=== PATIENT | female | born 1980 | race Caucasian/White ===

== ENCOUNTER → 2019-09-22 | Outpatient (CLI) | payer BC, OTHER ==
--- NOTE | 2019-09-22 13:46 | Diagnostic Imaging Report ---
INDICATION: BRONCHITIS. COMPARISON: None. FINDINGS: Frontal and lateral views of the chest demonstrate normal heart size and pulmonary vascularity. The lungs are clear. There are no signs of infiltrate, pleural effusions or pneumothoraces. The visualized osseous structures show no acute abnormalities. IMPRESSION: 1. No acute process. No signs of infiltrates, effusions or pneumothoraces. Dictated by: Dictated on workstation # [id number]
== END ==
LOC: RAD FS 13:33
PROVIDERS: ATTEND Emergency Medicine
DX: J40 Bronchitis, not specified as acute or chronic (principal)
CPT/HCPCS: 71046

== ENCOUNTER 2019-11-15 08:01 | Emergency (ER) | payer BC, OTHER ==
[~2019-11-15] VITALS: Ht 162.6 cm; Wt 75.9 kg
--- NOTE | 2019-11-15 08:36 | ED Abdominal Pain ---
General Chief Complaint: Abdominal/GI Problems Stated Complaint: ABD PAIN Source of Information: Patient Exam Limitations: No Limitations History of Present Illness Date Seen by Provider: Nov 15, 2019 Time Seen by Provider: 08:15 Initial Comments The patient is a 39-year-old female who presents for evaluation of 2 months of lower abdominal discomfort. She states that she has had a partial hysterectomy but still has both ovaries and has a previous history of endometriosis and also has a history of irritable bowel syndrome. She has a PCP and a sr. social media & mobile manager but has not seen either of them during the last 2 months while she has been having this discomfort. She denies fevers or chills, nausea or vomiting, urinary com plaints, pelvic pain/bleeding/discharge, chest pain or shortness of breath, dizziness or syncope. She does report some intermittent diarrhea. She currently rates her pain at a 6 out of 10. Timing/Duration: Other (2 months) Severity/Quality: Moderate Location: Suprapubic Radiation: Back Activities at Onset: None Modifying Factors: Improves With Other (naproxen) Associated Symptoms: Denies Symptoms Allergies and Home Medications Allergies Coded Allergies: latex (Verified Allergy, Unknown, 11/15/19) Patient Home Medication List Home Medication List Reviewed: Yes Review of Systems Review of Systems Constitutional: no symptoms reported; No fever EENTM: No Symptoms Reported Respiratory: No Symptoms Reported Cardiovascular: No Symptoms Reported Gastrointestinal: Abdominal Pain, Diarrhea; Denies Vomiting Genitourinary: No Symptoms Reported; Denies Burning, Denies Discharge, Denies Flank Pain, Denies Hematuria, Denies Urgency Musculoskeletal: no symptoms reported Skin: no symptoms reported Psychiatric/Neurological: No Symptoms Reported Endocrine: No Symptoms Reported Hematologic/Lymphatic: No Symptoms Reported All Other Systems Reviewed Negative Unless Noted: Yes Past Vjwurfc-Fvrark-Fsjqhp Hx Past Med/Social Hx: Reviewed Nursing Past Med/Soc Hx Patient Social History Recent Foreign Travel: No Physical Exam Vital Signs Vital Signs - First Documented 11/15/19 08:10 Temp 36.1 Pulse 96 Resp 18 B/P (MAP) 138/88 (105) Pulse Ox 100 O2 Delivery Room Air Capillary Refill : Height/Weight/BMI Height: '" Weight: lbs. oz. kg; BMI Method: General Appearance: WD/WN, no apparent distress HEENT: PERRL/EOMI, TMs normal Neck: non-tender, full range of motion Respiratory: chest non-tender, lungs clear, normal breath sounds, no respiratory distress Gastrointestinal: normal bowel sounds, non tender, soft Extremities: normal range of motion, non-tender, normal inspection, no pedal edema Back: normal inspection, no CVA tenderness, no vertebral tenderness Neurologic/Psychiatric: account executive healthcare II-XII nml as tested, no motor/sensory deficits, alert, oriented x 3 Skin: normal color, warm/dry Progress/Results/Core Measures Results/Orders Lab Results Laboratory Tests Test 11/15/19 08:05 11/15/19 08:15 Range/Units Urine Color YELLOW Urine Clarity SL CLOUDY Urine pH 6.0 5-9 Urine Specific [place] 1.020 1.016-1.022 Urine Protein NEGATIVE NEGATIVE Urine Glucose (UA) NEGATIVE NEGATIVE Urine Ketones NEGATIVE NEGATIVE Urine Nitrite NEGATIVE NEGATIVE Urine Bilirubin NEGATIVE NEGATIVE Urine Urobilinogen 0.2 < = 1.0 MG/DL Urine Leukocyte Esterase 1+ H NEGATIVE Urine RBC (Auto) NEGATIVE NEGATIVE Urine RBC 0-2 /HPF Urine WBC 25-50 H /HPF Urine Squamous Epithelial Cells 5-10 /HPF Urine Crystals PRESENT H /LPF Urine Calcium Oxalate Crystals MODERATE H /LPF Urine Bacteria NEGATIVE /HPF Urine Casts NONE /LPF Urine Mucus SMALL H /LPF Urine Culture Indicated YES White Blood Count 10.0 4.3-11.0 10^3/uL Red Blood Count 4.39 4.35-5.85 10^6/uL Hemoglobin 13.6 11.5-16.0 G/DL Hematocrit 40 35-52 % Mean Corpuscular Volume 92 80-99 FL Mean Corpuscular Hemoglobin 31 25-34 PG Mean Corpuscular Hemoglobin Concent 34 32-36 G/DL Red Cell Distribution Width 13.4 10.0-14.5 % Platelet Count 394 130-400 10^3/uL Mean Platelet Volume 10.5 H 7.4-10.4 FL Neutrophils (%) (Auto) 60 42-75 % Lymphocytes (%) (Auto) 27 12-44 % Monocytes (%) (Auto) 8 0-12 % Eosinophils (%) (Auto) 4 0-10 % Basophils (%) (Auto) 1 0-10 % Neutrophils # (Auto) 6.0 1.8-7.8 X 10^3 Lymphocytes # (Auto) 2.8 1.0-4.0 X 10^3 Monocytes # (Auto) 0.8 0.0-1.0 X 10^3 Eosinophils # (Auto) 0.4 H 0.0-0.3 10^3/uL Basophils # (Auto) 0.1 0.0-0.1 10^3/uL Sodium Level 138 135-145 MMOL/L Potassium Level 4.0 3.6-5.0 MMOL/L Chloride Level 104 98-107 MMOL/L Carbon Dioxide Level 23 21-32 MMOL/L Anion Gap 11 5-14 MMOL/L Blood Urea Nitrogen 14 7-18 MG/DL Creatinine 0.71 0.60-1.30 MG/DL Estimat Glomerular Filtration Rate > 60 BUN/Creatinine Ratio 20 Glucose Level 76 70-105 MG/DL Calcium Level 9.1 8.5-10.1 MG/DL Corrected Calcium 9.2 8.5-10.1 MG/DL Total Bilirubin 0.2 0.1-1.0 MG/DL Aspartate Amino Transf (AST/SGOT) 15 5-34 U/L Alanine Aminotransferase (ALT/SGPT) 16 0-55 U/L Alkaline Phosphatase 84 40-136 U/L Total Protein 7.0 6.4-8.2 GM/DL Albumin 3.9 3.2-4.5 GM/DL Lipase 33 8-78 U/L My Orders Orders - JAKY LOREDO DO Ua Culture If Indicated (11/15/19 08:02) Comprehensive Metabolic Panel (11/15/19 08:23) Lipase (11/15/19 08:23) Ed Iv/Invasive Line Start (11/15/19 08:23) Cbc With Automated Diff (11/15/19 08:23) Ct Abdomen/Pelvis W (11/15/19 08:23) Iohexol Injection (Omnipaque 350 Mg/Ml 1 (11/15/19 08:45) Received Contrast (Hold Metformin- Contr (11/15/19 08:45) Sodium Chloride Flush (Catheter Flush Sy (11/15/19 08:45) Ns (Ivpb) (Sodium Chloride 0.9% Ivpb Bag (11/15/19 08:45) Urine Culture (11/15/19 08:05) Ns Iv 1000 Ml (Sodium Chloride 0.9%) (11/15/19 09:30) Morphine Injection (Morphine Injection (11/15/19 09:21) Ketorolac Injection (Toradol Injection) (11/15/19 09:30) Ondansetron Injection (Zofran Injectio (11/15/19 09:30) Ceftriaxone For Iv Use (Rocephin For I (11/15/19 10:45) Hydromorphone Injection (Dilaudid Inject (11/15/19 11:00) Medications Given in ED Current Medications Medications Dose Ordered Sig/Matti Route Start Time Stop Time Status Last Admin Dose Admin Ceftriaxone Sodium 1000 mg/ Sterile Water 10 ml @ 200 mls/hr ONCE ONCE IV 11/15/19 10:45 11/15/19 10:47 DC 11/15/19 11:10 200 MLS/HR Hydromorphone HCl 1 mg ONCE ONCE IV 11/15/19 11:00 11/15/19 11:01 DC 11/15/19 11:10 1 MG Iohexol 100 ml ONCE ONCE IV 11/15/19 08:45 11/15/19 08:46 DC 11/15/19 10:08 100 ML Ketorolac Tromethamine 30 mg ONCE ONCE IVP 11/15/19 09:30 11/15/19 09:31 DC 11/15/19 09:48 30 MG Ondansetron HCl 4 mg ONCE ONCE IVP 11/15/19 09:30 11/15/19 09:31 DC 11/15/19 09:48 4 MG Sodium Chloride 10 ml NEEDED PRN IV 11/15/19 08:45 11/15/19 10:08 10 ML Sodium Chloride 100 ml ONCE ONCE IV 11/15/19 08:45 11/15/19 08:46 DC 11/15/19 10:08 80 ML Vital Signs/I&O 11/15/19 08:10 Temp 36.1 Pulse 96 Resp 18 B/P (MAP) 138/88 (105) Pulse Ox 100 O2 Delivery Room Air Progress Progress Note : Progress Note @1050 - Patient informed of lab and imaging results including the finding of an obstructing right-sided kidney stone. The patient is still having pain and is agreeable to transfer to a higher level urology [facility]. Her preferred facility is [facility] as she is been admitted there in the past and has some of her physicians located there. [facility] transfer line was called at this time. @1120 - Dr. Kern (transfer physician) accepts the transfer to [facility]. Dr. Michael Chery (urology) also on the call. Pt stable for transfer and agreeable. Diagnostic Imaging Diagonstic Imaging: CT Comments [facility] [place] [place] NAME: [facility]Z [facility] REC#: [id number] PT STATUS: REG ER : 1980 PHYSICIAN: JAKY LOREDO DO ADMIT DATE: 11/15/19/ER FS Draft Date of Exam:11/15/19 CT ABDOMEN/PELVIS W EXAMINATION: CT Abdomen and Pelvis with intravenous contrast. TECHNIQUE: Multiple contiguous axial images were obtained through the abdomen and pelvis after the uneventful administration of intravenous contrast. All CT scans use one or more of the following dose optimizing techniques: automated exposure control, MA and/or KvP adjustment based on a patient size and exam type, or iterative reconstruction. INDICATION: Lower abdominal pain. COMPARISON: None available. FINDINGS: Limited views of the lower thorax are unremarkable. The liver is normal without focal lesion. There is no biliary ductal dilation. Gallbladder is normal. Pancreas is normal. Spleen is normal. Adrenal glands are normal. There is an obstructing 6 mm stone in the distal right ureter. There is moderate right-sided hydroureter with urothelial enhancement. There is mild right hydronephrosis. There are bilateral nonobstructing renal stones measuring up to 4 mm. Urinary bladder is normal. There are no dilated loops of large or small bowel. No obstruction or inflammation. No free fluid or air. No abdominal or pelvic lymphadenopathy. Aorta is normal in caliber without aneurysm. There is disc height loss at L4/L5. Epidural soft tissue at this location is likely a large disc protrusion, but difficult to evaluate on non-spine dedicated imaging. This lesion results in severe spinal canal stenosis. IMPRESSION: 1. Obstructing 6 mm stone in the distal right ureter with moderate right hydroureter and mild right hydronephrosis. Enhancement of the urothelium is indicative of urothelial inflammation can be seen with an infected collecting system. 2. Severe spinal canal stenosis at L4/L5 due to epidural soft tissue likely representing enlarged disc protrusion but difficult to evaluate are non-spine dedicated imaging. If not done previously, then MRI is recommended to ensure this is related to disc disease. Dictated on workstation # [id number] Dict: 11/15/19 0853 Trans: 11/15/19 0904 [id number] Interpreted by: SILVIA CHANG MD Electronically signed by: Departure Impression Primary Impression: Right distal ureteral calculus Additional Impression: Abdominal pain Disposition: XFER SHT-TRM HOSP Condition: Stable Transfer Transfer Reason: Exceeds level of care Time Spoke to Accepting Phy: 11:[address] Kern at [facility] accepts the transfer with a urology consultation from Dr. Michael Chery. Transfer Time: 11:25 Transfer Facility: [facility] Method of Transfer: EMS Departure-Patient Inst. Referrals: SAAD YIN DO (PCP/Family) Primary Care Physician JAKY LOREDO DO Nov 15, 2019 08:36
[2019-11-15 08:45] LABS: BACTERIA,URINE NEGATIVE /HPF; BILIRUBIN,URINE NEGATIVE (NEGATIVE); CLARITY,URINE SL CLOUDY; COLOR,URINE YELLOW; GLUCOSE, URINE (UA) NEGATIVE (NEGATIVE); KETONES,URINE NEGATIVE (NEGATIVE); LEUKOCYTE ESTERASE ,URINE 1+ (NEGATIVE); NITRITE,URINE NEGATIVE (NEGATIVE); PROTEIN,URINE NEGATIVE (NEGATIVE); RBC,URINE 0-2 /HPF; WBC,URINE 25-50 /HPF
[2019-11-15] MEDS ORDERED: HOLD METFORMIN - RECEIVED CONTRAST 20 ML VIAL IV SCH (08:45)
[2019-11-15] MEDS ORDERED: CATHETER FLUSH 10 ML SYR IV PRN (08:45)
[2019-11-15] MEDS ORDERED: NS 100 ML (IVPB) BAG IV ONE (08:45)
[2019-11-15] MEDS ORDERED: IOHEXOL 350 MG/ML 100 ML (OMNIPAQUE 350) VIAL IV ONE (08:45)
[2019-11-15 08:46] LABS: CALCIUM OXALATE CRYSTALS,UR MODERATE /LPF
[2019-11-15 08:47] LABS: BASOPHILS % (AUTO) 1 % (0-10); EOSINOPHILS % (AUTO) 4 % (0-10); HEMATOCRIT 40 % (35-52); HEMOGLOBIN 13.6 G/DL (11.5-16.0); MEAN CORPUSCULAR HEMOGLOBIN 31 PG (25-34); MEAN CORPUSCULAR HGB CONC 34 G/DL (32-36); MEAN CORPUSCULAR VOLUME 92 FL (80-99); MEAN PLATELET VOLUME 10.5 FL (7.4-10.4); MONOCYTES % (AUTO) 8 % (0-12); NEUTROPHILS % (AUTO) 60 % (42-75); PLATELET COUNT 394 10^3/uL (130-400); RED CELL DISTRIBUTION WIDTH 13.4 % (10.0-14.5)
[2019-11-15 08:49] LABS: BASOPHILS # (AUTO) 0.1 10^3/uL (0.0-0.1); EOSINOPHILS # (AUTO) 0.4 10^3/uL (0.0-0.3); LYMPHOCYTES # (AUTO) 2.8 X 10^3 (1.0-4.0); LYMPHOCYTES % (AUTO) 27 % (12-44); MONOCYTES # (AUTO) 0.8 X 10^3 (0.0-1.0)
[2019-11-15 08:50] LABS: ALANINE AMINOTRANSFERASE 16 U/L (0-55); ALBUMIN 3.9 GM/DL (3.2-4.5); ALKALINE PHOSPHATASE 84 U/L (40-136); BILIRUBIN,TOTAL 0.2 MG/DL (0.1-1.0); BUN/CREATININE RATIO 20; CALCIUM 9.1 MG/DL (8.5-10.1); CARBON DIOXIDE 23 MMOL/L (21-32); CHLORIDE 104 MMOL/L (98-107); CREATININE SERUM 0.71 MG/DL (0.60-1.30); GFR ESTIMATED > 60; GLUCOSE 76 MG/DL (70-105); LIPASE 33 U/L (8-78); SODIUM 138 MMOL/L (135-145)
--- NOTE | 2019-11-15 09:04 | Diagnostic Imaging Report ---
EXAMINATION: CT Abdomen and Pelvis with intravenous contrast. TECHNIQUE: Multiple contiguous axial images were obtained through the abdomen and pelvis after the uneventful administration of intravenous contrast. All CT scans use one or more of the following dose optimizing techniques: automated exposure control, MA and/or KvP adjustment based on a patient size and exam type, or iterative reconstruction. INDICATION: Lower abdominal pain. COMPARISON: None available. FINDINGS: Limited views of the lower thorax are unremarkable. The liver is normal without focal lesion. There is no biliary ductal dilation. Gallbladder is normal. Pancreas is normal. Spleen is normal. Adrenal glands are normal. There is an obstructing 6 mm stone in the distal right ureter. There is moderate right-sided hydroureter with urothelial enhancement. There is mild right hydronephrosis. There are bilateral nonobstructing renal stones measuring up to 4 mm. Urinary bladder is normal. There are no dilated loops of large or small bowel. No obstruction or inflammation. No free fluid or air. No abdominal or pelvic lymphadenopathy. Aorta is normal in caliber without aneurysm. There is disc height loss at L4/L5. Epidural soft tissue at this location is likely a large disc protrusion, but difficult to evaluate on non-spine dedicated imaging. This lesion results in severe spinal canal stenosis. IMPRESSION: 1. Obstructing 6 mm stone in the distal right ureter with moderate right hydroureter and mild right hydronephrosis. Enhancement of the urothelium is indicative of urothelial inflammation can be seen with an infected collecting system. 2. Severe spinal canal stenosis at L4/L5 due to epidural soft tissue likely representing enlarged disc protrusion but difficult to evaluate are non-spine dedicated imaging. If not done previously, then MRI is recommended to ensure this is related to disc disease. Dictated by: Dictated on workstation # [id number]
[2019-11-15 09:15] VITALS: BP 138/81
[2019-11-15] MEDS ORDERED: morphine INJ 10 MG/ML 1ML (SYR OR VIAL) IVP STA (09:21)
[2019-11-15] MEDS ORDERED: ONDANSETRON 4 MG/2 ML (SDV) Z0FRAN IVP ONE (09:30)
[2019-11-15] MEDS ORDERED: KETOROLAC 30 MG/ML VIAL IVP ONE (09:30)
[2019-11-15] MEDS ORDERED: NS IV 1000 ML 1,000 ML IV SCH (09:30)
[2019-11-15] MEDS ORDERED: cefTRIAXone FOR IV USE 1,000 MG in WATER (STERILE) FOR INJECTION 10 ML IV ONE (10:45)
[2019-11-15] MEDS ORDERED: HYDROmorphone 2 MG/ML VIAL (DILAUDID) IV ONE (11:00)
[2019-11-15] MEDS ORDERED: HYDROmorphone 2 MG/ML VIAL (DILAUDID) ONE (11:00)
[2019-11-15 12:01] VITALS: BP 128/79
== END 2019-11-15 12:30 | disposition short-term general hospital (02) ==
LOC: EDUNIT# 08:01 → ER FS 08:02
DX: N13.2 Hydronephrosis with renal and ureteral calculous obstruction (principal); Z91.040 Latex allergy status
CPT/HCPCS: 36415; 74177; 80053; 81000; 83690; 85025; 87088

== ENCOUNTER 2019-12-09 02:26 | Emergency (ER) | payer BC, OTHER ==
[~2019-12-09] VITALS: Ht 162 cm; Wt 75.9 kg
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
[2019-12-09] MEDS ORDERED: NS IV 1000 ML 1,000 ML IV STA (03:25)
[2019-12-09] MEDS ORDERED: KETOROLAC 30 MG/ML VIAL IVP STA (03:25)
[2019-12-09 03:46] LABS: BASOPHILS % (AUTO) 1 % (0-10); EOSINOPHILS % (AUTO) 0 % (0-10); HEMATOCRIT 40 % (35-52); HEMOGLOBIN 13.8 G/DL (11.5-16.0); LYMPHOCYTES # (AUTO) 1.7 X 10^3 (1.0-4.0); LYMPHOCYTES % (AUTO) 31 % (12-44); MEAN CORPUSCULAR HEMOGLOBIN 31 PG (25-34); MEAN CORPUSCULAR HGB CONC 34 G/DL (32-36); MEAN CORPUSCULAR VOLUME 90 FL (80-99); MEAN PLATELET VOLUME 10.2 FL (7.4-10.4); MONOCYTES # (AUTO) 0.8 X 10^3 (0.0-1.0); MONOCYTES % (AUTO) 15 % (0-12); NEUTROPHILS % (AUTO) 53 % (42-75); PLATELET COUNT 309 10^3/uL (130-400); RED CELL DISTRIBUTION WIDTH 13.4 % (10.0-14.5); WHITE BLOOD COUNT 5.6 10^3/uL (4.3-11.0)
[2019-12-09 03:58] LABS: ALANINE AMINOTRANSFERASE 24 U/L (0-55); ALBUMIN 4.2 GM/DL (3.2-4.5); ALKALINE PHOSPHATASE 98 U/L (40-136); BILIRUBIN,TOTAL 0.2 MG/DL (0.1-1.0); BUN/CREATININE RATIO 13; CALCIUM 10.4 MG/DL (8.5-10.1); CARBON DIOXIDE 27 MMOL/L (21-32); CHLORIDE 102 MMOL/L (98-107); GFR ESTIMATED > 60; GLUCOSE 104 MG/DL (70-105); POTASSIUM 3.5 MMOL/L (3.6-5.0); SODIUM 140 MMOL/L (135-145); TOTAL PROTEIN 7.4 GM/DL (6.4-8.2)
[2019-12-09] MEDS ORDERED: ONDANSETRON 4 MG/2 ML (SDV) Z0FRAN IVP STA (04:35)
[2019-12-09] MEDS ORDERED: methylPREDNISolone 40 MG/ML (Solu-MEDROL) VIAL IV STA (05:06)
[2019-12-09] MEDS ORDERED: methylPREDNISolone 40 MG/ML (DEPO MEDROL) VIAL IM STA (05:06)
[2019-12-09 05:20] VITALS: BP 120/71
--- NOTE | 2019-12-09 06:11 | Diagnostic Imaging Report ---
INDICATION: Cough, fever. TECHNIQUE: Two view chest 3:36 AM CORRELATION STUDY: 09/22/2019 FINDINGS: The heart size, mediastinal configuration and pulmonary vasculature are within normal limits. The lungs are clear with no consolidating infiltrate. There is no significant pleural effusion or pneumothorax. Visualized osseous structures are unremarkable. IMPRESSION: 1. Negative for acute abnormality of the chest. Dictated by: Dictated on workstation # [id number]
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
== END 2019-12-09 05:21 | disposition home or self-care (01) ==
LOC: EDUNIT# 02:26 → ER FS 02:28
DX: S90.31XA Contusion of right foot, initial encounter (principal); J06.9 Acute upper respiratory infection, unspecified; Z91.040 Latex allergy status; V48.2XXA Person on outside of car injured in noncollision transport accident in nontraffic accident, initial encounter
CPT/HCPCS: 36415; 71046; 73630; 80053; 85025; 87804; 96361; 96374; 96375

== ENCOUNTER 2020-04-22 15:46 | Emergency (ER) | payer BC, OTHER ==
[~2020-04-22] VITALS: Ht 162 cm; Wt 79.3 kg
[2020-04-22] MEDS ORDERED: ONDANSETRON 4 MG/2 ML (SDV) Z0FRAN IVP ONE (16:15)
[2020-04-22] MEDS ORDERED: fentaNYL INJECTION 100 MCG/2 ML AMP IVP ONE (16:15)
--- NOTE | 2020-04-22 16:18 | ED Abdominal Pain ---
General Chief Complaint: Abdominal/GI Problems Stated Complaint: ABD/LOWER BACK PAIN History of Present Illness Date Seen by Provider: Apr 22, 2020 Time Seen by Provider: 16:15 Initial Comments Pt presents with lower abdominal pain x about 2 weeks. She was seen by a Urologist in [address] days ago and had [address] and was told no kidney stones. She feels nauseated at times due to the pain. No diarrhea. She has had a hysterectomy, still has ovaries, did have endometriosis in the past. No fever but felt some chills last night. Allergies and Home Medications Allergies Coded Allergies: latex (Verified Allergy, Unknown, 11/15/19) Patient Home Medication List Home Medication List Reviewed: Yes Review of Systems Review of Systems Constitutional: chills; No fever EENTM: No Symptoms Reported Respiratory: No Symptoms Reported Cardiovascular: No Symptoms Reported Gastrointestinal: Abdominal Pain, Nausea Genitourinary: No Symptoms Reported Musculoskeletal: no symptoms reported Skin: no symptoms reported Psychiatric/Neurological: No Symptoms Reported Past Xhrunlp-Vceccv-Srcbyu Hx Patient Social History 2nd Hand Smoke Exposure: No Recent Hopitalizations: No Seasonal Allergies Seasonal Allergies: No Past Medical History Surgeries: Yes Ear Surgery, Hysterectomy Respiratory: No Cardiac: No Neurological: No Female Reproductive Disorders: Polycystic Ovarian Dis 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 oz. kg; 28.00 BMI Method: General Appearance: WD/WN, no apparent distress Neck: supple Respiratory: lungs clear, normal breath sounds Cardiovascular: regular rate, rhythm, no edema Gastrointestinal: soft, tenderness (lower abdominal) Neurologic/Psychiatric: no motor/sensory deficits, normal mood/affect, oriented x 3 Skin: normal color, warm/dry Progress/Results/Core Measures Results/Orders Lab Results Laboratory Tests Test 04/22/20 15:55 04/22/20 16:45 Range/Units Urine Color YELLOW Urine Clarity CLEAR Urine pH 6.0 5-9 Urine Specific [place] 1.010 L 1.016-1.022 Urine Protein NEGATIVE NEGATIVE Urine Glucose (UA) NEGATIVE NEGATIVE Urine Ketones NEGATIVE NEGATIVE Urine Nitrite NEGATIVE NEGATIVE Urine Bilirubin NEGATIVE NEGATIVE Urine Urobilinogen 0.2 < = 1.0 MG/DL Urine Leukocyte Esterase NEGATIVE NEGATIVE Urine RBC (Auto) 1+ H NEGATIVE Urine RBC 2-5 H /HPF Urine WBC RARE /HPF Urine Squamous Epithelial Cells 0-2 /HPF Urine Crystals NONE /LPF Urine Bacteria NONE /HPF Urine Casts NONE /LPF Urine Mucus SMALL H /LPF Urine Culture Indicated NO White Blood Count 9.2 4.3-11.0 10^3/uL Red Blood Count 4.20 L 4.35-5.85 10^6/uL Hemoglobin 13.2 11.5-16.0 G/DL Hematocrit 38 35-52 % Mean Corpuscular Volume 91 80-99 FL Mean Corpuscular Hemoglobin 31 25-34 PG Mean Corpuscular Hemoglobin Concent 35 32-36 G/DL Red Cell Distribution Width 12.8 10.0-14.5 % Platelet Count 308 130-400 10^3/uL Mean Platelet Volume 10.3 7.4-10.4 FL Neutrophils (%) (Auto) 69 42-75 % Lymphocytes (%) (Auto) 20 12-44 % Monocytes (%) (Auto) 9 0-12 % Eosinophils (%) (Auto) 1 0-10 % Basophils (%) (Auto) 0 0-10 % Neutrophils # (Auto) 6.3 1.8-7.8 X 10^3 Lymphocytes # (Auto) 1.8 1.0-4.0 X 10^3 Monocytes # (Auto) 0.8 0.0-1.0 X 10^3 Eosinophils # (Auto) 0.2 0.0-0.3 10^3/uL Basophils # (Auto) 0.0 0.0-0.1 10^3/uL Sodium Level 140 135-145 MMOL/L Potassium Level 3.9 3.6-5.0 MMOL/L Chloride Level 107 98-107 MMOL/L Carbon Dioxide Level 24 21-32 MMOL/L Anion Gap 9 5-14 MMOL/L Blood Urea Nitrogen 13 7-18 MG/DL Creatinine 0.76 0.60-1.30 MG/DL Estimat Glomerular Filtration Rate > 60 BUN/Creatinine Ratio 17 Glucose Level 120 H 70-105 MG/DL Calcium Level 10.1 8.5-10.1 MG/DL Corrected Calcium 9.9 8.5-10.1 MG/DL Total Bilirubin 0.3 0.1-1.0 MG/DL Aspartate Amino Transf (AST/SGOT) 14 5-34 U/L Alanine Aminotransferase (ALT/SGPT) 18 0-55 U/L Alkaline Phosphatase 68 40-136 U/L Total Protein 6.7 6.4-8.2 GM/DL Albumin 4.2 3.2-4.5 GM/DL Lipase 27 8-78 U/L My Orders Orders - GREY LONGORIA MD Cbc With Automated Diff (04/22/20 16:13) Comprehensive Metabolic Panel (04/22/20 16:13) Lipase (04/22/20 16:13) Urinalysis (04/22/20 16:13) Fentanyl Injection (Sublimaze Injection (04/22/20 16:15) Ondansetron Injection (Zofran Injectio (04/22/20 16:15) Ct Abdomen/Pelvis W (04/22/20 16:13) Iohexol Injection (Omnipaque 350 Mg/Ml 1 (04/22/20 16:30) Received Contrast (Hold Metformin- Contr (04/22/20 16:30) Sodium Chloride Flush (Catheter Flush Sy (04/22/20 16:30) Ns (Ivpb) (Sodium Chloride 0.9% Ivpb Bag (04/22/20 16:30) Ketorolac Injection (Toradol Injection) (04/22/20 18:00) Medications Given in ED Current Medications Medications Dose Ordered Sig/Matti Route Start Time Stop Time Status Last Admin Dose Admin Fentanyl Citrate 50 mcg ONCE ONCE IVP 04/22/20 16:15 04/22/20 16:16 DC 04/22/20 16:53 50 MCG Iohexol 100 ml ONCE ONCE IV 04/22/20 16:30 04/22/20 16:31 DC 04/22/20 17:11 100 ML Ondansetron HCl 4 mg ONCE ONCE IVP 04/22/20 16:15 04/22/20 16:16 DC 04/22/20 16:53 4 MG Sodium Chloride 10 ml NEEDED PRN IV 04/22/20 16:30 04/22/20 17:11 10 ML Sodium Chloride 100 ml ONCE ONCE IV 04/22/20 16:30 04/22/20 16:31 DC 04/22/20 17:11 100 ML Vital Signs/I&O 04/22/20 15:54 Temp 36.7 Pulse 98 Resp 16 B/P (MAP) 133/84 (100) Pulse Ox 97 Progress Progress Note : Time: 17:58 Progress Note Left ureteral stone seen on CT. She has a Urologist in . Will discharge home with Joe Solares Cipro. Follow up with Urology. Departure Impression Primary Impression: Left ureteral stone Disposition: HOME, SELF-CARE Condition: Stable Departure-Patient Inst. Referrals: SAAD YIN DO (PCP/Family) Primary Care Physician Patient Instructions: Kidney Stones in Adults Add. Discharge Instructions: Call your Urologist tomorrow for follow up. All discharge instructions reviewed with patient and/or family. Voiced understanding. Scripts Tamsulosin HCl (Flomax) 0.4 Mg Cap 0.4 MG PO DAILY, #7 CAP Prov: GREY LONGORIA MD 04/22/20 Hydrocodone/Acetaminophen (Hydrocodone-Acetamin 5-325 mg) 1 Each Tablet 1 EACH PO Q6H PRN for PAIN-BREAKTHROUGH for 7 Days, #20 TAB Prov: GREY LONGORIA MD 04/22/20 Ciprofloxacin HCl (Ciprofloxacin HCl) 500 Mg Tablet 500 MG PO BID, #14 TAB Prov: GREY LONGORIA MD 04/22/20 GREY LONGORIA MD Apr 22, 2020 16:18
[2020-04-22] MEDS ORDERED: CATHETER FLUSH 10 ML SYR IV PRN (16:30)
[2020-04-22] MEDS ORDERED: HOLD METFORMIN - RECEIVED CONTRAST 20 ML VIAL IV SCH (16:30)
[2020-04-22] MEDS ORDERED: NS 100 ML (IVPB) BAG IV ONE (16:30)
[2020-04-22] MEDS ORDERED: IOHEXOL 350 MG/ML 100 ML (OMNIPAQUE 350) VIAL IV ONE (16:30)
[2020-04-22 16:53] LABS: HEMATOCRIT 38 % (35-52); HEMOGLOBIN 13.2 G/DL (11.5-16.0); MEAN CORPUSCULAR HEMOGLOBIN 31 PG (25-34); MEAN CORPUSCULAR HGB CONC 35 G/DL (32-36); MEAN CORPUSCULAR VOLUME 91 FL (80-99); RED CELL DISTRIBUTION WIDTH 12.8 % (10.0-14.5); WHITE BLOOD COUNT 9.2 10^3/uL (4.3-11.0)
[2020-04-22 16:54] LABS: BASOPHILS % (AUTO) 0 % (0-10); EOSINOPHILS # (AUTO) 0.2 10^3/uL (0.0-0.3); EOSINOPHILS % (AUTO) 1 % (0-10); LYMPHOCYTES # (AUTO) 1.8 X 10^3 (1.0-4.0); LYMPHOCYTES % (AUTO) 20 % (12-44); MEAN PLATELET VOLUME 10.3 FL (7.4-10.4); MONOCYTES # (AUTO) 0.8 X 10^3 (0.0-1.0); MONOCYTES % (AUTO) 9 % (0-12); NEUTROPHILS # (AUTO) 6.3 X 10^3 (1.8-7.8); NEUTROPHILS % (AUTO) 69 % (42-75); PLATELET COUNT 308 10^3/uL (130-400)
[2020-04-22 16:58] LABS: BILIRUBIN,URINE NEGATIVE (NEGATIVE); CLARITY,URINE CLEAR; COLOR,URINE YELLOW; GLUCOSE, URINE (UA) NEGATIVE (NEGATIVE); KETONES,URINE NEGATIVE (NEGATIVE); LEUKOCYTE ESTERASE ,URINE NEGATIVE (NEGATIVE); NITRITE,URINE NEGATIVE (NEGATIVE); PROTEIN,URINE NEGATIVE (NEGATIVE); SQUAMOUS EPITHELIAL CELL,UR 0-2 /HPF; WBC,URINE RARE /HPF
[2020-04-22 17:13] LABS: ALANINE AMINOTRANSFERASE 18 U/L (0-55); ALBUMIN 4.2 GM/DL (3.2-4.5); ALKALINE PHOSPHATASE 68 U/L (40-136); BILIRUBIN,TOTAL 0.3 MG/DL (0.1-1.0); BUN/CREATININE RATIO 17; CALCIUM 10.1 MG/DL (8.5-10.1); CARBON DIOXIDE 24 MMOL/L (21-32); CHLORIDE 107 MMOL/L (98-107); CREATININE SERUM 0.76 MG/DL (0.60-1.30); GFR ESTIMATED > 60; GLUCOSE 120 MG/DL (70-105); LIPASE 27 U/L (8-78); POTASSIUM 3.9 MMOL/L (3.6-5.0); SODIUM 140 MMOL/L (135-145); TOTAL PROTEIN 6.7 GM/DL (6.4-8.2)
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
--- NOTE | 2020-04-22 17:36 | Diagnostic Imaging Report ---
PROCEDURE: CT abdomen and pelvis with contrast. TECHNIQUE: Multiple contiguous axial images were obtained through the abdomen and pelvis after administration of intravenous contrast. Auto Exposure Controls were utilized during the CT exam to meet ALARA standards for radiation dose reduction. INDICATION: Abdominal pain, back pain and nausea. History of nephrolithiasis. COMPARISON: Prior examination from 11/15/2019. FINDINGS: The heart size is normal. The lung bases are clear. The liver is normal in size and without focal lesions. Gallbladder is unremarkable. There is no biliary duct dilatation. Spleen is normal. The pancreas and adrenal glands are unremarkable. There is a 4 mm nonobstructing stone in the right kidney. There is a 3 mm nonobstructing stone in the left kidney. There is mild left hydronephrosis secondary to a 3 mm stone in the distal left ureter just proximal to the left UVJ. Bladder is normal. The aorta is nonaneurysmal. Bowel gas pattern is nonspecific. There is no free air. There is no ascites. There is no pelvic mass, adenopathy or free fluid. There is some mild degenerative disc disease at L4-L5. The osseous structures are otherwise unremarkable IMPRESSION: 1. Mild left hydronephrosis and hydroureter secondary to a 3 mm stone in the distal left ureter just proximal to the left UVJ. There are additional small nonobstructing stones in both kidneys. 2. No other acute abnormality in the abdomen or pelvis. Dictated by: Dictated on workstation # [id number]
[2020-04-22] MEDS ORDERED: KETOROLAC 30 MG/ML VIAL IVP ONE (18:00)
[2020-04-22] MEDS ORDERED: KETOROLAC 30 MG/ML VIAL ONE (18:02)
[2020-04-22] MEDS ORDERED: TMSL.4C PO (18:05)
[2020-04-22] MEDS ORDERED: CIPR500T4 PO (18:05)
[2020-04-22] MEDS ORDERED: HYDR-83 PO (18:05)
[2020-04-22 18:23] VITALS: BP 96/53
[2020-04-22] MEDS ORDERED: RX-HYDROCODONE/APAP 5/325 MG #4 TAB PK PO PRN (18:30)
== END 2020-04-22 18:24 | disposition home or self-care (01) ==
LOC: EDUNIT# 15:46 → ER FS 15:47
DX: N13.2 Hydronephrosis with renal and ureteral calculous obstruction (principal); Z91.040 Latex allergy status
CPT/HCPCS: 36415; 74177; 80053; 81000; 83690; 85025

== ENCOUNTER 2021-08-22 12:57 | Emergency (ER) | payer BC, MEDICAID ==
[~2021-08-22] VITALS: Ht 167 cm; Wt 95.0 kg
[~2021-08-22 12:57] MED LIST: ACHD5005 PO; CIPR500T5 PO; TMSL.4C PO
--- OUTSIDE RECORDS SUMMARY | 2021-08-22 13:02 | XMS REPORT ---
Author Organization Unknown Address [address] [place] [address] Phone [phone] Care Team Providers Care Irrigation Specialist Name Role Phone Thee Babcock DO 3 [phone] Armita Kingston MD 82 [phone] Marcus Son DO 114 [phone] Reason for Visit None recorded. Assessment and Plan The following list includes any diagnoses that were discussed at your visit. 1. Post-inflammatory pulmonary fibrosis XR, chest, 2 view pulmonary function test* six minute walk test* nebulizer training / instruction* 2. Moderate persistent asthma Trelegy Ellipta 200 mcg-62.5 mcg-25 mc g powder for inhalation albuterol sulfate 2.5 mg/3 mL (0.083 % ) solution for nebulization 3. Restrictive lung disease 4. Body mass index 30+ - obesity body mass index: care instructions learning about healthy weight 5. Hypothyroidism hypothyroidism: care instructions Discussion Note: None recorded. Plan of Care Reminders Provider Appointments Return to Office on or around 09/02/2021 Mayo Son DO Lab None recorded. Referral None recorded. Procedures None recorded. Surgeries None recorded. Imaging XR, Chest, 2 View 07/03/2021 pg_[facility] Pulmo nology Current Medications Your medical record indicates you are on the following medicine. If this list is not consistentwith the medications you are currently taking, or if you are taki ng additional hugt-tcp-raepvjz medicines, pleaseinform your provider. Name Prescribed Date Start Date acetaminophen 120 mg-codeine 12 mg/5 mL oral solution albuterol sulfate 2.5 mg/3 mL (0.083 %) solution for nebulization Inhale 3 mL 3 times a day by nebulization route for 30 days. 07/03/2021 albuterol sulfate HFA 90 mcg/actuation a erosol inhaler INHALE 1 PUFF BY MOUTH EVERY 4 TO 6 HOURS NEEDED Arnuity Ellipta 200 mcg/actuation powder for inhalation INHALE 1 PUFF BY MOUTH ONCE DAILY Atrovent HFA 17 mcg/actuation aerosol inhaler benzonatate 100 mg capsule benzonatate 200 mg capsule TAKE 1 CAPSULE BY MOUTH THREE TIMES DAILY FOR 7 DAYS cefdinir 300 mg capsule TAKE 1 CAPSULE BY MOUTH TWICE DAILY FOR 7 DAYS clonazepam 0.5 mg tablet Take 1 tablet 3 times a day by oral route as needed. dexamethasone 2 mg tablet dexamethasone 4 mg tablet TAKE 1 TABLET BY MOUTH ONCE DAILY duloxetine 40 mg capsule,delayed release TAKE 1 CAPSULE BY MOUTH DAILY duloxetine 60 mg capsule,delayed release TAKE 1 CAPSULE BY MOUTH ONCE DAILY ergocalciferol (vitamin D2) 1,250 mcg (50,000 unit) capsule fluconazole 150 mg tablet TAKE 1 TABLET BY MOUTH ONCE DAILY MAY REPEAT IN 3 DAYS IF NEEDED fluconazole 200 mg tablet TAKE 1 TABLET BY MOUTH DAILY furosemide 20 mg tablet TAKE 1 TABLET BY MOUTH NEEDED IN THE MORNING metformin metformin 500 mg tablet TAKE 1 TABLET BY MOUTH DAILY methocarbamol 750 mg tablet metoprolol succinate ER 25 mg tablet,ext ended release 24 hr Take 0.5 tablets every day by oral route. metoprolol tartrate 25 mg tablet TAKE 1 2 (ONE HALF) TABLET BY MOUTH AT BEDTIME Mucus Relief ER 600 mg tablet, extended release TAKE 1 TABLET BY MOUTH TWICE DAILY naproxen 500 mg tablet TAKE 1 TABLET BY MOUTH TWICE DAILY FOR 7 DAYS MOLD DRESSER Thyroid 30 mg tablet TAKE 1 TABLET BY MOUTH ONCE DAILY nystatin 100,000 unit/mL oral suspension ofloxacin 0.3 % ear drops INSTILL 10 DROPS INTO AFFECTED EAR ONCE DAILY FOR 7 DAYS ondansetron 4 mg disintegrating tablet oxycodone 5 mg tablet promethazine 6.25 mg-codeine 10 mg/5 mL syrup simvastatin simvastatin 10 mg tablet TAKE 1 TABLET BY MOUTH DAILY spinosad 0.9 % topical suspension APPLY ONCE TO SCALP DIRECTED spironolactone spironolactone 25 mg tablet Symbicort 160 mcg-4.5 mcg/actuation HFA aerosol inhaler INHALE 2 PUFFS BY MOUTH TWICE DAILY tamsulosin 0.4 mg capsule TAKE 1 CAPSULE BY MOUTH DAILY topiramate 50 mg tablet TAKE 1 TABLET BY MOUTH AT BEDTIME Trelegy Ellipta 200 mcg-62.5 mcg-25 mcg powder for inhalation Inhale 1 puff every day by inhalation route for 30 days. 07/03/2021 venlafaxine ER 150 mg capsule,extended r elease 24 hr TAKE 1 CAPSULE BY MOUTH DAILY venlafaxine ER 150 mg tablet,extended release 24 hr Medications Administered None recorded. Vitals Height Weight BMI Blood Pressure Pulse O2 Saturation [place] rature Respiration Rate Body Surface Area Blood Pressure Cuff Size 5 ft 4 in 202 lbs 34.7 kg/m2 137/99 mm[Hg] 108 bpm 98% Oxygen 2 L/min 98.6 F oral 14 2.03 adult Results Lab Results Date Name Specimen Result Interpretation Description Value Range Status Address 07/03/2021 Pulmonary Function Test* Pre Fev1 [facility] Pulmonology: [address] [facility] [address], [place] Post Fev1 Smpg_ mob Pulmonology: [address] [facility] [address], [place] Fev1 2.12 S[facility] P ulmonology: [address] [place] [address], [place] Fev1 % 69 S[facility] Pulmonology: [address] [place] [address] [address], [place] Pre Fef Smpg_mo b Pulmonology: [address] [facility] [address], [place] Post Fef Smpg_m ob Pulmonology: [address] [facility] [address], [place] Fef 2.85 S[facility]mob P ulmonology: [address] [facility] [address], [place] Fvc 2.47 [facility] P ulmonology: [address] [facility] [address], [place] Fvc% 66 [facility] P ulmonology: [address] [facility] [address], [place] Fev1/Fvc 86 Smpg_m ob Pulmonology: [address] [address], [place] Tlc 3.40 [facility] P ulmonology: [address] [place] [address] [address], [place] Tlc% 67 Smp[facility]mob P ulmonology: [address] [place] [address], [place] Rv 0.92 S[facility]mob P ulmonology: [address] [place] [address] [address], [place] Rv% 59 Smp[facility]mob P ulmonology: [address] [place] [address], [place] Dlco 11.1 [facility]mob P ulmonology: [address] [facility] [address], [place] Dlco% 49 [facility] Pulmonology: [address] [facility] [address], [place] Spo2% [facility] Pulmonology: [address] [facility] [address], [place] Liter Flow Smpg _mob Pulmonology: [address] [facility] [address], [place] 07/03/2021 Six Minute Walk Test* Pulse Rest 105 [facility] Pulmonology: [address] [facility] [address], [place] Sa02% Rest 97 Smpg _mob Pulmonology: [address] [facility] [address], [place] FIO2(L/min) Rest RA [facility] Pulmonology: [address] [facility] [address], [place] Dyspnea Rest 3 Sm pg_mob Pulmonology: [address] [facility] [address], [place] Pulse 1 Minute Ambulating 123 [facility] Pulmonology: [address] [facility] [address], [place] Sa02% 1 Minute Ambulating 92 [facility] Pulmonology: [address] [facility] [address], [place] FIO2(L/min) 1 Minute Ambulating RA [facility] Pulmonology: [address] [facility] [address], [place] Dyspnea 1 Minute Ambulating 4 [facility] Pulmonology: [address] [facility] [address], [place] Distance (Feet) 1 Minute Ambulating 100 [facility] Pulmonology: [address] [facility] [address], [place] Pulse 2 Minute Ambulating 123 [facility] Pulmonology: [address] [facility] [address], [place] Sa02% 2 Minute Ambulating 88 [facility] Pulmonology: [address] [facility] [address], [place] FIO2(L/min) 2 Minute Ambulating RA [facility] Pulmonology: [address] [facility] [address], [place] Dyspnea 2 Minute Ambulating 5 [facility] Pulmonology: [address] [facility] [address], [place] Distance (Feet) 2 Minute Ambulating 10 [facility] Pulmonology: [address] [facility] [address], [place] Pulse 3 Minute Ambulating 119 [facility] Pulmonology: [address] [facility] [address], [place] Sa02% 3 Minute Ambulating 96 [facility] Pulmonology: [address] [facility] [address], [place] FIO2(L/min) 3 Minute Ambulating 2 L/ M PULSE DOSE [facility] Pulmonology: [address] [facility] [address], [place] Dyspnea 3 Minute Ambulating 6 [facility] Pulmonology: [address] [facility] [address], [place] Distance (Feet) 3 Minute Ambulating 100 [facility] Pulmonology: [address] [facility] [address], [place] Pulse 4 Minute Ambulating 110 [facility] Pulmonology: [address] [facility] [address], [place] Sa02% 4 Minute Ambulating 96 Smp[facility] Pulmonology: [address] [place] [address], [place] FIO2(L/min) 4 Minute Ambulating 2 L/ M PD [facility] Pulmonology: [address] [facility] [address], [place] Dyspnea 4 Minute Ambulating 6 [facility] Pulmonology: [address] [facility] [address], [place] Distance (Feet) 4 Minute Ambulating 50 [facility] Pulmonology: [address] [place] [address], [place] Pulse Recovery 1 Minute 110 [facility] Pulmonology: [address] [facility] [address], [place] Sa02% Recovery 1 Minute 97 [facility] Pulmonology: [address] [facility] [address], [place] FIO2(L/min) Recovery 1 Minute 2 L/M PD [facility] Pulmonology: [address] [facility] [address], [place] Dyspnea Recovery 1 Minute 4 [facility] Pulmonology: [address] [facility] [address], [place] Distance (Feet) Total Distance 260 Smpg_mob Pulmonology: [address] [address], [place] Allergies Please review your allergy list for accuracy. Contact your provider if this list needs to be updated. Code Code System Name Reaction Severity Onset 6227 RxNorm Lanolin 07/31/2010 744623 RxNorm Milk 11/25/2012 [id number] RxNorm Latex 07/09/2015 Problems Name Status Onset Date Source Leukorrhea Active 10/01/2012 Streptococcal Sore Throat Active Attention Deficit Hyperactivity Disorder Active Acute Atopic Conjunctivitis Active Perforation of Tympanic Membrane Active Acute Sinusitis Active Acute Maxillary Sinusitis Active Acute Laryngopharyngitis Active Chronic Sinusitis Active Asthma Active Exacerbation of Asthma Active Urinary Tract Infectious Disease Active Pain in Elbow Active Wrist Joint Pain Active Malaise and Fatigue Active Symptom of Skin and Integumentary Tissue Active Dysuria Active Family History of Ischemic Heart Disease Active Family History of Blood Disorder Active Finding Related to Active Procedures Date Name Performed by 07/03/2021 XR, Chest, 2 View [facility] Pulmonology [address] [address] ([address]) Notes: Procedure: ear drum replaced/ 3 s ets of tubes, Procedure: desensitization, Procedure: Paragard, Procedure: sinus surgery (Historical import from [employer]) Vaccine List Here is a copy of your most up-to-date vaccination list. None recorded. Tobacco Smoking Status Tobacco Smoking Status Never Smoker Past Encounters 07/03/2021 Post-inflammatory Pulmonary Fibrosis; Moderate Persistent Asthma; Restrictive Lung Disease; Body Mass Index 30+ - Obesity; Hypothyroidism Marcus Son, DO: [address] [address], [place] [address], Ph. [phone]
--- OUTSIDE RECORDS SUMMARY | 2021-08-22 13:02 | XMS REPORT | Encounter Summary ---
Author Author [facility] Organization [facility] Address Unknown Phone Unavailable Care Team Providers Care Arbitrator Name Role Phone Thee Babcock PCP Reason for Visit * Reason Comments Cardiac Device Remote Inpatient placement/ enroll ment completed. 14 day Zio Enrollment Encounter Details Care Team Description Date Type Department Aleisha Guzman Cardiac Device Remote Enrollment (Inpati ent placement/ enrollment completed. 14 day Zio) 08/09/2021 Documentation Cardiology: [facility] [address], [address] [place] [address] Social History Date Tobacco Use Types Packs/Day Years Used Never Smoker Smokeless Tobacco: Never Used Comments Alcohol Use Standard Drinks/Week Not Currently 0 (1 standard drink = 0.6 o z pure alcohol) Sex Assigned at Date Recorded Female 06/29/2020 1:21 PM CDT Date Recorded COVID-19 Exposure Response 08/07/2021 4:56 PM CDT In the last month, have you been in contact with No / Unsure someone who was confirmed or suspected to have Coronavirus / COVID-19? documented as of this encounter Functional Status Date of Assessment Functional Status Response 08/07/2021 Does the patient have a hearing impairment: No 02/25/2019 Does the patient have a visual impairment: Yes 02/25/2019 Does the patient have impaired ambulation: Yes 02/25/2019 Does the patient have an activity of daily living Ye s (ADL) impairment: 02/25/2019 Does the patient have an instrumental activity of Ye s daily living (IADL) impairment: Date of Assessment Cognitive Status Response 02/25/2019 Does the patient have a cognitive impairment: No documented as of this encounter Progress Notes * Minon-Anderson, Aleisha - 08/09/2021 12:43 PM CDT Mcc Monitor Placement Record Ordering Physician: Haven Pritchard MD Diagnosis: Palpitations Length: 14 days Serial Number: [id number] Ms. Bryan mentioned her physician talking about getting her a 30 day monitor. I t ried to reach the team because the order was just for a 14 day Zio. I was not ab le to contact so if there needs to be another monitor we should be hearing back. documented in this encounter Plan of Treatment Not on filedocumented as of this encounter Goals Goal Patient Associated Recent Progress Patient-Stat Aut hor Goal Type Problems ed? Recover from illness Hospital On track (08/09/2021 Yes Casi, 1:56 PM CDT) DAYANARA Kasper documented as of this encounter Visit Diagnoses Not on filedocumented in this encounter Additional Health Concerns Noted Time Assessment 08/09/2021 9:34 AM CDT A fall risk assessment has been complet ed for the patient 08/05/2021 11:17 AM CDT PHQ-2 Depression Total Score: 0 documented as of this encounter Care Teams Start Date End Date Arbitrator Relationship Specialty 06/29/20 Thee Babcock DO PCP - General [address] [address] documented as of this encounter
--- OUTSIDE RECORDS SUMMARY | 2021-08-22 13:02 | XMS REPORT | Encounter Summary ---
Author Author [facility] Organization [facility] Address Unknown Phone Unavailable Care Team Providers Care Branch Service Associate Name Role Phone Thee Babcock DO PCP Reason for Visit * Reason Onset Date Comments Medication Follow-up 08/13/2021 Encounter Details Care Team Description Date Type Department Haven Pritchadr MD [address] [place] [address] Medication Follow-up 08/13/2021 Telephone Internal Medicine: [address] [place] [address] Social History Date Tobacco Use Types Packs/Day [...] impairment: No documented as of this encounter Miscellaneous Notes * Telephone Encounter - Haven Pritchard MD - 08/13/2021 12:52 PM CDT Telephone encounter: Telephone call placed to Mrs. Bryan to discuss follow up medication plan. She was instructed to take Ipratropium (Atrovent) inhaler 2 puffs into lungs q4h WA as needed. She verbalized understanding and confirmed that she had picked up this prescription. She was instructed to discontinue all other inhalers/inhaled medicines (albutero l nebulizer, anruity ellipta and trelegy ellipta) due to risk>benefit profile of these drugs in light of tachycardia. She verbalized understanding and confirmed that she had stopped taking these medications at discharge. Her discharge medication list will be updated by me today. She also inquired about follow up appointments. We reviewed her upcoming appoint ments: Future Appointments Date Time Provider Department Center 08/22/2021 3:00 PM Jules Telles MD [facility] Neurology 09/18/2021 3:00 PM Ranjith Ruffin MD [facility] CV Exam 11/06/2021 12:40 PM Dimple Castro, [employer] [facility] 12/13/2021 10:40 AM Kym Hernandez MD [facility] I would like her to be seen in Pulmonary Clinic prior to 12/13/21. I will conta ct the clinic to request a sooner follow up appointment in 4-6 weeks. Haven Pritchard MD Internal Medicine [facility] Internal Medicine #[id number] documented in this encounter Plan of Treatment Not on filedocumented as of this encounter Goals Goal Patient Associated Recent Progress Patient-Stat Aut hor Goal Type Problems ed? Recover from illness Hospital On track (08/09/2021 Yes Casi, 1:56 PM CDT) DAYANARA Kasper documented as of this encounter Visit Diagnoses Not on filedocumented in this encounter Discontinued Medications Start Date End Date Medication Sig Discontinue Reason 08/13/2021 albuterol 0.083% Inhale 2.5 Side effects (PROVENTIL) 2.5 mg /3 mL mg solution (0.083 %) nebulizer by nebulizer solution as directed every 4 hours as needed for Wheezing or Shortness of Breath. 08/13/2021 fluticasone furoate Inhale 100 Ineffective (ARNUITY ELLIPTA) 100 mcg by mouth Therapy mcg/actuation disk into the inhaler lungs daily. 07/03/2021 08/13/2021 [id number] Ineffective anter (TRELEGY ELLIPTA) Therapy 200-62.5-25 mcg inhaler documented as of this encounter Additional Health Concerns Noted Time Assessment 08/09/2021 9:34 AM CDT A fall risk assessment has been complet ed for the patient 08/05/2021 11:17 AM CDT PHQ-2 Depression Total Score: 0 documented as of this encounter Care Teams Start Date End Date Branch Service Associate Relationship Specialty 06/29/20 Thee Babcock DO PCP - General [address] [address] documented as of this encounter
--- OUTSIDE RECORDS SUMMARY | 2021-08-22 13:02 | XMS REPORT | Summary of Care ---
Author Author [place] [facility] Address Unknown Phone Unavailable Care Team Providers Care Sucker Machine Operator Name Role Phone HUMPHREY DAEN, DR. NASH PCP Encounter [facility] [phone] Date(s): 07/03/21 - 07/03/21 [place] [facility] [address] [address] Discharge Disposition: Home - Attending Physician: LEE ANN AVERY DO Admitting Physician: LEE ANN AVERY DO Referring Physician: LEE ANN AVERY DO Vital Signs No data available for this section Problem List Condition Effective Dates Status Health Status Informan t Anemia(Confirmed) Active Asthma, exercise Resolved induced(Confirmed) Cardiomegaly(Confirm Active ed) (Confirmed) 05/16/15 - 06/16/15 Resolved 1, 2 (Confirmed) 02/28/10 - 12/05/10 Resolved (Confirmed) 11/20/06 - 08/27/07 Resolved (Confirmed) 08/31/08 - 2008 Resolved (Confirmed) 08/17/09 - 2009 Resolved Syncope(Confirmed) Active 1Updated by Discern Expert 2Added by Discern Expert Allergies, Adverse Reactions, Alerts Substance Reaction Severity Status morphine itchy Active lanolin topical DIZZINESS, THROAT CLOSURE Active Adhesive tape hives Active rash Latex rash Active SKIN RASH Lanolin anaphalaxsis Active Peanuts diarrhea, vomiting, mouth blisters Ac tive Vomiting/Diarrhea Milk Vomiting/Diarrhea Active DIARRHEA/VOMITING, LIPS BLISTER Dairy vomiting Active Medications No data available for this section Results No data available for this section Immunizations Given and Recorded Vaccine Date Status Refusal Reason diphtheria/pertussis, acel/tetanus adult 12/07/10 Given Procedures No data available for this section Social History No data available for this section Functional Status No data available for this section Assessment and Plan No data available for this section Hospital Discharge Instructions No data available for this section
--- OUTSIDE RECORDS SUMMARY | 2021-08-22 13:02 | XMS REPORT | Clinical Summary ---
Author Author [facility] Organization [facility] Address Unknown Phone Unavailable Care Team Providers Care Road Consultant Name Role Phone Thee Babcock MD PCP Allergies Comments Active Allergy Reactions Severity Noted Date Lanolin Anaphylaxis High 07/02/2016 Latex, Natural Rubber Rash Low 07/02/20 16 Milk Containing Products Diarrhea, High 07/02 Nausea And Vomiting, Swelling "only allergic to peanuts""not all nuts" Peanut Diarrhea, High 07/04/2019 Nausea And Vomiting, Blisters Medications End Date Status Medication Sig Dispensed Refills Start Date Active ALBUTEROL INHL Inhale 2 0 puffs as needed. Active DULoxetine 40 mg CpDR Take by mouth 0 02/10/20 1 daily. 7 Active metformin (GLUCOPHAGE) Take 500 mg 0 500 mg tablet by mouth. Active naproxen (NAPROSYN) 500 Take 500 mg 5 04/28/ 201 MG tablet by mouth 2 9 (two) times a day. Active spironolactone Take 25 mg by 0 (ALDACTONE) 25 MG tablet mouth. Active simvastatin (ZOCOR) 10 MG Take 10 mg by 0 tablet mouth. Active topiramate (TOPAMAX) 50 Take 1 tablet 0 MG tablet by mouth. Active fluconazole (DIFLUCAN) Take 1 tablet 3 tablet 0 0 200 MG tabletIndications: (200 mg 0 VAGINAL CANDIDIASIS total) by mouth daily. Active tamsulosin (FLOMAX) 0.4 Take 1 7 capsule 0 mg cap capsule (0.4 0 mg total) by mouth daily. Active ondansetron (ZOFRAN ODT) Take 1 tablet 20 tablet 0 4 MG disintegrating (4 mg total) 1 tablet by mouth every 8 (eight) hours as needed for nausea. Active benzonatate (TESSALON) Take 1 30 capsule 0 100 MG capsule capsule (100 1 mg total) by mouth 3 (three) times a day as needed for cough. Active acetaminophen-codeine Take 10 mL by 118 mL 0 (TYLENOL W/CODEINE) mouth every 6 1 120-12 mg/5 mL Soln (six) hours solution as needed. Max Daily Dose: 40 mL Active azithromycin (ZITHROMAX) Take 1 packet 0 1 gram powderIndications: by mouth pnuemonia and covid once. Active thyroid, pork, ([employer] Take 30 mg by 0 THYROID) 30 mg Tab tablet mouth daily. Active venlafaxine (EFFEXOR-XR) Take 150 mg 0 150 mg ER 24 hr capsule by mouth daily. Active oxyCODONE (ROXICODONE) 5 Take 1-2 30 tablet 0 0 MG immediate release tablets (5-10 1 tablet mg total) by mouth every 4 (four) hours as needed. Max Daily Dose: 60 mg Active clonazePAM (KLONOPIN) 0.5 Take 1 tablet 30 tablet 0 MG tablet (0.5 mg 1 total) by mouth 2 (two) times a day as needed for anxiety. Active albuterol Inhale 2 8.5 g 1 (PROAIR/PROVENTIL/VENTOLI puffs every 4 1 N) 90 mcg/actuation HFA (four) hours inhaler as needed for wheezing or shortness of air. Active fluticasone furoate Inhale 1 puff 30 each 0 05/13 (ARNUITY ELLIPTA) 200 daily. 1 mcg/actuation DsDv inhaler Active ipratropium (ATROVENT Inhale 2 12.9 g 0 05/13 HFA) 17 mcg/actuation puffs 4 1 inhaler (four) times a day. Active nystatin (MYCOSTATIN) Take 5 mL 200 mL 0 05/13 100,000 unit/mL (500,000 1 suspensionIndications: Units total) ORAL CANDIDIASIS by mouth 4 (four) times a day. Active methocarbamoL (ROBAXIN) Take 1 tablet 15 tablet 0 750 MG tablet (750 mg 1 total) by mouth 4 (four) times a day as needed (headache). Active guaiFENesin (MUCINEX) 600 Take 2 40 tablet 0 mg Ta12 12 hr tablet tablets 1 (1,200 mg total) by mouth 2 (two) times a day. Active Problems Problem Noted Date Increased lactic acid level 05/30/2021 Last Assessment & Plan: Formatting of this note might be differ ent from the original. Also has increased O2 requirement Lactate up to 5.8 Will order CXR, repeat UA + uCx, IVF hy dration Headache 05/29/2021 Last Assessment & Plan: Formatting of this note might be differ ent from the original. Likely combination of migraine and occi pital neuralgia Will continue Topamax PRN Toradol Will try Robaxin as well Constipation 05/24/2021 Last Assessment & Plan: Formatting of this note might be differ ent from the original. Well-controlled with bowel regimen. Chest pain 05/21/2021 Last Assessment & Plan: Formatting of this note might be differ ent from the original. Suspect it is secondary to COVID, or co stochondritis because the pain is reproducible Lidocaine patches ordered Continue analgesics PRN Immunization counseling 05/18/2021 Last Assessment & Plan: Formatting of this note might be differ ent from the original. Will still need future SARS CoV 2 Vacc ination - patient agreeable Acute respiratory failure with hypoxia 05/15/2021 Acute respiratory failure with hypoxia 05/15/2021 Last Assessment & Plan: Formatting of this note might be differ ent from the original. Secondary to COVID Currently up to 5 L Will continue Albuterol, Arnuity, Atrov ent Wean O2 as tolerate Ambulate Likely will dc home with O2 once endura nce and MCCARTY better Will repeat CXR Depression 05/15/2021 Last Assessment & Plan: Formatting of this note might be differ ent from the original. Continue home duloxetine and venlafaxin e Dysuria 05/14/2021 Last Assessment & Plan: Formatting of this note might be differ ent from the original. Reported dysuria with burning sensation . UA shows pyuria with no bacteria. Start Nitrofurantoin and pyridium. COVID-19 05/13/2021 Pneumonia due to COVID-19 virus 05/13/2021 Last Assessment & Plan: Formatting of this note might be differ ent from the original. Transferred from [facility] to [facility] for further management S/p tocilizumab on 05/13/21 Continue dexamethasone. Albuterol, Arn uity, Atrovent Continue symptom management Off isolation Increase O2 requirement, will order CXR Syncope 05/13/2021 Last Assessment & Plan: Formatting of this note might be differ ent from the original. Likely vasovagal, patient hypotensive o n presentation. Chest x-ray showed patchy airspace opac ities possible infectious or edema. Avoid fluid overload. Continue Telemetry monitoring Obesity (BMI 30.0-34.9) 05/13/2021 Last Assessment & Plan: Formatting of this note might be differ ent from the original. BMI of Body mass index is 35.02 kg/m. complicates all care Ureterolithiasis 11/15/2019 Last Assessment & Plan: Formatting of this note might be differ ent from the original. CT at [facility] shows obstructive 6 m m stone in right ureter PRN pain control IVF hydration Cysto + lithotripsy and stent placement today Hydronephrosis with ureteral calculus 11/15/2019 Hyperlipidemia 11/15/2019 Last Assessment & Plan: Formatting of this note might be differ ent from the original. Continue Statin PCOS (polycystic ovarian syndrome) 09/20/2019 Uterus, adenomyosis 07/04/2016 Status post hysterectomy 07/04/2016 Bulging lumbar disc 06/25/2016 Chronic bilateral low back pain without sciatica Last Assessment & Plan: Formatting of this note might be differ ent from the original. Previously told that she needs spinal f usion surgery but states she cannot take off for 12 weeks as she has four s mall children PRN pain control Asthma Overview: Formatting of this note might be differ ent from the original. exercise induced /Has prn inhaler L ast Assessment & Plan: Formatting of this note might be differ ent from the original. Continue home Arnuity Ellipta Continue albuterol inhaler PRN Continue Atrovent inhaler Resolved Problems Problem Noted Date Resolved Date Urinary tract infection 05/15/2021 05/27/2021 Last Assessment & Plan: Formatting of this note might be differ ent from the original. Resolved Urine culture from 05/14 growing >100k ES BL E coli, sensitive to ciprofloxacin Received three full days of PO nitrofur antoin Started ciprofloxacin PO 500 mg BID on 05/17 for 7 days Hypokalemia 05/13/2021 05/14/2021 Last Assessment & Plan: Formatting of this note might be differ ent from the original. Supplement potassium. Check magnesium level property assessment monitor Encounters Care Team Description Date Type Specialty Cecille Monet, RN CASE COMMUNICATION 06/04/2021 Home Care Visit Home Health Service s Fern Barrow RN 06/01/2021 Telephone Home Health Service s Hospitalist, Physician Davis Roque MD Ling, Sally, MD Kostioukhina, Ekaterina, MD Heckerson, Nathan R, MD Chung, Raoul C, MD COVID-19 (Primary Dx); Pneumonia due to COVID-19 virus; Acute respiratory failure with hypoxia (HCC); Mild intermittent asthma without complication; Obesity (BMI 30.0-34.9); Urinary tract infection without hematuria, site unspecified; Depression, unspecified depression type; Chronic bilateral low back pain without sciatica 05/15/2021 Hospital Pulmonology - Encounter 05/31/2021 from Last 3 Months Family History Medical History Relation Name Comments Hyperlipidemia Father Hyperlipidemia Mother Pancreatitis Mother Relation Name Status Comments Father Alive Mother Alive Social History Date Tobacco Use Types Packs/Day Years Used Never Smoker Smokeless Tobacco: Never Used Tobacco Cessation: Counseling Given: No Comments Alcohol Use Standard Drinks/Week monthly Yes 1 (1 standard drink = 0.6 o z pure alcohol) Alcohol Habits Answer Date Recorded How often do you have a drink containing alcohol? No t asked How many drinks containing alcohol do you have on No t asked a typical day when you are drinking? How often do you have six or more drinks on one Not asked occasion? Comment: monthly 11/15/2019 Sex Assigned at Date Recorded Not on file Last Filed Vital Signs Reading Time Taken Comments Vital Sign 118/74 05/31/2021 3:39 PM CDT Blood Pressure 109 05/31/2021 4:00 PM CDT Pulse 36.6 C (97.9 F) 05/31/2021 3:39 PM CDT Temperature 20 05/31/2021 4:00 PM CDT Respiratory Rate 95% 05/31/2021 4:08 PM CDT Oxygen Saturation - - Inhaled Oxygen Concentration 100.5 kg (221 lb 9.6 oz) 05/31/2021 5:23 AM CDT Weight 162.6 cm (5' 4") 05/15/2021 5:29 AM CDT Height 38.04 05/15/2021 5:29 AM CDT Body Mass Index Plan of Treatment Health Maintenance Due Date Last Done Comments Td/Tdap# 1980 Depression Monitoring 1980 PHQ-9 # Pneumococcal Vaccine: 1988 Pediatrics (0 to 5 Years) and At-Risk Patients (6 to 64 Years) (1 of 2 - PPSV23) COVID-19 Vaccine (1) 1994 Influenza Vaccine (#1) 2021 06/12/2014 Implants Device Identifier Shelf Expiration Date Model / Serial / L ot Implanted Type Area Manufactur er [id number] 05/09/2022 180-221 / / [id number] Implant Stent Ureteral Contour 6fr Non-Tissue KARLA TON X 22cm W/O Guidwire Implant [employer] 180-221/[id number] - [id number] Implanted: Qty: 1 on 11/16/2019 by Joe Chery MD at [facility] Procedures Comments Procedure Name Priority Date/Time Associated Diag nosis GLUCOSE POC Routine 05/31/2021 12:02 PM CDT GLUCOSE POC Routine 05/31/2021 8:15 AM CDT GLUCOSE POC Routine 05/31/2021 3:44 AM CDT CBC AND DIFF (MANUAL DIFF Routine 05/31/2021 IF NECESSARY) 2:57 AM CDT BASIC METABOLIC PANEL Routine 05/31/2021 2:57 AM CDT GLUCOSE POC Routine 05/30/2021 11:53 PM CDT XR ABDOMEN SINGLE VIEW AP STAT 05/30/2021 11:36 PM CDT GLUCOSE POC Routine 05/30/2021 9:26 PM CDT GLUCOSE POC Routine 05/30/2021 5:49 PM CDT URINALYSIS REFLEX Routine 05/30/2021 3:00 PM CDT CULTURE, URINE Routine 05/30/2021 3:00 PM CDT CULTURE, BLOOD Timed 05/30/2021 2:40 PM CDT GLUCOSE POC Routine 05/30/2021 1:11 PM CDT PROCALCITONIN Routine 05/30/2021 12:48 PM CDT CBC AND DIFF (MANUAL DIFF STAT 05/30/2021 IF NECESSARY) 12:48 PM CDT COMPREHENSIVE METABOLIC STAT 05/30/2021 PANEL 12:48 PM CDT CULTURE, BLOOD Timed 05/30/2021 12:48 PM CDT XR CHEST SINGLE VIEW STAT 05/30/2021 FRONTAL 11:03 AM CDT GLUCOSE POC Routine 05/30/2021 7:27 AM CDT LACTATE VENOUS WB, 4 HOUR Timed 05/30/2021 2:40 AM CDT LACTATE VENOUS WB, 2 HOUR Timed 05/29/2021 11:14 PM CDT GLUCOSE POC Routine 05/29/2021 9:06 PM CDT LACTATE VENOUS WB STAT 05/29/2021 9:00 PM CDT GLUCOSE POC Routine 05/29/2021 5:30 PM CDT GLUCOSE POC Routine 05/29/2021 12:12 PM CDT GLUCOSE POC Routine 05/29/2021 8:04 AM CDT CBC AND DIFF (MANUAL DIFF Routine 05/29/2021 IF NECESSARY) 7:15 AM CDT BASIC METABOLIC PANEL Routine 05/29/2021 7:15 AM CDT GLUCOSE POC Routine 05/29/2021 3:22 AM CDT GLUCOSE POC Routine 05/29/2021 12:50 AM CDT GLUCOSE POC Routine 05/28/2021 8:35 PM CDT GLUCOSE POC Routine 05/28/2021 5:12 PM CDT GLUCOSE POC Routine 05/28/2021 12:23 PM CDT GLUCOSE POC Routine 05/28/2021 7:34 AM CDT GLUCOSE POC Routine 05/28/2021 3:26 AM CDT GLUCOSE POC Routine 05/28/2021 1:27 AM CDT GLUCOSE POC Routine 05/27/2021 9:27 PM CDT GLUCOSE POC Routine 05/27/2021 5:52 PM CDT GLUCOSE POC Routine 05/27/2021 1:27 PM CDT GLUCOSE POC Routine 05/27/2021 9:15 AM CDT BASIC METABOLIC PANEL Routine 05/27/2021 2:55 AM CDT CBC AND DIFF (MANUAL DIFF Routine 05/27/2021 IF NECESSARY) 2:55 AM CDT GLUCOSE POC Routine 05/26/2021 10:44 PM CDT GLUCOSE POC Routine 05/26/2021 6:09 PM CDT GLUCOSE POC Routine 05/26/2021 11:28 AM CDT GLUCOSE POC Routine 05/26/2021 8:17 AM CDT BASIC METABOLIC PANEL Routine 05/26/2021 5:13 AM CDT CBC AND DIFF (MANUAL DIFF Routine 05/26/2021 IF NECESSARY) 5:13 AM CDT GLUCOSE POC Routine 05/25/2021 9:07 PM CDT GLUCOSE POC Routine 05/25/2021 5:58 PM CDT GLUCOSE POC Routine 05/25/2021 12:59 PM CDT BASIC METABOLIC PANEL Routine 05/25/2021 11:42 AM CDT CBC AND DIFF (MANUAL DIFF Routine 05/25/2021 IF NECESSARY) 11:42 AM CDT GLUCOSE POC Routine 05/25/2021 7:55 AM CDT XR CHEST SINGLE VIEW Routine 05/25/2021 FRONTAL 7:43 AM CDT GLUCOSE POC Routine 05/24/2021 9:30 PM CDT GLUCOSE POC Routine 05/24/2021 5:24 PM CDT GLUCOSE POC Routine 05/24/2021 12:06 PM CDT GLUCOSE POC Routine 05/24/2021 8:23 AM CDT BASIC METABOLIC PANEL Routine 05/24/2021 2:28 AM CDT CBC AND DIFF (MANUAL DIFF Routine 05/24/2021 IF NECESSARY) 2:28 AM CDT GLUCOSE POC Routine 05/23/2021 9:58 PM CDT GLUCOSE POC Routine 05/23/2021 5:36 PM CDT D DIMER Routine 05/23/2021 2:15 PM CDT GLUCOSE POC Routine 05/23/2021 11:35 AM CDT XR CHEST SINGLE VIEW JULIANNE 05/23/2021 FRONTAL 10:26 AM CDT GLUCOSE POC Routine 05/23/2021 8:09 AM CDT GLUCOSE POC Routine 05/23/2021 3:20 AM CDT BASIC METABOLIC PANEL Routine 05/23/2021 3:19 AM CDT CBC AND DIFF (MANUAL DIFF Routine 05/23/2021 IF NECESSARY) 3:19 AM CDT GLUCOSE POC Routine 05/23/2021 12:07 AM CDT GLUCOSE POC Routine 05/22/2021 9:23 PM CDT GLUCOSE POC Routine 05/22/2021 5:02 PM CDT GLUCOSE POC Routine 05/22/2021 11:21 AM CDT GLUCOSE POC Routine 05/22/2021 8:28 AM CDT BASIC METABOLIC PANEL Routine 05/22/2021 2:05 AM CDT CBC AND DIFF (MANUAL DIFF Routine 05/22/2021 IF NECESSARY) 2:05 AM CDT from Last 3 Months Results * GLUCOSE POC (05/31/2021 12:02 PM CDT) Only the most recent of 46 results within the time period is included. Glucose POC 119 (H) 70 - 100 mg/dL [facility] Specimen Performing Organization Address City/State/ZIP Code [place] Number [address] [address] LABORATORIES * CBC and Diff (manual diff if necessary) (05/31/2021 2:57 AM CDT) Only the most recent of 9 results within the time period is included. WBC 23.44 (H) 4.00 - 11.00 TH/uL [facility] RBC 4.34 4.00 - 5.00 MIL/uL [facility] Hemoglobin 13.4 12.0 - 15.0 g/dL [facility] Hematocrit 40 36 - 45 % [facility] MCV 91 80 - 99 fL [facility] MCH 31 27 - 34 pg [facility] MCHC 34 32 - 36 % [facility] RDW 14.6 (H) 11.5 - 14.5 % [facility] Platelet Count 339 140 - 400 TH/uL [facility] MPV 10.6 9.4 - 12.3 fL [facility] Nucleated RBCs 0 0 - 0 /100 [facility] % Neutrophils 83 (H) 45 - 78 % [facility] %Lymphocytes 8 (L) 15 - 47 % [facility] % Monocytes 8 0 - 12 % [facility] %Eosinophils 0 0 - 7 % [facility] %Basophils 0 0 - 2 % [facility] % 1 (H) 0 - 0 % [facility] Metamyelocytes [facility] # Granulocytes 19.69 (H) 1.70 - 6.80 TH/uL [facility] # Lymphocytes 1.88 1.00 - 3.30 TH/uL [facility] # Monocytes 1.88 (H) 0.20 - 0.90 TH/uL [facility] # Eosinophils 0.00 0.00 - 0.40 TH/uL [facility] # Basophils 0.00 0.00 - 0.10 TH/uL [facility] Polychromasia Present (A) Absent [facility] Specimen Blood Performing Organization Address City/State/ZIP Code P [place] Number [address] [address] LABORATORIES [facility] [address] [place] [address] * Basic Metabolic Panel (05/31/2021 2:57 AM CDT) Only the most recent of 8 results within the time period is included. Sodium 134 133 - 147 MEQ/L [facility] Potassium 4.1 3.5 - 5.3 MEQ/L [facility] Chloride 103 96 - 112 MEQ/L [facility] Carbon Dioxide 18 (L) 20 - 32 MEQ/L [facility] Anion Gap 12 5 - 17 [facility] Calcium 9.0 8.4 - 10.5 mg/dL [facility] Glucose 126 (H) 70 - 100 mg/dL [facility] Blood Urea 25 7 - 26 mg/dL [facility] Creatinine 0.9 0.4 - 1.1 mg/dL [facility] eGFR Female AA 84 60 - 200 [facility] mL/min/1.73sq [facility] eGFR Female 70 60 - 200 [facility] Non-AA mL/min/1.73sq [facility] Specimen Blood Performing Organization Address City/State/ZIP Code [place] Number [address] [address] [address] [address] * XR Abdomen single view AP (05/30/2021 11:36 PM CDT) Modality Anatomical Region Laterality Computed Radiography Abdomen Specimen Impressions [facility] - 05/30/2021 11:47 PM CDT Findings/Impression: Nonobstructive bowel gas pattern. Moderate colonic stool. No pathologic calcifications Visualized osseous structures are unremarkable READING SITE: [facility] - 05/30/2021 11:47 PM CDT Patient: GENOVEVA DAS Sex#: F #: 1980 Jeanette#: [id number] Location: [facility] NB15-01 Ordering Provider: LISA DAWKINS Procedure Requested: [id number] XR ABDOMEN SINGLE VIEW AP Exam Ordered: 05/30/2021 2310 Exam Date/Time: 05/30/2021 2336 Begin exam date/time: 05/30/20212309 XR ABDOMEN SINGLE VIEW AP INDICATION: pain. COMPARISON: None. TECHNIQUE: Supine view of the abdomen was obtained. Procedure Note Blake Rm MD - 05/30/2021 Patient: GENOVEVA DAS Sex#: F #: [id number] Jeanette#: [id number] Location: [facility] NB15-01 Ordering Provider: LISA DAWKINS Procedure Requested: [id number] XR ABDOMEN SINGLE VIEW AP Exam Ordered: 05/30/2021 2310 Exam Date/Time: 05/30/2021 2336 Begin exam date/time: 05/30/2021 2310 XR ABDOMEN SINGLE VIEW AP INDICATION: pain. COMPARISON: None. TECHNIQUE: Supine view of the abdomen was obtained. IMPRESSION Findings/Impression: Nonobstructive bowel gas pattern. Moderate colonic stool. No pathologic calcifications Visualized osseous structures are unremarkable READING SITE: [facility] Performing Organization Address City/[facility]/ZIP Code P [place] Number TABITHA * Urinalysis Reflex (05/30/2021 3:00 PM CDT) Appearance, Yellow [facility] Glucose Urine Negative Negative mg/dL [facility] Bilirubin Urine Negative Negative [facility] Ketones Urine Negative Negative mg/dL [facility] Specific 1.017 1.001 - 1.030 [facility] Hemoglobin Negative Negative [facility] PH Urine 7.0 5.0 - 8.0 [facility] Protein Urine Negative Negative mg/dL [facility] Urobilinogen Negative Negative EU/dL [facility] Nitrite Urine Negative Negative [facility] Leukocyte Negative Negative [facility] Specimen Clean Voided Urine Performing Organization Address City/State/ZIP Code [place] Number [facility] [address] [place] [address] LABORATORIES [facility] [address] [place] [address] * Culture, Urine (05/30/2021 3:00 PM CDT) Culture Result No growth [facility] Specimen Clean Voided Urine Performing Organization Address City/State/ZIP Code P [place] Number [facility] [address] [place] [address] LABORATORIES [facility] [address] [place] [address] * Culture, Blood (05/30/2021 2:40 PM CDT) Only the most recent of 2 results within the time period is included. Pathologist [facility] Culture Result No Growth at 5 days [facility] Specimen Blood Performing Organization Address [facility] P [place] Number [address] [address] LABORATORIES [facility] [address] [place] [address] * Procalcitonin (05/30/2021 12:48 PM CDT) [facility] Procalcitonin <0.05 0.00 - 0.10 ng/mL [facility] Comment: Hospital Lab PCT Value Interpretation 0.10 - 0.25 Low risk for bacterial infection >0.25 Increased risk lower respiratory infection >0.50 Increased risk sepsis >2.00 High risk sepsis If Procalcitonin is >0.25, repeat in 48 hours to guide antibiotic cessation in lower respiratory tract infection. If Procalcitonin is >0.5, repeat in 24 hours to guide antibiotic cessation in sepsis. Procalcitonin is most useful when levels are performed serially with consideration of clinical data. Decisions regarding antibiotic use should not be based exclusively on procalcitonin levels. Specimen Blood Performing Organization Address City/[facility] [place] Number [address] [address] LABORATORIES [facility] [address] [place] [phone] * Comprehensive Metabolic Panel (05/30/2021 12:48 PM CDT) Pathologist [facility] Sodium 136 133 - 147 MEQ/L [facility] Potassium 4.6 3.5 - 5.3 MEQ/L [facility] Chloride 104 96 - 112 MEQ/L [facility] Carbon Dioxide 23 20 - 32 MEQ/L [facility] Anion Gap 9 5 - 17 [facility] Calcium 8.8 8.4 - 10.5 mg/dL [facility] Glucose 95 70 - 100 mg/dL [facility] Protein Total 5.4 (L) 6.0 - 8.2 g/dL [facility] Serum [facility] Albumin 3.4 (L) 3.5 - 5.0 g/dL [facility] Alkaline 96 42 - 140 IU/L [facility] Alanine 59 (H) 0 - 34 IU/L [facility] e Aspartate 17 15 - 46 IU/L [facility] e Bilirubin Total 0.4 0.2 - 1.3 mg/dL [facility] Blood Urea 23 7 - 26 mg/dL [facility] Creatinine 0.7 0.4 - 1.1 mg/dL [facility] eGFR Female AA 112 60 - 200 [facility] mL/min/1.73sq [facility] eGFR Female 94 60 - 200 [facility] Non-AA mL/min/1.73sq [facility] Specimen Blood Performing Organization Address City/State/ZIP Code [place] Number [address] [address] LABORATORIES [facility] [address] [place] [address] * XR Chest single view frontal (05/30/2021 11:03 AM CDT) Only the most recent of 3 results within the time period is included. Modality Anatomical Region Laterality Computed Radiography Chest Specimen Impressions [facility] - 05/30/2021 11:08 AM CDT Stable to mildly improved multifocal bilateral nodular and ill-defined opacities. READING SITE: [facility] [place] [facility] - 05/30/2021 11:08 AM CDT Patient: GENOVEVA DAS Sex#: Silviano #: 1980 Jeanette#: [id number] Location: [facility] NB15-01 Ordering Provider: MARK CHRISTIANSON Procedure Requested: [id number] XR CHEST SINGLE VIEW FRONTAL Exam Ordered: 05/30/2021 1039 Exam Date/Time: 05/30/2021 1103 Begin exam date/time: 05/30/2021 1058 XR CHEST SINGLE VIEW FRONTAL INDICATION: Fever. Elevated lactate. COMPARISON STUDY: Portable chest dated 05/25/2021. FINDINGS: Lungs: Mildly improved lung volume. Stable to mildly improved multifocal bilateral nodular and ill-defined opacities. Pleura: No pleural effusion or pneumothorax. Heart and Mediastinum: Stable cardiomediastinal silhouette and great vessels. Bones and Soft Tissues: Stable regional skeleton and soft tissues. Procedure Note Milena Juarez MD - 05/30/2021 Patient: GENOVEVA DAS Sex#: F #: 1980 Jeanette#: [id number] Location: [facility] NB15-01 Ordering Provider: MARK CHRISTIANSON Procedure Requested: [id number] XR CHEST SINGLE VIEW FRONTAL Exam Ordered: 05/30/2021 1039 Exam Date/Time: 05/30/2021 1103 Begin exam date/time: 05/30/2021 1058 XR CHEST SINGLE VIEW FRONTAL INDICATION: Fever. Elevated lactate. COMPARISON STUDY: Portable chest dated 05/25/2021. FINDINGS: Lungs: Mildly improved lung volume. Stable to mildly improved multifocal bilateral nodular and ill-defined opacities. Pleura: No pleural effusion or pneumothorax. Heart and Mediastinum: Stable cardiomediastinal silhouette and great vessels. Bones and Soft Tissues: Stable regional skeleton and soft tissues. IMPRESSION Stable to mildly improved multifocal bilateral nodular and ill-defined opacities. READING SITE: [facility] Performing Organization Address City/[facility]/ZIP Code [place] Number [place] * Lactate Venous WB - 4hr (05/30/2021 2:40 AM CDT) Lactate Venous 5.1 (C) 0.0 - 2.0 mmol/L [facility] Specimen Blood Performing Organization Address City/State/ZIP Code P [place] Number [address] [address] LABORATORIES [facility] [address] [place] [id number] * Lactate Venous WB - 2hr (05/29/2021 11:14 PM CDT) Lactate Venous 3.2 (H) 0.0 - 2.0 mmol/L [facility] Specimen Blood Performing Organization Address City/[facility]/ZIP Code P [place] Number [facility] [address] [place] [address] LABORATORIES [facility] [address] [place] [address] * Lactate Venous WB - 0hr STAT (05/29/2021 9:00 PM CDT) Pathologist [facility] Lactate Venous 5.8 (C) 0.0 - 2.0 mmol/L [facility] Specimen Blood Performing Organization Address City/State/ZIP Code P [place] Number [facility] [address] [place] [address] LABORATORIES [facility] [address] [place] [address] * D Dimer (05/23/2021 2:15 PM CDT) Pathologist [facility] D Dimer 0.27Comment: Cutoff value for 0.00 - 0.40 ug/m L [facility] exclusion of venous [facility] thromboembolism is <0.40 ug/mL FEU. Specimen Blood Performing Organization Address City/[facility]/ZIP Code [place] Number [facility] [address] [place] [address] LABORATORIES [facility] [address] [place] [phone] from Last 3 Months Additional Health Concerns Onset Date Last Indicated Infection 05/14/2021 05/14/2021 ESBL Comment: 05/14/21- ESBL E coli urine Insurance Type Payer Benefit Subscriber ID Effective Phone Address Plan / Dates Group OTHER GOVERNMENT [facility] [id number] 2020- [phone] [address] [place] [address] Present [address] [place] [address] [facility] [id number] 2015- [address] [employer] Present [id number] [place] [address] MEDICAID MANAGED CARE [facility] [id number] 2021- [address] [facility] Present [address] [place] [address] Genoveva Das Personal/F Self 1980 [address] [place] [address] ([address]) [place] [address] Genoveva Das Personal/F Self 1980 [id number] [place] [address] Advance Directives For more information, please contact: [phone] 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
--- OUTSIDE RECORDS SUMMARY | 2021-08-22 13:02 | XMS REPORT | Clinical Summary ---
Author Author [facility] Organization [facility] Address Unknown Phone Unavailable Care Team Providers Care Mortgage Loan Processing Clerk Name Role Phone Thee Babcock PCP Source Comments Some departments are not documenting in the electronic medical record. If you d o not see the information that you expected, contact Release of Information in [facility] [employer] Information Management department at [phone] for further assistan ce in locating additional records.[facility] Allergies Comments Active Allergy Reactions Severity Noted Date Venom-Honey Bee SHORTNESS OF Medium 01/20/2019 BREATH, WHEEZING Lactase DIARRHEA, Low 01/20/2019 VOMITING Lanolin SHORTNESS OF Medium 01/20/2019 BREATH Patient stated allergy to Latex and that it gives her a rash. Latex RASH Medium 02/24/2019 Medications End Date Status Medication Sig Dispensed Refills Start Date Active topiramate (TOPAMAX) 50 Take 1 tablet 0 mg tablet by mouth daily. Active ASSISTANT FINANCE DIRECTOR THYROID 30 mg (0.5 gr) Take 30 mg by 0 05/13 tablet mouth daily. 1 Active venlafaxine XR (EFFEXOR Take 150 mg 0 XR) 150 mg capsule by mouth daily. Active guaiFENesin LA (MUCINEX) Take 600 mg 0 600 mg tablet by mouth twice daily. Active buPROPion XL (WELLBUTRIN Take one 30 tablet 2 1 XL) 150 mg tablet by 1 tabletIndications: mouth daily. Attention deficit Do not crush hyperactivity disorder or chew. (ADHD), unspecified ADHD type Active ipratropium bromide Inhale two 38.7 g 3 (ATROVENT HFA) 17 puffs by 1 mcg/actuation inhaler mouth into the lungs every 4 hours while awake as needed. Active methocarbamoL (ROBAXIN) Take one 90 tablet 0 750 mg tablet tablet by 1 mouth every 8 hours as needed for Muscle Cramps. 10/08/[address] Take one 60 tablet 0 (PROTONIX) 40 mg tablet by 1 tabletIndications: mouth daily Empiric GI ppx for 60 days. Indications: Empiric GI ppx Active senna/docusate Take one 90 tablet 3 (SENOKOT-S) 8.6/50 mg tablet by 1 tablet mouth twice daily as needed. Active metoprolol XL (TOPROL XL) Take one-half 90 tablet 1 25 mg extended release tablet by 1 tablet mouth daily. Hold for HR<55 or SBP<110 Active lidocaine (LIDODERM) 5 % Apply one 14 patch 3 1 topical patch patch 1 topically to affected area daily. Apply patch for 12 hours, then remove for 12 hours before repeating. 08/05/2021 Discontinued (Therapy comple power) simvastatin (ZOCOR) 10 mg Take 10 mg by 0 tablet mouth daily. 08/05/2021 Discontinued (Therapy comple power) spironolactone Take 25 mg by 0 (ALDACTONE) 25 mg tablet mouth daily. Take with food. 08/05/2021 Discontinued (Therapy comple power) metFORMIN (GLUCOPHAGE) Take 500 mg 0 500 mg tablet by mouth twice daily with meals. 08/05/[address] (CYMBALTA) Take 40 mg by 0 20 mg capsule mouth at bedtime daily. 08/05/2021 Discontinued (Therapy comple power) cetirizine (ZYRTEC) 10 mg Take 10 mg by 0 tablet mouth every morning. 08/05/2021 Discontinued (Therapy comple power) melatonin 5 mg tab Take one 90 tablet 1 01 tablet by 9 mouth at bedtime daily. 08/05/2021 Discontinued (Therapy comple power) pregabalin (LYRICA) 75 mg Take one 90 capsule 0 capsule capsule by 9 mouth twice daily. 08/05/2021 Discontinued (Therapy comple power) scopolamine Apply one 4 patch 3 (TRANSDERM-SCOP) 1.5 mg 3 patch to top 9 day patch of skin as directed every 72 hours. 08/05/[address] 40 mg Take 40 mg by 0 capsule mouth daily. 08/09/2021 Discontinued albuterol 0.083% 0 (PROVENTIL) 2.5 mg /3 mL 1 (0.083 %) nebulizer solution 08/13/2021 Discontinued (Ineffective Th erapy) yfvvbuttege-elizkijzr-onr 0 anter (TRELEGY ELLIPTA) 1 200-62.5-25 mcg inhaler 08/09/2021 Discontinued (Reorder) ipratropium bromide Inhale 2 0 (ATROVENT HFA) 17 puffs by 1 mcg/actuation inhaler mouth into the lungs. 08/13/2021 Discontinued (Side effects) albuterol 0.083% Inhale 2.5 mg 0 (PROVENTIL) 2.5 mg /3 mL solution by (0.083 %) nebulizer nebulizer as solution directed every 4 hours as needed for Wheezing or Shortness of Breath. 08/09/2021 Discontinued ipratropium bromide Inhale 2 0 (ATROVENT HFA) 17 puffs by mcg/actuation inhaler mouth into the lungs every 6 hours as needed. 08/13/2021 Discontinued (Ineffective Th erapy) fluticasone furoate Inhale 100 0 (ARNUITY ELLIPTA) 100 mcg by mouth mcg/actuation disk into the inhaler lungs daily. Active Problems Problem Noted Date Post-COVID chronic palpitations 08/07/2021 Moderate persistent asthma without complication 07/13 Degenerative disc disease, lumbar 06/29/2020 Lumbar herniated disc 02/22/2019 Lumbar radiculopathy 02/22/2019 Encounters Care Team Description Date Type Specialty Haven Pritchard MD Medication Follow-up 08/13/2021 Telephone General Internal Me Aleisha Denise Cardiac Device Remote Enrollment (Inpati ent placement/ enrollment completed. 14 day Zio) 08/09/2021 Documentation Cardiology Damian Richmond MD Jeepalyam, Sravan K, MD Digiacomo, Sydne I, MD Post-COVID chronic palpitations 08/07/2021 Emergency - 08/09/2021 Matthew, GHASSAN Bah Post-COVID syndrome (Primary Dx); Postviral fatigue syndrome; Decreased mobility and endurance; Requires supplemental oxygen 08/07/2021 Office Visit Rehabilitation Medi cine 08/07/2021 Travel Claus Mckeon I, PhD Erlinda Mon, PhD Major depressive disorder, recurrent epi sode, moderate (HCC) (Primary Dx); Generalized anxiety disorder; Posttraumatic stress disorder; Attention deficit hyperactivity disorder, inattentive type 08/05/2021 Office Visit Psychiatry Telehealth Hailey Arriaga MD Post-COVID syndrome (Primary Dx); Moderate persistent asthma without complication; Chronic respiratory failure with hypoxia (HCC); Postviral fatigue syndrome; Attention deficit hyperactivity disorder (ADHD), unspecified ADHD type; Hypothyroidism, unspecified type; Steroid-induced hyperglycemia 08/05/2021 Office Visit Internal Medicine Telehealth 08/05/2021 Travel Thee Babcock DO Referral (Post COVID) 07/27/2021 Telephone Urgent Care Shady Garcia MD 06/23/2021 Hospital Radiology Encounter Shady Garcia MD 06/23/2021 Emergency Emergency Medicine 06/23/2021 Travel from Last 3 Months Surgical History Surgery Date Site/Laterality Comments TUBAL LIGATION HYSTERECTOMY HX HYSTERECTOMY LAMINOTOMY 02/24/2019 Spine RIGHT LUMBAR 4- 5 MICRODISCECTOMY performed by Lumbar/Right Jerman Acevedo MD at Main OR/Periop Medical History Medical History Date Comments Scoliosis Covid-19 Palpitations Family History Medical History Relation Name Comments Arthritis Mother Back pain Mother Hypertension Mother Relation Name Status Comments Father Alive [...] or suspected to have Coronavirus / COVID-19? Last Filed Vital Signs Reading Time Taken Comments Vital Sign 129/84 08/09/2021 3:38 PM CDT Blood Pressure 79 08/09/2021 3:38 PM CDT Pulse 36.6 C (97.9 F) 08/09/2021 3:38 PM CDT Temperature 20 08/07/2021 12:04 PM CDT Respiratory Rate 99% 08/09/2021 3:38 PM CDT Oxygen Saturation - - Inhaled Oxygen Concentration 95.3 kg (210 lb 1.6 oz) 08/08/2021 3:09 AM CDT Weight 164.5 cm (5' 4.76") 08/08/2021 3:09 AM CDT Height 35.22 08/08/2021 3:09 AM CDT Body Mass Index Plan of Treatment Health Maintenance Due Date Last Done Comments HIV SCREENING 1997 DTAP/TDAP VACCINES (1 - 2000 Tdap) HEPATITIS C SCREENING 2000 PHYSICAL (COMPREHENSIVE) 2000 EXAM CERVICAL CANCER SCREENING 2003 INFLUENZA VACCINE 05/12/2021 Goals Goal Patient Associated Recent Progress Patient-Stat Aut hor Goal Type Problems ed? Recover from illness Hospital On track (08/09/2021 Yes Casi, 1:56 PM CDT) DAYANARA Kasperfast brim pouncer Comments Procedure Name Priority Date/Time Associated Diag nosis HC MAGNESIUM Routine 08/09/2021 7:07 AM CDT HC COMPREHENSIVE Routine 08/09/2021 METABOLIC PANEL 7:07 AM CDT HC CBC W/ AUTOMATED DIFF Routine 08/09/2021 7:07 AM CDT PFT COMPLETE PULM Routine 08/08/2021 FUNCTION 1:[address] CHEST WO CONTRAST Routine 08/08/2021 11:23 AM CDT 2D + DOPPLER ECHO NO Routine 08/08/2021 CONTRAST 10:28 AM CDT HC SED RATE; MANUAL Add on 08/08/2021 4:20 AM CDT HC C-REACTIVE PROTEIN Add on 08/08/2021 (CRP) 4:20 AM CDT HC TROPONIN-I 08/08/2021 4:20 AM CDT HC COMPREHENSIVE Routine 08/08/2021 METABOLIC PANEL 4:20 AM CDT HC CBC W/ AUTOMATED DIFF Routine 08/08/2021 4:20 AM CDT COVID-19 (SARS-COV-2) PCR STAT 08/07/2021 8:15 PM CDT UA REFLEX LABEL STAT 08/07/2021 7:43 PM CDT URINALYSIS MICROSCOPIC STAT 08/07/2021 REFLEX TO CULTURE 7:43 PM CDT HC URINALYSIS UAR STAT 08/07/2021 7:43 PM CDT CULTURE-URINE 08/07/2021 W/SENSITIVITY 7:43 PM CDT CHEST SINGLE VIEW STAT 08/07/2021 6:52 PM CDT HC POC LACTIC ACID 08/07/2021 6:25 PM CDT ECG 12-LEAD STAT 08/07/2021 6:19 PM CDT HC BNP POC 08/07/2021 6:11 PM CDT HC TROPONIN I, POC 08/07/2021 6:10 PM CDT HC D-DIMER STAT 08/07/2021 6:08 PM CDT HC MAGNESIUM STAT 08/07/2021 6:08 PM CDT HC TSH SCREEN STAT 08/07/2021 6:08 PM CDT HC COMPREHENSIVE STAT 08/07/2021 METABOLIC PANEL 6:08 PM CDT HC CBC W/ AUTOMATED DIFF STAT 08/07/2021 6:08 PM CDT TELEMETRY STRIPS-SCAN 08/07/2021 12:00 AM CDT ECG-SCAN 08/07/2021 12:00 AM CDT TELEMETRY STRIPS-SCAN 08/07/2021 12:00 AM CDT ECG-SCAN 08/07/2021 12:00 AM CDT TELEMETRY STRIPS-SCAN 08/07/2021 12:00 AM CDT CULTURE-BLOOD STAT 06/23/2021 W/SENSITIVITY 7:42 PM CDT UA REFLEX LABEL STAT 06/23/2021 6:34 PM CDT URINALYSIS MICROSCOPIC STAT 06/23/2021 REFLEX TO CULTURE 6:34 PM CDT HC URINALYSIS UAR STAT 06/23/2021 6:34 PM CDT CULTURE-BLOOD STAT 06/23/2021 W/SENSITIVITY 6:34 PM CDT CHEST 2 VIEWS STAT 06/23/2021 6:09 PM CDT HC BNP POC 06/23/2021 6:08 PM CDT HC TROPONIN I, POC 06/23/2021 6:07 PM CDT POC CREATININE, RAD 06/23/2021 6:05 PM CDT HC POC LACTIC ACID 06/23/2021 6:05 PM CDT HC PROLCALCITONIN (PROCA) STAT 06/23/2021 5:55 PM CDT HC TSH SCREEN 06/23/2021 5:55 PM CDT HC D-DIMER 06/23/2021 5:55 PM CDT HC COMPREHENSIVE STAT 06/23/2021 METABOLIC PANEL 5:55 PM CDT HC CBC W/ AUTOMATED DIFF STAT 06/23/2021 5:55 PM CDT POC ED US CARDIAC LIMITED Routine 06/23/2021 5:37 PM CDT ECG 12-LEAD STAT 06/23/2021 5:13 PM CDT ECG-SCAN 06/23/2021 12:00 AM CDT from Last 3 Months Results * CBC AND DIFF (08/09/2021 7:07 AM CDT) Only the most recent of 4 results within the time period is included. White Blood 8.5 4.5 - 11.0 K/UL [facility] Cells RBC 4.07 4.0 - 5.0 M/UL [facility] Hemoglobin 12.9 12.0 - 15.0 GM/DL [facility] Hematocrit 37.8 36 - 45 % [facility] MCV 92.8 80 - 100 FL [facility] MCH 31.8 26 - 34 PG [facility] MCHC 34.2 32.0 - 36.0 G/DL [facility] RDW 14.0 11 - 15 % [facility] Platelet Count 362 150 - 400 K/UL [facility] MPV 8.3 7 - 11 FL [facility] Neutrophils 58 41 - 77 % [facility] Lymphocytes 29 24 - 44 % [facility] Monocytes 8 4 - 12 % [facility] Eosinophils 4 0 - 5 % [facility] Basophils 1 0 - 2 % [facility] Absolute 4.93 1.8 - 7.0 K/UL [facility] Neutrophil Count Absolute Lymph 2.45 1.0 - 4.8 K/UL [facility] Count Absolute 0.71 0 - 0.80 K/UL [facility] Monocyte Count Absolute 0.31 0 - 0.45 K/UL [facility] Eosinophil Count Absolute 0.07 0 - 0.20 K/UL [facility] Basophil Count Specimen Performing Organization Address City/[facility]/ZIP Code P lucille Number [facility] [address] [place] [address] * MAGNESIUM (08/09/2021 7:07 AM CDT) Only the most recent of 2 results within the time period is included. Magnesium 2.2 1.6 - 2.6 mg/dL [facility] Specimen Blood Performing Organization Address City/[facility]/ZIP Code P lucille Number [facility] [address] [place] [address] * COMPREHENSIVE METABOLIC PANEL (08/09/2021 7:07 AM CDT) Only the most recent of 4 results within the time period is included. Sodium 141 137 - 147 MMOL/L [facility] Potassium 4.1 3.5 - 5.1 MMOL/L [facility] Chloride 109 98 - 110 MMOL/L [facility] Glucose 86 70 - 100 MG/DL [facility] Blood Urea 12 7 - 25 MG/DL [facility] Nitrogen Creatinine 0.77 0.4 - 1.00 MG/DL [facility] Calcium 8.9 8.5 - 10.6 MG/DL [facility] Total Protein 6.6 6.0 - 8.0 G/DL [facility] Total Bilirubin 0.3 0.3 - 1.2 MG/DL [facility] Albumin 4.0 3.5 - 5.0 G/DL [facility] Alk Phosphatase 83 25 - 110 U/L [facility] AST (SGOT) 15 7 - 40 U/L [facility] CO2 21 21 - 30 MMOL/L [facility] ALT (SGPT) 18 7 - 56 U/L [facility] Anion Gap 11 3 - 12 [facility] eGFR Non >60 >60 mL/min [facility] Comment: Lao The eGFR is not validated f or use in drug dosing adjustments. Continue to use estimated creatinine clearance per dosing reference text. Please contact the Clinical Pharmacist for questions. eGFR >60 >60 mL/min [facility] Lao Comment: The eGFR is not validated for use in drug dosing adjustments. Continue to use estimated creatinine clearance per dosing reference text. Please contact the Clinical Pharmacist for questions. Specimen Performing Organization Address City/State/ZIP Code P luc[place] Number [facility] [address] [place] [address] * PFT COMPLETE PULM FUNCTION (08/08/2021 1:49 PM CDT) FVC-Pre 2.48 L [facility] FVC-%Pred-pre 65 % [facility] FVC-Post 2.61 L [facility]FT [facility] FVC-%Pred-Post 69 % [facility] FEV1-Pre 2.33 L [facility] FEV1-%Pred-Pre 75 % [facility] FEV1-Post 2.46 L [facility] FEV1-%Pred-Post 79 % [facility] FEV1/FVC-Pre 94 % [facility] [id number] 71 % [facility] [id number] 4.21 L/sec [facility]FT [facility] [id number]-%Pred-P 129 % [facility]FT [facility] re [id number] 5.24 L/sec [facility]FT [facility]IN [id number]-%Pred-P 160 % [facility]FT [facility] ost PEF-Post 462.9 L/min [facility]FT [facility]IN RVPleth-Pre 0.68 L [facility]FT [facility] RVPleth-%Pred-P 42 % [facility] re TLCPleth-Pre 3.18 L [facility]FT MAIN TLCPleth-%Pred- 61 % [facility] Pre DLCOunc-Pre 15.78 ml/min/mmHg [facility]FT [facility] DLCOunc-%Pred-P 65 % [facility]FT [facility] re DLCOunc-#SD -2.232 ml/min/mmHg [facility]FT [facility] DLVA-Pred 4.75 ml/min/mmHg/L [facility]FT [facility] DLVA-Pre 4.66 ml/min/mmHg/L [facility]FT [facility] DLVA-%Pred-Pre 98 % [facility]FT [facility] DLVA-SD 0.80 ml/min/mmHg/L [facility]FT [facility] DLVA-LLN 3.15 ml/min/mmHg/L [facility]FT [facility] DLVA-ULN 6.35 ml/min/mmHg/L [facility]FT [facility] DLVA-#SD -0.109 ml/min/mmHg/L [facility] ROF3SEL-[id number] 91 % [facility] Specimen Narrative [facility]FT [facility] - 08/08/2021 8:50 PM CDT Clinical history:->Post covid 19 Is patient ?->No Release to patient->Immediate Implement Post Bronchodilator Spirometry Protocol?->Yes Performing Organization Address City/State/ZIP Code P luc[place] Number [facility]FT [facility] [address] [place], [place] [address] * CT CHEST WO CONTRAST (08/08/2021 11:23 AM CDT) Modality Anatomical Region Laterality Computed Tomography Chest Specimen Impressions [facility] RESULTS - 08/08/2021 12:15 PM CDT 1. Moderate scattered reticular opacit y in throughout both lungs with mild associated architectural distortion, bronchiectasis and groundglass opacity. These findings are most compatible with postinfectious/postinflammatory scarring/fibrosis after reported Covid-19 pneumonia. A component of inflammation may still be present. 2. Tiny right lung nodule likely repre sents a scar or granuloma. In a patient who is considered low risk for pulmonary malignancy, no further follow-up of this nodule is required. 3. Tiny nonobstructing left renal calc melva. Finalized by Charly Malone M.D. on 08/08/2021 12:15 PM. Dictated by Charly Malone M.D. on 08/08/2021 12:00 PM. Narrative [facility] RESULTS - 08/08/2021 12:[address] Chest Clinical Indication: Post Covid-19 hypoxia Technique: Multiple contiguous axial CT images were obtained through the chest without IV contrast. Post processing coronal and sagittal reconstruction images were made from the axial images. Comparison: Partial comparison is made to images of the lower chest and upper abdomen obtained during CT abdomen dated November 15, 2019. No comparison chest CTs available. Findings: Axilla, Mediastinum and Brenda: No lymphadenopathy. Heart and Great Vessels: The heart size is normal. There is no pericardial effusion. Lungs and Pleura: Moderate scattered reticular opacity with mild associated architectural distortion, bronchiectasis and groundglass opacity is seen throughout both lungs. There is a tiny nodule in the right lung measuring 0.4 cm on series 4, image 56. No pleural effusions. Chest Wall and Osseous Structures: No destructive osseous lesions. Visualized Upper Abdomen: Tiny nonobstructing left renal calculi are noted. Procedure Note Charly Malone MD - 08/08/2021 CT Chest Clinical Indication: Post Covid-19 hypoxia Technique: Multiple contiguous axial CT images were obtained through the chest without IV contrast. Post processing coronal and sagittal reconstruction images were made from the axial images. Comparison: Partial comparison is made to images of the lower chest and upper abdomen obtained during CT abdomen dated November 15, 2019. No comparison chest CTs available. Findings: Axilla, Mediastinum and Brenda: No lymphadenopathy. Heart and Great Vessels: The heart size is normal. There is no pericardial effusion. Lungs and Pleura: Moderate scattered reticular opacity with mild associated architectural distortion, bronchiectasis and groundglass opacity is seen throughout both lungs. There is a tiny nodule in the right lung measuring 0.4 cm on series 4, image 56. No pleural effusions. Chest Wall and Osseous Structures: No destructive osseous lesions. Visualized Upper Abdomen: Tiny nonobstructing left renal calculi are noted. IMPRESSION 1. Moderate scattered reticular opacity in throughout both lungs with mild associated architectural distortion, bronchiectasis and groundglass opacity. These findings are most compatible with postinfectious/postinflammatory scarring/fibrosis after reported Covid-19 pneumonia. A component of inflammation may still be present. 2. Tiny right lung nodule likely repres ents a scar or granuloma. In a patient who is considered low risk for pulmonary malignancy, no further follow-up of this nodule is required. 3. Tiny nonobstructing left renal calcu li. Finalized by Charly Malone M.D. on 08/08/2021 12:15 PM. Dictated by Charly Malone M.D. on 08/08/2021 12:00 PM. Performing Organization Address City/State/ZIP Code P [place] Number [facility] RAD RESULTS * 2D + DOPPLER ECHO NO CONTRAST (08/08/2021 10:28 AM CDT) Left Ventricle 75.00 46 - 106 mL OTHER OUTSIDE Diastolic LAB Volume Left Ventricle 32.00 14 - 42 mL OTHER OUTSIDE Systolic Volume LAB IVS 0.80 0.6 - 0.9 cm OTHER OUTSIDE LAB LVIDD 4.90 3.8 - 5.2 cm OTHER OUTSIDE LAB LVIDS 3.20 2.2 - 3.5 cm OTHER OUTSIDE LAB PW 0.80 0.6 - 0.9 cm OTHER OUTSIDE LAB TDI lateral e' 0.12 m/s OTHER OUTSIDE LAB TDI Medial e' 0.10 m/s OTHER OUTSIDE LAB LA volume 27.50 22 - 52 mL OTHER OUTSIDE LAB LA size 3.90 2.7 - 3.8 cm OTHER OUTSIDE LAB AV peak 1.40 m/s OTHER OUTSIDE velocity LAB Sinus 2.80 2.4 - 3.6 cm OTHER OUTSIDE LAB MV Peak A Thomas 0.89 m/s OTHER OUTSIDE LAB MV Peak E Thomas 0.86 m/s OTHER OUTSIDE PW LAB Right Heart 2.19 >1.7 cm OTHER OUTSIDE Systolic Mmode LAB TAPSE Right 2.50 1.9 - 3.5 cm OTHER OUTSIDE Ventricular Mid LAB Diameter Right 2.90 2.5 - 4.1 cm OTHER OUTSIDE Ventricular LAB Basal Diameter Right Atrial 11.00 <18 cm2 OTHER OUTSIDE Area LAB Right Heart 0.10 m/s OTHER OUTSIDE Systolic TDI S' LAB BSA 2.09 m2 OTHER OUTSIDE LAB FS 34.69 28 - 44 % OTHER OUTSIDE LAB EF 58.98 % OTHER OUTSIDE LAB LV mass 131 67 - 162 g OTHER OUTSIDE LAB RWT 0.33 <=0.42 OTHER OUTSIDE LAB E/A ratio 0.97 OTHER OUTSIDE LAB Lateral E/E' 7.17 OTHER OUTSIDE ratio LAB Left Atrium 13.16 16 - 34 OTHER OUTSIDE Index LAB Cardiology Courtney Epiq OTHER OUTSIDE Ultrasound LAB Machine Left Ventricle 63 43 - 95 g/m2 OTHER OUTSIDE Mass Index LAB Left Ventricle 36 29 - 61 mL OTHER OUTSIDE Diastolic LAB Volume Index Left Ventricle 15 8 - 24 mL OTHER OUTSIDE Systolic Volume LAB Index Medial E/E' 8.60 OTHER OUTSIDE ratio LAB Proximal aorta 3.1 1.9 - 3.5 cm OTHER OUTSIDE LAB RA PRESSURE 3 OTHER OUTSIDE LAB DARDEN'S 58 % OTHER OUTSIDE BIPLANE EF LAB ECHO EF 60 % OTHER OUTSIDE LAB Modality Anatomical Region Laterality Ultrasound Specimen Narrative OTHER OUTSIDE LAB - 08/08/2021 11:00 AM CDT LVEF=55-60% Normal left ventricular size and systolic/diastolic function. No regional wall motion abnormalities. Right ventricular size and function are normal. Normal sized atria. Unremarkable valve structures with no significant stenosis or regurgitation. No pericardial effusion. Normal central venous pressure Performing Organization Address City/[facility] P lucille Number OTHER OUTSIDE LAB * TROPONIN-I (08/08/2021 4:20 AM CDT) [facility] Troponin-I 0.00 0.0 - 0.05 NG/ML MAIN LAB Specimen Performing Organization Address City/[facility]/[place] [facility] [place] [facility] [address] [place] [address] * SED RATE (08/08/2021 4:20 AM CDT) [facility] Sed Rate -ESR 14 0 - 20 MM/HR MAIN LAB Specimen Performing Organization Address [facility] P lucille Number [facility] [address] [place] [address] * C REACTIVE PROTEIN (CRP) (08/08/2021 4:20 AM CDT) Pathologist [facility] C-Reactive 0.81 <1.0 MG/DL [facility] Protein Specimen Performing Organization Address City/[facility]/ZIP Code P luc[place] Number [facility] [address] [place] [address] * COVID-19 (SARS-COV-2) PCR (08/07/2021 8:15 PM CDT) Pathologist [facility] COVID-19 FLOCKED SWAB [facility] (SARS-CoV-2) NASOPHARYNGEAL PCR Source COVID-19 NOT DETECTED DN-NOT DETECTED [facility] (SARS-CoV-2) Comment: PCR This assay is designed to detect the S and/or ORF1ab genes of SARS-CoV-2 using nucleic acid amplification. A "Not Detected" result does not preclude the possibility of SARS-CoV-2 infection since the adequacy of sample collection and/or low viral burden may result in the presence of viral nucleic acids below the analytical sensitivity of this test method. Test results should be used along with other clinical and laboratory data in making the diagnosis. Test parameters have not been validated for screening in asymptomatic patients.This test has not been FDA cleared or approved. This test is authorized for use under the FDA Emergency Use Authorization and performance characteristics have been verified by the [facility]. Fact sheet for providers: https://www.fda.gov/media/7667 85/download Fact sheet for patients: https://www.fda.gov/media/3933 87/download Specimen Flocked Swab - Nasopharyngeal Performing Organization Address City/[facility]/ZIP Code P luc[place] Number [facility] [address] [place] [address] * UA REFLEX LABEL (08/07/2021 7:43 PM CDT) Only the most recent of 2 results within the time period is included. Pathologist [facility] UA Reflex Criteria for reflex to culture [facility] N LAB Culture are WBC>10, Positive Nitrit e, and/or >=+1 leukocytes. If quantity is not sufficient, an addendum will follow. Specimen Urine Performing Organization Address City/[facility]/ZIP Code P [place] Number MAIN LAB [address] [place] [address] * URINALYSIS MICROSCOPIC REFLEX TO CULTURE (08/07/2021 7:43 PM CDT) Only the most recent of 2 results within the time period is included. WBCs,UA 20-50 0 - 2 /HPF [facility] RBCs,UA 10-20 0 - 3 /HPF [facility] Comment,UA Criteria for reflex to culture [facility] are WBC>10, Positive Nitrite, and/or >=+1 leukocytes. If quantity is not sufficient, an addendum will follow. MucousUA TRACE [facility] Squamous 2-5 0 - 5 [facility] Epithelial Cells Calcium Oxalate MODERATE [facility] Crystals Specimen Urine Performing Organization Address City/[facility] Code P [place] Number [facility] [address] [place] [address] * URINALYSIS DIPSTICK REFLEX TO CULTURE (08/07/2021 7:43 PM CDT) Only the most recent of 2 results within the time period is included. Color,UA YELLOW [facility] Turbidity,UA CLEAR CLEAR-CLEAR [facility] Specific 1.014 1.003 - 1.035 [facility] [place]-Urine pH,UA 6.0 5.0 - 8.0 [facility] Protein,UA NEG NEG-NEG [facility] Glucose,UA NEG NEG-NEG [facility] Ketones,UA NEG NEG-NEG [facility] Bilirubin,UA NEG NEG-NEG [facility] Blood,UA 1+ (A) NEG-NEG [facility] Urobilinogen,UA NORMAL NORM-NORMAL [facility] Nitrite,UA NEG NEG-NEG [facility] Leukocytes,UA 1+ (A) NEG-NEG [facility] Urine Ascorbic NEG NEG-NEG [facility] Acid, UA Specimen Urine Performing Organization Address City/[facility]/ZIP Code P [place] Number [facility] [address] [place] [address] * CULTURE-URINE W/SENSITIVITY (08/07/2021 7:43 PM CDT) Battery Name URINE CULTURE [facility] Report Status FINAL 08/09/2021 [facility] Specimen URINE MIDSTREAM [facility] Description Special No special requests [facility] Requests Culture <10,000 CFU/ml [facility] mixed contaminants Specimen Urine - Midstream Performing Organization Address City/[facility]/ZIP Code P [place] Number [facility] [address] [place] [id number] * CHEST SINGLE VIEW (08/07/2021 6:52 PM CDT) Modality Anatomical Region Laterality Computed Radiography Chest Specimen Impressions [facility] RESULTS - 08/07/2021 7:31 PM CDT Scattered peripheral ill-defined areas of scarring again seen in both lungs. Finalized by Deon Redmond MD, PhD on 08/07/2021 7:31 PM. Dictated by Deon Redmond MD, PhD on 08/07/2021 7:30 PM. Narrative [facility] RESULTS - 08/07/2021 7:31 PM CDT CHEST SINGLE VIEW Clinical indication: RAPID HEART RATE. Prior studies: Prior two-view chest June 23, 2021 Findings: The heart size normal. Peripheral areas of ill-defined scarring are without significant change from prior study. No pneumothorax or significant pleural effusion. The osseous structures are without acute abnormality. Upper abdomen is grossly unremarkable. Procedure Note Deon Redmond MD - 08/07/2021 CHEST SINGLE VIEW Clinical indication: RAPID HEART RATE. Prior studies: Prior two-view chest June 23, 2021 Findings: The heart size normal. Peripheral areas of ill-defined scarring are without significant change from prior study. No pneumothorax or significant pleural effusion. The osseous structures are without acute abnormality. Upper abdomen is grossly unremarkable. IMPRESSION Scattered peripheral ill-defined areas of scarring again seen in both lungs. Finalized by Deon Redmond MD, PhD on 08/07/2021 7:31 PM. Dictated by Deon Redmond MD, PhD on 08/07/2021 7:30 PM. Performing Organization Address City/State/ZIP Code P [place] Number [facility] * POC LACTATE (08/07/2021 6:25 PM CDT) Only the most recent of 2 results within the time period is included. LACTIC ACID POC 1.2 0.5 - 2.0 MMOL/L [facility] Specimen Performing Organization Address City/State/ZIP Code [place] Number [facility] [address] [place] [address] * BNP POC ER (08/07/2021 6:11 PM CDT) Only the most recent of 2 results within the time period is included. BNP POC <15.0 0 - 100 PG/ML [facility] Specimen Performing Organization Address City/[facility]/ZIP Code P [place] Number [facility] [address] [place] [address] * POC TROPONIN (08/07/2021 6:10 PM CDT) Only the most recent of 2 results within the time period is included. Llizxest-K-MXP 0.01 0.00 - 0.05 NG/ML [facility] Specimen Performing Organization Address City/[facility]/ZIP Code P [place] Number [facility] [address] [place] [id number] * TSH WITH FREE T4 REFLEX (08/07/2021 6:08 PM CDT) Only the most recent of 2 results within the time period is included. TSH 1.23 0.35 - 5.00 MCU/ML [facility] Specimen Blood Performing Organization Address City/[facility] Code P [place] Number [facility] [address] [place] [id number] * D-DIMER (08/07/2021 6:08 PM CDT) Only the most recent of 2 results within the time period is included. D-Dimer 307 <500 ng/mL [facility] Comment: Recent evidence supports the use of clinical pretest probability and age-adjusted D-Dimer reference ranges for evaluation of deep vein thrombosis and pulmonary embolism in patients greater than 50 years of age. AGE D-Dimer(FEU, ng/mL) 50 years or less <500 >50 years <Age x 10 ng/mL Specimen Blood Performing Organization Address City/[facility] Code [place] Number [facility] [address] [place] [id number] * TELEMETRY STRIPS-SCAN (08/07/2021 12:00 AM CDT) Narrative 08/07/2021 12:00 AM CDT Ordered by an unspecified provider. * TELEMETRY STRIPS-SCAN (08/07/2021 12:00 AM CDT) Narrative 08/07/2021 12:00 AM CDT Ordered by an unspecified provider. * TELEMETRY STRIPS-SCAN (08/07/2021 12:00 AM CDT) Narrative 08/07/2021 12:00 AM CDT Ordered by an unspecified provider. * ECG-SCAN (08/07/2021 12:00 AM CDT) Narrative 08/07/2021 12:00 AM CDT Ordered by an unspecified provider. * ECG-SCAN (08/07/2021 12:00 AM CDT) Narrative 08/07/2021 12:00 AM CDT Ordered by an unspecified provider. * CULTURE-BLOOD W/SENSITIVITY (06/23/2021 7:42 PM CDT) Only the most recent of 2 results within the time period is included. Battery Name BLOOD CULTURE [facility] Report Status FINAL 06/29/2021 [facility] Specimen BLOOD ARM, LEFT [facility] Description Special NONE [facility] Requests Culture NO GROWTH 5 DAYS [facility] Specimen Blood - Arm, Left Performing Organization Address City/State/ZIP Code [place] Number [facility] [address] [place] [address] * CHEST 2 VIEWS (06/23/2021 6:09 PM CDT) Modality Anatomical Region Laterality Digital Radiography Chest Specimen Impressions [facility] RESULTS - 06/23/2021 6:42 PM CDT Patchy mixed opacities in the lateral aspects of the lungs likely atypical infection. A component of developing fibrosis could also be present given the reticular appearance of some of the opacities. Finalized by Av Robles M.D. on 06/23/2021 6:42 PM. Dictated by Av Robles M.D. on 06/23/2021 6:40 PM. Narrative [facility] RESULTS - 06/23/2021 6:42 PM CDT CHEST 2 VIEWS Clinical Indication: Female, 40 years old. Chest pain Comparison: None Findings: Heart size and pulmonary vasculature are within normal limits. Patchy mixed airspace opacities bilaterally greatest about the periphery of the lungs. There is reticular appearance as are the opacities. No pneumothorax or pleural effusion. Osseous structures are grossly intact. Procedure Note Radha Robles MD - 06/23/2021 CHEST 2 VIEWS Clinical Indication: Female, 40 years old. Chest pain Comparison: None Findings: Heart size and pulmonary vasculature are within normal limits. Patchy mixed airspace opacities bilaterally greatest about the periphery of the lungs. There is reticular appearance as are the opacities. No pneumothorax or pleural effusion. Osseous structures are grossly intact. IMPRESSION Patchy mixed opacities in the lateral aspects of the lungs likely atypical infection. A component of developing fibrosis could also be present given the reticular appearance of some of the opacities. Finalized by Av Robles M.D. on 06/23/2021 6:42 PM. Dictated by Av Robles M.D. on 06/23/2021 6:40 PM. Performing Organization Address City/State/ZIP Code P [place] Number [facility] RESULTS * POC CREATININE, RAD (06/23/2021 6:05 PM CDT) Creatinine, POC 0.8 0.4 - 1.00 MG/DL [facility] Specimen Performing Organization Address [facility] P [place] Number [facility] [address] [place] [address] * PROCALCITONIN (06/23/2021 5:55 PM CDT) Procalcitonin 0.05 ng/mL [facility] Comment: Suspected Lower Respiratory Tract Infection: >0.25 ng/mL-Increased likeihood bacterial infection Suspected Sepsis: >0.5 ng/mL-Increased likelihood sepsis >2.0 ng/mL-High risk of sepsis/septic shock Specimen Performing Organization Address [facility] P [place] Number [facility] [address] [place] [address] * POC ED US CARDIAC LIMITED (06/23/2021 5:37 PM CDT) Modality Anatomical Region Laterality Ultrasound Chest Specimen Impressions [facility] RESULTS - 06/24/2021 1:20 PM CDT Estate Planner: Shady Garcia Attending: Shady Garcia ED-Cardiac Clinical: Indication(s) for Exam: Other: fatigue Views: Parasternal Long Moneta: Limited Parasternal Short Moneta: Limited Apical Four-Chamber: Limited Subxiphoid (4 chamber): Limited Subxiphoid IVC: Limited Findings: Global Left Ventricular Function: Normal Pericardial Effusion: Indeterminate Right Ventricular Size: Normal IVC: Collapsed Interpretation: Global Left Ventricular Function: Normal Pericardial Effusion: No sonographic evidence of significant pericardial effusion IVC: Collapsed IVC (Estimated CVP less than 5) Electronically signed by Shady Garcia on Thursday, June 24, 2021 at 1:20 PM Procedure Note Shady Garcia MD - 06/24/2021 IMPRESSION Estate Planner: Shady Garcia Attending: Shady Garcia ED-Cardiac Clinical: Indication(s) for Exam: Other: fatigue Views: Parasternal Long Moneta: Limited Parasternal Short Moneta: Limited Apical Four-Chamber: Limited Subxiphoid (4 chamber): Limited Subxiphoid IVC: Limited Findings: Global Left Ventricular Function: Normal Pericardial Effusion: Indeterminate Right Ventricular Size: Normal IVC: Collapsed Interpretation: Global Left Ventricular Function: Normal Pericardial Effusion: No sonographic evidence of significant pericardial effusion IVC: Collapsed IVC (Estimated CVP less than 5) Electronically signed by Shady Garcia on Thursday, June 24, 2021 at 1:20 PM Performing Organization Address City/State/ZIP Code [place] Number [facility] * ECG-SCAN (06/23/2021 12:00 AM CDT) Narrative 06/23/2021 12:00 AM CDT Ordered by an unspecified provider. 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 02/25/2019 7:23 PM Full Code 02/22/2019 10:30 PM Provider has discussed Code Status No, more discussi on w/Patient or Family? needed Care Teams Start Date End Date Mortgage Loan Processing Clerk Relationship Specialty 06/29/20 Thee Babcock DO PCP - [address] [address]
--- OUTSIDE RECORDS SUMMARY | 2021-08-22 13:03 | XMS REPORT | Encounter Summary ---
Author Author [facility] Organization [facility] Address Unknown Phone Unavailable Care Team Providers Care Sales And Retail Management Recruiter Name Role Phone Thee Babcock DO PCP Reason for Referral * Consult, Test & Treat (Routine) - Pending Review Diagnoses / Procedures Referred By Contact Referred To Conta ct Specialty Diagnoses Moderate persistent asthma without complication Chronic respiratory failure with hypoxia (HCC) [place] [address] [place] [address] [place] [address] [place] [address] Urgent Care Referral ID Status Reason Start Date Expiration Visits Vi sits Date Requested Authorized [id number] Pending Specialty Services 08/05/2021 08/05/2022 1 1 Review Required Answer Question Shortness of breath What is the patient being referred for? history COVID19 pneumonia April 2021 now with oxygen requirement, CT chest at [facility], second opinion Specific Problem to be Addressed? Comments COVID-19 clinic Reason for Visit * Reason Comments Covid-19 Encounter Details Care Team Description Date [place] [address] [place], [place] [id number] Post-COVID syndrome (Primary Dx); Moderate persistent asthma without complication; Chronic respiratory failure with hypoxia (HCC); Postviral fatigue syndrome; Attention deficit hyperactivity disorder (ADHD), unspecified ADHD type; Hypothyroidism, unspecified type; Steroid-induced hyperglycemia 08/05/2021 Office Visit [facility] [address] [address] [facility]. [address], [address] [place] [address] Social History Date Tobacco Use Types Packs/Day [...] / COVID-19? documented as of this encounter Last Filed Vital Signs Reading Time Taken Comments Vital Sign - - Blood Pressure - - Pulse - - Temperature - - Respiratory Rate - - Oxygen Saturation - - Inhaled Oxygen Concentration 90.7 kg (200 lb) 08/05/2021 11:12 AM CDT Weight 165.1 cm (5' 5") 08/05/2021 11:12 AM CDT Height 33.28 08/05/2021 11:12 AM CDT Body Mass Index documented in this encounter Functional Status Date of Assessment Functional Status Response 06/23/2021 Does the patient have a hearing impairment: [...] impairment: No documented as of this encounter Patient Instructions * Patient Instructions* Hailey Arriaga MD - 08/05/2021 11:20 AM CDT Thank you for participating in a telehealth encounter today, it was very nice to meet you in the COVID-19 clinic. Please stop the duloxetine - I do not recommend that you take both the duloxetin e and venlafaxine together. I recommend a trial of Wellbutrin in the morning. This is a different class of an antidepressant that can help with concentration and assist with some weight l oss. Please have labs drawn at any lab location (see below). Let's see pulmonary for their opinion. They will contact you to set up an ev aluation. I recommend receiving an mRNA COVID-19 vaccine - either the Oxitec or Desmos se bach. Please do not hesitate to call if you have any problems or questions. My nurse can be reached at [phone]. You may also message us in Friendsee. For urgent issues after business hours/weekends/holidays call [phone] and brittni smiley for the outpatient internal medicine physician to be paged. We offer same day appointments for your acute health concerns. Please call if you would like to make an appointment. If I am not available, you c an see any of my partners or try to see me the next day. Lab Locations and Hours: [facility] [address] [place] [address], 1st floor, directly to the left of [place] [address] At [facility] and [facility] adjacent to [facility] spital [phone] 7 a.m. - 6 p.m. Thursday - Thursday 7 a.m. - noon Thursday [facility] [address] [place] [address] 8 a.m. - 4:30 p.m. Thursday - Thursday [facility] [address] [place], [place] [address] 8 a.m. - 5 p.m. Thursday - Thursday [facility] [address] [place] [address] 7 a.m. - 5:30 p.m. Thursday - Thursday 7 a.m. - noon Thursday - Thursday [facility] [address] [place] [address] 8 a.m. - 4:30 p.m. Thursday - Thursday Locations are closed all major holidays (excluding ). documented in this encounter Ordered Prescriptions Start Date End Date Prescription Sig Dispensed Refills 08/05/2021 buPROPion XL (WELLBUTRIN Take one 30 tablet 2 XL) 150 mg tablet by tabletIndications: mouth daily. Attention deficit Do not crush hyperactivity disorder or chew. (ADHD), unspecified ADHD type documented in this encounter Progress Notes * Hailey Arriaga MD - 08/05/2021 11:20 AM CDT Subjective: Genoveva Bryan is a 41 y.o. female. Patient presents today for consultation on long covid-19 symptoms. Her PCP is Dr. Thee Babcock in [facility]. She first tested positive for COVID-19 on May 07, 2021. She was hospitalized a [facility] from May 12 through May 31 for acute respiratory failure with hypoxia, COVID-19 pneumonia, lactic acidosis, hyperglycemia, asthma , and chest pain. She reports declining intubation when it was offered. She w as treated with supplemental oxygen, inhaled bronchodilators, IV dexamethasone, tocilizumab, and remdesivir. Her mother was hospitalized for COVID-19 pneumonia and required ventilatory supp ort at . Her and 4 children were all ill as well. Genoveva has been on 2 L of continuous oxygen at home since her illness. She r eports seeing a draw hand associated with [facility]. Nebulized albutero l causes tachycardia. She prefers to use an albuterol inhaler with a spacer. On review of her medications she is prescribed both duloxetine and venlafaxine. She is very frustrated with low energy and weight gain. She was seen in the ED on June 23 and referred to the post Covid-19 matthew carvalho. Pertinent lab work included thrombocytosis, mild leukocytosis, normal D- dimer, chest x-ray demonstrated patchy mixed opacities in the lateral aspects of the lungs. She is having persistent symptoms of shortness of breath, fatigue, chest pain, t achycardia, decreased appetite, difficulty losing weight, and brain fog. She has not received covid-19 vaccination. She reports that one of her doctors advised against getting a vaccine. Respiratory symptoms: yes Fatigue/exhaustion: yes, sleeping a lot Neurologic (Myalgias/arthralgias/neuropathy): NA Cardiac (Palpitations/lightheadedness/POTS/autonomic): tachycardia, chest pain GI involvement: Decreased appetite Anosmia/dysgeusia: no Headache: no Brain fog and memory difficulties: yes - has underlying ADHD Depression, anxiety, and other mental health: dysphoric mood Referrals have also been placed to the following specialists and appointments ar e upcoming: clinical psychology, PMR, neurology, and cardiology. Review of Systems Constitutional: Positive for activity change, appetite change, fatigue and unexp ected weight change. Negative for chills and fever. HENT: Negative for trouble swallowing and voice change. Eyes: Negative for pain and visual disturbance. Respiratory: Positive for cough, chest tightness and shortness of breath. Cardiovascular: Positive for chest pain and palpitations. Gastrointestinal: Negative for abdominal pain and blood in stool. Endocrine: Negative for polydipsia and polyuria. Genitourinary: Negative for dysuria and frequency. Musculoskeletal: Negative for arthralgias, myalgias and neck pain. Skin: Negative for rash and wound. Allergic/Immunologic: Negative for immunocompromised state. Neurological: Positive for weakness. Negative for dizziness, light-headedness an d headaches. Hematological: Does not bruise/bleed easily. Psychiatric/Behavioral: Positive for decreased concentration and dysphoric mood. Negative for self-injury and suicidal ideas. Patient Active Problem List Diagnosis Date Noted Degenerative disc disease, lumbar 06/29/2020 Lumbar herniated disc 02/22/2019 Lumbar radiculopathy 02/22/2019 Medical History: Diagnosis Date COVID-19 Palpitations Scoliosis Surgical History: Procedure Laterality Date RIGHT LUMBAR 4-5 MICRODISCECTOMY Right 02/24/2019 Performed by Jerman Acevedo MD at [facility] OR HYSTERECTOMY HYSTERECTOMY TUBAL LIGATION Family History Problem Relation Age of Onset Arthritis Mother Back pain Mother Hypertension Mother Social History Socioeconomic History Marital status: Spouse name: Not on file Number of children: Not on file Years of education: Not on file Highest education level: Not on file Occupational History Not on file Tobacco Use Smoking status: Never Smoker Smokeless tobacco: Never Used Substance and Sexual Activity Alcohol use: Not Currently Drug use: Never Sexual activity: Not on file Other Topics Concern Not on file Social History Narrative Not on file Objective: duloxetine DR (CYMBALTA) 20 mg capsule Take 40 mg by mouth at bedtime daily. guaiFENesin LA (MUCINEX) 600 mg tablet Take 600 mg by mouth twice daily. GAS CUTTER THYROID 30 mg (0.5 gr) tablet Take 30 mg by mouth daily. topiramate (TOPAMAX) 50 mg tablet Take 1 tablet by mouth daily. venlafaxine XR (EFFEXOR XR) 150 mg capsule Take 150 mg by mouth daily. Vitals: 08/05/21 1112 Weight: 90.7 kg (200 lb) Height: 165.1 cm (65") PainSc: Five Telehealth Patient Reported Vitals Row Name 08/05/21 1112 Pain Score Five Pain Loc CHEST Body mass index is 33.28 kg/m. Physical Exam Constitutional: General: She is not in acute distress. Appearance: Normal appearance. She is obese. Interventions: Nasal cannula in place. HENT: Head: Normocephalic and atraumatic. Eyes: Extraocular Movements: Extraocular movements intact. Pupils: Pupils are equal, round, and reactive to light. Pulmonary: Effort: Pulmonary effort is normal. No respiratory distress. Neurological: General: No focal deficit present. Mental Status: She is alert and oriented to person, place, and time. Psychiatric: Mood and Affect: Mood normal. Behavior: Behavior normal. Thought Content: Thought content normal. Judgment: Judgment normal. Assessment and Plan: Genoveva Bryan was seen today for post covid-19 syndrome. Diagnoses and all orders for this visit: Post-COVID syndrome - She reports taking 2 SNRIs. I asked her to stop the duloxetine and continue venlafaxine. Trial of Wellbutrin XL, she will need to follow-up with her PCP. She plans to establish with a new PCP other than Dr. Babcock. - recommended COVID19 vaccination with Pfizer or Moderna series Moderate persistent asthma without complication Chronic respiratory failure with hypoxia (HCC) - AMB REFERRAL TO PULMONARY - Will request records from [facility] - CT scan, PFTs, notes Postviral fatigue syndrome - VITAMIN B12; Future; Expected date: 08/05/2021 - IRON + BINDING CAPACITY + %SAT+ FERRITIN; Future; Expected date: - CBC AND DIFF; Future; Expected date: 08/05/2021 Attention deficit hyperactivity disorder (ADHD), unspecified ADHD type - buPROPion XL (WELLBUTRIN XL) 150 mg tablet; Take one tablet by mouth daily . Do not crush or chew. Hypothyroidism, unspecified type - TSH WITH FREE T4 REFLEX; Future; Expected date: 08/05/2021 Steroid-induced hyperglycemia - HEMOGLOBIN A1C; Future; Expected date: 08/05/2021 Patient Instructions Thank you for participating in a telehealth encounter today, it was very nice to meet you in the COVID-19 clinic. Please stop the duloxetine - I do not recommend that you take both the duloxetin e and venlafaxine together. I recommend a trial of Wellbutrin in the morning. This is a different class of an antidepressant that can help with concentration and assist with some weight l oss. Please have labs drawn at any lab location (see below). Let's see pulmonary for their opinion. They will contact you to set up an ev aluation. I recommend receiving an mRNA COVID-19 vaccine - either the Oxitec or [employer]. Please do not hesitate to call if you have any problems or questions. My nurse can be reached at [phone]. You may also message us in Friendsee. For urgent issues after business hours/weekends/holidays call [phone] and brittni smiley for the outpatient internal medicine physician to be paged. We offer same day appointments for your acute health concerns. Please call if you would like to make an appointment. If I am not available, you c an see any of my partners or try to see me the next day. Lab Locations and Hours: [facility] [address] [facility] 1st floor, directly to the left of [place] [address] At [facility] adjacent to [facility] spital [phone] 7 a.m. - 6 p.m. Thursday - Thursday 7 a.m. - noon Thursday [facility] [address] [place] [address] 8 a.m. - 4:30 p.m. Thursday - Thursday [facility] [address] [place] [address] 8 a.m. - 5 p.m. Thursday - Thursday [facility] [address] [place] [address] 7 a.m. - 5:30 p.m. Thursday - Thursday 7 a.m. - noon Thursday - Thursday [facility] [address] [place] [address] 8 a.m. - 4:30 p.m. Thursday - Thursday Locations are closed all major holidays (excluding ). -No follow-ups on file. Total duration of visit 52 minutes on the day of the visit, including chart revi ew, review of vitals and nursing note, obtaining history from the patient, perfo rming a medically appropriate examination and evaluation, counseling with gilberto johnston, placing orders, coordination of care, and documentation. Counseled patient r egarding evaluation and management of diagnosis, risks and benefits of therapy. Hailey Arriaga MD Internal Medicine 08/05/2021 documented in this encounter Plan of Treatment Order Schedule Name Type Priority Associated Diag noses Expected: 08/05/2021, Expires: 2 VITAMIN B12 Lab Routine Postviral fatig ue syndrome Expected: 08/05/2021, Expires: 2 IRON + BINDING CAPACITY + Lab Routine Post viral fatigue %SAT+ FERRITIN syndrome Expected: 08/05/2021 (Approximate), Expi res: 08/06/2022 HEMOGLOBIN A1C Lab Routine Steroid-induced hyperglycemia Expected: 08/05/2021, Expires: 2 TSH WITH FREE T4 REFLEX Lab Routine Hypoth yroidism, unspecified type Expected: 08/05/2021 (Approximate), Expi res: 08/06/2022 CBC AND DIFF Lab Routine Postviral fatig ue syndrome Order Schedule Name Type Priority Associated Diag noses Ordered: 08/05/2021 AMB REFERRAL TO PULMONARY Outpatient Routine Mode rate persistent Referral asthma without complication Chronic respiratory failure with hypoxia (HCC) documented as of this encounter Visit Diagnoses Diagnosis Post-COVID syndrome - Primary Moderate persistent asthma without comp lication Unspecified asthma Chronic respiratory failure with hypoxi a (HCC) Chronic respiratory failure Postviral fatigue syndrome Chronic fatigue syndrome Attention deficit hyperactivity disorde r (ADHD), unspecified ADHD type Hypothyroidism, unspecified type Steroid-induced hyperglycemia Other abnormal glucose documented in this encounter Discontinued Medications Start Date End Date Medication Sig Discontinue Reason 08/05/2021 simvastatin (ZOCOR) 10 mg Take 10 mg Therapy tablet by mouth completed daily. 08/05/2021 spironolactone Take 25 mg Therapy (ALDACTONE) 25 mg tablet by mouth completed daily. Take with food. 08/05/2021 metFORMIN (GLUCOPHAGE) Take 500 mg Therapy 500 mg tablet by mouth completed twice daily with meals. 08/05/2021 cetirizine (ZYRTEC) 10 mg Take 10 mg Therapy tablet by mouth completed every morning. 02/25/2019 08/05/2021 melatonin 5 mg tab Take one Therapy tablet by completed mouth at bedtime daily. 02/25/2019 08/05/2021 pregabalin (LYRICA) 75 mg Take one Therapy capsule capsule by completed mouth twice daily. 02/26/2019 08/05/2021 scopolamine Apply one Therapy (TRANSDERM-SCOP) 1.5 mg 3 patch to top completed day patch of skin as directed every 72 hours. 08/05/[address] (CYMBALTA) Take 40 mg 20 mg capsule by mouth at bedtime daily. 08/05/[address] 40 mg Take 40 mg capsule by mouth daily. documented as of this encounter Historical Medications * This list may reflect changes made after this encounter. Start Date End Date Medication Sig Dispensed Refills guaiFENesin LA (MUCINEX) Take 600 mg 0 600 mg tablet by mouth twice daily. venlafaxine XR (EFFEXOR Take 150 mg 0 XR) 150 mg capsule by mouth daily. 06/08/2021 GAS CUTTER THYROID 30 mg (0.5 gr) Take 30 mg by 0 tablet mouth daily. 08/05/[address] 40 mg Take 40 mg by 0 capsule mouth daily. added in this encounter Additional Health Concerns Noted Time Assessment 06/29/2020 1:22 PM CDT A fall risk assessment has been complet ed for the patient 08/05/2021 11:17 AM CDT PHQ-2 Depression Total Score: 0 documented as of this encounter Care Teams Start Date End Date Sales And Retail Management Recruiter Relationship Specialty 06/29/20 Thee Babcock DO PCP - [address] [address] documented as of this encounter
--- OUTSIDE RECORDS SUMMARY | 2021-08-22 13:03 | XMS REPORT | Encounter Summary ---
Author Author [facility] Organization [facility] Address Unknown Phone Unavailable Care Team Providers Care Medical Planner Name Role Phone Thee Babcock DO PCP Reason for Referral * Consult, Test & Treat (Discharge Pending) - Pending Review Diagnoses / Procedures Referred By Contact Referred To [facility] Specialty Diagnoses Post-COVID syndrome Procedures APPOINTMENT REQUEST: PRIMARY CARE PROVIDER - FAMILY MEDICINE & GENERAL INTERNAL MEDICINE Shady Garcia MD [address] [place] [address], [address] [place] [address] Family Medicine Referral ID Status Reason Start Date Expiration Visits Vi sits Date Requested Authorized [id number] Pending 06/23/2021 06/23/2022 1 1 Review * Consult, Test & Treat (Discharge Pending) - Pending Review Diagnoses / Procedures Referred By Contact Referred To [facility] Specialty Procedures APPOINTMENT REQUEST - POST COVID CLINIC Shady Garcia MD [address] [place] [address] Referral ID Status Reason Start Date Expiration Visits Vi sits Date Requested Authorized [id number] Pending 06/23/2021 06/23/2022 1 1 Review Reason for Visit * Reason Comments Chest Pain hospitalized with covid for 3 weeks, has been home for 3 weeks since, decreased activity since coming home [facility], reporting mid bilateral back pain Encounter Details Care Team Description Date Type Department Shady Garcia MD [address] [facility] [place] [address] 06/23/2021 Emergency Emergency Departmen t: [facility] [address] [facility]. Level 1 [place] [phone] Social History Date Tobacco Use Types Packs/Day Years Used Never Smoker Smokeless Tobacco: Never Used Comments Alcohol Use Standard Drinks/Week Not Currently 0 (1 standard drink = 0.6 o z pure alcohol) Sex Assigned at Date Recorded Female 06/29/2020 1:21 PM CDT Date Recorded COVID-19 Exposure Response 06/23/2021 4:45 PM CDT In the last month, have you been in contact with Yes someone who was confirmed or suspected to have Coronavirus / COVID-19? documented as of this encounter Last Filed Vital Signs Reading Time Taken Comments Vital Sign 138/89 06/23/2021 8:10 PM CDT Blood Pressure 94 06/23/2021 8:10 PM CDT Pulse 36.7 C (98 F) 06/23/2021 4:49 PM CDT Temperature - - Respiratory Rate 99% 06/23/2021 8:10 PM CDT Oxygen Saturation - - Inhaled Oxygen Concentration 90.7 kg (200 lb) 06/23/2021 4:45 PM CDT Weight 165.1 cm (5' 5") 06/23/2021 4:45 PM CDT Height 33.28 06/23/2021 4:45 PM CDT Body Mass Index documented in this [...] impairment: No documented as of this encounter Discharge Instructions * Instructions* Dhruv Sánchez MD - 06/23/2021 Your evaluated in the emergency department today. After thorough history, physi hugo exam, labs, and imaging our impression is that you are suffering from post-C ovid syndrome and could benefit from being seen in the post Covid clinic with pu lmonology. We also sent a request for you to establish with a primary care haritha dickens at your request. From there, you may need other interdisciplinary care. We performed labs and imaging to evaluate for a clot in your lungs or extremitie s. However, these came back negative. We also evaluated for infection and were initially suspicious for an atypical pneumonia based on chest x-ray. However, it appears it is most likely post Covid lung scarring. Therefore, we did not pr ovide any antibiotics in the ED or on discharge. There is no evidence of obviou s UTI despite well amounts of bacterial colonization. Should you have further concerns including, significant persistence/worsening of the above presenting symptoms, we recommend calling the emergency department or your PCP for the next steps. 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 topiramate (TOPAMAX) 50 Take 1 tablet 0 mg tablet by mouth daily. 08/05/2021 cetirizine (ZYRTEC) 10 mg Take 10 mg by 0 tablet mouth every morning. 08/05/[address] (CYMBALTA) Take 40 mg by 0 20 mg capsule mouth at bedtime daily. 05/31/2021 08/09/2021 ipratropium bromide Inhale 2 0 (ATROVENT HFA) 17 puffs by mcg/actuation inhaler mouth into the lungs. 02/25/2019 08/05/2021 melatonin 5 mg tab Take one 90 tablet 1 tablet by mouth at bedtime daily. 08/05/2021 metFORMIN (GLUCOPHAGE) Take 500 mg 0 500 mg tablet by mouth twice daily with meals. 02/25/2019 08/05/2021 pregabalin (LYRICA) 75 mg Take one 90 capsule 0 capsule capsule by mouth twice daily. 02/26/2019 08/05/2021 scopolamine Apply one 4 patch 3 (TRANSDERM-SCOP) 1.5 mg 3 patch to top day patch of skin as directed every 72 hours. 08/05/2021 simvastatin (ZOCOR) 10 mg Take 10 mg by 0 tablet mouth daily. 08/05/2021 spironolactone Take 25 mg by 0 (ALDACTONE) 25 mg tablet mouth daily. Take with food. documented as of this encounter Discharge Disposition Code Departure Means Destination Disposition Home or Self Care documented in this encounter ED Notes * Cosme Davis RN - 06/23/2021 8:53 PM CDT This RN provides discharge teaching and instructions. Pt AAOx4, verbalizes under standing and denies further questions. Pt ambulates off unit with an even, stead y gait in no acute distress. All belongings and paperwork in pts possession upon departure. * Tamika Lara RN - 06/23/2021 6:05 PM CDT 40 year old patient arrives to ED 33 with chief complaint of chest pain x 2 days associated with increased shortness of breath and weakness. She reports being h ospitalized with covid for [address] [facility] then has been home for 3.5 weeks on 2L [place] . She reports that she was improving and getting stronger, then started declining again a couple days ago. She denies nausea, vomiting, diarrhea, fever s, cough, chills, diarrhea, or dizziness. Medical History: Diagnosis Date Scoliosis cart in lowest locked position, call light within reach. Pt assumes care of all belongings. * Shady aGrcia MD - 06/23/2021 5:02 PM CDT Images from the original note were not included. Genoveva Bryan is a 40 y.o. female. Chief Complaint: Chief Complaint Patient presents with Chest Pain hospitalized with covid for 3 weeks, has been home for 3 weeks since, decrease d activity since coming home from hospital, reporting mid bilateral back pain History of Present Illness: Genoveva Bryan is a 40 y.o. female with PMHx asthma, obesity, PCOS, Hx COVID -19 PNA (05/2021), chronic hypoxic respiratory failure (baseline 2L) who presents today 06/23 for chest pain. Patient states she was diagnosed with Covid in early May and hospitalized for it at [facility] from 05/13-05/31. She was treated with Dex, remdesivir, tocilizu mab, and discharged on 2 L supplemental oxygen with plans for follow-up in 7 to 14 days with her PCP. Also treated for UTI at that time. Patient states she got home health approved with her insurance and was receiving physical therapy. Manuel mahmood notes she had initial improvement for the first couple weeks regarding mos t of her symptoms but within the last week she has had gradual decline in her am bulation, fatigue, chills, intermittent tachycardia, bilateral muscular back sparkle n, and most notably sharp, stabbing, 6-7/10 pleuritic pain localized to her mid chest. Denies any previous clots. Deep inspiration seems to make the chest pain worse. Nothing seems to make it m uch better but has been taking 400 mg naproxen twice daily since hospitalization . Denies any radiation to the back. Denies any previous similar episodes. Patient denies any no red dysuria, urgency, frequency. However, states she has had previous UTIs and is unable to differentiate the symptoms after a septic pos tpartum hospitalization. Patient expresses frustration with her poor care post hospitalization and desire s greater continuity to the [facility] system, specifically a post-Covid clinic. Discus sed multidisciplinary post Covid clinic available through our system. History provided by: Patient and medical records seismic interpreter used: No Review of Systems: Review of Systems Constitutional: Positive for activity change, appetite change, chills, diaphores is and fatigue. Negative for fever and unexpected weight change. HENT: Negative. Negative for drooling. Eyes: Negative. Respiratory: Positive for cough, chest tightness and shortness of breath. Negati ve for wheezing. Cardiovascular: Positive for chest pain. Negative for palpitations and leg swell ing. Gastrointestinal: Positive for abdominal pain. Negative for constipation, diarrh ea, nausea and vomiting. Endocrine: Negative. Genitourinary: Positive for dyspareunia and vaginal pain. Negative for dysuria, frequency and urgency. Chronic pelvic pain, unchanged Musculoskeletal: Positive for back pain. Negative for neck pain and neck stiffne ss. Bilateral muscular back pain Skin: Negative. Allergic/Immunologic: Negative. Negative for immunocompromised state. Neurological: Positive for weakness and headaches. Negative for tremors, seizure s and syncope. Hematological: Negative. Psychiatric/Behavioral: Negative. Negative for confusion. All other systems reviewed and are negative. Allergies: Bee sting [venom-honey bee], Lanolin, Latex, Dairy aid [lactase], Morphine, and Tramadol Past Medical History: Medical History: Diagnosis Date Scoliosis Past Surgical History: Surgical History: Procedure Laterality Date RIGHT LUMBAR 4-5 MICRODISCECTOMY Right 02/24/2019 Performed by Jerman Acevedo MD at [facility] OR HYSTERECTOMY HYSTERECTOMY TUBAL LIGATION Pertinent medical/surgical history reviewed Social History: Social History Tobacco Use Smoking status: Never Smoker Smokeless tobacco: Never Used Substance Use Topics Alcohol use: Not Currently Drug use: Never Social History Substance and Sexual Activity Drug Use Never Family History: Family History Problem Relation Age of Onset Arthritis Mother Back pain Mother Hypertension Mother Vitals: ED Vitals Date and Time T BP P RR SPO2P SPO2 User 06/23/212009 -- 138/89 94 19 PER MINUTE 93 99 % MM 06/23/21 1915 -- -- 101 20 PER MINUTE 101 97 % MM 06/23/21 1649 36.7 C (98 F) 128/86 -- -- -- -- JF 06/23/21 1645 -- -- -- 24 PER MINUTE 110 96 % JF Physical Exam: Physical Exam Vitals and nursing note reviewed. Constitutional: General: She is not in acute distress. Appearance: Normal appearance. She is normal weight. She is not ill-appearing , toxic-appearing or diaphoretic. HENT: Head: Normocephalic and atraumatic. Right Ear: External ear normal. Left Ear: External ear normal. Nose: Nose normal. Mouth/Throat: Mouth: Mucous membranes are moist. Pharynx: Oropharynx is clear. Eyes: Extraocular Movements: Extraocular movements intact. Conjunctiva/sclera: Conjunctivae normal. Pupils: Pupils are equal, round, and reactive to light. Cardiovascular: Rate and Rhythm: Regular rhythm. Tachycardia present. Pulses: Normal pulses. Heart sounds: Normal heart sounds. No murmur heard. No friction rub. No gallop. Pulmonary: Effort: Pulmonary effort is normal. No respiratory distress. Breath sounds: No wheezing, rhonchi or rales. Comments: Decreased decreased breath sounds bilaterally at the bases Chest: Chest wall: Tenderness present. Abdominal: General: Abdomen is flat. Bowel sounds are normal. Palpations: Abdomen is soft. Tenderness: There is abdominal tenderness. There is no guarding or rebound. Musculoskeletal: General: No swelling or tenderness. Normal range of motion. Cervical back: Normal range of motion. Right lower leg: No edema. Left lower leg: No edema. Skin: General: Skin is warm and dry. Capillary Refill: Capillary refill takes less than 2 seconds. Neurological: General: No focal deficit present. Mental Status: She is alert and oriented to person, place, and time. Mental s tatus is at baseline. Psychiatric: Mood and Affect: Mood normal. Behavior: Behavior normal. Thought Content: Thought content normal. Judgment: Judgment normal. Laboratory Results: Labs Reviewed CBC AND DIFF - Abnormal Result Value Ref Range Status White Blood Cells 13.6 (*) 4.5 - 11.0 K/UL Final RBC 4.63 4.0 - 5.0 M/UL Final Hemoglobin 14.4 12.0 - 15.0 GM/DL Final Hematocrit 42.4 36 - 45 % Final MCV 91.7 80 - 100 FL Final MCH 31.2 26 - 34 PG Final MCHC 34.0 32.0 - 36.0 G/DL Final RDW 15.8 (*) 11 - 15 % Final Platelet Count 575 (*) 150 - 400 K/UL Final MPV 8.2 7 - 11 FL Final Neutrophils 70 41 - 77 % Final Lymphocytes 19 (*) 24 - 44 % Final Monocytes 9 4 - 12 % Final Eosinophils 2 0 - 5 % Final Basophils 0 0 - 2 % Final Absolute Neutrophil Count 9.60 (*) 1.8 - 7.0 K/UL Final Absolute Lymph Count 2.52 1.0 - 4.8 K/UL Final Absolute Monocyte Count 1.15 (*) 0 - 0.80 K/UL Final Absolute Eosinophil Count 0.23 0 - 0.45 K/UL Final Absolute Basophil Count 0.05 0 - 0.20 K/UL Final MDW (Monocyte Distribution Width) 18.6 <20.7 Final URINALYSIS DIPSTICK REFLEX TO CULTURE - Abnormal Color,UA YELLOW Final Turbidity,UA CLEAR CLEAR-CLEAR Final Specific [place]-Urine 1.010 1.003 - 1.035 Final pH,UA 6.0 5.0 - 8.0 Final Protein,UA NEG NEG-NEG Final Glucose,UA NEG NEG-NEG Final Ketones,UA NEG NEG-NEG Final Bilirubin,UA NEG NEG-NEG Final Blood,UA NEG NEG-NEG Final Urobilinogen,UA NORMAL NORM-NORMAL Final Nitrite,UA NEG NEG-NEG Final Leukocytes,UA TRACE (*) NEG-NEG Final Urine Ascorbic Acid, UA NEG NEG-NEG Final URINALYSIS MICROSCOPIC REFLEX TO CULTURE - Abnormal WBCs,UA 2-10 0 - 2 /HPF Final RBCs,UA 0-2 0 - 3 /HPF Final Comment,UA Final Value: Criteria for reflex to culture are WBC>10, Positive Nitrite, and/or >=+1 leukocytes. If quantity is not sufficient, an addendum will follow. MucousUA TRACE Final Bacteria,UA FEW (*) NEG-NEG Final Squamous Epithelial Cells 0-2 0 - 5 Final CULTURE-BLOOD W/SENSITIVITY CULTURE-BLOOD W/SENSITIVITY COMPREHENSIVE METABOLIC PANEL Sodium 140 137 - 147 MMOL/L Final Potassium 3.7 3.5 - 5.1 MMOL/L Final Chloride 105 98 - 110 MMOL/L Final Glucose 94 70 - 100 MG/DL Final Blood Urea Nitrogen 10 7 - 25 MG/DL Final Creatinine 0.83 0.4 - 1.00 MG/DL Final Calcium 9.9 8.5 - 10.6 MG/DL Final Total Protein 7.4 6.0 - 8.0 G/DL Final Total Bilirubin 0.4 0.3 - 1.2 MG/DL Final Albumin 4.4 3.5 - 5.0 G/DL Final Alk Phosphatase 89 25 - 110 U/L Final AST (SGOT) 16 7 - 40 U/L Final CO2 24 21 - 30 MMOL/L Final ALT (SGPT) 25 7 - 56 U/L Final Anion Gap 11 3 - 12 Final eGFR Non >60 >60 mL/min Final eGFR >60 >60 mL/min Final D-DIMER D-Dimer 402 <500 ng/mL FEU Final TSH WITH FREE T4 REFLEX TSH 2.00 0.35 - 5.00 MCU/ML Final POC LACTATE LACTIC ACID POC 1.0 0.5 - 2.0 MMOL/L Final POC TROPONIN Qeytxybb-Z-DEW 0.00 0.00 - 0.05 NG/ML Final POC CREATININE, RAD Creatinine, POC 0.8 0.4 - 1.00 MG/DL Final BNP POC ER BNP POC <15.0 0 - 100 PG/ML Final PROCALCITONIN Procalcitonin 0.05 ng/mL Final [facility]A REFLEX LABEL Radiology Interpretation: CHEST 2 VIEWS Final Result Patchy mixed opacities in the lateral aspects of the lungs likely atypical infec tion. A component of developing fibrosis could also be present given the reticul ar appearance of some of the opacities. Finalized by Av Robles M.D. on 06/23/2021 6:42 PM. Dictated by Av Robles M.D. on 06/23/2021 6:40 PM. POC ED US CARDIAC LIMITED Final Result Reservations And Ticketing Agent: Shady Garcia Attending: Shady Garcia ED-Cardiac Clinical: Indication(s) for Exam: Other: fatigue Views: Parasternal Long [place]: Limited Parasternal Short [place]: Limited Apical Four-Chamber: Limited Subxiphoid (4 chamber): Limited Subxiphoid IVC: Limited Findings: Global Left Ventricular Function: Normal Pericardial Effusion: Indeterminate Right Ventricular Size: Normal IVC: Collapsed Interpretation: Global Left Ventricular Function: Normal Pericardial Effusion: No sonographic evidence of significant pericardia l effusion IVC: Collapsed IVC (Estimated CVP less than 5) Electronically signed by Shady Garcia on Thursday, June 24, 2021 at 1:20 PM EKG: Sinus tachycardia; HR 106; OH, QRS, QTc all wnl; no significant ST/Tw abnormalit ies ED Course: 40 y.o. female presented to the ED for chest pain. - Patient was evaluated by resident and attending physicians. - Available records were reviewed. - Patient's initial vitals reviewed. Afebrile, HR 110, RR 24 >94% on 2L (baseline) - labs drawn, patient on monitor - Initial concern included, but was not limited to: Pulmonary embolism, ACS, cos tochondritis, pulmonary fibrosis, post-covid syndrome. - Labs notable for: WBC 13.6; POC lactate wnl, bnp negative, POC cr 0.8, trop ne gative, procalcitonin negative; d-d negative; UA with trace leuks and few bacter ia; BCx2 pending; - Imaging notable for: CXR: potential lung fibrosis vs atypical pneumonia; cardi ac POCUS as above and below - Cardiac and lung POCUS performed without evidence of right heart strain or oth er signs of obvious saddle embolus. Evidence for mild pulmonary fibrosis. - Given mild leukocytosis and CXR with evidence of atypical infection, patient w as initially to be given dose of IV levofloxacin; however, patient's procal was negative and thus we felt patient antibiotics were not clinically indicated over all. - Patient given education on significance of and potential need for further eval uation should patient have significant worsening of above presenting s/s or othe r infectious s/s. - Requested patient f/u as needed with PCP, ED, and requested appt with Post-COV ID-19 clinic with pulmonology on discharge. - Findings and plan for disposition discussed with patient. Patient understands and agrees with plan. Dispo: Home ED Scoring: MDM Reviewed: vitals, nursing note and previous chart Reviewed previous: CT scan, MRI, x-ray, ECG and labs Interpretation: x-ray, ultrasound, ECG and labs Facility Administered Meds: Medications - No data to display Clinical Impression: Clinical Impression Post-COVID syndrome Disposition/Follow up ED Disposition ED Disposition Discharge Thee Babcock, DO [address] [facility] [address] Call As needed, If symptoms worsen Emergency Department: [facility] [address] [facility] [address] [facility] [phone] Call As needed, If symptoms worsen Pulmonology: [facility], Medical [address] [facility] [address] Schedule an appointment as soon as possible for a visit in 1 week Medications: Discharge Medication List as of 06/23/2021 8:10 PM Procedure Notes: Procedures Attestation / Supervision: Dhruv Sánchez MD Resident Supervision Note concerning Genoveva Bryan: I personally performed the [place] portions of the E/M visit, discussed case with resident and concur with resident documentation of history, physical exam, assessment, and treatment plan unless otherwise noted. Shady Garcia MD documented in this encounter Plan of Treatment Not on filedocumented as of this encounter Procedures Comments Procedure Name Priority Date/Time Associated Diag nosis CULTURE-BLOOD STAT 06/23/2021 W/SENSITIVITY 7:42 PM CDT UA REFLEX LABEL STAT 06/23/2021 6:34 PM CDT URINALYSIS MICROSCOPIC STAT 06/23/2021 REFLEX TO CULTURE 6:34 PM CDT HC URINALYSIS UAR STAT 06/23/2021 6:34 PM CDT CULTURE-BLOOD STAT 06/23/2021 W/SENSITIVITY 6:34 PM CDT CHEST 2 VIEWS STAT 06/23/2021 6:09 PM CDT HC BNP POC 06/23/2021 6:08 PM CDT HC TROPONIN I, POC 06/23/2021 6:07 PM CDT HC POC LACTIC ACID 06/23/2021 6:05 PM CDT POC CREATININE, RAD 06/23/2021 6:05 PM CDT HC PROLCALCITONIN (PROCA) STAT 06/23/2021 5:55 PM CDT HC TSH SCREEN 06/23/2021 5:55 PM CDT HC D-DIMER 06/23/2021 5:55 PM CDT HC CBC W/ AUTOMATED DIFF STAT 06/23/2021 5:55 PM CDT HC COMPREHENSIVE STAT 06/23/2021 METABOLIC PANEL 5:55 PM CDT POC ED US CARDIAC LIMITED Routine 06/23/2021 5:37 PM CDT ECG 12-LEAD STAT 06/23/2021 5:13 PM CDT ECG-SCAN 06/23/2021 12:00 AM CDT documented in this encounter Results * CULTURE-BLOOD W/SENSITIVITY (06/23/2021 7:42 PM CDT) Battery Name BLOOD CULTURE [facility] Report Status FINAL 06/29/2021 [facility] Specimen BLOOD ARM, LEFT MAIN LAB Description Special NONE [facility] Requests Culture NO GROWTH 5 DAYS [facility] Specimen Blood - Arm, Left Performing Organization Address [facility] P lucille Number MAIN LAB [address] [place] [address] * CULTURE-BLOOD W/SENSITIVITY (06/23/2021 6:34 PM CDT) Battery Name BLOOD CULTURE [facility] Report Status FINAL 06/29/2021 [facility] Specimen BLOOD BLOOD, PERIPHERAL MAIN LAB Description Special NONE [facility] Requests Culture NO GROWTH 5 DAYS [facility] Specimen Blood - Blood,Peripheral Performing Organization Address [facility] P lucille Number MAIN LAB [address] [place] [address] * UA REFLEX LABEL (06/23/2021 6:34 PM CDT) UA Reflex Criteria for reflex to culture [facility] Culture are WBC>10, Positive Nitrit e, and/or >=+1 leukocytes. If quantity is not sufficient, an addendum will follow. Specimen Urine Performing Organization Address [facility] P lucille Number MAIN LAB [address] [place] [address] * URINALYSIS MICROSCOPIC REFLEX TO CULTURE (06/23/2021 6:34 PM CDT) WBCs,UA 2-10 0 - 2 /HPF MAIN LAB RBCs,UA 0-2 0 - 3 /HPF MAIN LAB Comment,UA Criteria for reflex to culture [facility] are WBC>10, Positive Nitrite, and/or >=+1 leukocytes. If quantity is not sufficient, an addendum will follow. MucousUA TRACE MAIN LAB Bacteria,UA FEW (A) NEG-NEG MAIN LAB Squamous 0-2 0 - 5 [facility] Epithelial Cells Specimen Urine Performing Organization Address [facility]/ZIP Code P lucille Number [facility] [address] [place] [address] * URINALYSIS DIPSTICK REFLEX TO CULTURE (06/23/2021 6:34 PM CDT) Color,UA YELLOW [facility] Turbidity,UA CLEAR CLEAR-CLEAR [facility] Specific 1.010 1.003 - 1.035 [facility] [place]-Urine pH,UA 6.0 5.0 - 8.0 [facility] Protein,UA NEG NEG-NEG [facility] Glucose,UA NEG NEG-NEG [facility] Ketones,UA NEG NEG-NEG [facility] Bilirubin,UA NEG NEG-NEG [facility] Blood,UA NEG NEG-NEG [facility] Urobilinogen,UA NORMAL NORM-NORMAL [facility] Nitrite,UA NEG NEG-NEG [facility] Leukocytes,UA TRACE (A) NEG-NEG [facility] Urine Ascorbic NEG NEG-NEG [facility] Acid, UA Specimen Urine Performing Organization Address [facility] P lucille Number [facility] [address] [place] [address] * CHEST 2 VIEWS (06/23/2021 6:09 PM [...] on 06/23/2021 6:40 PM. Performing Organization Address [facility] Code P lucille Number [facility] RAD RESULTS * BNP POC ER (06/23/2021 6:08 PM CDT) BNP POC <15.0 0 - 100 PG/ML [facility] Specimen Performing Organization Address [facility] P lucille Number [facility] [address] [place] [phone] * POC TROPONIN (06/23/2021 6:07 PM CDT) Auienrzn-R-WQI 0.00 0.00 - 0.05 NG/ML [facility] Specimen Performing Organization Address [facility] P lucille Number [facility] [address] [place] [address] * POC CREATININE, RAD (06/23/2021 6:05 PM CDT) Creatinine, POC 0.8 0.4 - 1.00 MG/DL [facility] Specimen Performing Organization Address [facility] P lucille Number [facility] [address] [place] [address] * POC LACTATE (06/23/2021 6:05 PM CDT) LACTIC ACID POC 1.0 0.5 - 2.0 MMOL/L [facility] Specimen Performing Organization Address [facility] P lucille Number MAIN LAB [address] [place] [address] * PROCALCITONIN (06/23/2021 5:55 PM CDT) Procalcitonin 0.05 ng/mL [facility] Comment: Suspected Lower Respiratory Tract Infection: >0.25 ng/mL-Increased likeihood bacterial infection Suspected Sepsis: >0.5 ng/mL-Increased likelihood sepsis >2.0 ng/mL-High risk of sepsis/septic shock Specimen Performing Organization Address [facility] Code P lucille Number [facility] [address] [place] [address] * TSH WITH FREE T4 REFLEX (06/23/2021 5:55 PM CDT) TSH 2.00 0.35 - 5.00 MCU/ML [facility] Specimen Performing Organization Address [facility] P lucille Number [facility] [address] [place] [address] * D-DIMER (06/23/2021 5:55 PM CDT) D-Dimer 402 <500 ng/mL FEU [facility] Comment: Recent evidence supports the use of clinical pretest probability and age-adjusted D-Dimer reference ranges for evaluation of deep vein thrombosis and pulmonary embolism in patients greater than 50 years of age. AGE D-Dimer(FEU, ng/mL) 50 years or less <500 >50 years <Age x 10 ng/mL Specimen Performing Organization Address [facility] P lucille Number [facility] [address] [place] [address] * COMPREHENSIVE METABOLIC PANEL (06/23/2021 5:55 PM CDT) Sodium 140 137 - 147 MMOL/L [facility] Potassium 3.7 3.5 - 5.1 MMOL/L [facility] Chloride 105 98 - 110 MMOL/L [facility] Glucose 94 70 - 100 MG/DL [facility] Blood Urea 10 7 - 25 MG/DL [facility] Nitrogen Creatinine 0.83 0.4 - 1.00 MG/DL [facility] Calcium 9.9 8.5 - 10.6 MG/DL [facility] Total Protein 7.4 6.0 - 8.0 G/DL [facility] Total Bilirubin 0.4 0.3 - 1.2 MG/DL [facility] Albumin 4.4 3.5 - 5.0 G/DL [facility] Alk Phosphatase 89 25 - 110 U/L [facility] AST (SGOT) 16 7 - 40 U/L [facility] CO2 24 21 - 30 MMOL/L [facility] ALT (SGPT) 25 7 - 56 U/L [facility] Anion Gap 11 3 - 12 [facility] eGFR Non >60 >60 mL/min [facility] Comment: [place] The eGFR is not validated f or use in drug dosing adjustments. Continue to use estimated creatinine clearance per dosing reference text. Please contact the Clinical Pharmacist for questions. eGFR >60 >60 mL/min [facility] [place] Comment: The eGFR is not validated for use in drug dosing adjustments. Continue to use estimated creatinine clearance per dosing reference text. Please contact the Clinical Pharmacist for questions. Specimen Blood Performing Organization Address City/State/ZIP Code P lucille Number [facility] [address] [place] [address] * CBC AND DIFF (06/23/2021 5:55 PM CDT) White Blood 13.6 (H) 4.5 - 11.0 K/UL [facility] Cells RBC 4.63 4.0 - 5.0 M/UL [facility] Hemoglobin 14.4 12.0 - 15.0 GM/DL [facility] Hematocrit 42.4 36 - 45 % [facility] MCV 91.7 80 - 100 FL [facility] MCH 31.2 26 - 34 PG [facility] MCHC 34.0 32.0 - 36.0 G/DL [facility] RDW 15.8 (H) 11 - 15 % [facility] Platelet Count 575 (H) 150 - 400 K/UL [facility] MPV 8.2 7 - 11 FL [facility] Neutrophils 70 41 - 77 % [facility] Lymphocytes 19 (L) 24 - 44 % [facility] Monocytes 9 4 - 12 % [facility] Eosinophils 2 0 - 5 % [facility] Basophils 0 0 - 2 % [facility] Absolute 9.60 (H) 1.8 - 7.0 K/UL [facility] Neutrophil Count Absolute Lymph 2.52 1.0 - 4.8 K/UL [facility] Count Absolute 1.15 (H) 0 - 0.80 K/UL [facility] Monocyte Count Absolute 0.23 0 - 0.45 K/UL [facility] Eosinophil Count Absolute 0.05 0 - 0.20 K/UL [facility] Basophil Count MDW (Monocyte 18.6 <20.7 [facility] Distribution Comment: Width) MDW greater than 20.0, together with other laboratory and clinical information, aids in the diagnosis of sepsis or increased risk of sepsis within the first 12 hours of presenting to the emergency department. MDW should not be used as a sole test to determine the absence of sepsis. Clinical performance of the MDW has not been determined in patients receiving immune stimulants, patients with alcoholism, or patients with hematologic abnormalities such as blast cells. Specimen Blood Performing Organization Address City/State/ZIP Code P lucille Number [facility] [address] [place] [address] * POC ED US CARDIAC LIMITED (06/23/2021 5:37 PM CDT) Modality Anatomical Region Laterality Ultrasound Chest Specimen Impressions [facility] RESULTS - 06/24/2021 1:20 PM CDT Reservations And Ticketing Agent: Shady Garcia Attending: Shady Garcia ED-Cardiac Clinical: Indication(s) for Exam: Other: fatigue Views: Parasternal Long [place]: Limited Parasternal Short [place]: Limited Apical Four-Chamber: Limited Subxiphoid (4 chamber): [...] Note Shady Garcia MD - 06/24/2021 IMPRESSION Reservations And Ticketing Agent: Shady Garcia Attending: Shady Garcia ED-Cardiac Clinical: Indication(s) for Exam: Other: fatigue Views: Parasternal Long [place]: Limited Parasternal Short [place]: Limited Apical Four-Chamber: Limited Subxiphoid (4 chamber): [...] AM CDT Ordered by an unspecified provider. documented in this encounter Visit Diagnoses Diagnosis Post-COVID syndrome - Primary documented in this encounter Active and Recently Administered Medications Orders First Ordered Date Medications Ordered That Might Not Have Count Last Ordered Date Been Administered levoFLOXacin (LEVAQUIN) 750 mg/D5W 150 1 06/23/2021 mL IVPB First Ordered Date EKG Orders Without Results Count Last Ordere d Date ECG 12-LEAD 1 06/23/2021 First Ordered Date Appointment Request Count Last Ordered Date APPOINTMENT REQUEST - POST COVID CLINIC 1 06/23/2021 APPOINTMENT REQUEST: PRIMARY CARE 1 06/12 PROVIDER - FAMILY MEDICINE & GENERAL INTERNAL MEDICINE documented in this encounter Additional Health Concerns Noted Time Assessment 06/29/2020 1:22 PM CDT A fall risk assessment has been complet ed for the patient documented as of this encounter Care Teams Start Date End Date Medical Planner Relationship Specialty 06/29/20 Thee Babcock DO PCP - General [address] [address] documented as of this encounter
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
--- OUTSIDE RECORDS SUMMARY | 2021-08-22 13:03 | XMS REPORT | Encounter Summary ---
Author Author [facility] Organization [facility] Address Unknown Phone Unavailable Care Team Providers Care Event Security Officer Name Role Phone Thee Babcock DO PCP Encounter Details Care Team Description Date Type Department 06/23/2021 Travel Social History Date Tobacco Use Types Packs/Day [...] impairment: No documented as of this encounter Plan of Treatment Not on filedocumented as of this encounter Visit Diagnoses Not on filedocumented in this encounter Additional Health Concerns Noted Time Assessment 06/29/2020 1:22 PM CDT A fall risk assessment has been complet ed for the patient documented as of this encounter Care Teams Start Date End Date Event Security Officer Relationship Specialty 06/29/20 Thee Babcock DO PCP - General Family [address] [place] [address] documented as of this encounter
--- OUTSIDE RECORDS SUMMARY | 2021-08-22 13:03 | XMS REPORT | Encounter Summary ---
Author Author [facility] Organization [facility] Address Unknown Phone Unavailable Care Team Providers Care Heddler Tier Name Role Phone Thee Babcock PCP Reason for Referral * Consult, Test & Treat (Routine) - Pending Review Diagnoses / Procedures Referred By Contact Referred To Conta ct Specialty Diagnoses Post-COVID syndrome Chinedu Sanchez MD [address] Ortho/Med Pavilion Lvl [address] [place] [address] Rehab Services [employer] Receptionist [address] [facility] [address] [place] [address] Rehabilitation Referral ID Status Reason Start Date Expiration Visits Vi sits Date Requested Authorized [id number] Pending Specialty Services 07/27/2021 07/27/2022 1 1 Review Required Comments Post COVID "brain fog" * Consult, Test & Treat (Routine) - Closed Diagnoses / Procedures Referred By Contact Referred To Conta ct Specialty Diagnoses Post-COVID syndrome Chinedu Sanchez MD [address] Ortho/Med Pavilion Lvl [address] [place] [address] Cc - Ww Cl Exm/Proc Rm [address] [place], [place] Oncology Referral ID Status Reason Start Date Expiration Visits Vi sits Date Requested Authorized [id number] Closed Specialty Services 07/27/2021 07/27/2022 1 1 Required Comments You should hear from [facility] within one week. To contact them directly, please call [phone]. Reason for Visit * Reason Onset Date Comments Referral 07/27/2021 Post COVID Encounter Details Care Team Description Date Type Department Thee Babcock DO [address] [place] [address] Referral (Post COVID) 07/27/2021 Telephone Specialty Screening : [address] [phone] Social History Date Tobacco Use Types Packs/Day Years Used Never Smoker Smokeless Tobacco: Never Used Comments Alcohol Use Standard Drinks/Week Not Currently 0 (1 standard drink = 0.6 o z pure alcohol) Sex Assigned at Date Recorded Female 06/29/2020 1:21 PM CDT documented as of this encounter Functional Status [...] encounter Miscellaneous Notes * Telephone Encounter - Lucy Culp BSN - 07/27/2021 2:46 PM CDT Received referral/call from Dr. Garcia from Emergency Room Patient experiencing any life-threatening symptoms? No Extreme difficulty breathing, blue lips/face, severe/constant pain or pressure i n the chest, altered mental status, slurred speech, seizure, coughing up blood, too weak to stand, etc. - If yes, 911 or ED recommended. Is this in relation to a workers' comp injury? No Date positive COVID test: 05/07/2021 Has patient experienced symptoms for greater than 12 weeks? Yes Current symptoms that have developed during or following COVID-19 acute infectio n: Altered cognition or memory impairment, Anxiety, Chest pain (non-acute), Cont inued need for oxygen that was not present prior to diagnosis, Depression, Diffi culty breathing, Exhaustion during daily activities, General malaise and exhaust ion, Headache, Irregular Heartbeat, Joint pain, Mood changes, Non acute chest ti ghtness, Palpitations, Shortness of breath with and without activity, Sleep or r est problems and Syncope. Patient was hospitalized at [facility] during acute ph ase of COVID infection. Results are available in Care Everywhere. [If patient describing altered cognition as dizziness, complete the following qu estion, delete if not applicable] Patient describes dizziness as: imbalance and lightheadedness and nausea Patient has received psychiatric and/or psychological services and/or been diagn osed with a mental health concern prior to their COVID diagnosis: Yes Regarding the symptoms listed, patient has engaged with [facility]/General Medici ne, Pulmonary and ED Patient has seen product safety compliance leader - Dr. Son (fax [phone]) at [facility] and has had PFT's and CXR - will request results be forwar ded to BÁRBARA. Educated patient on the COVID Post Acute Guided Care Clinic Educated patient on the [facility] program. Referred patient to [facility] Yes Chronic COVID-19 relates to symptoms that last greater than 12 weeks beyond the onset of symptoms. It is not known why some people's recovery is prolonged. Sinc e these intermediate symptoms seem to be multi-system, The [facility] has put together the Post-Acute clinic to guide the multi-specialty c are you may need. The goal of this holistic approach is to assist with quicker r ecovery. This is not a replacement of ongoing care with your PCP nor management of any chronic condition by current specialists. Lab testing may be needed prior to your appointments and a residential child care counselor will contact you to assist with perinatal coordinator rdinating those as needed. Referrals placed and appointments scheduled with the following areas: Cardiology , [facility]/General Medicine, Neurology, Physical Medicine Rehab, Psychology and Speech Therapy Multiple appointments have been scheduled for you. We recommend you understand y our insurance eligibility and receive an estimation of costs before your appoint ments. Please reach out to your insurance company to determine if providers are in-network. You can also call the health system's financial counselors at [phone] for cost or pricing estimates. For appointment questions or need to reschedule an appointment, please call the clinic directly: [phone], Internal Medicine-Medical Pavilion [phone], Neurol [id number]-[phone], Physical Medicine [phone], Psychology-[phone], Rehab Services-Speech Language [phone] and [facility] [phone] Patient verbalized understanding of plan. For general questions, call [phone] and ask for the Post COVID nurse bran hwang. BUD Forde RN documented in this encounter Plan of Treatment Order Schedule Name Type Priority Associated Diag noses Ordered: 07/27/2021 AMB REFERRAL TO [facility] Outpatient Routine Post-C OVID syndrome POINT Referral Ordered: 07/27/2021 AMB REFERRAL TO SPEECH Outpatient Routine Post-CO VID syndrome THERAPY Referral documented as of this encounter Visit Diagnoses Diagnosis Post-COVID syndrome - Primary documented in this encounter Additional Health Concerns Noted Time Assessment 06/29/2020 1:22 PM CDT A fall risk assessment has been complet ed for the patient documented as of this encounter Care Teams Start Date End Date Heddler Tier Relationship Specialty 06/29/20 Thee Babcock DO PCP - General [address] [address] documented as of this encounter
--- OUTSIDE RECORDS SUMMARY | 2021-08-22 13:03 | XMS REPORT | Encounter Summary ---
Author Author [facility] Organization [facility] Address Unknown Phone Unavailable Care Team Providers Care Financial Sales Advisor Name Role Phone Thee Babcock DO PCP Encounter Details Care Team Description Date Type Department 08/05/2021 Travel Social History Date Tobacco Use Types [...] encounter Care Teams Start Date End Date Financial Sales Advisor Relationship Specialty 06/29/20 Thee Babcock DO PCP - General [address] [address] documented as of this encounter
--- OUTSIDE RECORDS SUMMARY | 2021-08-22 13:03 | XMS REPORT | Encounter Summary ---
Author Author [facility] Organization [facility] Address Unknown Phone Unavailable Care Team Providers Care Information Security Consultant Name Role Phone Thee Babcock DO PCP Reason for Visit * Reason Comments Rapid Heart Rate Has felt like she has a rac ing heart rate all week. Was told by search strategist to come to ER. Worsens wi th ambulation. CP * Auth/Cert Diagnoses / Procedures Referred By Contact Referred To Conta ct Specialty Diagnoses Post-COVID chronic palpitations Referral ID Status Reason Start Date Expiration Visits Vi sits Date Requested Authorized [id number] 1 1 Encounter Details Care Team Description Date Type Department Damian Richmond MD [address] [facility] [place] [address] Shaggy Clarke MD [address] [place] [address] Haven Valdivia MD [address] [place] [address] Post-COVID chronic palpitations 08/07/2021 Emergency Patient Care Unit B H15: - Main [place], Main 08/09/2021 Hospital 4000 [facility] [address] [place] [address] Social History Date Tobacco Use [...] (97.9 F) 08/09/2021 3:38 PM CDT Temperature - - Respiratory Rate 99% 08/09/2021 3:38 PM CDT Oxygen Saturation - - Inhaled Oxygen Concentration 95.3 kg (210 lb 1.6 oz) 08/08/2021 3:09 AM CDT Weight 164.5 cm (5' 4.76") 08/08/2021 3:09 AM CDT Height 35.22 08/08/2021 3:09 AM CDT Body Mass Index documented in [...] No documented as of this encounter Discharge Summaries * Haven Valdivia MD - 08/09/2021 3:47 PM CDT Discharge Summary Name: Genoveva Bryan Date Of : 1980 Age: 41 years Admit date: 08/07/2021 Discharge date: 08/09/2021 Discharge Attending: Dr. Haven Valdivia Discharge Summary Completed By: Oswaldo Sandra MS Service: [facility]- [id number] Reason for hospitalization: Post-COVID chronic palpitations [R00.2, U09.9] Primary Discharge Diagnosis: Post-COVID chronic palpitations Hospital Diagnoses: Hospital Problems Active Problems * (Principal) Post-COVID chronic palpitations Significant Past Medical History COVID-19 Palpitations Scoliosis Allergies Bee sting [venom-honey bee], Lanolin, Latex, and Dairy aid [lactase] Brief Hospital Course The patient was admitted and the following issues were addressed during this hos pitalization: (with pertinent details including admission exam/imaging/labs). Genoveva Bryan is a 41 yo F with PMHx asthma, obesity, depression, COVID-19 PNA in April 2021 complicated by [id number] chronic hypoxic respiratory failure (o n 2L at baseline), who presented to [facility] ED on 08/07 with c/o tachycardia, palpi tations and pleuritic chest pain. CT chest shows postinfection/postinflammatory scarring/fibrosis after COVID-19 PNA. Pulmonary and Cardiology were consulted. E CG non ischemic (shows sinus tach), troponin and BNP negative. TTE normal. OVS a re negative. Telemetry showed no concerning dysrhythmias. Ddx includes post-covi d POTS vs underlying pulmonary disease vs other dysautonomia. Patient received n orco, tylenol, and toradol for pain. Cardiology and pulmonology teams consulted. Patient started metoprolol XL daily. Patient is scheduled for post-covid clinic with neurology and pulmonology. She was discharged with a FeeFighterso Patch monitor. Ex ercise oximetry on day of discharge demonstrated continued need for supplemental O2 with exercise (LPM not documented in RT note). Patient was discharged on her home regimen of 2LPM of supplemental oxygen. Albuterol nebulizer solution was discontinued on 08/13/21 and patient was notifie d via telephone call (see documentation). She may continue ipratropium inhaler 2 puffs Q4H PRN, however WHEAT SHIPPER albuterol nebu lizer, anruity ellipta 100mcg inhaled daily and trelegy inhlaer (sig unknown) we re discontinued. Items Needing Follow Up Pending items or areas that need to be addressed at follow up: Pending Labs and Follow Up Radiology Pending labs and/or radiology review at this time of discharge are listed below: if this area is blank, there are no items for review. Pending Labs Order Current Status UA REFLEX LABEL In process Medications Medication List START taking these medications lidocaine 5 % topical patch; Commonly known as: LIDODERM; Dose: 1 patch; Apply one patch topically to affected area daily. Apply patch for 12 hours, then remove for 12 hours before repeating.; Quantity: 14 patch; Refills: 3 methocarbamoL 750 mg tablet; Commonly known as: ROBAXIN; Dose: 750 mg; Take one tablet by mouth every 8 hours as needed for Muscle Cramps.; Quantity: 90 tablet; Refills: 0 metoprolol XL 25 mg extended release tablet; Commonly known as: TOPROL XL; Dose: 12.5 mg; Take one-half tablet by mouth daily. Hold for HR<55 or SBP<110; Quantity: 90 tablet; Refills: [address] 40 mg tablet; Commonly known as: PROTONIX; Dose: 40 mg; Take one tablet by mouth daily for 60 days. Indications: Empiric GI ppx; For: Empiric GI ppx; Quantity: 60 tablet; Refills: 0 senna/docusate 8.6/50 mg tablet; Commonly known as: SENOKOT-S; Dose: 1 tablet; Take one tablet by mouth twice daily as needed.; Quantity: 90 tablet; Refills: 3 CHANGE how you take these medications albuterol 0.083% 2.5 mg /3 mL (0.083 %) nebulizer solution; Commonly known as: PROVENTIL; Dose: 2.5 mg; Refills: 0; What changed: Another medication with the same name was removed. Continue taking this medication, and follow the directions you see here. ipratropium bromide 17 mcg/actuation inhaler; Commonly known as: ATROVENT HFA; Dose: 2 puff; Inhale two puffs by mouth into the lungs every 4 hours while awake as needed.; Quantity: 38.7 g; Refills: 3; What changed: when to take this, reasons to take this, Another medication with the same name was removed. Continue taking this medication, and follow the directions you see here. CONTINUE taking these medications buPROPion XL 150 mg tablet; Commonly known as: WELLBUTRIN XL; Dose: 150 mg; Take one tablet by mouth daily. Do not crush or chew.; Quantity: 30 tablet; Refills: 2 fluticasone furoate 100 mcg/actuation disk inhaler; Commonly known as: ARNUITY ELLIPTA; Dose: 100 mcg; Refills: 0 guaiFENesin LA 600 mg tablet; Commonly known as: MUCINEX; Dose: 600 mg; Refills: 0 GUNCOTTON PACKER THYROID 30 mg (0.5 gr) tablet; Generic drug: thyroid pork; Dose: 30 mg; Refills: 0 TOPAMAX 50 mg tablet; Generic drug: topiramate; Dose: 1 tablet; Refills: 0 TRELEGY ELLIPTA 200-62.5-25 mcg inhaler; Generic drug: oapnlurblix-dmlyvgcmm-etgbjfyy; Refills: 0 venlafaxine XR 150 mg capsule; Commonly known as: EFFEXOR XR; Dose: 150 mg; Refills: 0 Return Appointments and Scheduled Appointments Scheduled appointments: Aug 22, 2021 3:00 PM (Arrive by 2:45 PM) Office visit with Jules Telles MD Neurology: [facility], [facility] (Neurology) [address] [facility] [address] Sep 18, 2021 3:00 PM Office visit with Ranjith Ruffin MD Cardiology: [facility] (CVM Exam) [address] [facility] [address] [facility] [address] Nov 06, 2021 12:40 PM Post-Acute Covid Teleh Ret with [facility] Med: [facility] Pavili: [id number] (Spine [facility]) [address] [facility] [id number] Consults, Procedures, Diagnostics, Micro, Pathology Consults: Cardiology and Pulmonary Surgical Procedures & Dates: None Significant Diagnostic Studies, Micro and Procedures: noted in brief hospital co urse Significant Pathology: none Nutrition: Dietitian Documentation Discharge Disposition, Condition Patient Disposition: Home Condition at Discharge: Stable Code Status Code Status History Date Active Date Inactive Code Status Order ID [id number] Full Code [id number] Jules Naik MD ED Patient Instructions Regular Diet You have no dietary restriction. Please continue with a healthy balanced diet. Report These Signs and Symptoms Please contact your doctor if you have any of the following symptoms: temperatu re higher than 100.4 degrees F, uncontrolled pain, persistent nausea and/or vomi ting, difficulty breathing, chest pain, severe abdominal pain, headache, unable to urinate, unable to have bowel movement, or drainage with a foul odor. Questions About Your Stay If you have an emergency after discharge, please dial [phone]. You may contact your discharging physician up to 7 days after discharge for ques tions about your hospitalization, discharge instructions, or medications by call ing [phone] during regular business hours (8AM-4PM) and asking to speak to the doctor listed on the discharge information. If you are not calling during business hours, ask for the on-call doctor. If you have new or worsening symptoms, you may be directed to your primary care provider (PCP) for ongoing questions, an Emergency Department, or an Urgent Car e Clinic for a more immediate evaluation. For all calls or questions more than 7 days after discharge, please contact your primary care provider (PCP). For medications after discharge: pain (opioid) medicine cannot be refilled or pr escribed by calling your discharging physician. These medications need to be fi lled by your primary care provider (PCP). Regular refill requests should be dir ected to your primary care provider (PCP). Discharging attending physician: HAVEN VALDIVIA I [[id number]] Activity as Tolerated It is important to keep increasing your activity level after you leave the hosp ital. Moving around can help prevent blood clots, lung infection (pneumonia) an d other problems. Gradually increasing the number of times you are up moving ar ound will help you return to your normal activity level more quickly. Continue to increase the number of times you are up to the chair and walking daily to ret urn to your normal activity level. Begin to work toward your normal activity lev el at discharge. Additional Orders: Case Management, Supplies, Home Health Home Health/DME None Signed: Oswaldo Sandra, MS 08/09/2021 cc: Primary Care Physician: Thee Babcock Verified Referring physicians: No ref. provider found Additional provider(s): Did we miss something? If additional records are needed, please fax a request on office letterhead to [phone]. Please include the patient's name, date of b irth, fax number and type of information needed. Additional request can be made by email at [email or web address]. For general questions of information about electronic records sharing, call [phone]. documented in this encounter Medications at Time of Discharge Start Date End Date Medication Sig Dispensed Refills 08/05/2021 buPROPion XL (WELLBUTRIN Take one 30 tablet 2 XL) 150 mg tablet by tabletIndications: mouth daily. Attention deficit Do not crush hyperactivity disorder or chew. (ADHD), unspecified ADHD type guaiFENesin LA (MUCINEX) Take 600 mg 0 600 mg tablet by mouth twice daily. 08/09/2021 ipratropium bromide Inhale two 38.7 g 3 (ATROVENT HFA) 17 puffs by mcg/actuation inhaler mouth into the lungs every 4 hours while awake as needed. 08/09/2021 lidocaine (LIDODERM) 5 % Apply one 14 patch 3 topical patch patch topically to affected area daily. Apply patch for 12 hours, then remove for 12 hours before repeating. 08/09/2021 methocarbamoL (ROBAXIN) Take one 90 tablet 0 750 mg tablet tablet by mouth every 8 hours as needed for Muscle Cramps. 08/09/2021 metoprolol XL (TOPROL XL) Take one-half 90 tablet 1 25 mg extended release tablet by tablet mouth daily. Hold for HR<55 or SBP<110 06/08/2021 GUNCOTTON PACKER THYROID 30 mg (0.5 gr) Take 30 mg by 0 tablet mouth daily. 08/09/2021 10/08/[address] Take one 60 tablet 0 (PROTONIX) 40 mg tablet by tabletIndications: mouth daily Empiric GI ppx for 60 days. Indications: Empiric GI ppx 08/09/2021 senna/docusate Take one 90 tablet 3 (SENOKOT-S) 8.6/50 mg tablet by tablet mouth twice daily as needed. topiramate (TOPAMAX) 50 Take 1 tablet 0 mg tablet by mouth daily. venlafaxine XR (EFFEXOR Take 150 mg 0 XR) 150 mg capsule by mouth daily. 08/13/2021 albuterol 0.083% Inhale 2.5 mg 0 (PROVENTIL) 2.5 mg /3 mL solution by (0.083 %) nebulizer nebulizer as solution directed every 4 hours as needed for Wheezing or Shortness of Breath. 08/13/2021 fluticasone furoate Inhale 100 0 (ARNUITY ELLIPTA) 100 mcg by mouth mcg/actuation disk into the inhaler lungs daily. 07/03/2021 08/13/2021 uwmwpgqrqjk-symnwnhck-jls 0 anter (TRELEGY ELLIPTA) 200-62.5-25 mcg inhaler documented as of this encounter Ordered Prescriptions Start Date End Date Prescription Sig Dispensed Refills 08/09/2021 lidocaine (LIDODERM) 5 % Apply one 14 patch 3 topical patch patch topically to affected area daily. Apply patch for 12 hours, then remove for 12 hours before repeating. 08/09/2021 metoprolol XL (TOPROL XL) Take one-half 90 tablet 1 25 mg extended release tablet by tablet mouth daily. Hold for HR<55 or SBP<110 08/09/2021 senna/docusate Take one 90 tablet 3 (SENOKOT-S) 8.6/50 mg tablet by tablet mouth twice daily as needed. 08/09/2021 10/08/[address] Take one 60 tablet 0 (PROTONIX) 40 mg tablet by tabletIndications: mouth daily Empiric GI ppx for 60 days. Indications: Empiric GI ppx 08/09/2021 methocarbamoL (ROBAXIN) Take one 90 tablet 0 750 mg tablet tablet by mouth every 8 hours as needed for Muscle Cramps. 08/09/2021 ipratropium bromide Inhale two 38.7 g 3 (ATROVENT HFA) 17 puffs by mcg/actuation inhaler mouth into the lungs every 4 hours while awake as needed. documented in this encounter Discharge Disposition Code Departure Means Destination Disposition Walk-out Home or Self Care documented in this encounter Progress Notes * Haven Valdivia MD - 08/09/2021 4:20 PM CDT Discharge day progress note Subjective: No events overnight. This morning, feels back to baseline. Denies any fever ch ills, chest pain, dyspnea, nausea, vomiting, leg swelling. Urine output has impr kareem. Pt reports that NC was found off 2 or 3 times overnight, one of which time s this was noticed by overnight ANNUAL GIVING DIRECTOR. Objective: 24-hour vitals reviewed - stable. Exam: GEN: awake, alert, NAD HEENT: Nares patent, moist MM, normocephalic and atraumatic CV: No cyanosis, edema, warm and well perfused, hemodynamically stable ABD: normal contours, soft, NTTP PULM: no stridor, no increased effort, no accessory muscle use NEURO: tracks to voice, speech clear, face symmetric PSYCH: pleasant affect, thought process linear, thought content normal SKIN: warm and dry to touch, no grossly visible rash Labs were reviewed Lab Results Component Value Date/Time NA 141 08/09/2021 07:07 AM K 4.1 08/09/2021 07:07 AM CL 109 08/09/2021 07:07 AM CO2 21 08/09/2021 07:07 AM GAP 11 08/09/2021 07:07 AM Lab Results Component Value Date/Time WBC 8.5 08/09/2021 07:07 AM HGB 12.9 08/09/2021 07:07 AM PLTCT 362 08/09/2021 07:07 AM Assessment and plan: Genoveva Bryan is a 41 yo F with PMHx asthma, obesity, depression, COVID-19 PNA in April 2021 complicated by [id number]-24 chronic hypoxic respiratory failure (o n 2L at baseline), who presented to [facility] ED on 08/07 with c/o tachycardia, palpi tations and pleuritic chest pain. CT chest shows postinfection/postinflammatory scarring/fibrosis after COVID-19 PNA. Pulmonary and Cardiology were consulted. E CG non ischemic (shows sinus tach), troponin and BNP negative. TTE normal. OVS a re negative. Telemetry showed no concerning dysrhythmias. Ddx includes post-covi d POTS vs underlying pulmonary disease vs other dysautonomia. Patient received n orco, tylenol, and toradol for pain. Cardiology and pulmonology teams consulted. Patient started metoprolol XL daily. Patient is scheduled for post-covid clinic with neurology and pulmonology. She was discharged with a Zio Patch monitor. Ex ercise oximetry on day of discharge demonstrated continued need for supplemental O2 with exercise (LPM not documented in RT note). Patient was discharged on her home regimen of 2LPM of supplemental oxygen. Albuterol nebulizer solution was discontinued on 08/13/21 and patient was notifie d via telephone call (see documentation). She may continue ipratropium inhaler 2 puffs Q4H PRN, however WHEAT SHIPPER albuterol nebu lizer, anruity ellipta 100mcg inhaled daily and trelegy inhlaer (sig unknown) we re discontinued. Genoveva Bryan Home Medication Instructions AMRIANO:[id number] Printed on:08/13/21 1232 Medication Information albuterol 0.083% (PROVENTIL) 2.5 mg /3 mL (0.083 %) nebulizer solution Inhale 2.5 mg solution by nebulizer as directed every 4 hours as needed for Whee zing or Shortness of Breath. buPROPion XL (WELLBUTRIN XL) 150 mg tablet Take one tablet by mouth daily. Do not crush or chew. fluticasone furoate (ARNUITY ELLIPTA) 100 mcg/actuation disk inhaler Inhale 100 mcg by mouth into the lungs daily. beuceuztaxg-negntdpeq-rycljkne (TRELEGY ELLIPTA) 200-62.5-25 mcg inhaler guaiFENesin LA (MUCINEX) 600 mg tablet Take 600 mg by mouth twice daily. ipratropium bromide (ATROVENT HFA) 17 mcg/actuation inhaler Inhale two puffs by mouth into the lungs every 4 hours while awake as needed. lidocaine (LIDODERM) 5 % topical patch Apply one patch topically to affected area daily. Apply patch for 12 hours, then remove for 12 hours before repeating. methocarbamoL (ROBAXIN) 750 mg tablet Take one tablet by mouth every 8 hours as needed for Muscle Cramps. metoprolol XL (TOPROL XL) 25 mg extended release tablet Take one-half tablet by mouth daily. Hold for HR<55 or SBP<110 GUNCOTTON PACKER THYROID 30 mg (0.5 gr) tablet Take 30 mg by mouth daily. pantoprazole DR (PROTONIX) 40 mg tablet Take one tablet by mouth daily for 60 days. Indications: Empiric GI ppx senna/docusate (SENOKOT-S) 8.6/50 mg tablet Take one tablet by mouth twice daily as needed. topiramate (TOPAMAX) 50 mg tablet Take 1 tablet by mouth daily. venlafaxine XR (EFFEXOR XR) 150 mg capsule Take 150 mg by mouth daily. Future Appointments Date Time Provider Department Center 08/22/2021 3:00 PM [facility]elles [facility] 09/18/2021 3:00 PM Ranjith Ruffin MD [facility] C[facility] Exam 11/06/2021 12:40 PM Dimple Castro, [facility] 12/13/2021 10:40 AM Kym Hernandez MD [facility] Total time spent educating and coordinating the discharge and transition of care was greater than 31 minutes, including preparing the discharge summary, arrangi ng for prescriptions, as well as integration of care plans with Case Management, RN, Social Work, and Pharmacy. Direct fbis-ts-cfhd patient care and counseling was provided, including instructions for outpatient management and recommended f ollow up. We reviewed the medication list and any changes that were made during this hospitalization. Provided education regarding signs and symptoms that shoul d prompt the patient to seek medical care urgently. Haven Valdivia MD Med B [id number] * Lissette Farr RT - 08/09/2021 4:13 PM CDT RT Exercise Oximetry Note Name: Genoveva Bryan : 1980 Ag e: 41 y.o. Admission Date: 08/07/2021 LOS: 2 days Date performed: 07/31/2021 Time performed: 1543 Time walked: 6 minutes At Rest While Awake Results Room air at rest while awake: SpO2 = 95% Oxygen dose required at rest while awake: 0 lpm with resulting SpO2 95% With Exercise Results: Room air SpO2 with exercise, if needed: 89 Oxygen required with exercise: 0 lpm with resulting SpO2 89% This patient was tested on a continuous oxygen flow device. Comments: Patient does not need oxygen at this time. Therapist: Lissette Farr * Elias Presley MD - 08/09/2021 2:45 PM CDT Pulmonary Progress Note Admission Date: 08/07/2021 LOS: 2 days Assessment/Plan: Principal Problem: Post-COVID chronic palpitations Impression: Genoveva Bryan is a 41 y.o. female with PMH of asthma and post-Covid 19 sy ndrome, comes progressive Sob associated with palpitations that are probably mul tifactorial (albuterol, deconditioning and worsening respiratory status) CT chest showed: Moderate scattered reticular opacity in throughout both lungs w ith mild associated architectural distortion, bronchiectasis and groundglass op acity. These findings are most compatible with postinfectious/postinflammatory scarring/fibrosis after reported Covid-19 pneumonia. A component of inflammation may still be present. Recommendation: - PFTs showed moderate restriction with diffusion defect which is suggestive of possible pulmonary fibrosis as the cause of the SOB and hypoxemia. There is no o bstructive defect on the PFTs. We do not recommend to continue current inhaled t herapy since it will not improve symptoms And albuterol can worsen tachycardia. - Is very important patient follows with Post covid clinic (Neurology, pulmonolo gy and rehabilitation) - Patient is already schedule for post covid 19 clinic with neurology and pulmon ology, will get pulmonology appointment in post covid clinic. - For now we do not recommend systemic steroids, however in case fibrosis contin ues to progress patient may need steroids and Cellcept. Patient will need close follow up. - Before discharge please get exercise oximetry to evaluate amount of oxygen req uired. Patient discussed with Dr. Camacho, for further updates follow attestation. Subjective Patient seen and evaluated at bedside, no acute events overnight, VS stable, lab s reviewed, patient still compains of SOB on exertion, non at rest, currently on baseline oxygen support, denies chest pain, N/V, cough, wheezing, abdominal sparkle n or headaches. Review of Systems Constitutional: Positive for malaise/fatigue. HENT: Negative. Eyes: Negative. Respiratory: Positive for shortness of breath. Cardiovascular: Negative. Gastrointestinal: Negative. Genitourinary: Negative. Musculoskeletal: Negative. Skin: Negative. Neurological: Negative. Psychiatric/Behavioral: Negative. All 12 systems otherwise negative. Medications Scheduled Meds:buPROPion XL (WELLBUTRIN XL) tablet 150 mg, 150 mg, Oral, QDAY fluticasone-salmeterol (ADVAIR DISKUS) 250-50 mcg/dose inhalation disk 1 puff, 1 puff, Inhalation, BID guaiFENesin LA (MUCINEX) tablet 600 mg, 600 mg, Oral, BID heparin (porcine) PF syringe 5,000 Units, 5,000 Units, Subcutaneous, Q8H ipratropium bromide (ATROVENT HFA) inhaler 2 puff, 2 puff, Inhalation, BID & PRN ketorolac (TORADOL) injection 15 mg, 15 mg, Intravenous, Q8H* lidocaine (LIDODERM) 5 % topical patch 1 patch, 1 patch, Topical, QDAY metoprolol XL (TOPROL XL) tablet 12.5 mg, 12.5 mg, Oral, QDAY pantoprazole DR (PROTONIX) tablet 40 mg, 40 mg, Oral, QDAY(21) senna/docusate (SENOKOT-S) tablet 1 tablet, 1 tablet, Oral, BID thyroid pork (ARMOUR THYROID) tablet 30 mg, 30 mg, Oral, QDAY topiramate (TOPAMAX) tablet 50 mg, 50 mg, Oral, QDAY venlafaxine XR (EFFEXOR XR) capsule 150 mg, 150 mg, Oral, QDAY Continuous Infusions: PRN and Respiratory Meds:acetaminophen Q6H PRN, HYDROcodone/acetaminophen Q6H AZ N, melatonin QHS PRN, methocarbamoL Q8H PRN, polyethylene glycol 3350 QDAY PRN Objective Vital Signs: Last Filed Vital Signs: 24 Kelly r Range BP: 123/83 (08/09 1145) Temp: 36.5 C (97.7 F) (08/09 1145) Pulse: 70 (08/09 1145) Respirations: 16 PER MINUTE (08/09 1145) SpO2: 99 % (08/09 1145) BP: (122-135)/(76-88) Temp: [36.5 C (97.7 F)-36.7 C (98 F)] Pulse: [70-127] Respirations: [16 PER MINUTE] SpO2: [95 %-99 %] Intensity Pain Scale (Self Report): 5 (08/09/21 0529) Vitals: 08/07/21 1702 08/08/21 0309 Weight: 95.3 kg (210 lb) 95.3 kg (210 lb 1.6 oz) Intake/Output Summary: (Last 24 hours) Intake/Output Summary (Last 24 hours) at 08/09/2021 1445 Last data filed at 08/09/2021 0535 Gross per 24 hour Intake 480 ml Output Net 480 ml Stool Occurrence: 0 Physical Exam Vitals and nursing note reviewed. Constitutional: Appearance: Normal appearance. She is obese. Comments: On nasal cannula Oxygen support HENT: Head: Normocephalic and atraumatic. Mouth/Throat: Mouth: Mucous membranes are moist. Eyes: Extraocular Movements: Extraocular movements intact. Pupils: Pupils are equal, round, and reactive to light. Cardiovascular: Rate and Rhythm: Normal rate and regular rhythm. Pulses: Normal pulses. Heart sounds: Normal heart sounds. Pulmonary: Effort: Pulmonary effort is normal. Breath sounds: Rhonchi present. Abdominal: General: Abdomen is flat. Bowel sounds are normal. Palpations: Abdomen is soft. Neurological: General: No focal deficit present. Mental Status: She is alert. Lab Review Results for orders placed or performed during the hospital encounter of 08/07/21 (from the past 24 hour(s)) CBC AND DIFF Collection Time: 08/09/21 7:07 AM # # Low-High White Blood Cells 8.5 4.5 - 11.0 K/UL RBC 4.07 4.0 - 5.0 M/UL Hemoglobin 12.9 12.0 - 15.0 GM/DL Hematocrit 37.8 36 - 45 % MCV 92.8 80 - 100 FL MCH 31.8 26 - 34 PG MCHC 34.2 32.0 - 36.0 G/DL RDW 14.0 11 - 15 % Platelet Count 362 150 - 400 K/UL MPV 8.3 7 - 11 FL Neutrophils 58 41 - 77 % Lymphocytes 29 24 - 44 % Monocytes 8 4 - 12 % Eosinophils 4 0 - 5 % Basophils 1 0 - 2 % Absolute Neutrophil Count 4.93 1.8 - 7.0 K/UL Absolute Lymph Count 2.45 1.0 - 4.8 K/UL Absolute Monocyte Count 0.71 0 - 0.80 K/UL Absolute Eosinophil Count 0.31 0 - 0.45 K/UL Absolute Basophil Count 0.07 0 - 0.20 K/UL COMPREHENSIVE METABOLIC PANEL Collection Time: 08/09/21 7:07 AM # # Low-High Sodium 141 137 - 147 MMOL/L Potassium 4.1 3.5 - 5.1 MMOL/L Chloride 109 98 - 110 MMOL/L Glucose 86 70 - 100 MG/DL Blood Urea Nitrogen 12 7 - 25 MG/DL Creatinine 0.77 0.4 - 1.00 MG/DL Calcium 8.9 8.5 - 10.6 MG/DL Total Protein 6.6 6.0 - 8.0 G/DL Total Bilirubin 0.3 0.3 - 1.2 MG/DL Albumin 4.0 3.5 - 5.0 G/DL Alk Phosphatase 83 25 - 110 U/L AST (SGOT) 15 7 - 40 U/L CO2 21 21 - 30 MMOL/L ALT (SGPT) 18 7 - 56 U/L Anion Gap 11 3 - 12 eGFR Non >60 >60 mL/min eGFR >60 >60 mL/min MAGNESIUM Collection Time: 08/09/21 7:07 AM # # Low-High Magnesium 2.2 1.6 - 2.6 mg/dL Point of Care Testing (Last 24 hours) Glucose: 86 Radiology and other Diagnostics Review: I have personally reviewed the radiolog y results of the last 24 hours and looked at chest xray and ct findings Elias Presley MD Pager [phone] Associated attestation - Joel Camacho MD - 08/09/2021 10:56 PM CDT ATTESTATION I personally performed the [place]aven[place] portions of the E/M visit and reviewed laboratory and radiological findings, discussed case with the resident/fellow and concur w ith Dr. Presley's documentation of history, physical exam, assessment and treatme nt plan. Where appropriate, addendums have been made to the note. Joel Camacho MD 08/09/2021 * Ranjith Lance RN - 08/09/2021 1:57 PM CDT Patient alert and oriented x4. Profile updated, care plan/education reviewed, an d call light within reach. * Nilda Stubbs - 08/09/2021 12:10 PM CDT 08/09/21 1200 Education Comments Pt educated and provided pulmonary rehab and discharge material. Pt int erested in participating in in pulmonary rehab in [place], [place]. Pt agreeable to allow me to send over her referral. Outpatient Cardiopulmonary Rehab OPCR Yes Location [place], [place]- [address] [phone] Date Faxed 08/09/21 * Lissette Farr RT - 08/08/2021 6:57 PM CDT RT Adult Assessment Note NAME:Genoveva Bryan :1980 AGE: 41 y.o. ADMISSION DATE: 08/07/2021 DAYS ADMITTED: LOS: 1 day RT Treatment Plan: Protocol Plan: Medications Ipratropium: MDI BID & PRN Advair (Home regimen only): BID Protocol Plan: Procedures PAP: Place a nursing order for "IS Q1h While Awake" for any of Lung Expansion in dicators Oxygen/Humidity: O2 to keep SpO2 > 92%, if not on any RT modality, D/C protocol if greater than 24 hours on room air SpO2: BID & PRN Additional Comments: Impressions of the patient: Patient is resting in bed alert and oriented Intervention(s)/outcome(s): RT Eval Patient education that was completed: N/A Recommendations to the care team: N/A Vital Signs: Pulse: RR: 16 PER MINUTE SpO2: 96 % O2 Device: Cannula Liter Flow: 2 Lpm O2%: Breath Sounds: Respiratory Effort: Non-Labored * Vince Kelly - 08/08/2021 3:42 PM CDT PHYSICAL THERAPY ASSESSMENT Name: Genoveva Bryan : 1980 Ag e: 41 y.o. Admission Date: 08/07/2021 LOS: 1 day Mobility Patient Turn/Position: Self Progressive Mobility Level: Walk laps Distance Walked (feet): 200 ft Level of Assistance: Independent Assistive Device: None Activity Limited By: Dizziness Subjective Significant hospital events: 41-year-old female with history of COVID-19 pneumon ia with post Covid hypoxemia currently on O2, pleuritic chest pain, asthma, depr ession and obesity presented to ED with complaints of worsening palpitations wit h exertion. Mental / Cognitive Status: Alert;Oriented;Cooperative Pain: Patient does not rate pain Pain Interventions: Patient agrees to participate in therapy Ambulation Assist: Independent Mobility in Community without Device Patient Owned Equipment: None Home Situation: Lives with Family Type of Home: House Entry Stairs: 1-2 Stairs In-Home Stairs: 1-2 Flights of Stairs Bed Mobility/Transfer Bed Mobility: Rolling: Independent Bed Mobility: Supine to Sit: Independent Bed Mobility: Sit to Supine: Independent Comments: Pt performed sit to stand without assistive device independently Gait Comments: Pt ambulated 200' without an assistive device displaying no gait devia tions. Pt also performed 15 step ups onto box independently then stopped due to dizziness. Education Persons Educated: Patient Patient Barriers To Learning: None Noted Teaching Methods: Verbal Instruction Patient Response: Verbalized Understanding Topics: Plan/Goals of PT Interventions;Continue Ambulation on Own Assessment/Progress Impaired Mobility Due To: Medical Status Limitation Impaired Strength Due To: Medical Status Limitation Assessment/Progress: Patient level of independence and safety is consistent with prior level of function and does not require physical therapy intervention Comments: Pt is independent with all mobility. After 15 stairs, pt HR increased to 145 and pt c/o dizziness and needed to sit. AM-PAC 6 Clicks Basic Mobility Inpatient Turning from your back to your side while in a flat bed without using bed rails: None Moving from lying on your back to sitting on the side of a flatbed without using bedrails : None Moving to and from a bed to a chair (including a wheelchair): None Standing up from a chair using your arms (e.g. wheelchair, or bedside chair): No ne To walk in hospital room: None Climbing 3-5 steps with a railing: None Raw Score: 24 Standardized (T-scale) Score: 57.68 Basic Mobility CMS 0-100%: 0 CMS G Code Modifier for Basic Mobility: CH Plan Plan Frequency: No Further Treatment PT Plan for Next Visit: Pt is independent consistent with prior level of functio n and does not require therapy. PT Discharge Recommendations Recommendation: Home/prior living situation Patient Currently Requires Equipment: None Therapist Vince Kelly Date 08/08/2021 * Haven Valdivia MD - 08/08/2021 7:02 AM CDT I personally performed or re-performed the history, physical exam and treatment for the E/M. I discussed the case with the Medical Student, and concur with the Medical Student documentation of history, physical exam and treatment plan unles s otherwise noted. Internal Medicine Daily Progress Note Name: Genoveva Bryan Today's Date: 08/08/2021 Admission Date: 08/07/2021 LOS: 1 day Principal Problem: Post-COVID chronic palpitations Assessment and Plan Genoveva Bryan is a 41 yo F with PMHx asthma, obesity, depression, COVID-19 PNA in April 2021 complicated by [id number] chronic hypoxic respiratory failure (o n 2L at baseline), who presented to [facility] ED on 08/07 with c/o tachycardia, palpi tations and pleuritic chest pain. CT chest shows postinfection/postinflammatory scarring/fibrosis after COVID-19 PNA. ECG non ischemic (shows sinus tach), tropo autumn and BNP negative. TTE normal. OVS are negative. Started metoprolol XL 12.5mg daily per Cards recommendations. Palpitations Sinus tachycardia -Reports heart rate up to 160s with minimal activity -EKG showing sinus tachycardia with normal BNP and troponins -Normal TSH -OVS negative -TTE on 08/08: unremarkable, ruled out pericarditis, pericardial effusion or oth er structural etiology -ESR and CRP wnl -Ddx: post-covid POTS vs underlying pulmonary dz (asthma and now post infectious / post inflammatory fibrosis causing tachyardia in setting of chronic hypoxia) v s other dysautonomia Plan: -Appreciate cardiology co-mgmt -Start metoprolol succinate 12.5mg daily -Continue telemetery -Consider Holter monitoring after discharge -Discontinue WHEAT SHIPPER albuterol as this may contribute to symptoms Post Covid hypoxemia, chronically on 2L Increaing PASCUAL Pleuritic chest pain -Reports being on oxygen since /April after COVID-19 hospitalization -[facility], was told she had ~60% lung function and needed to be put on at-home O2 -Last syncopal episode as a teenager -CXR on admission with peripheral areas of scarring in both lungs -CT w/contrast 08/08: moderate scattered reticular opacity in both lungs with mi ld associated architectural distortion, bronchiectasis and groundglass opacity. Findings compatible after COVID-19 pneumonia. -CRP/ESR wnl -POC BNP and troponin WNL -ECG non-ischemic Plan: -Continue O2 as needed, currently on 2L with Spo2 99% -Consulted pulmonary team, appreciate recommendations -Repeat PFTs ordered (hold Advair until after PFTs complete) -Holding WHEAT SHIPPER albuterol neb for tachcyardia as noted above -Continue ipratropium neb BID and PRN -RT and PT consulted -Continue WHEAT SHIPPER mucinex 600mg BID Pleuritic chest pain -Left-sided "burning" chest pain worse with deep breathing and tender to palpati on -Normal resting heart rate per patient 96-100 bmp -Highest at-home HR readin bpm (patient mentions that there was a time rec ently that her HR was 160 bpm and suddenly declined to 70 bpm causing her to fee l weak) -ECG: Mild sinus tachycardia, left atrial abnormality -Telemetry: Sinus rhythm, intermittent sinus tachy up to 140 bpm -Normal D-dimer (307 ng/mL) -TTE 08/08: Normal cardiac structure and function Plan: -Lidocaine patch daily -Muscle relaxant -Milton/APAP as needed for pain (patient only took 1 dose so far and wants to min imize use of this) -Toradol 15 mg q 8 hours for pain -Consider component of POTS (postural orthostatic tachycardic syndrome), will ob tain orthostatic BP readings (WNL) -Cardiology consulted: Consider using a small dose of Toprol starting at 12.5 mg once a day and increasing as needed/tolerated Constipation Decreased UOP (subjective) -Patient reports unable to have bowel movement for 2 days and that urine output doesn't amount to how much fluids she is taking in -Bladder scan without evidence of urinary retention Plan: -Monitor I/Os -Senokot-S twice daily and miralax daily PRN for constipation -Bladder scan <150ml -Encourage PO intake and will monitor History of asthma -WHEAT SHIPPER trelegy ellipta (holding) -Ipratropium neb BID and PRN -PFTs as above -Pulm following -No signs of exacerbation at this time Leukocytosis -11.8 (08/07) --> 10.6 (08/08) -S/p Rocephin in ED -UA 1+ leukocytes with no bacteria -Hold further dose of antibiotics at this time Depression -Continue WHEAT SHIPPER effexor XR 150mg daily, Wellbutrin XL 150mg daily Hypothyroidism - Continue WHEAT SHIPPER armour pork thyroid 30mg daily FEN -IVF None -Replace K & Mg to keep them >4 & >2 respectively -Diet: Regular DVT ppx : Lovenox Full code Oswaldo Sandra, MS4 Patient seen and discussed with: Dr. Haven Valdivia MD Med B 3140 Subjective Genoveva Bryan is a 41 y.o. female. Patient is comfortable and in no acute distress. She denies feeling palpitations at this time, but has some chest disco mfort/tenderness to palpation after her echo procedure from the probe used. Objective Vital Signs: Last Filed Vital Signs: 24 Kelly r Range BP: 113/63 (08/08 309) Temp: 36.4 C (97.6 F) (08/08 309) Pulse: 89 (08/08 309) Respirations: 18 PER MINUTE (08/08 309) SpO2: 99 % (08/08 309) SpO2 Pulse: 99 (10/27 2130) Height: 164.5 cm (64.75") (08/07 1204) BP: (113-147)/(63-99) Temp: [36.4 C (97.6 F)-37.2 C (98.9 F)] Pulse: [89-119] Respirations: [12 PER MINUTE-25 PER MINUTE] SpO2: [93 %-99 %] Intake/Output Summary: (Last 24 hours) Intake/Output Summary (Last 24 hours) at 08/08/2021 0702 Last data filed at 08/07/2021 2322 Gross per 24 hour Intake 450 ml Output Net 450 ml Physical Exam Physical Exam Constitutional: Appearance: She is obese. HENT: Head: Normocephalic. Mouth/Throat: Mouth: Mucous membranes are moist. Cardiovascular: Rate and Rhythm: Normal rate. Pulses: Normal pulses. Heart sounds: Normal heart sounds. Pulmonary: Effort: Pulmonary effort is normal. Abdominal: General: Bowel sounds are normal. There is no distension. Tenderness: There is no abdominal tenderness. There is no guarding. Skin: General: Skin is warm. Capillary Refill: Capillary refill takes less than 2 seconds. Neurological: General: No focal deficit present. Mental Status: She is alert. Psychiatric: Mood and Affect: Mood normal. Medications Scheduled IV PRN buPROPion XL (WELLBUTRIN XL) tablet 150 mg, 150 mg, Oral, QDAY fluticasone-salmeterol (ADVAIR DISKUS) 250-50 mcg/dose inhalation disk 1 puff, 1 puff, Inhalation, BID guaiFENesin LA (MUCINEX) tablet 600 mg, 600 mg, Oral, BID heparin (porcine) PF syringe 5,000 Units, 5,000 Units, Subcutaneous, Q8H ipratropium bromide (ATROVENT HFA) inhaler 2 puff, 2 puff, Inhalation, BID & PRN lidocaine (LIDODERM) 5 % topical patch 1 patch, 1 patch, Topical, QDAY thyroid pork (ARMOUR THYROID) tablet 30 mg, 30 mg, Oral, QDAY topiramate (TOPAMAX) tablet 50 mg, 50 mg, Oral, QDAY venlafaxine XR (EFFEXOR XR) capsule 150 mg, 150 mg, Oral, QDAY acetaminophen Q6H PRN, HYDROcodone/acetaminophen Q6H PRN, melatonin QHS PRN, m ethocarbamoL Q8H PRN, polyethylene glycol 3350 QDAY PRN Lab Review 24-hour labs: Results for orders placed or performed during the hospital encounter of 08/07/21 (from the past 24 hour(s)) CBC AND DIFF Collection Time: 08/07/21 6:08 PM Result Value Ref Range White Blood Cells 11.8 (H) 4.5 - 11.0 K/UL RBC 4.11 4.0 - 5.0 M/UL Hemoglobin 13.5 12.0 - 15.0 GM/DL Hematocrit 37.3 36 - 45 % MCV 90.7 80 - 100 FL MCH 32.8 26 - 34 PG MCHC 36.1 (H) 32.0 - 36.0 G/DL RDW 14.2 11 - 15 % Platelet Count 354 150 - 400 K/UL MPV 8.5 7 - 11 FL Neutrophils 69 41 - 77 % Lymphocytes 22 (L) 24 - 44 % Monocytes 7 4 - 12 % Eosinophils 1 0 - 5 % Basophils 1 0 - 2 % Absolute Neutrophil Count 8.30 (H) 1.8 - 7.0 K/UL Absolute Lymph Count 2.55 1.0 - 4.8 K/UL Absolute Monocyte Count 0.78 0 - 0.80 K/UL Absolute Eosinophil Count 0.13 0 - 0.45 K/UL Absolute Basophil Count 0.06 0 - 0.20 K/UL MDW (Monocyte Distribution Width) 18.3 <20.7 COMPREHENSIVE METABOLIC PANEL Collection Time: 08/07/21 6:08 PM Result Value Ref Range Sodium 142 137 - 147 MMOL/L Potassium 3.7 3.5 - 5.1 MMOL/L Chloride 106 98 - 110 MMOL/L Glucose 95 70 - 100 MG/DL Blood Urea Nitrogen 12 7 - 25 MG/DL Creatinine 0.81 0.4 - 1.00 MG/DL Calcium 9.7 8.5 - 10.6 MG/DL Total Protein 6.9 6.0 - 8.0 G/DL Total Bilirubin 0.3 0.3 - 1.2 MG/DL Albumin 4.1 3.5 - 5.0 G/DL Alk Phosphatase 86 25 - 110 U/L AST (SGOT) 17 7 - 40 U/L CO2 25 21 - 30 MMOL/L ALT (SGPT) 21 7 - 56 U/L Anion Gap 11 3 - 12 eGFR Non >60 >60 mL/min eGFR >60 >60 mL/min TSH WITH FREE T4 REFLEX Collection Time: 08/07/21 6:08 PM Result Value Ref Range TSH 1.23 0.35 - 5.00 MCU/ML MAGNESIUM Collection Time: 08/07/21 6:08 PM Result Value Ref Range Magnesium 2.2 1.6 - 2.6 mg/dL D-DIMER Collection Time: 08/07/21 6:08 PM Result Value Ref Range D-Dimer 307 <500 ng/mL FEU POC TROPONIN Collection Time: 08/07/21 6:10 PM Result Value Ref Range Tgdtsitq-B-TYM 0.01 0.00 - 0.05 NG/ML BNP POC ER Collection Time: 08/07/21 6:11 PM Result Value Ref Range BNP POC <15.0 0 - 100 PG/ML POC LACTATE Collection Time: 08/07/21 6:25 PM Result Value Ref Range LACTIC ACID POC 1.2 0.5 - 2.0 MMOL/L URINALYSIS DIPSTICK REFLEX TO CULTURE Collection Time: 08/07/21 7:43 PM Specimen: Urine Result Value Ref Range Color,UA YELLOW Turbidity,UA CLEAR CLEAR-CLEAR Specific Higden-Urine 1.014 1.003 - 1.035 pH,UA 6.0 5.0 - 8.0 Protein,UA NEG NEG-NEG Glucose,UA NEG NEG-NEG Ketones,UA NEG NEG-NEG Bilirubin,UA NEG NEG-NEG Blood,UA 1+ (A) NEG-NEG Urobilinogen,UA NORMAL NORM-NORMAL Nitrite,UA NEG NEG-NEG Leukocytes,UA 1+ (A) NEG-NEG Urine Ascorbic Acid, UA NEG NEG-NEG URINALYSIS MICROSCOPIC REFLEX TO CULTURE Collection Time: 08/07/21 7:43 PM Specimen: Urine Result Value Ref Range WBCs,UA 20-50 0 - 2 /HPF RBCs,UA 10-20 0 - 3 /HPF Comment,UA Criteria for reflex to culture are WBC>10, Positive Nitrite, and/or >=+1 leukocytes. If quantity is not sufficient, an addendum will follow. MucousUA TRACE Squamous Epithelial Cells 2-5 0 - 5 Calcium Oxalate Crystals MODERATE COVID-19 (SARS-COV-2) PCR Collection Time: 08/07/21 8:15 PM Specimen: Nasopharyngeal; Flocked Swab Result Value Ref Range COVID-19 (SARS-CoV-2) PCR Source FLOCKED SWAB NASOPHARYNGEAL COVID-19 (SARS-CoV-2) PCR NOT DETECTED DN-NOT DETECTED CBC AND DIFF Collection Time: 08/08/21 4:20 AM Result Value Ref Range White Blood Cells 10.6 4.5 - 11.0 K/UL RBC 4.18 4.0 - 5.0 M/UL Hemoglobin 13.1 12.0 - 15.0 GM/DL Hematocrit 38.5 36 - 45 % MCV 92.1 80 - 100 FL MCH 31.4 26 - 34 PG MCHC 34.1 32.0 - 36.0 G/DL RDW 14.4 11 - 15 % Platelet Count 354 150 - 400 K/UL MPV 8.3 7 - 11 FL Neutrophils 60 41 - 77 % Lymphocytes 29 24 - 44 % Monocytes 8 4 - 12 % Eosinophils 2 0 - 5 % Basophils 1 0 - 2 % Absolute Neutrophil Count 6.45 1.8 - 7.0 K/UL Absolute Lymph Count 3.10 1.0 - 4.8 K/UL Absolute Monocyte Count 0.80 0 - 0.80 K/UL Absolute Eosinophil Count 0.17 0 - 0.45 K/UL Absolute Basophil Count 0.06 0 - 0.20 K/UL COMPREHENSIVE METABOLIC PANEL Collection Time: 08/08/21 4:20 AM Result Value Ref Range Sodium 138 137 - 147 MMOL/L Potassium 3.8 3.5 - 5.1 MMOL/L Chloride 106 98 - 110 MMOL/L Glucose 98 70 - 100 MG/DL Blood Urea Nitrogen 13 7 - 25 MG/DL Creatinine 0.70 0.4 - 1.00 MG/DL Calcium 8.9 8.5 - 10.6 MG/DL Total Protein 6.5 6.0 - 8.0 G/DL Total Bilirubin 0.4 0.3 - 1.2 MG/DL Albumin 3.9 3.5 - 5.0 G/DL Alk Phosphatase 91 25 - 110 U/L AST (SGOT) 14 7 - 40 U/L CO2 23 21 - 30 MMOL/L ALT (SGPT) 16 7 - 56 U/L Anion Gap 9 3 - 12 eGFR Non >60 >60 mL/min eGFR >60 >60 mL/min TROPONIN-I Collection Time: 08/08/21 4:20 AM Result Value Ref Range Troponin-I 0.00 0.0 - 0.05 NG/ML C REACTIVE PROTEIN (CRP) Collection Time: 08/08/21 4:20 AM Result Value Ref Range C-Reactive Protein 0.81 <1.0 MG/DL SED RATE Collection Time: 08/08/21 4:20 AM Result Value Ref Range Sed Rate -ESR 14 0 - 20 MM/HR Point of Care Testing (Last 24 hours) Glucose: 98 (08/08/21 0420) documented in this encounter H&P Notes * Shaggy Clarke MD - 08/07/2021 9:31 PM CDT Admission History and Physical Examination Name: Genoveva Bryan 481 Admission Date: 08/07/2021 Assessment/Plan: Principal Problem: Post-COVID chronic palpitations 41-year-old female with history of COVID-19 pneumonia with post Covid hypoxemia currently on O2, pleuritic chest pain, asthma, depression and obesity presented to ED with complaints of worsening palpitations with exertion. Palpitations -Reports heart rate up to 160s with minimal activity -EKG showing sinus tachycardia with normal BNP and troponins -Normal TSH -Admit to telemetry unit -TTE ordered -Consult cardiology team for further recommendation including need for Holter mo nitoring versus further imaging Post Covid hypoxemia Dyspnea -Reports being on oxygen all the time -Continue O2 as needed -Denies ever having any CT scans of her chest in the past -Consult pulmonary team for further recommendation clinic for HRCT and PFTs Pleuritic chest pain -Worse with deep breathing and tender to palpation -Normal D-dimer -Lidocaine patches -Muscle relaxant -Milton as needed ordered History of asthma -Resume Breo Ellipta -As needed ipratropium Leukocytosis -Repeat CBC in a.m. -S/p Rocephin in ED -UA 1+ leukocytes with no bacteria -Hold further dose of antibiotics at this time Depression -Resume WHEAT SHIPPER medications FEN -IVF None -Replace K & Mg to keep them >4 & >2 respectively -Diet: Regular DVT ppx : Lovenox Full code __ Primary Care Physician: Thee Babcock Verified Chief Complaint: Palpitations History of Present Illness: Genoveva Bryan is a 41 y.o. female with history of COVID-19 pneumonia with post Covid hypoxemia currently on O2, pleuritic chest pain, asthma, depression and obesity presented to ED with complaints of worsen ing palpitations with exertion. Patient was seen in ED with no family at the bedside. She reports having persist ent tachycardia since she was diagnosed with COVID-19 but recently heart rate ju mping up to 160s with minimal exertion for which she came into ED. She talked to her outpatient search strategist who recommended her to go to ED. Denies any syncop al episodes, focal weakness or prior history of arrhythmias in the past. Patient reports having persistent dyspnea for which she uses oxygen all the time at home. Reports having left-sided chest pain with tenderness to palpation, wor se with deep breathing as well as burning pain radiating to her left arm. Report s having this pain intermittently since she was diagnosed with COVID-19 but it w as constant since yesterday. She denies having any fever/chills but does report having persistent coughing. S rg she follows with pulmonary clinic outpatient and reports she has a cardiol ogy appointment for September. Medical History: Diagnosis Date COVID-19 Palpitations Scoliosis Surgical History: Procedure Laterality Date RIGHT LUMBAR 4-5 MICRODISCECTOMY Right 02/24/2019 Performed by Jerman Acevedo MD at [facility] OR HYSTERECTOMY HYSTERECTOMY TUBAL LIGATION Family history reviewed; non-contributory Social History Socioeconomic History Marital status: Spouse [...] file Social History Narrative Not on file Social Determinants of Health Financial Resource Strain: Difficulty of Paying Living Expenses: Food Insecurity: Worried About Running Out of Food in the Last Year: Ran Out of Food in the Last Year: Transportation Needs: Lack of Transportation (Medical): Lack of Transportation (Non-Medical): Physical Activity: Days of Exercise per Week: Minutes of Exercise per Session: Stress: Feeling of Stress : Social Connections: Frequency of Communication with Friends and Family: Frequency of Social Gatherings with Friends and Family: Attends [employer] Services: Active Member of Clubs or Organizations: Attends Club or Organization Meetings: Marital Status: Intimate Partner Violence: Fear of Current or Ex-Partner: Emotionally Abused: Physically Abused: Sexually Abused: Immunizations (includes history and patient reported): There is no immunization history on file for this patient. Allergies: Bee sting [venom-honey bee], Lanolin, Latex, and Dairy aid [lactase] Medications: Current Facility-Administered Medications Medication HYDROcodone/acetaminophen (NORCO) 5/325 mg tablet 1 tablet [START ON 08/08/2021] lidocaine (LIDODERM) 5 % topical patch 1 patch methocarbamoL (ROBAXIN) tablet 750 mg Current Outpatient Medications Medication Sig albuterol 0.083% (PROVENTIL) 2.5 mg /3 mL (0.083 %) nebulizer solution buPROPion XL (WELLBUTRIN XL) 150 mg tablet Take one tablet by mouth daily. D o not crush or chew. xntoscbzduq-kaymtxzbu-uateujim (TRELEGY ELLIPTA) 200-62.5-25 mcg inhaler guaiFENesin LA (MUCINEX) 600 mg tablet Take 600 mg by mouth twice daily. ipratropium bromide (ATROVENT HFA) 17 mcg/actuation inhaler Inhale 2 puffs b y mouth into the lungs. [place] PACKER THYROID 30 mg (0.5 gr) tablet Take 30 mg by mouth daily. topiramate (TOPAMAX) 50 mg tablet Take 1 tablet by mouth daily. venlafaxine XR (EFFEXOR XR) 150 mg capsule Take 150 mg by mouth daily. Review of Systems: A 14 point review of systems was negative except for: Constitutional: positive f or fatigue Respiratory: positive for cough, sputum, increased work of breathing, pleurisy/c hest pain, asthma or dyspnea on exertion Cardiovascular: positive for chest pain, dyspnea, palpitations Musculoskeletal: positive for myalgias Behvioral/Psych: positive for depression Physical Exam: Vital Signs: Last Filed In 24 Hours Vital Signs: 24 Hour Range BP: 126/91 (08/07 2100) Temp: 37.2 C (98.9 F) (08/07 1701) Pulse: 91 (08/07 2100) Respirations: 18 PER MINUTE (08/07 2100) SpO2: 99 % (08/07 2100) SpO2 Pulse: 91 (08/07 2100) Height: 164.5 cm (64.75") (08/07 1204) BP: (113-147)/(81-99) Temp: [36.6 C (97.9 F)-37.2 C (98.9 F)] Pulse: [91-119] Respirations: [12 PER MINUTE-22 PER MINUTE] SpO2: [96 %-99 %] Intensity Pain Scale (Self Report): 7 (08/07/21 1656) Physical Exam Vitals and nursing note reviewed. Constitutional: General: She is not in acute distress. Appearance: She is well-developed. She is obese. She is not diaphoretic. HENT: Head: Normocephalic and atraumatic. Mouth/Throat: Pharynx: No oropharyngeal exudate. Eyes: General: No scleral icterus. Pupils: Pupils are equal, round, and reactive to light. Neck: Vascular: No JVD. Cardiovascular: Rate and Rhythm: Regular rhythm. Tachycardia present. Pulses: Normal pulses. Pulmonary: Effort: Pulmonary effort is normal. Breath sounds: Rhonchi present. No wheezing or rales. Abdominal: General: Bowel sounds are normal. There is no distension. Palpations: Abdomen is soft. Tenderness: There is no abdominal tenderness. Musculoskeletal: General: No tenderness. Normal range of motion. Cervical back: Normal range of motion and neck supple. Right lower leg: No edema. Left lower leg: No edema. Skin: General: Skin is warm and dry. Capillary Refill: Capillary refill takes less than 2 seconds. Findings: No rash. Neurological: General: No focal deficit present. Mental Status: She is alert and oriented to person, place, and time. Mental s tatus is at baseline. Motor: No abnormal muscle tone. Deep Tendon Reflexes: Reflexes normal. Psychiatric: Behavior: Behavior normal. Lab/Radiology/Other Diagnostic Tests: Pertinent labs reviewed Glucose: 95 (08/07/21 1808) Pertinent radiology reviewed., EKG Reviewed Shaggy Clarke MD Pager [phone] documented in this encounter Consult Notes * Petar Vences MD - 08/08/2021 1:32 PM CDT Associated Order(s): CONSULT CARDIOLOGY PHYSICIAN Consultation Report Genoveva Bryan Admission Date: 08/07/2021 Assessment/Plan: Principal Problem: Post-COVID chronic palpitations 41-year-old lady with recent severe Covid pneumonia, now requiring continuous ox ygen. CT of the chest done today showed bilateral scarring/fibrosis related to Covid pneumonia. Echo done today shows normal cardiac structure and function. Even though her heart rate is fast, she herself does not feel severe palpitation s. There is no recent episode of syncope. She probably had neurocardiogenic sy ncope in her teenage years. She is just worried about the fast heart rates evon use even mild activity will increase it to 150/min. I told her that some of the tachycardia may be related to the ongoing lung issues. Her blood pressures are relatively stable. Although not essential, we could blunt the exertional tachyc ardia using a small dose of Toprol starting at 12.5 mg once a day and increasing as needed/tolerated. __ Chief Complaint: Palpitations History of Present Illness: Genoveva Bryan is a 41 y.o. female, with history of severe Covid pneumonia, has required oxygen since the infection. She [facility] pulmonary medicine [facility]. Cardiology has been called on account of her baseline heart rate of 100/min. e uses a oxygen sat monitor at home and that shows a heart rate of 100 even when she is resting. The heart rate could go up to 150/min with mild activity. The re is no history of recent syncope. The last syncopal episodes were when she wa s a teenager. She also mentions episodic chest pains. For the last 24 hours, they have been r ather constant. They appear to be somewhat pleuritic in nature. She does not smoke or drink. There is no history of recreational drug use. Family historyno premature sudden unexpected cardiac . Medical History: Diagnosis Date COVID-19 Palpitations Scoliosis Surgical History: Procedure Laterality Date RIGHT LUMBAR 4-5 MICRODISCECTOMY Right 02/24/2019 Performed by Jerman Acevedo MD at [facility] OR HX HYSTERECTOMY HYSTERECTOMY TUBAL LIGATION Family History Problem [...] file Social History Narrative Not on file Allergies: Bee sting [venom-honey bee], Lanolin, Latex, and Dairy aid [lactase] Medications: Scheduled Meds:buPROPion XL (WELLBUTRIN XL) tablet 150 mg, 150 mg, Oral, QDAY [Held by Provider] fluticasone-salmeterol (ADVAIR DISKUS) 250-50 mcg/dose inhala tion disk 1 puff, 1 puff, Inhalation, BID guaiFENesin LA (MUCINEX) tablet 600 mg, 600 mg, Oral, BID heparin (porcine) PF syringe 5,000 Units, 5,000 Units, Subcutaneous, Q8H ipratropium bromide (ATROVENT HFA) inhaler 2 puff, 2 puff, Inhalation, BID & PRN ketorolac (TORADOL) injection 15 mg, 15 mg, Intravenous, Q8H* lidocaine (LIDODERM) 5 % topical patch 1 patch, 1 patch, Topical, QDAY pantoprazole DR (PROTONIX) tablet 40 mg, 40 mg, Oral, QDAY(21) senna/docusate (SENOKOT-S) tablet 1 tablet, 1 tablet, Oral, BID thyroid pork (ARMOUR THYROID) tablet 30 mg, 30 mg, Oral, QDAY topiramate (TOPAMAX) tablet 50 mg, 50 mg, Oral, QDAY venlafaxine XR (EFFEXOR XR) capsule 150 mg, 150 mg, Oral, QDAY Continuous Infusions: PRN and Respiratory Meds:acetaminophen Q6H PRN, HYDROcodone/acetaminophen Q6H AZ N, melatonin QHS PRN, methocarbamoL Q8H PRN, polyethylene glycol 3350 QDAY PRN Review of Systems: Please refer to the HPI Physical Exam: Vital Signs: Last Filed In 24 Hours Vital Signs: 24 Hour Range BP: 129/83 (08/08 120) Temp: 36.7 C (98.1 F) (08/08 120) Pulse: 88 (08/08 120) Respirations: 18 PER MINUTE (08/08 120) SpO2: 100 % (08/08 120) SpO2 Pulse: 99 (08/07 2130) Height: 164.5 cm (5' 4.76") (08/08 0309) BP: (111-144)/(58-99) Temp: [36.3 C (97.4 F)-37.2 C (98.9 F)] Pulse: [86-119] Respirations: [12 PER MINUTE-25 PER MINUTE] SpO2: [93 %-100 %] Intensity Pain Scale (Self Report): 6 (08/08/21 0915) Intake/Output Summary (Last 24 hours) at 08/08/2021 1332 Last data filed at 08/08/2021 1100 Gross per 24 hour Intake 930 ml Output Net 930 ml General Appearance: well for age, appears comfortable Skin: warm, no ulcers, no xanthomas Eyes/lids: no conjunctival pallor, no arcus, no xanthelasma Lips/oral mucosa: no cyanosis Neck: neck veins flat Carotids: normal upstroke, no bruit Chest: normal appearance Lungs: clear Cardiac rhythm: regular rhythm & mildly tachycardic Cardiac auscultation: Normal S1 & S2, no S3 or S4, no murmur Abdomen: soft, non tender, bowel sounds normal, no pulsations/bruits Extremities: no LE edema, no varicosities, 2+ distal pulses Neurologic/psych: oriented, no gross motor deficits, normal mood & affect Lab/Radiology/Other Diagnostic Tests: CBC w/Diff Lab Results Component Value Date/Time WBC 10.6 08/08/2021 04:20 AM RBC 4.18 08/08/2021 04:20 AM HGB 13.1 08/08/2021 04:20 AM HCT 38.5 08/08/2021 04:20 AM MCV 92.1 08/08/2021 04:20 AM MCH 31.4 08/08/2021 04:20 AM MCHC 34.1 08/08/2021 04:20 AM RDW 14.4 08/08/2021 04:20 AM PLTCT 354 08/08/2021 04:20 AM MPV 8.3 08/08/2021 04:20 AM Lab Results Component Value Date/Time NEUT 60 08/08/2021 04:20 AM ANC 6.45 08/08/2021 04:20 AM LYMA 29 08/08/2021 04:20 AM ALC 3.10 08/08/2021 04:20 AM MATTHEW 8 08/08/2021 04:20 AM AMC 0.80 08/08/2021 04:20 AM EOSA 2 08/08/2021 04:20 AM AEC 0.17 08/08/2021 04:20 AM BASA 1 08/08/2021 04:20 AM ABC 0.06 08/08/2021 04:20 AM Comprehensive Metabolic Profile Lab Results Component Value Date/Time NA 138 08/08/2021 04:20 AM K 3.8 08/08/2021 04:20 AM CL 106 08/08/2021 04:20 AM CO2 23 08/08/2021 04:20 AM GAP 9 08/08/2021 04:20 AM BUN 13 08/08/2021 04:20 AM CR 0.70 08/08/2021 04:20 AM GLU 98 08/08/2021 04:20 AM Lab Results Component Value Date/Time CA 8.9 08/08/2021 04:20 AM ALBUMIN 3.9 08/08/2021 04:20 AM TOTPROT 6.5 08/08/2021 04:20 AM ALKPHOS 91 08/08/2021 04:20 AM AST 14 08/08/2021 04:20 AM ALT 16 08/08/2021 04:20 AM TOTBILI 0.4 08/08/2021 04:20 AM GFR >60 08/08/2021 04:20 AM GFRAA >60 08/08/2021 04:20 AM Thyroid Studies Lab Results Component Value Date/Time TSH 1.23 08/07/2021 06:08 PM Lab Results Component Value Date/Time TNI 0.00 08/08/2021 04:20 AM ECG: Mild sinus tachycardia, left atrial abnormality Echocardiogram: Normal Chest X-Ray: Bilateral peripheral lung scarring Telemetry: Sinus rhythm, intermittent sinus tach up to maximum 140/min Petar Vences MD * Elias Presley MD - 08/08/2021 11:35 AM CDT Associated Order(s): CONSULT PULMONARY/CRITICAL CARE PHYSICIAN Pulmonary and Critical Care Medicine Consult Admission Date: 08/07/2021 LOS: 1 day Reason for Pulmonary Consult: SOB post COVID 19 patient Principal Problem: Post-COVID chronic palpitations Impression: Genoveva Bryan is a 41 y.o. female with PMH of asthma and post-Covid 19 sy ndrome, comes progressive Sob associated with palpitations that are probably mul tifactorial (albuterol, deconditioning and worsening respiratory status) CT chest showed: Moderate scattered reticular opacity in throughout both lungs w ith mild associated architectural distortion, bronchiectasis and groundglass op acity. These findings are most compatible with postinfectious/postinflammatory scarring/fibrosis after reported Covid-19 pneumonia. A component of inflammation may still be present. Recommendation: - Agree to discontinue Albuterol since it may be worsening tachycardia - Will get new PFTs and compared with the ones done a month ago. Will hold Advai r, they can be re/started after PFTs are done. - Agree with physical therapy - Patient needs to continue following with Post Covid 19 clinic - Echo was WNL, cardiology following, patient is connected to telemetry, will fo llow results. - Continue Oxygen support for saturations above 90% - CT chest showed post Covid changes (Covid 19 was negative), will hold on stero ids for now, will reassess tomorrow. Patient discussed with Dr. Camacho, follow History of Present Illness: Genoveva Bryan is a 41 y.o. female with PMH of asthma and post-Covid 19 s yndrome, comes complaining of palpitations associated with SOB. Patient was diag nosed with COVID 19 on May 07 2021, and was admitted in [facility] on 2020 due to worsening hypoxia, patient required BiPAP during hospitaliza tion but no intubation. Patient was discharge on May 31 2021 with a steroid t aper that she finished on June 06 2021. Patient was also discharge on oxygen N C 2 Lpm and has not been able to decrease it. As per patient she feels the same as the day she was discharge. Patient had follow up with Dr. Romario FOOTE on July 03 2021, as per patient she had 6MWT and PFTs showing "60% of lung capacity", patient was started on albuterol nebulized TID which she discont inue and change to albuterol inhaler Bid due to worsening palpitations. Patient will try to get records from that visit. Now patient is having episodes of palpa itations associated with minimal exertion that are accompanied by chest pain yun t radiates to left arm and SOB. Review of Systems: Constitutional: No fever or chills, No weight loss HEENT: No sinus tenderness or drainage. No headaches CV: Positive palpitations RESP: as per hpi ABD: No diarrhea, constipation or pain Skin: no rash/sores MSK: no joint arthralgias or joint swelling Heme: no bleeding or unilateral leg or arm swelling : no dysuria or hematuria Neuro: no focal deficits, headache, or change in vision Lymph: No Lymphadenopathy Past Medical History: Medical History: Diagnosis Date COVID-19 Palpitations Scoliosis Past Surgical History: Surgical History: Procedure Laterality Date RIGHT LUMBAR 4-5 MICRODISCECTOMY Right 02/24/2019 Performed by Jerman Acevedo MD at [facility] OR HYSTERECTOMY HYSTERECTOMY TUBAL LIGATION Social History: Social History Socioeconomic History Marital status: Spouse [...] file Social History Narrative Not on file Family History: Family History Problem Relation Age of Onset Arthritis Mother Back pain Mother Hypertension Mother Allergies: Bee sting [venom-honey bee], Lanolin, Latex, and Dairy aid [lactase] Medications Prior to Admission Medication Sig Dispense Refill Last Dose albuterol 0.083% (PROVENTIL) 2.5 mg /3 mL (0.083 %) nebulizer solution buPROPion XL (WELLBUTRIN XL) 150 mg tablet Take one tablet by mouth daily. D o not crush or chew. 30 tablet 2 sqwfjkqftny-offiowuoc-tjgvmwec (TRELEGY ELLIPTA) 200-62.5-25 mcg inhaler guaiFENesin LA (MUCINEX) 600 mg tablet Take 600 mg by mouth twice daily. ipratropium bromide (ATROVENT HFA) 17 mcg/actuation inhaler Inhale 2 puffs b y mouth into the lungs. [place] PACKER THYROID 30 mg (0.5 gr) tablet Take 30 mg by mouth daily. topiramate (TOPAMAX) 50 mg tablet Take 1 tablet by mouth daily. venlafaxine XR (EFFEXOR XR) 150 mg capsule Take 150 mg by mouth daily. Medications: Scheduled Meds:buPROPion XL (WELLBUTRIN XL) tablet 150 mg, 150 mg, Oral, QDAY fluticasone-salmeterol (ADVAIR DISKUS) 250-50 mcg/dose inhalation disk 1 puff, 1 puff, Inhalation, BID guaiFENesin LA (MUCINEX) tablet 600 mg, 600 mg, Oral, BID heparin (porcine) PF syringe 5,000 Units, 5,000 Units, Subcutaneous, Q8H ipratropium bromide (ATROVENT HFA) inhaler 2 puff, 2 puff, Inhalation, BID & PRN ketorolac (TORADOL) injection 15 mg, 15 mg, Intravenous, Q8H* lidocaine (LIDODERM) 5 % topical patch 1 patch, 1 patch, Topical, QDAY pantoprazole DR (PROTONIX) tablet 40 mg, 40 mg, Oral, QDAY(21) senna/docusate (SENOKOT-S) tablet 1 tablet, 1 tablet, Oral, BID thyroid pork (ARMOUR THYROID) tablet 30 mg, 30 mg, Oral, QDAY topiramate (TOPAMAX) tablet 50 mg, 50 mg, Oral, QDAY venlafaxine XR (EFFEXOR XR) capsule 150 mg, 150 mg, Oral, QDAY Continuous Infusions: PRN and Respiratory Meds:acetaminophen Q6H PRN, HYDROcodone/acetaminophen Q6H AZ N, melatonin QHS PRN, methocarbamoL Q8H PRN, polyethylene glycol 3350 QDAY PRN Vital Signs: Last Filed in 24 hours Vital Signs: 24 hour Range BP: 111/58 (08/08 815) Temp: 36.3 C (97.4 F) (08/08 815) Pulse: 86 (08/08 815) Respirations: 16 PER MINUTE (08/08 815) SpO2: 97 % (08/08 815) SpO2 Pulse: 99 (08/070) Height: 164.5 cm (64.76") (08/08 030) BP: (111-147)/(58-99) Temp: [36.3 C (97.4 F)-37.2 C (98.9 F)] Pulse: [86-119] Respirations: [12 PER MINUTE-25 PER MINUTE] SpO2: [93 %-99 %] Physical Exam: Gen: AAOx3, NAD on NC 2 LPM HEENT: NCAT, EOMI, PERRL, No oral lesions RESP: Bilateral crepitus worse in bases, no wheezing CVS: RRR, No RGM, No JVD, ABD: Soft, NT, ND, BS+, no HSM Ext: No Rashes, No Edema Neuro: No gross defecits, strength 5/5, non-focal Skin: no rashes on exposed skin Lab: Recent Labs 08/07/21180708/08/21 0420 NA 142 138 K 3.7 3.8 CL 106 106 CO2 25 23 BUN 12 13 CR 0.81 0.70 GLU 95 98 GAP 11 9 GFR >60 >60 MG 2.2 -- CA 9.7 8.9 Recent Labs 08/07/21180708/08/21 0420 ALKPHOS 86 91 AST 17 14 ALT 21 16 TOTPROT 6.9 6.5 TOTBILI 0.3 0.4 ALBUMIN 4.1 3.9 Recent Labs 08/07/21180708/08/21419 HGB 13.5 13.1 HCT 37.3 38.5 WBC 11.8* 10.6 PLTCT 354 354 No results for input(s): PHART, PCO2A, PO2ART, HCO3A, [id number] in the last 72 h ours. Radiology and other diagnostic tests: Reviewed Elias Presley MD Pager [phone] Associated attestation - Joel Camacho MD - 08/08/2021 10:21 PM CDT ATTESTATION I personally performed the [place] portions of the E/M visit and reviewed laboratory and radiological findings, discussed case with the resident/fellow and concur w selena Bryan's documentation of history, physical exam, assessment and treatment plan. Where appropriate, addendums have been made to the note. Mrs. Bryan is a 41 y/o patient with obesity and no other significant comorbiditie s who was diagnosed with COVID-19 in May 07 and treated at [facility] with beebe healthcare therapy, requiring BiPAP, but not mechanical ventilation. She was discharged on 2 l/min of oxygen, still feeling very weak, first slowly improvin g, but now plateauing since several weeks. [facility] where she had PFT (results not available) and was started on al buterol giving her palpitations. She was admitted through the ER on 08/07/21 with progressive shortness of breath associated with palpitation and severe fatigue.. Her CT at admissions compatible with post COVID changes with mixed picture of fibrosis and ground glass changes. Normal 2DE. Symptoms compatible with Post-COVID disease. Will f/u after todays PFT. Patient is already scheduled for post-covid clinic with neurology, cardiology an d rehabilitation medicine. Joel Camacho MD 08/08/2021 documented in this encounter ED Notes * Damian Richmond MD - 08/07/2021 6:33 PM CDT Images from the original note were not included. Genoveva Bryan is a 41 y.o. female. Chief Complaint: Chief Complaint Patient presents with Rapid Heart Rate Has felt like she has a racing heart rate all week. Was told by search strategist to come to ER. Worsens with ambulation. CP History of Present Illness: Patient is a 41-year-old female with a past medical history of asthma, obesity, PCOS, COVID-19, chronic hypoxic respiratory failure on 2 L at baseline, who pres ents to the emergency department with a chief complaint of chest pain. Patient reports that over the last week she has had intermittent tachycardia with shortn ess of breath and lightheadedness. She reports that symptoms are exacerbated by movement, and sometimes she will become acutely hypoxic when her heart rate is elevated to 150s-160s. Today she had a appointment with the post Covid clinic, upon leaving the clinic she started to have worsening left-sided chest pain that radiated to her left shoulder. She also states that the shortness of breath st arted to get worse and she was intermittently dizzy. At this time she called he r search strategist, who recommended she come to the emergency department for furthe r evaluation. She denies any nausea, vomiting, teddy pain. She does report th at she feels like she is more fluid overloaded than at baseline. History provided by: Patient site damage prevention technician used: No Review of Systems: Review of Systems Constitutional: Positive for fatigue. Negative for fever. HENT: Negative for sore throat. Eyes: Negative for visual disturbance. Respiratory: Positive for cough and shortness of breath. Cardiovascular: Positive for chest pain and palpitations. Gastrointestinal: Positive for abdominal distention. Negative for abdominal pain . Genitourinary: Negative for dysuria. Musculoskeletal: Negative for back pain. Skin: Negative for rash. Neurological: Positive for dizziness and light-headedness. Negative for headache s. Allergies: Bee sting [venom-honey bee], Lanolin, Latex, and Dairy aid [lactase] Past Medical History: Medical History: Diagnosis Date COVID-19 Palpitations Scoliosis Past Surgical History: Surgical History: Procedure Laterality Date RIGHT LUMBAR 4-5 MICRODISCECTOMY Right 02/24/2019 Performed by Jerman Acevedo MD at [facility] OR HX HYSTERECTOMY HYSTERECTOMY TUBAL LIGATION Social History: Social History Tobacco Use Smoking status: Never Smoker Smokeless tobacco: Never Used Substance Use Topics Alcohol use: Not Currently Drug use: Never Social History Substance and Sexual Activity Drug Use Never Family History: Family History Problem Relation Age of Onset Arthritis Mother Back pain Mother Hypertension Mother Vitals: ED Vitals Date and Time T BP P RR SPO2P SPO2 User 08/07/212129 -- -- 99 25 PER MINUTE 99 99 % CS 08/07/212099 -- 126/91 91 18 PER MINUTE 91 99 % 08/07/212029 -- 127/94 93 19 PER MINUTE 93 98 % 08/07/211999 -- 132/83 92 17 PER MINUTE 92 99 % 08/07/211924 -- -- 98 18 PER MINUTE 105 98 % 08/07/211919 -- -- 100 15 PER MINUTE 106 99 % 08/07/211914 -- -- 98 12 PER MINUTE 98 99 % 08/07/211909 -- -- 97 14 PER MINUTE 96 98 % 08/07/21 190 -- -- 99 17 PER MINUTE 98 97 % 08/07/21 190 -- 113/81 103 19 PER MINUTE 103 96 % 08/07/21 185 -- -- 104 15 PER MINUTE 104 98 % 08/07/21 1850 -- -- 103 19 PER MINUTE 102 98 % 08/07/21 1845 -- -- 106 17 PER MINUTE 106 99 % 08/07/21 1830 -- 144/99 109 17 PER MINUTE 111 99 % 08/07/21 1800 -- 138/99 106 19 PER MINUTE 106 98 % 08/07/21 1701 37.2 C (98.9 F) 142/96 119 22 PER MINUTE -- 98 % JL Physical Exam: Physical Exam Vitals and nursing note reviewed. Constitutional: Appearance: She is obese. She is not ill-appearing. HENT: Head: Normocephalic and atraumatic. Eyes: Extraocular Movements: Extraocular movements intact. Conjunctiva/sclera: Conjunctivae normal. Pupils: Pupils are equal, round, and reactive to light. Cardiovascular: Rate and Rhythm: Regular rhythm. Tachycardia present. Pulmonary: Comments: Tachypnea. Decreased breath sounds bilateral lung bases. Abdominal: General: Bowel sounds are normal. There is no distension. Palpations: Abdomen is soft. Tenderness: There is no abdominal tenderness. Musculoskeletal: General: No swelling. Normal range of motion. Cervical back: Neck supple. Neurological: General: No focal deficit present. Mental Status: She is alert and oriented to person, place, and time. Mental s tatus is at baseline. Cranial Nerves: No cranial nerve deficit. Sensory: No sensory deficit. Motor: No weakness. Psychiatric: Mood and Affect: Mood normal. Behavior: Behavior normal. Laboratory Results: Labs Reviewed CBC AND DIFF - Abnormal Result Value Ref Range Status White Blood Cells 11.8 (*) 4.5 - 11.0 K/UL Final RBC 4.11 4.0 - 5.0 M/UL Final Hemoglobin 13.5 12.0 - 15.0 GM/DL Final Hematocrit 37.3 36 - 45 % Final MCV 90.7 80 - 100 FL Final MCH 32.8 26 - 34 PG Final MCHC 36.1 (*) 32.0 - 36.0 G/DL Final RDW 14.2 11 - 15 % Final Platelet Count 354 150 - 400 K/UL Final MPV 8.5 7 - 11 FL Final Neutrophils 69 41 - 77 % Final Lymphocytes 22 (*) 24 - 44 % Final Monocytes 7 4 - 12 % Final Eosinophils 1 0 - 5 % Final Basophils 1 0 - 2 % Final Absolute Neutrophil Count 8.30 (*) 1.8 - 7.0 K/UL Final Absolute Lymph Count 2.55 1.0 - 4.8 K/UL Final Absolute Monocyte Count 0.78 0 - 0.80 K/UL Final Absolute Eosinophil Count 0.13 0 - 0.45 K/UL Final Absolute Basophil Count 0.06 0 - 0.20 K/UL Final MDW (Monocyte Distribution Width) 18.3 <20.7 Final URINALYSIS DIPSTICK REFLEX TO CULTURE - Abnormal Color,UA YELLOW Final Turbidity,UA CLEAR CLEAR-CLEAR Final Specific Higden-Urine 1.014 1.003 - 1.035 Final pH,UA 6.0 5.0 - 8.0 Final Protein,UA NEG NEG-NEG Final Glucose,UA NEG NEG-NEG Final Ketones,UA NEG NEG-NEG Final Bilirubin,UA NEG NEG-NEG Final Blood,UA 1+ (*) NEG-NEG Final Urobilinogen,UA NORMAL NORM-NORMAL Final Nitrite,UA NEG NEG-NEG Final Leukocytes,UA 1+ (*) NEG-NEG Final Urine Ascorbic Acid, UA NEG NEG-NEG Final COMPREHENSIVE METABOLIC PANEL Sodium 142 137 - 147 MMOL/L Final Potassium 3.7 3.5 - 5.1 MMOL/L Final Chloride 106 98 - 110 MMOL/L Final Glucose 95 70 - 100 MG/DL Final Blood Urea Nitrogen 12 7 - 25 MG/DL Final Creatinine 0.81 0.4 - 1.00 MG/DL Final Calcium 9.7 8.5 - 10.6 MG/DL Final Total Protein 6.9 6.0 - 8.0 G/DL Final Total Bilirubin 0.3 0.3 - 1.2 MG/DL Final Albumin 4.1 3.5 - 5.0 G/DL Final Alk Phosphatase 86 25 - 110 U/L Final AST (SGOT) 17 7 - 40 U/L Final CO2 25 21 - 30 MMOL/L Final ALT (SGPT) 21 7 - 56 U/L Final Anion Gap 11 3 - 12 Final eGFR Non >60 >60 mL/min Final eGFR >60 >60 mL/min Final TSH WITH FREE T4 REFLEX TSH 1.23 0.35 - 5.00 MCU/ML Final MAGNESIUM Magnesium 2.2 1.6 - 2.6 mg/dL Final D-DIMER D-Dimer 307 <500 ng/mL FEU Final POC TROPONIN [id number]-I-[id number] 0.01 0.00 - 0.05 NG/ML Final BNP POC ER BNP POC <15.0 0 - 100 PG/ML Final POC LACTATE LACTIC ACID POC 1.2 0.5 - 2.0 MMOL/L Final URINALYSIS MICROSCOPIC REFLEX TO CULTURE WBCs,UA 20-50 0 - 2 /HPF Final RBCs,UA 10-20 0 - 3 /HPF Final Comment,UA Final Value: Criteria for reflex to culture are WBC>10, Positive Nitrite, and/or >=+1 leukocytes. If quantity is not sufficient, an addendum will follow. MucousUA TRACE Final Squamous Epithelial Cells 2-5 0 - 5 Final Calcium Oxalate Crystals MODERATE Final UA REFLEX LABEL TROPONIN-I POC TROPONIN POC BNP POC LACTATE POC LACTATE Radiology Interpretation: CHEST SINGLE VIEW Final Result Scattered peripheral ill-defined areas of scarring again seen in both lungs. Finalized by Deon Redmond MD, PhD on 08/07/2021 7:31 PM. Dictated by Elena Redmond MD, PhD on 08/07/2021 7:30 PM. 2D + DOPPLER ECHO (Results Pending) EKG: Initial EKG obtained at 1658 Rate 114, sinus tachycardia AZ 156, QTc [address] elevation or ST depression Interpretation: Sinus tachycardia ED Course: Patient is a 41 y.o. female who presented to the ED for palpitations, chest pain in the context of COVID-19 with chronic hypoxic respiratory failure and intubat ion. - Patient was evaluated by resident and attending physicians. - Available records were reviewed. - Vitals were significant for tachycardia. -Lab work significant for leukocytosis with WBC 11.8, D-dimer negative, no elect rolyte abnormality -Lab work significant for sinus tachycardia, troponin negative. -Chest x-ray showed scattered peripheral ill-defined areas of scarring in both l ungs. -Patient given IVF while in the emergency department - Dispo: Patient will be admitted to internal medicine for palpitations in the s etting of reported heart rate of 160s, pleuritic chest pain, and post Covid hypo catina. MDM Reviewed: previous chart, nursing note and vitals Reviewed previous: labs Interpretation: labs, ECG and x-ray Facility Administered Meds: Medications HYDROcodone/acetaminophen (NORCO) 5/325 mg tablet 1 tablet (1 tablet Oral Given 08/07/212105) lidocaine (LIDODERM) 5 % topical patch 1 patch (has no administration in time ra nge) methocarbamoL (ROBAXIN) tablet 750 mg (has no administration in time range) lactated ringers infusion (0 mL Intravenous Infusion Stopped 08/07/212014) cefTRIAXone (ROCEPHIN) IVP 1 g (1 g Intravenous Given 08/07/212047) Clinical Impression: Clinical Impression Palpitations Chest pain, unspecified type Disposition/Follow up ED Disposition ED Disposition Admit No follow-up provider specified. Medications: Current Discharge Medication List Procedure Notes: Procedures Attestation / Supervision: Josemanuel Gonzalez MD ATTESTATION I personally performed the [place] portions of the E/M visit, discussed case with re jhonny and concur with resident documentation of history, physical exam, assessm ent, and treatment plan unless otherwise noted. Tachydysrhythmia, sob Dimer negative XR with scarring noted Admit for tele, echo, serial exams, ?advanced imaging Staff name: Damian Richmond MD Date: 08/08/2021 * Damian Olmedo RN - 08/07/2021 6:02 PM CDT Pt is a 41 yo female COVID recovered who reports chest pain, palpitations, and s hortness of breath for approximately 1 week. Pt reports the pain began when she recovered from COVID and has gotten worse over time. Pain radiates into her left arm and neck, and her left arm is numb and tingling. Pt reports pain is worse w / inspiration and activity. At home, patient reports feeling palpitations and rodriguez s had pulses in the 160s after activity. Pt is alert and oriented x4, airway patent, CBBS, tachycardic and hypertensive, short of air upon arrival to room. Monitor attached, father at bedside. documented in this encounter Miscellaneous Notes * Case Mgmt DC Plan - Gloria Gracia RN - 08/09/2021 9:52 AM CDT Case Management Admission Assessment NAME:Genoveva Bryan : AGE: 41 y.o. ADMISSION DATE: 08/07/2021 DAYS ADMITTED: LOS: 2 days Todays Date: 08/09/2021 Source of Information: patient Genoveva Bryan is a 41 yo F with PMHx asthma, obesity, depression, COVID-19 PNA in April 2021 complicated by [id number]-05 chronic hypoxic respiratory failure (o n 2L at baseline), who presented to [facility] ED on 08/07 with c/o tachycardia, palpi tations and pleuritic chest pain. CT chest shows postinfection/postinflammatory scarring/fibrosis after COVID-19 PNA. ECG non ischemic (shows sinus tach), tropo autumn and BNP negative. TTE normal. OVS are negative. Started metoprolol XL 12.5mg daily per Cards recommendations. Plan Plan: Case Management Assessment, Assist PRN with SW/NCM Services NCM spoke with patient over the phone - introduced self and role. NCM gave co ntact information. Reviewed [facility], Preparing for Discharge, and Preferred Provider Network hand-outs. Pt/family encouraged to contact Case Management team with questions and ayla rns during hospitalization and until [facility] is [facility] NCM reviewed EMR and discussed pt with team. Pt states that she has O2 at home (post covid - 2L) but is unsure who the sup plier is. Pt states that she has O2 for transport. Pt has used [facility] in the past and would use them again if needed. D/C plan ongoing, will continue to follow. Patient Address/Phone [address] [address] (home) Emergency Contact Extended Emergency Contact Information Primary Emergency Contact: ирина Bryan Mobile Relation: Spouse Preferred language: AMHARIC Ballast Cleaning Operator needed? No Secondary Emergency Contact: rina davis Mobile Relation: Mother Ballast Cleaning Operator needed? No Healthcare Directive Transportation Does the Patient Need Case Management to Arrange Discharge Transport? (ex: facil ity, ambulance, wheelchair/stretcher, Medicaid, cab, other): No Will the Patient Use Family Transport?: Yes Transportation Name, Phone and Availability #1: Pt plans to drive herself home a t D/C. Expected Discharge Date 08/09/2021 Living Situation Prior to Admission Living Arrangements Type of Residence: Home, independent Living Arrangements: Spouse/significant other, Children Bathroom Shower / Tub: Tub/Shower Unit How many levels in the residence?: 2 Can patient live on one level if needed?: Yes Does residence have entry and/or side stairs?: Yes (6) Assistance needed prior to admit or anticipated on discharge: Yes Who provides assistance or could if needed?: Pts Are they in good health?: Unknown Can support system provide 24/7 care if needed?: Maybe Level of Function Prior level of function: Needs assist with ADLs Which ADLs require assistance?: cooking Who assists with ADLs?: Pts Cognitive Abilities Cognitive Abilities: Alert and Oriented, Participates in decision making, Recogn izes impact of health condition on lifestyle, Engages in problem solving and merry nning, Understands nature of health condition Financial Resources Coverage Primary Insurance: Commercial insurance Secondary Insurance: Medicaid Additional Coverage: RX Source of Income Source Of Income: Other (comment) (pts ) Financial Assistance Needed? N/A Psychosocial Needs Mental Health Mental Health History: Yes Mental Health Symptoms: Feeling depressed, Excessive fears/worries Substance Use History Substance Use History Screen: No Other N/A Current/Previous Services PCP Thee Babcock, , Pharmacy [facility] [address], [place] [address] [facility] [address] [facility] [place] [id number] Durable Medical Equipment Durable Medical Equipment at home: Oxygen, Rollator Home Health Receiving home health: In the past Agency name: [facility] Would patient use this agency again?: Yes Hemodialysis or Peritoneal Dialysis Undergoing hemodialysis or peritoneal dialysis: No Tube/Enteral Feeds Receive tube/enteral feeds: No Infusion Receive infusions: No Private Duty Private duty help used: No Home and Community Based Services Home and community based services: No Randal Jose Daniel Tee White: N/A Hospice Hospice: No Outpatient Therapy PT: In the past OT: No SALES REPRESENTATIVE JEWELRY: No Jail Facility/Intermediate SNF: No NH: No Inpatient Rehab IPR: No Long-Term Acute Care Hospital LTACH: No Acute Hospital Stay Acute Hospital Stay: In the past Was patient's stay within the last 30 days?: No Gloria Gracia RN, BSN Nurse Clinical Operations Manager Phone: [phone] documented in this encounter Plan of Treatment Order Schedule Name Type Priority Associated Diag noses ONE TIME for 1 Occurrences starting 07/13 until 08/09/2021 LONG-TERM MAIL SORTER Heart Rhythm Routine Management documented as of this encounter Goals Goal Patient Associated Recent Progress Patient-Stat Aut hor Goal Type Problems ed? Recover from illness Hospital On track (08/09/2021 Yes Casi, 1:56 PM CDT) DAYANARA Kasper documented as of this encounter Procedures Comments Procedure Name Priority Date/Time Associated Diag nosis HC CBC W/ AUTOMATED DIFF Routine 08/09/2021 7:07 AM CDT HC MAGNESIUM Routine 08/09/2021 7:07 AM CDT HC COMPREHENSIVE Routine 08/09/2021 METABOLIC PANEL 7:07 AM CDT PFT COMPLETE PULM Routine 08/08/2021 FUNCTION 1:[address] CHEST WO CONTRAST Routine 08/08/2021 11:23 AM CDT 2D + DOPPLER ECHO NO Routine 08/08/2021 CONTRAST 10:28 AM CDT HC TROPONIN-I 08/08/2021 4:20 AM CDT HC SED RATE; MANUAL Add on 08/08/2021 4:20 AM CDT HC CBC W/ AUTOMATED DIFF Routine 08/08/2021 4:20 AM CDT HC C-REACTIVE PROTEIN Add on 08/08/2021 (CRP) 4:20 AM CDT HC COMPREHENSIVE Routine 08/08/2021 METABOLIC PANEL 4:20 AM CDT COVID-19 (SARS-COV-2) PCR STAT [...] I, POC 08/07/2021 6:10 PM CDT HC TSH SCREEN STAT 08/07/2021 6:08 PM CDT HC D-DIMER STAT 08/07/2021 6:08 PM CDT HC CBC W/ AUTOMATED DIFF STAT 08/07/2021 6:08 PM CDT HC MAGNESIUM STAT 08/07/2021 6:08 PM CDT HC COMPREHENSIVE STAT 08/07/2021 METABOLIC PANEL 6:08 PM CDT TELEMETRY STRIPS-SCAN 08/07/2021 12:00 AM CDT TELEMETRY STRIPS-SCAN 08/07/2021 12:00 AM CDT TELEMETRY STRIPS-SCAN 08/07/2021 12:00 AM CDT ECG-SCAN 08/07/2021 12:00 AM CDT ECG-SCAN 08/07/2021 12:00 AM CDT documented in this encounter Results * MAGNESIUM (08/09/2021 7:07 AM CDT) Magnesium 2.2 1.6 - 2.6 mg/dL [facility] Specimen Blood Performing Organization Address City/State/ZIP Code P luc[place] Number [facility] [address] [place] [address] * COMPREHENSIVE METABOLIC PANEL (08/09/2021 7:07 AM CDT) Sodium 141 137 - 147 MMOL/L [facility] [...] >60 >60 mL/min [facility] Comment: Cymraes The eGFR is not validated f or use in drug dosing adjustments. Continue to use estimated creatinine clearance per dosing reference text. Please contact the Clinical Pharmacist for questions. eGFR >60 >60 mL/min [facility] Cymraes Comment: The eGFR is not validated for use in drug dosing adjustments. Continue to use estimated creatinine clearance per dosing reference text. Please contact the Clinical Pharmacist for questions. Specimen Performing Organization Address City/State/ZIP Code P luc[place] Number [facility] [address] [place] [address] * CBC AND DIFF (08/09/2021 7:07 AM CDT) White Blood 8.5 4.5 - 11.0 K/UL [...] LAB Basophil Count Specimen Performing Organization Address City/State/ZIP Code P luc[place] Number [facility] [address] [place] [address] * PFT COMPLETE PULM FUNCTION (08/08/2021 1:49 PM CDT) FVC-Pre 2.48 L [facility] FVC-%Pred-pre 65 % [facility] FVC-Post 2.61 L [facility] FVC-%Pred-Post 69 % [facility] FEV1-Pre 2.33 L [facility] FEV1-%Pred-Pre 75 % [facility] FEV1-Post 2.46 L [facility] FEV1-%Pred-Post 79 % [facility] FEV1/FVC-Pre 94 % [facility] [id number] 71 % [facility] [id number] 4.21 L/sec [facility] [id number]-P 129 % [facility] re [id number] 5.24 L/sec [facility] [id number]-P 160 % [facility] ost PEF-Post [...] MAIN DLVA-#SD -0.109 ml/min/mmHg/L [facility] [id number] 91 % [facility] Specimen Narrative [facility] - 08/08/2021 8:50 PM CDT Clinical history:->Post covid 19 Is patient ?->No Release to patient->Immediate Implement Post Bronchodilator Spirometry Protocol?->Yes Performing Organization Address City/State/ZIP Code P [place] Number [facility] [address] [place], [place] [address] * CT CHEST WO [...] Normal central venous pressure Performing Organization Address [facility] Code P lucille Number OTHER OUTSIDE LAB * SED RATE (08/08/2021 4:20 AM CDT) Sed Rate -ESR 14 0 - 20 MM/HR [facility] Specimen Performing Organization Address [facility] P lucille Number [facility] [address] [place] [address] * C REACTIVE PROTEIN (CRP) (08/08/2021 4:20 AM CDT) C-Reactive 0.81 <1.0 MG/DL [facility] Protein Specimen Performing Organization Address [facility] P lucille Number [facility] [address] [place] [address] * TROPONIN-I (08/08/2021 4:20 AM CDT) Pathologist [facility] Troponin-I 0.00 0.0 - 0.05 NG/ML [facility] Specimen Performing Organization Address [facility] P lucille Number [facility] [address] [place] [address] * COMPREHENSIVE METABOLIC PANEL (08/08/2021 4:20 AM CDT) Sodium 138 137 - 147 MMOL/L [facility] Potassium 3.8 3.5 - 5.1 MMOL/L [facility] Chloride 106 98 - 110 MMOL/L [facility] Glucose 98 70 - 100 MG/DL [facility] Blood Urea 13 7 - 25 MG/DL [facility] Nitrogen Creatinine 0.70 0.4 - 1.00 MG/DL [facility] Calcium 8.9 8.5 - 10.6 MG/DL [facility] Total Protein 6.5 6.0 - 8.0 G/DL [facility] Total Bilirubin 0.4 0.3 - 1.2 MG/DL [facility] Albumin 3.9 3.5 - 5.0 G/DL [facility] Alk Phosphatase 91 25 - 110 U/L [facility] AST (SGOT) 14 7 - 40 U/L [facility] CO2 23 21 - 30 MMOL/L [facility] ALT (SGPT) 16 7 - 56 U/L [facility] Anion Gap 9 3 - 12 [facility] eGFR Non >60 >60 mL/min [facility] Comment: Cymraes The eGFR is not validated f or use in drug dosing adjustments. Continue to use estimated creatinine clearance per dosing reference text. Please contact the Clinical Pharmacist for questions. eGFR >60 >60 mL/min [facility] [place]es Comment: The eGFR is not validated for use in drug dosing adjustments. Continue to use estimated creatinine clearance per dosing reference text. Please contact the Clinical Pharmacist for questions. Specimen Performing Organization Address City/State/ZIP Code P [place] Number [facility] [address] [place] [address] * CBC AND DIFF (08/08/2021 4:20 AM CDT) Pathologist [facility] White Blood 10.6 4.5 - 11.0 K/UL [facility] Cells RBC 4.18 4.0 - 5.0 M/UL [facility] Hemoglobin 13.1 12.0 - 15.0 GM/DL [facility] Hematocrit 38.5 36 - 45 % [facility] MCV 92.1 80 - 100 FL [facility] MCH 31.4 26 - 34 PG [facility] MCHC 34.1 32.0 - 36.0 G/DL [facility] RDW 14.4 11 - 15 % [facility] Platelet Count 354 150 - 400 K/UL [facility] MPV 8.3 7 - 11 FL [facility] Neutrophils 60 41 - 77 % [facility] Lymphocytes 29 24 - 44 % [facility] Monocytes 8 4 - 12 % [facility] Eosinophils 2 0 - 5 % [facility] Basophils 1 0 - 2 % [facility] Absolute 6.45 1.8 - 7.0 K/UL [facility] Neutrophil Count Absolute Lymph 3.10 1.0 - 4.8 K/UL [facility] Count Absolute 0.80 0 - 0.80 K/UL [facility] Monocyte Count Absolute 0.17 0 - 0.45 K/UL [facility] Eosinophil Count Absolute 0.06 0 - 0.20 K/UL [facility] Basophil Count Specimen Performing Organization Address City/[facility]/ZIP Code P luc[place] Number [facility] [address] [place] [address] * COVID-19 (SARS-COV-2) PCR (08/07/2021 8:15 PM CDT) [facility] COVID-19 FLOCKED SWAB [facility] (SARS-CoV-2) NASOPHARYNGEAL PCR Source COVID-19 NOT DETECTED DN-NOT DETECTED [facility] (SARS-CoV-2) Comment: PCR This assay is [...] performance characteristics have been verified by the [facility]. Fact sheet for providers: https://www.fda.gov/media/1362 85/download Fact sheet for patients: https://www.fda.gov/media/1362 87/download Specimen Flocked Swab - Nasopharyngeal Performing Organization Address City/State/ZIP Code P luc[place] Number [facility] [address] [place] [address] * CULTURE-URINE W/SENSITIVITY (08/07/2021 7:43 PM CDT) [facility] Battery Name URINE CULTURE [facility] Report Status FINAL 08/09/2021 [facility] Specimen URINE MIDSTREAM [facility] Description Special No special requests [facility] Requests Culture <10,000 CFU/ml [facility] mixed contaminants Specimen Urine - Midstream Performing Organization Address City/[facility]/ZIP Code P luc[place] Number [facility] [address] [place] [phone] * UA REFLEX LABEL (08/07/2021 7:43 PM CDT) [facility] UA Reflex Criteria for reflex to culture [facility] Culture are WBC>10, Positive Nitrit e, and/or >=+1 leukocytes. If quantity is not sufficient, an addendum will follow. Specimen Urine Performing Organization Address City/[facility]/ZIP Code P lucille Number [facility] [address] [place] [address] * URINALYSIS MICROSCOPIC REFLEX TO CULTURE (08/07/2021 7:43 PM CDT) WBCs,UA 20-50 0 - 2 /HPF KU [...] LAB Crystals Specimen Urine Performing Organization Address [facility] P lucille Number [facility] [address] [place] [address] * URINALYSIS DIPSTICK REFLEX TO CULTURE (08/07/2021 7:43 PM CDT) Color,UA YELLOW [facility] Turbidity,UA CLEAR CLEAR-CLEAR [facility] Specific 1.014 1.003 - 1.035 [facility] Higden-Urine pH,UA 6.0 5.0 - 8.0 [facility] [...] Acid, UA Specimen Urine Performing Organization Address [facility] P lucille Number [facility] [address] [place] [address] * CHEST SINGLE VIEW (08/07/2021 6:52 PM [...] on 08/07/2021 7:30 PM. Performing Organization Address City/[facility]/ZIP Code P luc[place] Number RAD RESULTS * POC LACTATE (08/07/2021 6:25 PM CDT) LACTIC ACID POC 1.2 0.5 - 2.0 MMOL/L [facility] Specimen Performing Organization Address [facility] P lucille Number [facility] [address] [place] [phone] * BNP POC ER (08/07/2021 6:11 PM CDT) BNP POC <15.0 0 - 100 PG/ML [facility] Specimen Performing Organization Address [facility] P lucille Number [facility] [address] [place] [address] * POC TROPONIN (08/07/2021 6:10 PM CDT) Jeiyclra-J-LYX 0.01 0.00 - 0.05 NG/ML [facility] Specimen Performing Organization Address [facility] P lucille Number [facility] [address] [place] [address] * D-DIMER (08/07/2021 6:08 PM CDT) D-Dimer 307 <500 ng/mL [facility] Comment: Recent evidence supports the use of clinical pretest probability and age-adjusted D-Dimer reference ranges for evaluation of deep vein thrombosis and pulmonary embolism in patients greater than 50 years of age. AGE D-Dimer(FEU, ng/mL) 50 years or less <500 >50 years <Age x 10 ng/mL Specimen Blood Performing Organization Address City/State/ZIP Code P [place] Number [facility] [address] [place] [address] * MAGNESIUM (08/07/2021 6:08 PM CDT) Magnesium 2.2 1.6 - 2.6 mg/dL [facility] Specimen Blood Performing Organization Address City/[facility] P lucille Number [facility] [address] [place] [address] * TSH WITH FREE T4 REFLEX (08/07/2021 6:08 PM CDT) TSH 1.23 0.35 - 5.00 MCU/ML [facility] Specimen Blood Performing Organization Address [facility] P lucille Number [facility] [address] [place] [address] * COMPREHENSIVE METABOLIC PANEL (08/07/2021 6:08 PM CDT) Sodium 142 137 - 147 MMOL/L [facility] Potassium 3.7 3.5 - 5.1 MMOL/L [facility] Chloride 106 98 - 110 MMOL/L [facility] Glucose 95 70 - 100 MG/DL [facility] Blood Urea 12 7 - 25 MG/DL [facility] Nitrogen Creatinine 0.81 0.4 - 1.00 MG/DL [facility] Calcium 9.7 8.5 - 10.6 MG/DL [facility] Total Protein 6.9 6.0 - 8.0 G/DL [facility] Total Bilirubin 0.3 0.3 - 1.2 MG/DL [facility] Albumin 4.1 3.5 - 5.0 G/DL [facility] Alk Phosphatase 86 25 - 110 U/L [facility] AST (SGOT) 17 7 - 40 U/L [facility] CO2 25 21 - 30 MMOL/L [facility] ALT (SGPT) 21 7 - 56 U/L [facility] Anion Gap 11 3 - 12 [facility] eGFR Non >60 >60 mL/min [facility] Comment: Cymraes The eGFR is not validated f or use in drug dosing adjustments. Continue to use estimated creatinine clearance per dosing reference text. Please contact the Clinical Pharmacist for questions. eGFR >60 >60 mL/min [facility] [place] Comment: The eGFR is not validated for use in drug dosing adjustments. Continue to use estimated creatinine clearance per dosing reference text. Please contact the Clinical Pharmacist for questions. Specimen Blood Performing Organization Address City/State/ZIP Code P [place] Number [facility] [address] [place] [address] * CBC AND DIFF (08/07/2021 6:08 PM CDT) White Blood 11.8 (H) 4.5 - 11.0 K/UL [facility] Cells RBC 4.11 4.0 - 5.0 M/UL [facility] Hemoglobin 13.5 12.0 - 15.0 GM/DL [facility] Hematocrit 37.3 36 - 45 % [facility] MCV 90.7 80 - 100 FL [facility] MCH 32.8 26 - 34 PG [facility] MCHC 36.1 (H) 32.0 - 36.0 G/DL [facility] RDW 14.2 11 - 15 % [facility] Platelet Count 354 150 - 400 K/UL [facility] MPV 8.5 7 - 11 FL [facility] Neutrophils 69 41 - 77 % [facility] Lymphocytes 22 (L) 24 - 44 % [facility] Monocytes 7 4 - 12 % [facility] Eosinophils 1 0 - 5 % [facility] Basophils 1 0 - 2 % [facility] Absolute 8.30 (H) 1.8 - 7.0 K/UL [facility] Neutrophil Count Absolute Lymph 2.55 1.0 - 4.8 K/UL [facility] Count Absolute 0.78 0 - 0.80 K/UL [facility] Monocyte Count Absolute 0.13 0 - 0.45 K/UL [facility] Eosinophil Count Absolute 0.06 0 - 0.20 K/UL [facility] Basophil Count MDW (Monocyte 18.3 <20.7 [facility] Distribution Comment: Width) [...] Organization Address City/State/ZIP Code P [place] Number [facility] [address] [place] [address] * TELEMETRY STRIPS-SCAN (08/07/2021 12:00 AM CDT) [...] in this encounter Visit Diagnoses Diagnosis Post-COVID chronic palpitations - Prima ry Palpitations Chest pain, unspecified type documented in this encounter Admitting Diagnoses Diagnosis Post-COVID chronic palpitations documented in this encounter Administered Medications Action Date Dose Rate Site Medication Order MAR Action 08/09/2021 2:45 PM CDT 650 mg acetaminophen (TYLENOL) tablet 650 mg Given 650 mg, Oral, EVERY 6 HOURS PRN, Starting on Thu08/07/21 at 2205, Until Thu08/09/21 at 1830, Pain non-opioid: may be used alone or in combination wit h opioid analgesia, TOTAL ACETAMINOPHEN DOSE NOT TO EXCEED 4GM DAILY 650 mg Given 08/08/2021 3:20 PM CDT 650 mg Given 08/08/2021 9:16 AM CDT 08/09/2021 9:10 AM CDT 150 mg buPROPion XL (WELLBUTRIN XL) tablet 150 Given mg 150 mg, Oral, DAILY, First dose on Cece 08/08/21 at 0900, Until Discontinued, DO NOT CRUSH 150 mg Given 08/08/2021 9:16 AM CDT 08/07/2021 8:48 PM CDT 1 g cefTRIAXone (ROCEPHIN) IVP 1 g Given 1 g, Intravenous, ONCE, 1 dose, On Thu08/07/21 at 2115, INSTR: IV PUSH -- RECONSTITUTE EACH 1 GM WITH 10 MLS of 0.9% NACL (NS) or STERILE WATER (SW) or DEXTROSE 5% (D5W) 08/08/2021 4:49 AM CDT 1 puff fluticasone-salmeterol (ADVAIR DISKUS) Given 250-50 mcg/dose inhalation disk 1 puff 1 puff, Inhalation, RT TWICE DAILY, First dose on Thu08/07/21 at 2215, Until Discontinued, When administered b y RT, will be per RT policy. fluticasone-salmeterol (ADVAIR DISKUS) 250-50 mcg/dose inhalation disk 1 puff 1 puff, Inhalation, RT TWICE DAILY, First dose (after last modification) on Thu08/09/21 at 0900, Until Discontinued, When administered by RT, will be per RT policy. 08/09/2021 9:10 AM CDT 600 mg guaiFENesin LA (MUCINEX) tablet 600 mg Given 600 mg, Oral, TWICE DAILY, First dose o n Thu08/07/21 at 2215, Until Discontinue d 600 mg Given 08/08/2021 8:57 PM CDT 600 mg Given 08/08/2021 9:16 AM CDT 600 mg Given 08/07/2021 10:59 PM CDT 08/09/2021 5:29 AM CDT 5,000 Units Abdomina l Tissue heparin (porcine) PF syringe 5,000 Units Given 5,000 Units, Subcutaneous, EVERY 8 HOURS, First dose on Thu08/07/21 at 2215, Until Discontinued, NOTE: This is a HIGH ALERT Medication. 5,000 Units Right Arm Given 08/08/2021 6:19 PM CDT 5,000 Units Abdominal Tissue Given 08/08/2021 6:48 AM CDT 5,000 Units Abdominal Tissue Given 08/07/2021 10:59 PM CDT 08/08/2021 10:58 AM CDT 1 tablet HYDROcodone/acetaminophen (NORCO) 5/325 Given mg tablet 1 tablet 1 tablet, Oral, EVERY 6 HOURS PRN, Starting on Thu08/07/21 at 2048, Until Thu08/09/21 at 1830, Pain PO, TOTAL ACETAMINOPHEN DOSE NOT TO EXCEED 4GM DAILY 1 tablet Given 08/07/2021 9:06 PM CDT 08/09/2021 5:12 AM CDT 2 puffs ipratropium bromide (ATROVENT HFA) Given inhaler 2 puff 2 puff, Inhalation, RT TWICE DAILY AND PRN, First dose on Thu08/07/21 at 2215 , Until Discontinued, When administered b y RT, will be per RT policy. 2 puffs Given 08/08/2021 4:48 AM CDT 08/09/2021 5:29 AM CDT 15 mg ketorolac (TORADOL) injection 15 mg Given 15 mg, Intravenous, EVERY 8 HOURS, 6 doses, First dose on Cece 08/08/21 at 1145, Last dose on 08/10/21 at 0500 , Please note: this medication will be automatically discontinued 5 days after ordered per hospital policy. Please obtain a new order if the medication needs to be continued. 15 mg Given 08/08/2021 8:56 PM CDT 15 mg Given 08/08/2021 11:33 AM CDT 08/07/2021 6:46 PM CDT 500 mL 999 mL/hr lactated ringers infusion Given - New 500 mL, 500 mL, Intravenous, at 999 Bag mL/hr, BOLUS, 1 dose, On Thu08/07/21 a t 1845 08/09/2021 9:10 AM CDT 1 patch Chest, R ight lidocaine (LIDODERM) 5 % topical patch 1 Patch/Topic a patch l Applied 1 patch, Topical, Administer over 12 Hours, DAILY, First dose on Cece 1 at 0900, Until Discontinued, NURSING PLEASE NOTE: Apply patch ONCE DAILY to chest and REMOVE after designated duration. Apply only to intact skin. Patch may be cut to fit affected area. 1 patch Chest, Right Patch/Topical Applied 08/08/2021 9:15 AM CDT methocarbamoL (ROBAXIN) tablet 750 mg 750 mg, Oral, EVERY 8 HOURS PRN, Starting on Thu08/07/21 at 2130, Until 08/09/21 at 1830, Muscle Cramps 08/09/2021 9:10 AM CDT 12.5 mg metoprolol XL (TOPROL XL) tablet 12.5 mg Given 12.5 mg, Oral, DAILY, First dose on [facility] 08/08/21 at 1715, Until Discontinued, Hold for heart rate < 55 bpm or systoli c BP < 100 tablets may be cut in half, DO NOT CRUSH or CHEW 12.5 mg Given 08/08/2021 6:20 PM CDT 08/08/2021 8:57 PM CDT [address] (PROTONIX) tablet 40 mg Given 40 mg, Oral, DAILY, First dose on Cece 08/08/21 at 2100, Until Discontinued, D o not crush or chew tablet. 08/09/2021 9:10 AM CDT 1 tablet senna/docusate (SENOKOT-S) tablet 1 Given tablet 1 tablet, Oral, TWICE DAILY, First dose on [facility] 08/08/21 at 1045, Until Discontinued, Hold for loose stools 1 tablet Given 08/08/2021 8:56 PM CDT 1 tablet Given 08/08/2021 11:33 AM CDT 08/09/2021 5:30 AM CDT 30 mg thyroid pork (ARMOUR THYROID) tablet 30 Given mg 30 mg, Oral, DAILY, First dose on [facility] 08/08/21 at 0900, Until Discontinued 30 mg Given 08/08/2021 9:16 AM CDT 08/09/2021 9:10 AM CDT 50 mg topiramate (TOPAMAX) tablet 50 mg Given 50 mg, Oral, DAILY, First dose on [facility] 08/08/21 at 0900, Until Discontinued 50 mg Given 08/08/2021 9:16 AM CDT 08/09/2021 9:09 AM CDT 150 mg venlafaxine XR (EFFEXOR XR) capsule 150 Given mg 150 mg, Oral, DAILY, First dose on [facility] 08/08/21 at 0900, Until Discontinued 150 mg Given 08/08/2021 9:16 AM CDT documented in this encounter Discontinued Medications Start Date End Date Medication Sig Discontinue Reason 07/26/2021 08/09/2021 albuterol 0.083% (PROVENTIL) 2.5 mg /3 mL (0.083 %) nebulizer solution 05/31/2021 08/09/2021 ipratropium bromide Inhale 2 Reorder (ATROVENT HFA) 17 puffs by mcg/actuation inhaler mouth into the lungs. 08/09/2021 ipratropium bromide Inhale 2 (ATROVENT HFA) 17 puffs by mcg/actuation inhaler mouth into the lungs every 6 hours as needed. documented as of this encounter Historical Medications * This list may reflect changes made after this encounter. Start Date End Date Medication Sig Dispensed Refills 08/13/2021 fluticasone furoate Inhale 100 0 (ARNUITY ELLIPTA) 100 mcg by mouth mcg/actuation disk into the inhaler lungs daily. 08/09/2021 ipratropium bromide Inhale 2 0 (ATROVENT HFA) 17 puffs by mcg/actuation inhaler mouth into the lungs every 6 hours as needed. 08/13/2021 albuterol 0.083% Inhale 2.5 mg 0 (PROVENTIL) 2.5 mg /3 mL solution by (0.083 %) nebulizer nebulizer as solution directed every 4 hours as needed for Wheezing or Shortness of Breath. added in this encounter Active and Recently Administered Medications Times are shown in CDT. 08/08/2021 08/09/2021 Medication Order 08/07/2021 0916 (Given - Provider: Jennifer Rice) 0910 (Given - Provider: Jennifer Ford) buPROPion XL (WELLBUTRIN XL) tablet 150 mg 150 mg, Oral, DAILY, First dose on Cece 08/08/21 at 0900, Until Discontinued, DO NOT CRUSH cefTRIAXone (ROCEPHIN) IVP 1 g 2047 (Given - (COMPLETED) Provider: Damian 1 g, Intravenous, ONCE, 1 dose, On Thu DAYANARA Olmedo) 08/07/21 at 2115, INSTR: IV PUSH -- RECONSTITUTE EACH 1 GM WITH 10 MLS of 0.9% NACL (NS) or STERILE WATER (SW) or DEXTROSE 5% (D5W) 0449 (Given - Provider: RT Andra)0 600 (Canceled Entry - Provider: Carlos Byard, RT)1201 (Held by Provider - Provider: Kali Christianson MD - Reason: Upcoming test)1800 (Automatically Held - Provider: Kali Christianson MD) 0600 (Automatically Held - Provider: Xiao Christianson MD)0857 (Unheld by Provider - Provider: Haven Valdivia MD) fluticasone-salmeterol (ADVAIR DISKUS) 2230 (Med Not Given 250-50 mcg/dose inhalation disk 1 puff - Provider: Apple butts (CANCELED) Tammy, RT - Reason: 1 puff, Inhalation, RT TWICE DAILY, Patient not First dose on Thu08/07/21 at 2215, available/off un it) Until Discontinued, When administered b y RT, will be per RT policy. 0900 (Due) fluticasone-salmeterol (ADVAIR DISKUS) 250-50 mcg/dose inhalation disk 1 puff 1 puff, Inhalation, RT TWICE DAILY, First dose (after last modification) on Thu08/09/21 at 0900, Until Discontinued, When administered by RT, will be per RT policy. 0916 (Given - Provider: Jennifer Rice)2057 (Given - Provider: Balbina Resendez RN) 0910 (Given - Provider: Jennifer Ford) guaiFENesin LA (MUCINEX) tablet 600 mg 2259 (Given - 600 mg, Oral, TWICE DAILY, First dose on Provider: Andrei gutierrez Thu08/07/21 at 2215, Until Discontinued DAYANARA Resendez) 0648 (Given - Provider: Balbina Resendez RN )1819 (Given - Provider: Padmini Garzon RN)2325 (Med Not Given - Provider: Balbina Resendez RN - Reason: Other (Comment) - Comment: recently given.) 0529 (Given - Provider: Balbina Resendez RN )1314 (Med Not Given - Provider: Padmini Cadet RN - Reason: Patient Refused) heparin (porcine) PF syringe 5,000 Units 2259 (Given - 5,000 Units, Subcutaneous, EVERY 8 Provider: Balbina AMADOR, First dose on Thu08/07/21 at DAYANARA Resendez) 2215, Until Discontinued, NOTE: This is a HIGH ALERT Medication. 0448 (Given - Provider: Carlos Munoz, RT)0 600 (Canceled Entry - Provider: Carlos Munoz RT)1849 (Med Not Given - Provider: Lissette Farr RT - Reason: Med not available - Comment: med not in pyxis) 0512 (Given - Provider: Carlos Munoz, RT) ipratropium bromide (ATROVENT HFA) 2228 (Med Not Giv en inhaler 2 puff - Provider: Carlos 2 puff, Inhalation, RT TWICE DAILY AND Tammy RT - R mil: PRN, First dose on Thu08/07/21 at 2215, Patient not Until Discontinued, When administered by available/o ff unit) RT, will be per RT policy. 1133 (Given - Provider: Jennifer Rice)2055 (Given - Provider: Balbina Resendez, DAYANARA) 0529 (Given - Provider: Balbina Resendez, DAYANARA )1314 (Med Not Given - Provider: Padmini Cadet RN - Reason: Patient Refused) ketorolac (TORADOL) injection 15 mg 15 mg, Intravenous, EVERY 8 HOURS, 6 doses, First dose on Cece 08/08/21 at 1145, Last dose on 08/10/21 at 0500 , Please note: this medication will be automatically discontinued 5 days after ordered per hospital policy. Please obtain a new order if the medication needs to be continued. lactated ringers infusion (COMPLETED) 1845 (Given - New 500 mL, 500 mL, Intravenous, at 999 Bag - Provider: mL/hr, BOLUS, 1 dose, On Thu08/07/21 at Damian johnston 1845 RN)2014 (Infusion Stopped - Provider: Damian Olmedo RN) 09 (Patch/Topical Applied - Provider: Padmini Garzon RN)2055 (Patch/Topical Removed - Provider: Balbina Resendez RN) 09 (Patch/Topical Applied - Provider: Padmini Cadet RN)1620 (Due: Patch/Topical Removed - Provider: Horace, Orders Discontinue - Comment: Time automatically adjusted from order being discontinued) lidocaine (LIDODERM) 5 % topical patch 1 patch 1 patch, Topical, Administer over 12 Hours, DAILY, First dose on Cece 1 at 0900, Until Discontinued, NURSING PLEASE NOTE: Apply patch ONCE DAILY to chest and REMOVE after designated duration. Apply only to intact skin. Patch may be cut to fit affected area. 1819 (Given - Provider: Jennifer Rice) 909 (Given - Provider: Jennifer Ford) metoprolol XL (TOPROL XL) tablet 12.5 m g 12.5 mg, Oral, DAILY, First dose on Cece 08/08/21 at 1715, Until Discontinued, Hold for heart rate < 55 bpm or systoli c BP < 100 tablets may be cut in half, DO NOT CRUSH or CHEW 2056 (Given - Provider: Balbina Resendez, DAYANARA ) pantoprazole DR (PROTONIX) tablet 40 mg 40 mg, Oral, DAILY, First dose on Cece 08/08/21 at 2100, Until Discontinued, D o not crush or chew tablet. 113 (Given - Provider: Jennifer Rice)2055 (Given - Provider: Balbina Resendez, DAYANARA) 0910 (Given - Provider: Jennifer Ford) senna/docusate (SENOKOT-S) tablet 1 tablet 1 tablet, Oral, TWICE DAILY, First dose on Cece 08/08/21 at 1045, Until Discontinued, Hold for loose stools 09 (Given - Provider: Jennifer Rice) 0530 (Given - Provider: Balbina Resendez RN )0700 (Canceled Entry - Provider: Balbina Resendez RN) thyroid pork (ARMOUR THYROID) tablet 30 mg 30 mg, Oral, DAILY, First dose on Cece 08/08/21 at 0900, Until Discontinued 915 (Given - Provider: Jennifer Rice) 0910 (Given - Provider: Jennifer Ford) topiramate (TOPAMAX) tablet 50 mg 50 mg, Oral, DAILY, First dose on Cece 08/08/21 at 0900, Until Discontinued 915 (Given - Provider: Jennifer Rice) 0909 (Given - Provider: Jennifer Ford) venlafaxine XR (EFFEXOR XR) capsule 150 mg 150 mg, Oral, DAILY, First dose on Cece 08/08/21 at 0900, Until Discontinued 08/08/2021 08/09/2021 Medication Order 08/07/2021 0916 (Given - Provider: Jennifer Rice)1520 (Given - Provider: Padmini Garzon, DAYANARA) 1445 (Given - Provider: Jennifer Ford) acetaminophen (TYLENOL) tablet 650 mg 650 mg, Oral, EVERY 6 HOURS PRN, Starting on Thu08/07/21 at 2205, Until Thu08/09/21 at 1830, Pain non-opioid: may be used alone or in combination wit h opioid analgesia, TOTAL ACETAMINOPHEN DOSE NOT TO EXCEED 4GM DAILY 1058 (Given - Provider: Jennifer Rice) HYDROcodone/acetaminophen (NORCO) 5/325 2106 (Given - mg tablet 1 tablet Provider: Damian 1 tablet, Oral, EVERY 6 HOURS PRN, DAYANARA Olmedo) Starting on Thu08/07/21 at 2048, Until Thu08/09/21 at 1830, Pain PO, TOTAL ACETAMINOPHEN DOSE NOT TO EXCEED 4GM DAILY melatonin (MELATIN) tablet 3 mg 3 mg, Oral, AT BEDTIME PRN, Starting on Thu08/07/21 at 2205, Until Thu 1 at 1830, Insomnia methocarbamoL (ROBAXIN) tablet 750 mg 750 mg, Oral, EVERY 8 HOURS PRN, Starting on Thu08/07/21 at 2130, Until Thu08/09/21 at 1830, Muscle Cramps polyethylene glycol 3350 (MIRALAX) packet 17 g 17 g (1 packet), Oral, DAILY PRN, Starting on Thu08/07/21 at 2205, Until Thu08/09/21 at 1830, Constipation PO, 8.5 GRAMS = 0.5 PACKET 17 GRAMS = 1 PACKET 34 GRAMS = 2 PACKETS documented in this encounter Orders First Ordered Date Medications Ordered That Might Not Have Count Last Ordered Date Been Administered fluticasone-salmeterol (ADVAIR DISKUS) 1 08/09/2021 250-50 mcg/dose inhalation disk 1 puff melatonin (MELATIN) tablet 3 mg 1 2020 methocarbamoL (ROBAXIN) tablet 750 mg 1 08/07/2021 polyethylene glycol 3350 (MIRALAX) 1 packet 17 g First Ordered Date Lab Orders Without Results Count Last Ordere d Date POC BNP 1 08/07/2021 POC LACTATE 2 08/07/2021 POC TROPONIN 1 08/07/2021 First Ordered Date EKG Orders Without Results Count Last Ordere d Date ECG 12-LEAD 1 08/07/2021 First Ordered Date Diet Count Last Ordered Date DISCHARGE DIET REGULAR 1 08/09/2021 First Ordered Date Nursing Count Last Ordered Date DISCHARGE ACTIVITY NORMAL 1 08/09/2021 DISCHARGE CONTACT 1 08/09/2021 DISCHARGE SIGNS/SYMPTOMS 1 08/09/2021 First Ordered Date Consult Count Last Ordered Date CONSULT CARDIOLOGY PHYSICIAN 1 CONSULT PULMONARY/CRITICAL CARE 1 2020 PHYSICIAN First Ordered Date PT Count Last Ordered Date 08/07/2021 PT CONSULT PHYSICAL THERAPY 2 08/08/2021 First Ordered Date Admission Count Last Ordered Date ADMIT TO INPATIENT 1 08/07/2021 First Ordered Date Discharge Count Last Ordered Date DISCHARGE PATIENT NOW 1 08/09/2021 First Ordered Date Vital Signs Count Last Ordered Date VITAL SIGNS 1 08/07/2021 First Ordered Date Activity Count Last Ordered Date MOBILITY 1 08/07/2021 First Ordered Date Discharge Contingent Count Last Ordered Date DISCHARGE PATIENT CONTINGENT 1 First Ordered Date RT One-Time Procedures Count Last Ordered Da te RT EXERCISE WITH PULSE OXIMETRY FOR HOME 1 08/09/2021 OXYGEN First Ordered Date Intake & Output Count Last Ordered Date INTAKE AND OUTPUT 1 08/07/[address] & Maintain Count Last Ordered Date PLACE AND MAINTAIN SCD 1 08/07/2021 First Ordered Date ADT Patient Update Count Last Ordered Date CHANGE PATIENT CLASS 1 08/09/2021 CHANGE SERVICE / LEVEL OF CARE (NO BED 1 08/07/2021 REQUEST) documented in this encounter Additional Health Concerns Noted Time Assessment 08/09/2021 9:34 AM CDT A fall risk assessment has been complet ed for the patient 08/05/2021 11:17 AM CDT PHQ-2 Depression Total Score: 0 documented as of this encounter Care Teams Start Date End Date Information Security Consultant Relationship Specialty 06/29/20 Thee Babcock DO PCP - General Family [address] [place] [id number] documented as of this encounter
--- OUTSIDE RECORDS SUMMARY | 2021-08-22 13:03 | XMS REPORT | Encounter Summary ---
Author Author [facility] Organization [facility] Address Unknown Phone Unavailable Care Team Providers Care [employer] Name Role Phone Thee Babcock DO PCP Encounter Details Care Team Description Date Type Department 08/07/2021 Travel Social History Date Tobacco Use Types [...] encounter Additional Health Concerns Noted Time Assessment 08/07/2021 10:18 PM CDT A fall risk assessment has been complet ed for the patient 08/05/2021 11:17 AM CDT PHQ-2 Depression Total Score: 0 documented as of this encounter Care Teams Start Date End Date Cash[employer] Parking Lot Relationship Specialty 06/29/20 Thee Babcock DO PCP - General [address] [id number] documented as of this encounter
[2021-08-22] MEDS ORDERED: morphine INJ 10 MG/ML 1ML (SYR OR VIAL) IVP STA (13:24)
[2021-08-22] MEDS ORDERED: KETOROLAC 30 MG/ML VIAL IVP ONE (13:30)
[2021-08-22] MEDS ORDERED: ONDANSETRON 4 MG/2 ML (SDV) Z0FRAN IVP ONE (13:30)
[2021-08-22] MEDS ORDERED: fentaNYL INJ 100 MCG/2 ML AMP IVP ONE (13:30)
[2021-08-22] MEDS ORDERED: NS IV 1000 ML 1,000 ML IV SCH (13:30)
[2021-08-22 13:36] LABS: BASOPHILS % (AUTO) 1 % (0-10); EOSINOPHILS % (AUTO) 2 % (0-10); HEMATOCRIT 40 % (35-52); HEMOGLOBIN 13.9 g/dL (11.5-16.0); LYMPHOCYTES % (AUTO) 20 % (12-44); MEAN CORPUSCULAR HEMOGLOBIN 31 pg (25-34); MEAN CORPUSCULAR HGB CONC 35 g/dL (32-36); MEAN CORPUSCULAR VOLUME 90 fL (80-99); MEAN PLATELET VOLUME 10.5 fL (9.0-12.2); MONOCYTES % (AUTO) 8 % (0-12); NEUTROPHILS % (AUTO) 69 % (42-75); PLATELET COUNT 413 10^3/uL (130-400)
[2021-08-22 13:36] LABS: BILIRUBIN,URINE NEGATIVE (NEGATIVE); CLARITY,URINE CLEAR; COLOR,URINE YELLOW; GLUCOSE, URINE (UA) NEGATIVE (NEGATIVE); KETONES,URINE NEGATIVE (NEGATIVE); LEUKOCYTE ESTERASE ,URINE TRACE (NEGATIVE); NITRITE,URINE NEGATIVE (NEGATIVE); PROTEIN,URINE NEGATIVE (NEGATIVE)
[2021-08-22 13:37] LABS: BASOPHILS # (AUTO) 0.1 10^3/uL (0.0-0.1); EOSINOPHILS # (AUTO) 0.2 10^3/uL (0.0-0.3); MONOCYTES # (AUTO) 0.8 X 10^3 (0.0-1.0); NEUTROPHILS # (AUTO) 6.9 X 10^3 (1.8-7.8)
[2021-08-22 13:44] LABS: BACTERIA,URINE FEW /HPF; RBC,URINE 0-2 /HPF; SQUAMOUS EPITHELIAL CELL,UR RARE /HPF; WBC,URINE 0-2 /HPF
[2021-08-22 13:45] LABS: CALCIUM OXALATE CRYSTALS,UR MODERATE /LPF
[2021-08-22 13:56] LABS: POTASSIUM 3.8 MMOL/L (3.6-5.0)
[2021-08-22 13:57] LABS: BILIRUBIN,TOTAL 0.2 MG/DL (0.1-1.0); CALCIUM 9.4 MG/DL (8.5-10.1); CREATININE SERUM 0.99 MG/DL (0.60-1.30); TOTAL PROTEIN 7.3 GM/DL (6.4-8.2)
[2021-08-22 13:58] LABS: ALBUMIN 4.4 GM/DL (3.2-4.5)
[2021-08-22] MEDS ORDERED: IOHEXOL 350 MG/ML 100 ML (OMNIPAQUE 350) VIAL IV ONE (14:15)
[2021-08-22] MEDS ORDERED: NS 100 ML (IVPB) BAG IV ONE (14:15)
[2021-08-22] MEDS ORDERED: CATHETER FLUSH 10 ML SYR IV PRN (14:15)
[2021-08-22] MEDS ORDERED: HOLD METFORMIN - RECEIVED CONTRAST 20 ML VIAL IV SCH (14:15)
--- NOTE | 2021-08-22 14:43 | Diagnostic Imaging Report ---
EXAMINATION: CT abdomen and pelvis with intravenous contrast. TECHNIQUE: Multiple contiguous axial images were obtained through the abdomen and pelvis after the uneventful administration of intravenous contrast. All CT scans use one or more of the following dose optimizing techniques: Automated exposure control, MA and/or KvP adjustment based on patient size and exam type or iterative reconstruction. HISTORY: Diffuse right-sided abdominal pain. COMPARISON: 04/22/2020. FINDINGS: Limited views of the lower thorax show linear opacities and subpleural bands in the lungs. The liver is normal without focal lesion. There is no biliary ductal dilation. Gallbladder is normal. Pancreas is normal. Spleen is normal. Adrenal glands are normal. There is mild right-sided hydroureteronephrosis with enhancement of the urothelium of the ureter. There is an intermediate attenuating filling defect in the distal right ureter. It measures at least 7 mm in length. It is lower attenuation than calcification. There are nonobstructing bilateral renal stones measuring between 2 and 4 mm. There is no hydronephrosis. Urinary bladder is normal. Visualized bowel is normal in caliber without obstruction or inflammation. No free fluid or air. No abdominal or pelvic lymphadenopathy. Aorta is normal in caliber without aneurysm. There are no suspicious osseous lesions. IMPRESSION: 1. Mild right-sided hydroureteronephrosis with enhancement of the urothelium. There is an obstructing intermediate attenuating filling defect in the distal ureter measuring at least 7 mm. The attenuation is lower than normally seen with a stone, and the possibility of a ureteral neoplasm is in the differential. The urothelial enhancement is concerning for superinfection. 2. Moderate linear opacities and subpleural bands in the lungs. This pattern can be seen with prior COVID-19 infection. If the patient has not had COVID-19, then outpatient follow-up chest CT recommended to evaluate for interstitial lung disease. Dictated by: Dictated on workstation # [id number]
[2021-08-22 15:04] VITALS: BP 139/88
--- NOTE | 2021-08-22 15:17 | ED General ---
General Chief Complaint: Abdominal/GI Problems Stated Complaint: LRQ/BACK PAIN Nursing Triage Note: Patient has presented to ER with cc of right side, lower right side abdomen pain, and right flank pain. She has nausea. Her symptoms started last night. History of Present Illness Date Seen by Provider: Aug 22, 2021 Time Seen by Provider: 13:12 Initial Comments Patient presenting to the emergency department for evaluation of right-sided flank and abdomen pain that started minimally yesterday became much worse today. She says she has had nausea but no fevers chills vomiting diarrhea constipation dysuria or hematuria. She denies any prior abdominal surgeries. She says she has had 2 kidney stones in the past 1 of which required stenting in 1 that required lithotripsy. Patient appears uncomfortable but is nontoxic with normal vital signs. Allergies and Home Medications Allergies Coded Allergies: latex (Verified Allergy, Unknown, 11/15/19) Patient Home Medication List Home Medication List Reviewed: Yes Ciprofloxacin HCl (Ciprofloxacin HCl) 500 Mg Tablet, 500 MG PO BID Prescribed by: GREY LONGORIA on 04/22/201804 Hydrocodone/Acetaminophen (Hydrocodone-Acetamin 5-325 mg) 1 Each Tablet, 1 EACH PO Q6H PRN for PAIN-BREAKTHROUGH Prescribed by: GREY LONGORIA on 04/22/201804 Tamsulosin HCl (Flomax) 0.4 Mg Cap, 0.4 MG PO DAILY Prescribed by: GREY LONGORIA on 04/22/201804 Review of Systems Review of Systems Constitutional: no symptoms reported EENTM: no symptoms reported Respiratory: no symptoms reported Cardiovascular: no symptoms reported Gastrointestinal: abdominal pain, nausea Musculoskeletal: back pain Skin: no symptoms reported Psychiatric/Neurological: No Symptoms Reported All Other Systems Reviewed Negative Unless Noted: Yes Past Ztkkkuy-Ggtymc-Yfieqa Hx Seasonal Allergies Seasonal Allergies: No Past Medical History Surgeries: Yes Ear Surgery, Hysterectomy Respiratory: No Cardiac: No Neurological: No Female Reproductive Disorders: Endometriosis, Polycystic Ovarian Dis 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 oz. kg; 34.00 BMI Method: General Appearance: No Apparent Distress, WD/WN HEENT: PERRL/EOMI Neck: Supple Respiratory: No Respiratory Distress Cardiovascular: Regular Rate, Rhythm Gastrointestinal: Soft, Tenderness (RUQ and RLQ ttp with no rebound or guarding.) Back: CVA Tenderness (R) Neurologic/Psychiatric: Alert, Oriented x3 Skin: Warm/Dry Progress/Results/Core Measures Suspected Sepsis SIRS Temperature: Pulse: 91 Respiratory Rate: 20 Laboratory Tests 08/22/21 13:16: White Blood Count 10.0 Blood Pressure 139 /88 Mean: 105 Laboratory Tests 08/22/21 13:16: Creatinine 0.99, Platelet Count 413H, Total Bilirubin 0.2 Results/Orders Lab Results Laboratory Tests Test 08/22/21 13:00 08/22/21 13:16 Range/Units Urine Color YELLOW Urine Clarity CLEAR Urine pH 6.0 5-9 Urine Specific [employer] 1.025 H 1.016-1.022 Urine Protein NEGATIVE NEGATIVE Urine Glucose (UA) NEGATIVE NEGATIVE Urine Ketones NEGATIVE NEGATIVE Urine Nitrite NEGATIVE NEGATIVE Urine Bilirubin NEGATIVE NEGATIVE Urine Urobilinogen 0.2 < = 1.0 MG/DL Urine Leukocyte Esterase TRACE H NEGATIVE Urine RBC (Auto) TRACE-I H NEGATIVE Urine RBC 0-2 /HPF Urine WBC 0-2 /HPF Urine Squamous Epithelial Cells RARE /HPF Urine Crystals PRESENT H /LPF Urine Calcium Oxalate Crystals MODERATE H /LPF Urine Bacteria FEW H /HPF Urine Casts NONE /LPF Urine Mucus SMALL H /LPF Urine Culture Indicated NO Urine Test NEGATIVE NEGATIVE White Blood Count 10.0 4.3-11.0 10^3/uL Red Blood Count 4.48 3.80-5.11 10^6/uL Hemoglobin 13.9 11.5-16.0 g/dL Hematocrit 40 35-52 % Mean Corpuscular Volume 90 80-99 fL Mean Corpuscular Hemoglobin 31 25-34 pg Mean Corpuscular Hemoglobin Concent 35 32-36 g/dL Red Cell Distribution Width 13.3 10.0-14.5 % Platelet Count 413 H 130-400 10^3/uL Mean Platelet Volume 10.5 9.0-12.2 fL Immature Granulocyte % (Auto) 0 % Neutrophils (%) (Auto) 69 42-75 % Lymphocytes (%) (Auto) 20 12-44 % Monocytes (%) (Auto) 8 0-12 % Eosinophils (%) (Auto) 2 0-10 % Basophils (%) (Auto) 1 0-10 % Neutrophils # (Auto) 6.9 1.8-7.8 X 10^3 Lymphocytes # (Auto) 2.0 1.0-4.0 X 10^3 Monocytes # (Auto) 0.8 0.0-1.0 X 10^3 Eosinophils # (Auto) 0.2 0.0-0.3 10^3/uL Basophils # (Auto) 0.1 0.0-0.1 10^3/uL Immature Granulocyte # (Auto) 0.0 0.0-0.1 10^3/uL Sodium Level 139 135-145 MMOL/L Potassium Level 3.8 3.6-5.0 MMOL/L Chloride Level 106 98-107 MMOL/L Carbon Dioxide Level 21 21-32 MMOL/L Anion Gap 12 5-14 MMOL/L Blood Urea Nitrogen 12 7-18 MG/DL Creatinine 0.99 0.60-1.30 MG/DL Estimat Glomerular Filtration Rate 62 BUN/Creatinine Ratio 12 Glucose Level 127 H 70-105 MG/DL Calcium Level 9.4 8.5-10.1 MG/DL Corrected Calcium 9.1 8.5-10.1 MG/DL Total Bilirubin 0.2 0.1-1.0 MG/DL Aspartate Amino Transf (AST/SGOT) 14 5-34 U/L Alanine Aminotransferase (ALT/SGPT) 17 0-55 U/L Alkaline Phosphatase 93 40-136 U/L Total Protein 7.3 6.4-8.2 GM/DL Albumin 4.4 3.2-4.5 GM/DL My Orders Orders - BLAYNE OBREGON DO Cbc With Automated Diff (08/22/21 13:24) Comprehensive Metabolic Panel (08/22/21 13:24) Ua Culture If Indicated (08/22/21 13:24) Hcg,Qualitative Urine (08/22/21 13:24) Iv/Invasive Line Insertion .IV start (08/22/21 13:24) Ns Iv 1000 Ml (Sodium Chloride 0.9%) (08/22/21 13:30) Ondansetron Injection (Zofran Injectio (08/22/21 13:30) Ketorolac Injection (Toradol Injection) (08/22/21 13:30) Morphine Injection (Morphine Injection (08/22/21 13:24) Fentanyl Inj (Sublimaze Injection) (08/22/21 13:30) Ct Abdomen/Pelvis W (08/22/21 14:04) Iohexol Injection (Omnipaque 350 Mg/Ml 1 (08/22/21 14:15) Received Contrast (Hold Metformin- Contr (08/22/21 14:15) Sodium Chloride Flush (Catheter Flush Sy (08/22/21 14:15) Ns (Ivpb) (Sodium Chloride 0.9% Ivpb Bag (08/22/21 14:15) Medications Given in ED Current Medications Medications Dose Ordered Sig/Matti Route Start Time Stop Time Status Last Admin Dose Admin Fentanyl Citrate 100 mcg ONCE ONCE IVP 08/22/21 13:30 08/22/21 13:31 DC 08/22/21 13:40 100 MCG Iohexol 100 ml ONCE ONCE IV 08/22/21 14:15 08/22/21 14:16 DC 08/22/21 14:22 100 ML Ketorolac Tromethamine 15 mg ONCE ONCE IVP 08/22/21 13:30 08/22/21 13:31 DC 08/22/21 13:38 15 MG Ondansetron HCl 4 mg ONCE ONCE IVP 08/22/21 13:30 08/22/21 13:31 DC 08/22/21 13:36 4 MG Sodium Chloride 10 ml NEEDED PRN IV 08/22/21 14:15 08/22/21 14:22 10 ML Sodium Chloride 100 ml ONCE ONCE IV 08/22/21 14:15 08/22/21 14:16 DC 08/22/21 14:22 100 ML Vital Signs/I&O 08/22/21 15:04 Temp 35.9 Pulse 91 Resp 20 B/P (MAP) 139/88 (105) Pulse Ox 99 O2 Delivery Room Air Capillary Refill : Blood Pressure Mean: 105 Progress Note : Progress Note Patient has findings of possible distal right ureter calculus versus neoplasm versus infection with mild hydronephrosis. I was able to speak with Dr. Linares of the urologic services and he said he would be willing to see the patient tomorrow as an outpatient and manage her urologic care. Patient says her pain is now controlled and I do not see any reason for definitive transfer at this time. I told patient that she could be followed up as an outpatient and she said under no circumstances she willing to see a local physician as she has long Covid and wants all of her care done by [facility]. I have called the transfer line and they are trying to make further planning. I was able to speak to Dr. Boyd on the phone and he reviewed the films and agree there is no definitive stone but that she likely would benefit from g etting an outpatient cystoscopy. Given patient's pain is well controlled at this time and she appears well with normal vital signs she will be discharged in stable condition and Dr. Boyd said they will arrange to see her in the clinic tomorrow and that her care could be managed as an outpatient. Patient will be prescribed supportive medications and told to go back to the emergency department with worsening pain fevers vomiting or other general concerns. Patient aware and agreeable with plan and verbalized understanding of the above instructions. Departure Impression Primary Impression: Hydronephrosis, right Additional Impressions: Abdominal pain Qualified Codes: R10.9 - Unspecified abdominal pain Nausea alone Disposition: HOME, SELF-CARE Condition: Stable Departure-Patient Inst. Referrals: SAAD YIN DO (PCP/Family) Primary Care Physician Patient Instructions: Severe Abdominal Pain, Adult (DC) Scripts Ibuprofen (Ibuprofen) 600 Mg Tablet 600 MG PO Q6H PRN for PAIN-MILD, #20 TAB Prov: BLAYNE OBREGON DO 08/22/21 Oxycodone HCl/Acetaminophen (Percocet 5-325 mg Tablet) 1 Each Tablet 1 TAB PO Q4H for PAIN-MODERATE MDD 6 TABS for 7 Days, #14 TAB Prov: BLAYNE OBREGON DO 08/22/21 Ondansetron (Ondansetron Odt) 4 Mg Tab.rapdis 4 MG PO Q6H PRN for NAUSEA/VOMITING, #20 TAB 0 Refills Prov: BLAYNE OBREGON DO 08/22/21 BLAYNE OBREGON DO Aug 22, 2021 15:17
[2021-08-22] MEDS ORDERED: OXYC1TAB87 PO (15:38)
[2021-08-22] MEDS ORDERED: ONDA4TAB11 PO (15:38)
[2021-08-22] MEDS ORDERED: IBUP-1773 PO (15:38)
== END 2021-08-22 15:45 | disposition home or self-care (01) ==
LOC: EDUNIT# 12:57 → ER FS 12:58
DX: N13.30 Unspecified hydronephrosis (principal); G89.29 Other chronic pain; M54.9 Dorsalgia, unspecified; Z79.891 Long term (current) use of opiate analgesic
CPT/HCPCS: 36415; 74177; 80053; 81000; 84703; 85025

== ENCOUNTER → 2021-12-11 | Outpatient (CLI) | payer BC, MEDICAID ==
[~2021-12-11] MED LIST changes: +IBUP-1773 PO; +ONDA4TAB11 PO; +OXYC1TAB87 PO
--- NOTE | 2021-12-11 17:33 | Diagnostic Imaging Report ---
INDICATION: Chest pain. Shortness of air. Hypoxia. COMPARISON: 12/09/2019. FINDINGS: Frontal and lateral radiographic views of the chest were obtained and show interval development of diffuse coarse interstitial opacities, greatest within the right lung base. There is no large effusion or pneumothorax. Cardiac silhouette and pulmonary vasculature are within normal limits. Osseous structures show no gross acute abnormalities. IMPRESSION: Interval development of diffuse coarse interstitial infiltrate, greatest within the right lung base. Correlation with Covid 19 status is recommended. Dictated by: Dictated on workstation # [id number]
== END ==
LOC: RAD FS 16:25
PROVIDERS: ATTEND Emergency Medicine
DX: R91.8 Other nonspecific abnormal finding of lung field (principal); R06.02 Shortness of breath; R07.9 Chest pain, unspecified; R09.02 Hypoxemia; Z99.81 Dependence on supplemental oxygen
CPT/HCPCS: 71046

== ENCOUNTER → 2022-02-04 | Outpatient (CLI) | payer BC, MEDICAID ==
[~2022-02-04] MED LIST changes: +CEFD300C3 PO; +KETO10TA PO
--- NOTE | 2022-02-04 13:45 | Diagnostic Imaging Report ---
INDICATION: Urinary calculus and abdominal pain. TIME OF EXAM: 1:00 PM. FINDINGS: The bowel gas pattern is nonobstructed. Vague calcific densities overlie the left renal shadow as well as the right renal shadow, suggestive of renal calculi. There are numerous pelvic calcifications present. Many of these likely represent phleboliths although distal ureteric calculi cannot be entirely excluded. No other abnormalities are seen. IMPRESSION: Findings suggestive of bilateral nephrolithiasis. The possibility of distal ureteral calculi cannot be entirely excluded. If further evaluation is warranted, a CT of the urinary tracts could be performed. Dictated by: Dictated on workstation # [id number]
== END ==
LOC: RAD FS 12:46
PROVIDERS: ATTEND Nurse Practitioner Family
DX: N20.9 Urinary calculus, unspecified (principal); N39.0 Urinary tract infection, site not specified
CPT/HCPCS: 74018

== ENCOUNTER 2022-02-06 20:12 | Emergency (ER) | payer BC, MEDICAID ==
[~2022-02-06 20:12] MED LIST changes: -CEFD300C3 PO; -KETO10TA PO
[2022-02-06] MEDS ORDERED: morphine INJ 10 MG/ML 1ML (SYR OR VIAL) IVP STA (20:23)
[2022-02-06 20:27] VITALS: BP 139/83
--- NOTE | 2022-02-06 20:28 | ED GU-Female ---
General Stated Complaint: LOWER BACK/ABD PAIN Source: patient Exam Limitations: no limitations History of Present Illness Date Seen by Provider: Feb 06, 2022 Time Seen by Provider: 20:16 Initial Comments 41-year-old female with past medical history of chronic hypoxic respiratory failure after getting COVID in May (on 2L O2 at baseline now, on chronic st eroids since then), PCOS, hypertension, and recurrent kidney stones coming in due to left greater than right flank pain that's been going on for couple days. The pain is severe, intermittent, sharp, nothing seems to make worse. She did take ibuprofen this morning which helped. Associated nausea but no vomiting. Feels similar to prior kidney stones. She has had prior lithotripsies and ureteral stenting at all at . Denies any burning with urination, fever, severe abdominal pain, chest pain, worsening shortness of breath, rash, or any other concerns Allergies and Home Medications Allergies Coded Allergies: latex (Verified Allergy, Unknown, 11/15/19) Patient Home Medication List Home Medication List Reviewed: Yes Ciprofloxacin HCl (Ciprofloxacin HCl) 500 Mg Tablet, 500 MG PO BID Prescribed by: GREY LONGORIA on 04/22/201804 Hydrocodone Bit/Acetaminophen (HYDROcodone/APAP 5 MG/325 MG TAB) 1 Tab Tab, 1 TAB PO Q6H PRN for PAIN-SEVERE (8-10) Prescribed by: COTY MURPHY on 02/06/222107 Hydrocodone/Acetaminophen (Hydrocodone-Acetamin 5-325 mg) 1 Each Tablet, 1 EACH PO Q6H PRN for PAIN-BREAKTHROUGH Prescribed by: GREY LONGORIA on 04/22/201804 Ibuprofen (Ibuprofen) 600 Mg Tablet, 600 MG PO Q6H PRN for PAIN-MILD Prescribed by: BLAYNE OBREGON on 08/22/211537 Ketorolac Tromethamine (Ketorolac Tromethamine) 10 Mg Tablet, 10 MG PO Q8H PRN for PAIN-MODERATE (5-7) Prescribed by: COTY MURPHY on 02/06/222107 Ondansetron (Ondansetron Odt) 4 Mg Tab.rapdis, 4 MG PO Q6H PRN for NAUSEA/VOMI TING Prescribed by: BLAYNE OBREGON on 08/22/21 153 Ondansetron (Ondansetron Odt) 4 Mg Tab.rapdis, 4 MG PO Q6H PRN for NAUSEA/VOMITING-1ST LINE Prescribed by: COTY MURPHY on 02/06/222107 Oxycodone HCl/Acetaminophen (Percocet 5-325 mg Tablet) 1 Each Tablet, 1 TAB PO Q4H Prescribed by: BLAYNE OBREGON on 08/22/21 1539 Tamsulosin HCl (Flomax) 0.4 Mg Cap, 0.4 MG PO DAILY Prescribed by: GREY LONGORIA on 04/22/20 1805 Review of Systems Review of Systems Constitutional: No chills EENTM: No blurred vision Respiratory: No cough Cardiovascular: No chest pain Gastrointestinal: No abdominal pain; nausea; No vomiting Genitourinary: flank pain Musculoskeletal: no symptoms reported Skin: no symptoms reported Psychiatric/Neurological: No Symptoms Reported Endocrine: No Symptoms Reported Hematologic/Lymphatic: No Symptoms Reported All Other Systemes Reviewed Negative Unless Noted: Yes Past Uuljrnk-Lgzraf-Jraffo Hx Patient Social History Tobacco Use?: No Seasonal Allergies Seasonal Allergies: No Past Medical History Surgeries: Yes Ear Surgery, Hysterectomy Respiratory: No Cardiac: No Neurological: No Female Reproductive Disorders: Endometriosis, Polycystic 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 oz. kg; 34.00 BMI Method: General Appearance: WD/WN, no apparent distress HEENT: PERRL/EOMI, normal ENT inspection, pharynx normal Neck: non-tender, full range of motion, supple, normal inspection Cardiovascular: regular rate, rhythm, no edema, no murmur Respiratory: chest non-tender, lungs clear, normal breath sounds, no respiratory distress, no accessory muscle use Gastrointestinal: normal bowel sounds, non tender, soft; No distended, No gu arding, No rebound Back: normal inspection, no vertebral tenderness, CVA tenderness (R), CVA tenderness (L) Extremities: normal range of motion, non-tender, normal inspection, no pedal edema, no calf tenderness, normal capillary refill Neurologic/Psychiatric: no motor/sensory deficits, alert, normal mood/affect Skin: normal color, warm/dry Lymphatic: no adenopathy Progress/Results/Core Measures Suspected Sepsis SIRS Temperature: Pulse: Respiratory Rate: Laboratory Tests 02/06/22 20:23: White Blood Count 15.2H Blood Pressure / Mean: Laboratory Tests 02/06/22 20:23: Creatinine 0.77, Platelet Count 401H, Total Bilirubin 0.2 Results/Orders Lab Results Laboratory Tests Test 02/06/22 20:23 02/06/22 21:45 Range/Units White Blood Count 15.2 H 4.3-11.0 10^3/uL Red Blood Count 4.25 3.80-5.11 10^6/uL Hemoglobin 13.0 11.5-16.0 g/dL Hematocrit 38 35-52 % Mean Corpuscular Volume 89 80-99 fL Mean Corpuscular Hemoglobin 31 25-34 pg Mean Corpuscular Hemoglobin Concent 35 32-36 g/dL Red Cell Distribution Width 13.9 10.0-14.5 % Platelet Count 401 H 130-400 10^3/uL Mean Platelet Volume 10.0 9.0-12.2 fL Immature Granulocyte % (Auto) 1 % Neutrophils (%) (Auto) 70 42-75 % Lymphocytes (%) (Auto) 22 12-44 % Monocytes (%) (Auto) 8 0-12 % Eosinophils (%) (Auto) 0 0-10 % Basophils (%) (Auto) 0 0-10 % Neutrophils # (Auto) 10.6 H 1.8-7.8 10^3/uL Lymphocytes # (Auto) 3.3 1.0-4.0 10^3/uL Monocytes # (Auto) 1.2 H 0.0-1.0 10^3/uL Eosinophils # (Auto) 0.0 0.0-0.3 10^3/uL Basophils # (Auto) 0.1 0.0-0.1 10^3/uL Immature Granulocyte # (Auto) 0.1 0.0-0.1 10^3/uL Neutrophils % (Manual) 68 % Lymphocytes % (Manual) 16 % Monocytes % (Manual) 10 % Eosinophils % (Manual) 0 % Basophils % (Manual) 0 % Band Neutrophils 4 % Atypical Lymphocytes 2 % Platelet Estimate INCREASED Blood Morphology Comment NORMAL Sodium Level 141 135-145 MMOL/L Potassium Level 4.1 3.6-5.0 MMOL/L Chloride Level 104 98-107 MMOL/L Carbon Dioxide Level 26 21-32 MMOL/L Anion Gap 11 5-14 MMOL/L Blood Urea Nitrogen 8 7-18 MG/DL Creatinine 0.77 0.60-1.30 MG/DL Estimat Glomerular Filtration Rate 101 BUN/Creatinine Ratio 10 Glucose Level 144 H 70-105 MG/DL Calcium Level 9.7 8.5-10.1 MG/DL Corrected Calcium 9.7 8.5-10.1 MG/DL Total Bilirubin 0.2 0.1-1.0 MG/DL Aspartate Amino Transf (AST/SGOT) 12 5-34 U/L Alanine Aminotransferase (ALT/SGPT) 25 0-55 U/L Alkaline Phosphatase 104 40-136 U/L Total Protein 6.5 6.4-8.2 GM/DL Albumin 4.0 3.2-4.5 GM/DL Urine Color YELLOW Urine Clarity CLEAR Urine pH 6.5 5-9 Urine Specific [place] 1.015 L 1.016-1.022 Urine Protein NEGATIVE NEGATIVE Urine Glucose (UA) NEGATIVE NEGATIVE Urine Ketones NEGATIVE NEGATIVE Urine Nitrite NEGATIVE NEGATIVE Urine Bilirubin NEGATIVE NEGATIVE Urine Urobilinogen 0.2 < = 1.0 MG/DL Urine Leukocyte Esterase NEGATIVE NEGATIVE Urine RBC (Auto) 1+ H NEGATIVE Urine RBC 10-25 H /HPF Urine WBC 5-10 H /HPF Urine Squamous Epithelial Cells 2-5 /HPF Urine Crystals NONE /LPF Urine Bacteria TRACE /HPF Urine Casts NONE /LPF Urine Mucus SMALL H /LPF Urine Culture Indicated YES My Orders Orders - COTY MURPHY MD Cbc With Automated Diff (02/06/22 20:23) Comprehensive Metabolic Panel (02/06/22 20:23) Ua Culture If Indicated (02/06/22 20:23) Ct Abdomen/Pelvis Wo (02/06/22 20:23) Ondansetron Injection (Zofran Injectio (02/06/22 20:30) Ketorolac Injection (Toradol Injection) (02/06/22 20:30) Morphine Injection (Morphine Injection (02/06/22 20:23) Manual Differential (02/06/22 20:23) Urine Culture (02/06/22 21:45) Cefdinir Capsule (Omnicef Capsule) (02/06/22 22:15) Medications Given in ED Current Medications Medications Dose Ordered Sig/Matti Route Start Time Stop Time Status Last Admin Dose Admin Ketorolac Tromethamine 15 mg ONCE ONCE IVP 02/06/22 20:30 02/06/22 20:31 DC 02/06/22 20:34 15 MG Ondansetron HCl 4 mg ONCE ONCE IVP 02/06/22 20:30 02/06/22 20:31 DC 02/06/22 20:34 4 MG Vital Signs/I&O 02/06/22 02/06/22 02/06/22 02/06/22 20:27 20:34 20:34 20:38 Temp 37.4 37.4 37.4 Pulse 100 94 Resp 20 20 B/P (MAP) 139/83 (101) 104/52 Pulse Ox 97 98 O2 Delivery Nasal Cannula Nasal Cannula O2 Flow Rate 2.00 2.00 02/06/22 02/06/22 21:28 22:00 Pulse 85 85 Resp 20 20 B/P (MAP) 148/79 127/78 Pulse Ox 98 97 O2 Delivery Nasal Cannula Nasal Cannula O2 Flow Rate 2.00 2.00 Capillary Refill : Progress Note : Progress Note 41-year-old female with above history coming in due to bilateral flank pain, left greater than right. ABCs were intact and vitals were stable on presentation. Physical exam significant for CVA tenderness. Basic labs unremarkable other than urinalysis with potential infection. She does have multiple kidney stones on CT but no hydro at this time. I suspect she passed one earlier today and is possibly having a ureteral spasm. Here she was given IV morphine, Toradol, Zofran with significant improvement in symptoms. I will have her follow back up with urology in [place]. Urinalysis with potential infection so we will send her out with antibiotics as well. Diagnostic Imaging Diagonstic Imaging: CT (abd/pelvis) Comments [facility]. [place], [place] NAME: ALMAZ DAS [facility] REC#: [id number] PT STATUS: REG ER : 1980 PHYSICIAN: COTY MURPHY MD ADMIT DATE: 02/06/22/ER FS Draft Date of Exam:02/06/22 CT ABDOMEN/PELVIS WO PROCEDURE: CT abdomen and pelvis without contrast. TECHNIQUE: Multiple contiguous axial images were obtained through the abdomen and pelvis without the use of intravenous contrast. Auto Exposure Controls were utilized during the CT exam to meet ALARA standards for radiation dose reduction. DATE: February 06, 2022. COMPARISON: Abdominal radiograph February 04, 2022. CT abdomen and pelvis August 22, 2021. INDICATION: 41-year-old female, flank pain. FINDINGS: There are limitations for evaluation of the abdominal organs, neoplastic processes, abscess, and limited evaluation of the vasculature relating to the lack of intravenous contrast. There are linear opacities in the right and left lower lobes most likely reflecting scarring. There is also mild probable scarring in the lingula and right middle lobe. The heart is not enlarged. There is no pericardial effusion. The liver is unremarkable in size and contour. The gallbladder is unremarkable. There is no biliary ductal dilation. The main pancreatic duct is not abnormally dilated. Limited noncontrast assessment of the pancreatic parenchyma is unremarkable. The spleen is normal in size. The adrenal glands are unremarkable. There are several nonobstructing renal stones bilaterally. The urinary collecting systems are not distended. There is no identified ureteral stone. The urinary bladder is grossly unremarkable in appearance. The uterus is not seen and may be surgically absent. The intestinal tract is not distended. There is no evidence to suggest acute appendicitis. There is no free intraperitoneal air. There is no drainable fluid collection. There is no free pelvic fluid. There is no identified abnormally enlarged lymph node in the abdomen or pelvis which meets CT size criteria for adenopathy. There is severe disc height loss at L4-L5. There is no identified acute bony abnormality. IMPRESSION: CT ABDOMEN AND PELVIS. 1. Nonobstructing bilateral renal stones without identified ureteral stone or hydronephrosis. 2. No otherwise identified acute abnormality in the abdomen or pelvis. Dictated on workstation # [id number] Dict: 02/06/222105 Trans: 02/06/222111 CV [id number] Interpreted by: GIOVANNI NOBLE MD Electronically signed by: Departure Impression Primary Impression: Ureterolithiasis Disposition: HOME, SELF-CARE Condition: Stable Departure-Patient Inst. Decision time for Depature: 22:00 Referrals: SAAD YIN DO (PCP/Family) Primary Care Physician Patient Instructions: Kidney Stones (DC) Add. Discharge Instructions: Take the Toradol first for pain, if you have pain on top of that take the hydrocodone. Take the Zofran as needed for nausea. Be sure to drink plenty of fluids. Follow-up with your urologist if things are not improving in the next week or so. Scripts Cefdinir (Cefdinir) 300 Mg Capsule 300 MG PO BID for 7 Days, #14 CAP 0 Refills Prov: COTY MURPHY MD 02/06/22 Ondansetron (Ondansetron Odt) 4 Mg Tab.rapdis 4 MG PO Q6H PRN for NAUSEA/VOMITING-1ST LINE for 5 Days, #20 TAB Prov: COTY MURPHY MD 02/06/22 Ketorolac Tromethamine (Ketorolac Tromethamine) 10 Mg Tablet 10 MG PO Q8H PRN for PAIN-MODERATE (5-7) for 4 Days, #12 TAB Prov: COTY MURPHY MD 02/06/22 Hydrocodone Bit/Acetaminophen (HYDROcodone/APAP 5 MG/325 MG TAB) 1 Tab Tab 1 TAB PO Q6H PRN for PAIN-SEVERE (8-10) for 3 Days, #12 TAB 0 Refills Prov: COTY MURPHY MD 02/06/22 Work/School Note: Work Release Form Date Seen in the Emergency Department: Feb 06, 2022 Return to Work: Feb 08, 2022 Restrictions: No Restrictions COTY MURPHY MD Feb 06, 2022 20:28
[2022-02-06] MEDS ORDERED: KETOROLAC 30 MG/ML VIAL IVP ONE (20:30)
[2022-02-06] MEDS ORDERED: ONDANSETRON 4 MG/2 ML (SDV) Z0FRAN IVP ONE (20:30)
[2022-02-06 20:31] LABS: BASOPHILS # (AUTO) 0.1 10^3/uL (0.0-0.1); BASOPHILS % (AUTO) 0 % (0-10); EOSINOPHILS % (AUTO) 0 % (0-10); HEMATOCRIT 38 % (35-52); LYMPHOCYTES # (AUTO) 3.3 10^3/uL (1.0-4.0); LYMPHOCYTES % (AUTO) 22 % (12-44); MEAN CORPUSCULAR HEMOGLOBIN 31 pg (25-34); MEAN CORPUSCULAR HGB CONC 35 g/dL (32-36); MEAN CORPUSCULAR VOLUME 89 fL (80-99); MONOCYTES # (AUTO) 1.2 10^3/uL (0.0-1.0); MONOCYTES % (AUTO) 8 % (0-12); NEUTROPHILS # (AUTO) 10.6 10^3/uL (1.8-7.8); NEUTROPHILS % (AUTO) 70 % (42-75); PLATELET COUNT 401 10^3/uL (130-400); WHITE BLOOD COUNT 15.2 10^3/uL (4.3-11.0)
[2022-02-06 20:54] LABS: BILIRUBIN,TOTAL 0.2 MG/DL (0.1-1.0); CALCIUM 9.7 MG/DL (8.5-10.1); CREATININE SERUM 0.77 MG/DL (0.60-1.30); POTASSIUM 4.1 MMOL/L (3.6-5.0)
[2022-02-06 20:55] LABS: ATYPICAL LYMPHOCYTES 2 %; BAND NEUTROPHILS 4 %; BASOPHILS % (MANUAL) 0 %; EOSINOPHILS % (MANUAL) 0 %; LYMPHOCYTES % (MANUAL) 16 %; MONOCYTES % (MANUAL) 10 %; NEUTROPHILS % (MANUAL) 68 %; TOTAL PROTEIN 6.5 GM/DL (6.4-8.2)
[2022-02-06 20:56] LABS: PLATELET ESTIMATE INCREASED; RBC MORPH NORMAL
[2022-02-06] MEDS ORDERED: ACHD5005 PO (21:08)
[2022-02-06] MEDS ORDERED: KETO10TA PO (21:08)
[2022-02-06] MEDS ORDERED: ONDA4TAB11 PO (21:08)
--- NOTE | 2022-02-06 21:14 | Diagnostic Imaging Report ---
PROCEDURE: CT abdomen and pelvis without contrast. TECHNIQUE: Multiple contiguous axial images were obtained through the abdomen and pelvis without the use of intravenous contrast. Auto Exposure Controls were utilized during the CT exam to meet ALARA standards for radiation dose reduction. DATE: February 06, 2022. COMPARISON: Abdominal radiograph February 04, 2022. CT abdomen and pelvis August 22, 2021. INDICATION: 41-year-old female, flank pain. FINDINGS: There are limitations for evaluation of the abdominal organs, neoplastic processes, abscess, and limited evaluation of the vasculature relating to the lack of intravenous contrast. There are linear opacities in the right and left lower lobes most likely reflecting scarring. There is also mild probable scarring in the lingula and right middle lobe. The heart is not enlarged. There is no pericardial effusion. The liver is unremarkable in size and contour. The gallbladder is unremarkable. There is no biliary ductal dilation. The main pancreatic duct is not abnormally dilated. Limited noncontrast assessment of the pancreatic parenchyma is unremarkable. The spleen is normal in size. The adrenal glands are unremarkable. There are several nonobstructing renal stones bilaterally. The urinary collecting systems are not distended. There is no identified ureteral stone. The urinary bladder is grossly unremarkable in appearance. The uterus is not seen and may be surgically absent. The intestinal tract is not distended. There is no evidence to suggest acute appendicitis. There is no free intraperitoneal air. There is no drainable fluid collection. There is no free pelvic fluid. There is no identified abnormally enlarged lymph node in the abdomen or pelvis which meets CT size criteria for adenopathy. There is severe disc height loss at L4-L5. There is no identified acute bony abnormality. IMPRESSION: CT ABDOMEN AND PELVIS. 1. Nonobstructing bilateral renal stones without identified ureteral stone or hydronephrosis. 2. No otherwise identified acute abnormality in the abdomen or pelvis. Dictated by: Dictated on workstation # [id number]
[2022-02-06 21:51] LABS: BILIRUBIN,URINE NEGATIVE (NEGATIVE); CLARITY,URINE CLEAR; COLOR,URINE YELLOW; GLUCOSE, URINE (UA) NEGATIVE (NEGATIVE); KETONES,URINE NEGATIVE (NEGATIVE); LEUKOCYTE ESTERASE ,URINE NEGATIVE (NEGATIVE); NITRITE,URINE NEGATIVE (NEGATIVE); PH,URINE 6.5 (5-9); PROTEIN,URINE NEGATIVE (NEGATIVE)
[2022-02-06 21:55] LABS: BACTERIA,URINE TRACE /HPF
[2022-02-06] MEDS ORDERED: CEFD300C3 PO (22:03)
[2022-02-06] MEDS ORDERED: CEFDINIR 300 MG (OMNICEF) CAP PO ONE (22:15)
== END 2022-02-06 22:20 | disposition home or self-care (01) ==
LOC: EDUNIT# 20:12 → ER FS 20:13
DX: N20.1 Calculus of ureter (principal); Z87.442 Personal history of urinary calculi; Z86.16 Personal history of COVID-19; Z79.52 Long term (current) use of systemic steroids; Z99.81 Dependence on supplemental oxygen
CPT/HCPCS: 36415; 74176; 80053; 81000; 85007; 85027; 87088

== ENCOUNTER 2022-03-14 12:16 | Emergency (ER) | payer BC, MEDICAID ==
[~2022-03-14] VITALS: Ht 165.1 cm; Wt 108.8 kg
[~2022-03-14 12:16] MED LIST changes: +CEFD300C3 PO; +KETO10TA PO
[2022-03-14] MEDS ORDERED: RT-ALBUTEROL/IPRATROPIUM 3 ML (DUONEB) VIAL INH ONE (12:45)
[2022-03-14] MEDS ORDERED: methylPREDNISolone 125 MG (Solu-MEDROL) VIAL IV STA (12:46)
--- NOTE | 2022-03-14 13:07 | Diagnostic Imaging Report ---
INDICATION: Dyspnea PA and lateral views of the chest are obtained with comparison made to study of 12/11/2021. Heart size and pulmonary vascularity remain within normal limits. Coarse interstitial markings again seen in both lungs which may represent persistent or recurrent interstitial lung disease. No consolidation is identified. There is no evidence of pneumothorax or pleural effusion. IMPRESSION: Interstitial prominence may be related to interstitial pneumonitis or edema although component of underlying fibrosis is suspected. Dictated by: Dictated on workstation # [id number]
[2022-03-14 13:29] LABS: BASOPHILS % (AUTO) 1 % (0-10); EOSINOPHILS # (AUTO) 0.1 10^3/uL (0.0-0.3); EOSINOPHILS % (AUTO) 1 % (0-10); HEMATOCRIT 39 % (35-52); HEMOGLOBIN 13.3 g/dL (11.5-16.0); LYMPHOCYTES # (AUTO) 0.9 10^3/uL (1.0-4.0); LYMPHOCYTES % (AUTO) 16 % (12-44); MEAN CORPUSCULAR HEMOGLOBIN 30 pg (25-34); MEAN CORPUSCULAR HGB CONC 35 g/dL (32-36); MEAN CORPUSCULAR VOLUME 87 fL (80-99); MEAN PLATELET VOLUME 10.8 fL (9.0-12.2); MONOCYTES # (AUTO) 0.8 10^3/uL (0.0-1.0); MONOCYTES % (AUTO) 14 % (0-12); NEUTROPHILS # (AUTO) 4.1 10^3/uL (1.8-7.8); NEUTROPHILS % (AUTO) 68 % (42-75); PLATELET COUNT 329 10^3/uL (130-400)
--- NOTE | 2022-03-14 13:37 | ED Respiratory ---
General Chief Complaint: Respiratory Problems Stated Complaint: HEADACHE; NAUSEA; COUGH History of Present Illness Date Seen by Provider: Mar 14, 2022 Time Seen by Provider: 12:30 Initial Comments 41-year-old female with PMH of asthma/long-haul COVID on home oxygen, is here with complaints of cough and fever and shortness of breath which has been worsening over the past 2 days. Patient called her night clerk at and was told to come to the ER to get tested for COVID once again. Patient had COVID in April 2021, and has been wearing oxygen via nasal cannula since then. Patient denies nausea vomiting, abdominal pain, dysuria, headache, neck pain or neck stiffness, chest pain. Allergies and Home Medications Allergies Coded Allergies: latex (Verified Allergy, Unknown, 11/15/19) Patient Home Medication List Home Medication List Reviewed: Yes Cefdinir (Cefdinir) 300 Mg Capsule, 300 MG PO BID Prescribed by: COTY MURPHY on 02/06/222202 Ciprofloxacin HCl (Ciprofloxacin HCl) 500 Mg Tablet, 500 MG PO BID Prescribed by: GREY LONGORIA on 04/22/201804 Hydrocodone Bit/Acetaminophen (HYDROcodone/APAP 5 MG/325 MG TAB) 1 Tab Tab, 1 TAB PO Q6H PRN for PAIN-SEVERE (8-10) Prescribed by: COTY MURPHY on 02/06/222107 Hydrocodone/Acetaminophen (Hydrocodone-Acetamin 5-325 mg) 1 Each Tablet, 1 EACH PO Q6H PRN for PAIN-BREAKTHROUGH Prescribed by: GREY LONGORIA on 04/22/201804 Ibuprofen (Ibuprofen) 600 Mg Tablet, 600 MG PO Q6H PRN for PAIN-MILD Prescribed by: BLAYNE OBREGON on 08/22/211537 Ketorolac Tromethamine (Ketorolac Tromethamine) 10 Mg Tablet, 10 MG PO Q8H PRN for PAIN-MODERATE (5-7) Prescribed by: COTY MURPHY on 02/06/222107 Ondansetron (Ondansetron Odt) 4 Mg Tab.rapdis, 4 MG PO Q6H PRN for N AUSEA/VOMITING Prescribed by: BLAYNE OBREGON on 08/22/21 153 Ondansetron (Ondansetron Odt) 4 Mg Tab.rapdis, 4 MG PO Q6H PRN for NAUSEA/VOMITING-1ST LINE Prescribed by: COTY MURPHY on 02/06/222107 Oxycodone HCl/Acetaminophen (Percocet 5-325 mg Tablet) 1 Each Tablet, 1 TAB PO Q4H Prescribed by: BLAYNE OBREGON on 08/22/21 1539 Tamsulosin HCl (Flomax) 0.4 Mg Cap, 0.4 MG PO DAILY Prescribed by: GREY LONGORIA on 04/22/20 1805 Review of Systems Review of Systems Constitutional: fever EENTM: no symptoms reported Respiratory: cough, dyspnea on exertion, phlegm, short of breath Cardiovascular: no symptoms reported Gastrointestinal: no symptoms reported Genitourinary: no symptoms reported Musculoskeletal: no symptoms reported Skin: no symptoms reported Psychiatric/Neurological: No Symptoms Reported Hematologic/Lymphatic: No Symptoms Reported Immunological/Allergic: no symptoms reported Past Yvuqefx-Roqtul-Eejoxu Hx Seasonal Allergies Seasonal Allergies: No Past Medical History Surgery/Hospitalization HX: pt admitted to [facility] for one month for covid Surgeries: Yes Ear Surgery, Hysterectomy Respiratory: No Cardiac: No Neurological: No Female Reproductive Disorders: Endometriosis, Polycystic Ovarian Dis [employer] History: Hysterectomy Sexually Transmitted Disease: Yes Genitourinary: Yes (IBS) Kidney Stones Gastrointestinal: No Musculoskeletal: Yes Degenerate Disk Disease, Chronic Back Pain Endocrine: No HEENT: No Cancer: No Psychosocial: No Integumentary: No Physical Exam Vital Signs - First Documented 03/14/22 12:21 Temp 36.5 Pulse 89 Resp 18 B/P (MAP) 116/65 (82) Pulse Ox 93 O2 Delivery Nasal Cannula O2 Flow Rate 2.00 Capillary Refill : Height: '" Weight: lbs. oz. kg; 34.00 BMI Method: General Appearance: WD/WN, no apparent distress HEENT: PERRL/EOMI Neck: non-tender, full range of motion, supple Respiratory: chest non-tender, lungs clear, normal breath sounds, no respiratory distress, no accessory muscle use Cardiovascular: normal peripheral pulses, regular rate, rhythm Gastrointestinal: normal bowel sounds, non tender, soft Extremities: normal range of motion Neurologic/Psychiatric: no motor/sensory deficits, alert, normal mood/affect, oriented x 3 Skin: normal color Lymphatic: no adenopathy Focused Exam Lactate Level 03/14/22 14:20: Lactic Acid Level Laboratory Tests Test 03/14/22 14:20 Progress/Results/Core Measures Suspected Sepsis SIRS Temperature: Pulse: Respiratory Rate: Laboratory Tests 03/14/22 13:10: White Blood Count 6.0 Blood Pressure / Mean: 03/14/22 14:20: Laboratory Tests 03/14/22 13:10: Creatinine 0.81, Platelet Count 329, Total Bilirubin 0.3 Results/Orders Lab Results Laboratory Tests Test 03/14/22 12:53 03/14/22 13:10 03/14/22 13:15 03/14/22 14:20 Range/Units Influenza Type A Antigen NEGATIVE NEGATIVE Influenza Type B Antigen NEGATIVE NEGATIVE White Blood Count 6.0 4.3-11.0 10^3/uL Red Blood Count 4.41 3.80-5.11 10^6/uL Hemoglobin 13.3 11.5-16.0 g/dL Hematocrit 39 35-52 % Mean Corpuscular Volume 87 80-99 fL Mean Corpuscular Hemoglobin 30 25-34 pg Mean Corpuscular Hemoglobin Concent 35 32-36 g/dL Red Cell Distribution Width 13.2 10.0-14.5 % Platelet Count 329 130-400 10^3/uL Mean Platelet Volume 10.8 9.0-12.2 fL Immature Granulocyte % (Auto) 1 % Neutrophils (%) (Auto) 68 42-75 % Lymphocytes (%) (Auto) 16 12-44 % Monocytes (%) (Auto) 14 H 0-12 % Eosinophils (%) (Auto) 1 0-10 % Basophils (%) (Auto) 1 0-10 % Neutrophils # (Auto) 4.1 1.8-7.8 10^3/uL Lymphocytes # (Auto) 0.9 L 1.0-4.0 10^3/uL Monocytes # (Auto) 0.8 0.0-1.0 10^3/uL Eosinophils # (Auto) 0.1 0.0-0.3 10^3/uL Basophils # (Auto) 0.0 0.0-0.1 10^3/uL Immature Granulocyte # (Auto) 0.0 0.0-0.1 10^3/uL Sodium Level 137 135-145 MMOL/L Potassium Level 4.2 3.6-5.0 MMOL/L Chloride Level 102 98-107 MMOL/L Carbon Dioxide Level 21 21-32 MMOL/L Anion Gap 14 5-14 MMOL/L Blood Urea Nitrogen 7 7-18 MG/DL Creatinine 0.81 0.60-1.30 MG/DL Estimat Glomerular Filtration Rate 95 BUN/Creatinine Ratio 9 Glucose Level 104 70-105 MG/DL Calcium Level 9.2 8.5-10.1 MG/DL Corrected Calcium 9.2 8.5-10.1 MG/DL Magnesium Level 1.9 1.6-2.4 MG/DL Total Bilirubin 0.3 0.1-1.0 MG/DL Aspartate Amino Transf (AST/SGOT) 33 5-34 U/L Alanine Aminotransferase (ALT/SGPT) 36 0-55 U/L Alkaline Phosphatase 77 40-136 U/L Pro-B-Type Natriuretic Peptide 45.6 <75.0 PG/ML Total Protein 7.0 6.4-8.2 GM/DL Albumin 4.0 3.2-4.5 GM/DL D-Dimer 0.45 0.00-0.49 UG/ML My Orders Orders - GEOVANY CARROLL MD Cbc With Automated Diff (03/14/22 12:45) Comprehensive Metabolic Panel (03/14/22 12:45) Albuterol/Ipra Inhalation Soln (Duoneb I (03/14/22 12:45) Fibrin Degradation Products (03/14/22 12:45) Magnesium (03/14/22 12:45) Chest Pa/Lat (2 View) (03/14/22 12:45) Ekg Tracing (03/14/22 12:45) O2 (03/14/22 12:45) Ed Iv/Invasive Line Start (03/14/22 12:45) Monitor-Rhythm Ecg Trace Only (03/14/22 12:45) Svn Small Volume Nebulizer (03/14/22 12:45) Methylprednisolone Sod Succ (Solu-Medrol (03/14/22 12:46) Covid 19 Inhouse Test (03/14/22 12:47) Isolation Central Supply Req (03/14/22 12:47) Influenza A & B Antigens (03/14/22 12:58) Probnp Fs (03/14/22 13:10) Ceftriaxone 1 Gm Pre-Mix (Rocephin 1 Gm (03/14/22 13:45) Azithromycin Injection (Zithromax Inject (03/14/22 13:45) Blood Culture (03/14/22 13:39) Lactic Acid Analyzer (03/14/22 13:39) Ibuprofen Tablet (Motrin Tablet) (03/14/22 14:58) Medications Given in ED Current Medications Medications Dose Ordered Sig/Matti Route Start Time Stop Time Status Last Admin Dose Admin Albuterol/ Ipratropium 3 ml ONCE ONCE INH 03/14/22 12:45 03/14/22 12:47 DC 03/14/22 13:20 3 ML Ceftriaxone Sodium/Dextrose 50 ml @ 100 mls/hr ONCE ONCE IV 03/14/22 13:45 03/14/22 14:14 DC 03/14/22 14:27 100 MLS/HR Vital Signs/I&O 03/14/22 12:21 Temp 36.5 Pulse 89 Resp 18 B/P (MAP) 116/65 (82) Pulse Ox 93 O2 Delivery Nasal Cannula O2 Flow Rate 2.00 Capillary Refill : Progress Note : Progress Note 1. PNEUMONITIS/ EARLY PNEUMONIA/ COVID SUSPECT/ LONG HAUL COVID: - CXR: see report below. Likely early PNA and not pulmonary edema, since pt 's lungs are clear, good O2 saturation, and BNP level normal. - Pt has been on home O2 since April 2021 when she first got COVID. Pt has inhalers at home. - In ER, patient was given ceftriaxone 1 g IV and azithromycin 1 g IV. -Patient will be discharged home with 2 more days of azithromycin and 7 days of cefpodoxime. -Patient advised to follow-up with PCP within the next 5 days. -Advised vitamin C and zinc and vitamin D. -Advised to continue medications recommended by her [facility] physicians -The patient was seen in the ED, and treated appropriately to presentation at a specific point in time. Patient is informed that there is a possibility that disease and illness can evolve and change in acuity rapidly or slowly after patient is discharged from the ER. Precautionary advice given to the patient for immediate return to ER if symptoms worsen or do not resolve, and to seek emergency care sooner rather than later. Pt also advised on the importance of PCP follow up and compliance with management and follow up plan with PCP and/or specialist, as this is part of the management plan. Pt verbally expressed understanding. Diagnostic Imaging Diagonstic Imaging: Xray Plain Films/CT/US/NM/MRI: chest Comments [facility], [facility]. [place], [place] NAME: ALMAZ DAS [facility] REC#: [id number] PT STATUS: REG ER : 1980 PHYSICIAN: GEOVANY CARROLL MD ADMIT DATE: 03/14/22/ER FS Draft Date of Exam:03/14/22 CHEST PA/LAT (2 VIEW) INDICATION: Dyspnea PA and lateral views of the chest are obtained with comparison made to study of 12/11/2021. Heart size and pulmonary vascularity remain within normal limits. Coarse interstitial markings again seen in both lungs which may represent persistent or recurrent interstitial lung disease. No consolidation is identified. There is no evidence of pneumothorax or pleural effusion. IMPRESSION: Interstitial prominence may be related to interstitial pneumonitis or edema although component of underlying fibrosis is suspected. Dictated on workstation # [id number] Dict: 03/14/22 1302 Trans: 03/14/22 1306 CV [id number] Interpreted by: DEMI US MD Electronically signed by: Departure Impression Primary Impression: COVID-19 long emily Additional Impressions: Interstitial pneumonitis Suspected COVID-19 virus infection Disposition: HOME, SELF-CARE Condition: Improved Departure-Patient Inst. Referrals: SAAD YIN DO (PCP) Primary Care Physician Patient Instructions: COVID-19 Overview, COVID-19 ED, Pneumonia, Adult ED, Interstitial Lung Disease Add. Discharge Instructions: -Patient will be discharged home with 2 more days of azithromycin and 7 days of cefpodoxime. -Patient advised to follow-up with PCP within the next 5 days. -Advised vitamin C and zinc and vitamin D. -Advised to continue medications recommended by her [facility] physicians -The patient was seen in the ED, and treated appropriately to presentation at a specific point in time. Patient is informed that there is a possibility that disease and illness can evolve and change in acuity rapidly or slowly after patient is discharged from the ER. Precautionary advice given to the patient for immediate return to ER if symptoms worsen or do not resolve, and to seek emergency care sooner rather than later. Pt also advised on the importance of PCP follow up and compliance with management and follow up plan with PCP and/or specialist, as this is part of the management plan. Pt verbally expressed understanding. All discharge instructions reviewed with patient and/or family. Voiced understanding. Scripts Cefpodoxime Proxetil (Cefpodoxime Proxetil) 200 Mg Tablet 200 MG PO Q12H for 7 Days, #14 TAB Prov: GEOVANY CARROLL MD 03/14/22 Azithromycin (Azithromycin) 500 Mg Tablet 500 MG PO DAILY for 2 Days, #2 TAB Prov: GEOVANY CARROLL MD 03/14/22 GEOVANY CARROLL MD Mar 14, 2022 13:37
[2022-03-14] MEDS ORDERED: cefTRIAXone 1 GM PRE-MIX 50 ML IV ONE (13:45)
[2022-03-14] MEDS ORDERED: AZITHROMYCIN INJECTION 500 MG in NS (IVPB) 250 ML IV ONE (13:45)
[2022-03-14 14:04] LABS: POTASSIUM 4.2 MMOL/L (3.6-5.0)
[2022-03-14 14:05] LABS: BILIRUBIN,TOTAL 0.3 MG/DL (0.1-1.0); CALCIUM 9.2 MG/DL (8.5-10.1); CREATININE SERUM 0.81 MG/DL (0.60-1.30); MAGNESIUM 1.9 MG/DL (1.6-2.4)
[2022-03-14] MEDS ORDERED: IBUPROFEN 600 MG (MOTRIN) TAB PO ONE (14:58)
[2022-03-14] MEDS ORDERED: AZIT500T9 PO (15:16)
[2022-03-14] MEDS ORDERED: CEFP200T2 PO (15:16)
[2022-03-14 16:22] VITALS: BP 110/60
== END 2022-03-14 16:22 | disposition home or self-care (01) ==
LOC: EDUNIT# 12:16 → ER FS 12:17
DX: J84.89 Other specified interstitial pulmonary diseases (principal); Z20.822 Contact with and (suspected) exposure to COVID-19
CPT/HCPCS: 36415; 71046; 80053; 83605; 83735; 83880; 85025; 85379; 87040; 87636; 87804; 93005; 93041

== ENCOUNTER 2022-03-16 20:25 | Emergency (ER) | payer BC, MEDICAID ==
[~2022-03-16 20:25] MED LIST changes: +AZIT500T9 PO; +CEFP200T2 PO
[2022-03-16 20:51] VITALS: BP 134/99
--- NOTE | 2022-03-16 20:52 | ED General ---
General Stated Complaint: PNEUMONITIS/SOB History of Present Illness Date Seen by Provider: Mar 16, 2022 Time Seen by Provider: 20:51 Initial Comments 41-year-old female with PMH of long-haul COVID/asthma, is here with complaints of chronic shortness of breath. Patient was here last week in the ER for the same complaints and was sent home with steroids and antibiotics to treat pneumonia. Today patient's chest x-ray is clear and does not show any sign of pneumonia but patient is still feeling shortness of breath. Patient used her inhaler once at home and then came to the ER. Patient does have a neb machine at home with nebulizer but she has not been using it. Denies chest pain, abdominal pain, nausea vomiting, fever, dizziness Allergies and Home Medications Allergies Coded Allergies: latex (Verified Allergy, Unknown, 11/15/19) Patient Home Medication List Home Medication List Reviewed: Yes Azithromycin (Azithromycin) 500 Mg Tablet, 500 MG PO DAILY Prescribed by: GEOVANY CARROLL MD on 03/14/22 151 Cefdinir (Cefdinir) 300 Mg Capsule, 300 MG PO BID Prescribed by: COTY MURPHY on 02/06/222202 Cefpodoxime Proxetil (Cefpodoxime Proxetil) 200 Mg Tablet, 200 MG PO Q12H Prescribed by: GEOVANY CARROLL MD on 03/14/22 151 Ciprofloxacin HCl (Ciprofloxacin HCl) 500 Mg Tablet, 500 MG PO BID Prescribed by: GREY LONGORIA on 04/22/20 180 Hydrocodone Bit/Acetaminophen (HYDROcodone/APAP 5 MG/325 MG TAB) 1 Tab Tab, 1 TAB PO Q6H PRN for PAIN-SEVERE (8-10) Prescribed by: COTY MURPHY on 02/06/222107 Hydrocodone/Acetaminophen (Hydrocodone-Acetamin 5-325 mg) 1 Each Tablet, 1 EACH PO Q6H PRN for PAIN-BREAKTHROUGH Prescribed by: GREY LONGORIA on 04/22/20 180 Ibuprofen (Ibuprofen) 600 Mg Tablet, 600 MG PO Q6H PRN for PAIN-MILD Prescribed by: BLAYNE OBREGON on 08/22/21 1538 Ketorolac Tromethamine (Ketorolac Tromethamine) 10 Mg Tablet, 10 MG PO Q8H PRN for PAIN-MODERATE (5-7) Prescribed by: COTY MURPHY on 02/06/222107 Ondansetron (Ondansetron Odt) 4 Mg Tab.rapdis, 4 MG PO Q6H PRN for NAUSEA/VOMITING Prescribed by: BLAYNE OBREGON on 08/22/211537 Ondansetron (Ondansetron Odt) 4 Mg Tab.rapdis, 4 MG PO Q6H PRN for NAUSEA/VOMITING-1ST LINE Prescribed by: COTY MURPHY on 02/06/222107 Oxycodone HCl/Acetaminophen (Percocet 5-325 mg Tablet) 1 Each Tablet, 1 TAB PO Q4H Prescribed by: BLAYNE OBREGON on 08/22/211538 Tamsulosin HCl (Flomax) 0.4 Mg Cap, 0.4 MG PO DAILY Prescribed by: GREY LONGORIA on 04/22/201804 Review of Systems Review of Systems Constitutional: no symptoms reported EENTM: no symptoms reported Respiratory: cough, short of breath Cardiovascular: no symptoms reported Gastrointestinal: no symptoms reported Genitourinary: no symptoms reported Musculoskeletal: no symptoms reported Skin: no symptoms reported Psychiatric/Neurological: No Symptoms Reported Hematologic/Lymphatic: No Symptoms Reported Immunological/Allergic: no symptoms reported Past Emekogk-Kwxuwo-Hxwhbz Hx Immunizations Up To Date First/Initial COVID19 Vaccinat: Not currently vaccinated Seasonal Allergies Seasonal Allergies: No Past Medical History Surgery/Hospitalization HX: pt admitted to icu for one month for covid Surgeries: Yes Ear Surgery, Hysterectomy Respiratory: No Cardiac: No Neurological: No Female Reproductive Disorders: Endometriosis, 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 oz. kg; 39.00 BMI Method: General Appearance: No Apparent Distress HEENT: PERRL/EOMI Neck: Full Range of Motion Respiratory: Chest Non Tender, Lungs Clear Cardiovascular: Regular Rate, Rhythm, No Edema Gastrointestinal: Normal Bowel Sounds, Non Tender, Soft Neurologic/Psychiatric: Alert, Oriented x3, No Motor/Sensory Deficits Skin: Normal Color Focused Exam Lactate Level 03/16/22 00:00: Lactic Acid Level Laboratory Tests Test 03/16/22 00:00 Progress/Results/Core Measures Suspected Sepsis SIRS Temperature: Pulse: Respiratory Rate: Laboratory Tests 03/16/22 20:54: White Blood Count 5.8 Blood Pressure / Mean: 03/16/22 00:00: Laboratory Tests 03/16/22 20:54: Creatinine 0.73, Platelet Count 243, Total Bilirubin 0.2 Results/Orders Lab Results Laboratory Tests Test 03/16/22 00:00 03/16/22 20:54 Range/Units White Blood Count 5.8 4.3-11.0 10^3/uL Red Blood Count 4.60 3.80-5.11 10^6/uL Hemoglobin 13.9 11.5-16.0 g/dL Hematocrit 43 35-52 % Mean Corpuscular Volume 93 80-99 fL Mean Corpuscular Hemoglobin 30 25-34 pg Mean Corpuscular Hemoglobin Concent 33 32-36 g/dL Red Cell Distribution Width 13.8 10.0-14.5 % Platelet Count 243 130-400 10^3/uL Mean Platelet Volume 11.0 9.0-12.2 fL Immature Granulocyte % (Auto) 0 % Neutrophils (%) (Auto) 59 42-75 % Lymphocytes (%) (Auto) 25 12-44 % Monocytes (%) (Auto) 12 0-12 % Eosinophils (%) (Auto) 3 0-10 % Basophils (%) (Auto) 1 0-10 % Neutrophils # (Auto) 3.4 1.8-7.8 X 10^3 Lymphocytes # (Auto) 1.4 1.0-4.0 X 10^3 Monocytes # (Auto) 0.7 0.0-1.0 X 10^3 Eosinophils # (Auto) 0.2 0.0-0.3 10^3/uL Basophils # (Auto) 0.1 0.0-0.1 10^3/uL Immature Granulocyte # (Auto) 0.0 0.0-0.1 10^3/uL D-Dimer 0.33 0.00-0.49 UG/ML Sodium Level 138 135-145 MMOL/L Potassium Level 4.0 3.6-5.0 MMOL/L Chloride Level 104 98-107 MMOL/L Carbon Dioxide Level 23 21-32 MMOL/L Anion Gap 11 5-14 MMOL/L Blood Urea Nitrogen 8 7-18 MG/DL Creatinine 0.73 0.60-1.30 MG/DL Estimat Glomerular Filtration Rate 107 BUN/Creatinine Ratio 11 Glucose Level 110 H 70-105 MG/DL Calcium Level 9.0 8.5-10.1 MG/DL Corrected Calcium 9.2 8.5-10.1 MG/DL Magnesium Level 1.9 1.6-2.4 MG/DL Total Bilirubin 0.2 0.1-1.0 MG/DL Aspartate Amino Transf (AST/SGOT) 25 5-34 U/L Alanine Aminotransferase (ALT/SGPT) 26 0-55 U/L Alkaline Phosphatase 78 40-136 U/L Total Protein 6.5 6.4-8.2 GM/DL Albumin 3.8 3.2-4.5 GM/DL My Orders Orders - GEOVANY CARROLL MD Cbc With Automated Diff (03/16/22 20:58) Comprehensive Metabolic Panel (03/16/22 20:58) Blood Culture (03/16/22 20:58) Albuterol/Ipra Inhalation Soln (Duoneb I (03/16/22 21:00) Fibrin Degradation Products (03/16/22 20:58) Magnesium (03/16/22 20:58) Chest Pa/Lat (2 View) (03/16/22 20:58) O2 (03/16/22 20:58) Ed Iv/Invasive Line Start (03/16/22 20:58) Sputum Culture (03/16/22 20:58) Monitor-Rhythm Ecg Trace Only (03/16/22 20:58) Lactic Acid Analyzer (03/16/22 20:58) Svn Small Volume Nebulizer (03/16/22 20:58) Albuterol/Ipra Inhalation Soln (Duoneb I (03/16/22 21:04) Methylprednisolone Sod Succ (Solu-Medrol (03/16/22 21:45) Medications Given in ED Current Medications Medications Dose Ordered Sig/Matti Route Start Time Stop Time Status Last Admin Dose Admin Albuterol/ Ipratropium 3 ml ONCE ONCE INH 03/16/22 21:00 03/16/22 21:01 DC 03/16/22 21:16 3 ML Methylprednisolone Sodium Succinate 125 mg ONCE ONCE IM 03/16/22 21:45 03/16/22 21:46 DC 03/16/22 21:40 125 MG Vital Signs/I&O 03/16/22 03/16/22 20:51 21:00 Pulse 112 Resp 22 B/P (MAP) 134/99 (111) Pulse Ox 92 O2 Delivery Nasal Cannula Nasal Cannula O2 Flow Rate 2.00 2.00 Capillary Refill : Progress Note : Progress Note 1.LONG HAUL COVID/ ASTHMA - Duo neb x2 STAT and Solumedrol 125 in ER - Pt just finished a course of antibiotics for PNA. - CXR andlabs normal with normal WBC - Advised to follow up with her gantry rigger this week and to make an appointment JULIANNE. Pt will likely need PFT agin - Advised to use neb machine at home if inhaler not working. - F/u with PCP and gantry rigger -The patient was seen in the ED, and treated appropriately to presentation at a specific point in time. Patient is informed that there is a possibility that disease and illness can evolve and change in acuity rapidly or slowly after patient is discharged from the ER. Precautionary advice given to the patient for immediate return to ER if symptoms worsen or do not resolve, and to seek emergency care sooner rather than later. Pt also advised on the importance of PCP follow up and compliance with management and follow up plan with PCP and/or specialist, as this is part of the management plan. Pt verbally expressed understanding. Diagnostic Imaging Diagonstic Imaging: Xray Plain Films/CT/US/NM/MRI: chest Comments [facility], [place] NAME: ALMAZ [facility] REC#: [id number] PT STATUS: REG ER : 1980 PHYSICIAN: GEOVANY CARROLL MD ADMIT DATE: 03/16/22/ER FS Signed Date of Exam:03/16/22 CHEST PA/LAT (2 VIEW) INDICATION: Shortness of breath. EXAMINATION: PA and lateral chest. Heart size and pulmonary vascularity are normal. Lungs are clear. There are no effusions or pneumothoraces. IMPRESSION: No acute abnormalities in the chest. Dictated by: Dictated on workstation # [id number] Dict: 03/16/222114 Trans: 03/16/222122 PJE [id number] Interpreted by: KHUSHBU PERRY MD Electronically signed by: KHUSHBU PERRY MD 03/16/222122 Departure Impression Primary Impression: COVID-19 migel diaz Additional Impression: Asthma Qualified Codes: J45.909 - Unspecified asthma, uncomplicated Disposition: 01 HOME, SELF-CARE Condition: Stable Departure-Patient Inst. Referrals: SAAD YIN DO (PCP/Family) Primary Care Physician Patient Instructions: Recovery After COVID-19, Avoiding Asthma Triggers, How to Use a Nebulizer, Adult Add. Discharge Instructions: -Follow-up with PCP and gantry rigger within the next 7 days Instructions given how to use albuterol nebulizers if inhalers are not working Return to ER if symptoms or not improving or if they are worsening GEOVANY CARROLL MD Mar 16, 2022 20:52
[2022-03-16] MEDS ORDERED: methylPREDNISolone 125 MG (Solu-MEDROL) VIAL IV STA (21:00)
[2022-03-16] MEDS ORDERED: RT-ALBUTEROL/IPRATROPIUM 3 ML (DUONEB) VIAL INH ONE ×2 (21:00→22:15)
[2022-03-16] MEDS ORDERED: RT-ALBUTEROL/IPRATROPIUM 3 ML (DUONEB) VIAL ONE (21:04)
[2022-03-16 21:08] LABS: BASOPHILS # (AUTO) 0.1 10^3/uL (0.0-0.1); BASOPHILS % (AUTO) 1 % (0-10); EOSINOPHILS # (AUTO) 0.2 10^3/uL (0.0-0.3); EOSINOPHILS % (AUTO) 3 % (0-10); HEMATOCRIT 43 % (35-52); HEMOGLOBIN 13.9 g/dL (11.5-16.0); LYMPHOCYTES # (AUTO) 1.4 X 10^3 (1.0-4.0); LYMPHOCYTES % (AUTO) 25 % (12-44); MEAN CORPUSCULAR HEMOGLOBIN 30 pg (25-34); MEAN CORPUSCULAR HGB CONC 33 g/dL (32-36); MEAN CORPUSCULAR VOLUME 93 fL (80-99); MONOCYTES # (AUTO) 0.7 X 10^3 (0.0-1.0); MONOCYTES % (AUTO) 12 % (0-12); NEUTROPHILS # (AUTO) 3.4 X 10^3 (1.8-7.8); NEUTROPHILS % (AUTO) 59 % (42-75); PLATELET COUNT 243 10^3/uL (130-400); WHITE BLOOD COUNT 5.8 10^3/uL (4.3-11.0)
--- NOTE | 2022-03-16 21:16 | Diagnostic Imaging Report ---
INDICATION: Shortness of breath. EXAMINATION: PA and lateral chest. Heart size and pulmonary vascularity are normal. Lungs are clear. There are no effusions or pneumothoraces. IMPRESSION: No acute abnormalities in the chest. Dictated by: Dictated on workstation # [id number]
[2022-03-16 21:27] LABS: ALBUMIN 3.8 GM/DL (3.2-4.5); BILIRUBIN,TOTAL 0.2 MG/DL (0.1-1.0); CREATININE SERUM 0.73 MG/DL (0.60-1.30); MAGNESIUM 1.9 MG/DL (1.6-2.4); TOTAL PROTEIN 6.5 GM/DL (6.4-8.2)
[2022-03-16] MEDS ORDERED: RX-AMOXICILLIN 250 MG/5 ML 100 ML BTL PO STA (21:35)
[2022-03-16] MEDS ORDERED: methylPREDNISolone 125 MG (Solu-MEDROL) VIAL IM ONE (21:45)
== END 2022-03-16 22:23 | disposition home or self-care (01) ==
LOC: EDUNIT# 20:25 → ER FS 20:29
DX: U09.9 Post COVID-19 condition, unspecified (principal); J45.909 Unspecified asthma, uncomplicated; Z87.01 Personal history of pneumonia (recurrent); Z28.310 Unvaccinated for COVID-19; Z79.899 Other long term (current) drug therapy
CPT/HCPCS: 71046; 80053; 83735; 85379; 93041

== ENCOUNTER 2022-11-02 17:47 | Emergency (ER) | payer BC, MEDICAID ==
--- NOTE | 2022-11-02 17:52 | ED GU-Female ---
General Chief Complaint: - Reproductive Stated Complaint: KIDNEY STONES History of Present Illness Date Seen by Provider: Nov 02, 2022 Time Seen by Provider: 17:52 Initial Comments 42-year-old female presents with concern for kidney stone. Patient reports she has some left flank and left groin pain. Along with some difficulty urinating. Patient has a history of recurrent kidney stones. She stated couple days ago she had a right-sided flank pain but that resolved but then yesterday she developed quite a bit worse left flank pain then today she continues to have the flank pain and now having hard time peeing consistent with previous kidney stones. Patient is nauseated but no vomiting. No fever or chills reported. Allergies and Home Medications Allergies Coded Allergies: latex (Verified Allergy, Unknown, 11/15/19) Patient Home Medication List Home Medication List Reviewed: Yes Azithromycin (Azithromycin) 500 Mg Tablet, 500 MG PO DAILY Prescribed by: GEOVANY CARROLL MD on 03/14/22 151 Cefdinir (Cefdinir) 300 Mg Capsule, 300 MG PO BID Prescribed by: COTY MURPHY on 02/06/222202 Cefpodoxime Proxetil (Cefpodoxime Proxetil) 200 Mg Tablet, 200 MG PO Q12H Prescribed by: GEOVANY CARROLL MD on 03/14/22 151 Ciprofloxacin HCl (Ciprofloxacin HCl) 500 Mg Tablet, 500 MG PO BID Prescribed by: GREY LONGORIA on 04/22/201804 Hydrocodone Bit/Acetaminophen (HYDROcodone/APAP 5 MG/325 MG TAB) 1 Tab Tab, 1 TAB PO Q6H PRN for PAIN-SEVERE (8-10) Prescribed by: COTY MURPHY on 02/06/222107 Hydrocodone/Acetaminophen (Hydrocodone-Acetamin 5-325 mg) 1 Each Tablet, 1 EACH PO Q6H PRN for PAIN-BREAKTHROUGH Prescribed by: GREY LONGORIA on 04/22/20 180 Ibuprofen (Ibuprofen) 600 Mg Tablet, 600 MG PO Q6H PRN for PAIN-MILD Prescribed by: BLAYNE OBREGON on 08/22/21 153 Ketorolac Tromethamine (Ketorolac Tromethamine) 10 Mg Tablet, 10 MG PO Q8H PRN for PAIN-MODERATE (5-7) Prescribed by: COTY MURPHY on 02/06/222107 Ondansetron (Ondansetron Odt) 4 Mg Tab.rapdis, 4 MG PO Q6H PRN for NAUSEA/VOMITING Prescribed by: BLAYNE OBREGON on 08/22/211537 Ondansetron (Ondansetron Odt) 4 Mg Tab.rapdis, 4 MG PO Q6H PRN for JESÚS SEA/VOMITING-1ST LINE Prescribed by: COTY MURPHY on 02/06/222107 Oxycodone HCl/Acetaminophen (Percocet 5-325 mg Tablet) 1 Each Tablet, 1 TAB PO Q4H Prescribed by: BLAYNE OBREGON on 08/22/211538 Tamsulosin HCl (Flomax) 0.4 Mg Cap, 0.4 MG PO DAILY Prescribed by: GREY LONGORIA on 04/22/201804 Review of Systems Review of Systems Constitutional: No chills, No fever EENTM: no symptoms reported Respiratory: no symptoms reported Cardiovascular: no symptoms reported Gastrointestinal: see HPI, nausea Genitourinary: see HPI, flank pain Musculoskeletal: no symptoms reported Skin: no symptoms reported Psychiatric/Neurological: No Symptoms Reported Endocrine: No Symptoms Reported Past Nrndoyp-Iksqqp-Llcsvd Hx Immunizations Up To Date First/Initial COVID19 Vaccinat: Not currently vaccinated Seasonal Allergies Seasonal Allergies: No Past Medical History Surgery/Hospitalization HX: pt admitted to icu for one month for covid Surgeries: Yes Ear Surgery, Hysterectomy Respiratory: No Cardiac: No Neurological: No Female Reproductive Disorders: Endometriosis, 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 oz. kg; 39.00 BMI Method: General Appearance: WD/WN, no apparent distress HEENT: PERRL/EOMI Cardiovascular: normal peripheral pulses, regular rate, rhythm Respiratory: lungs clear, normal breath sounds Gastrointestinal: non tender, soft Back: CVA tenderness (L) Extremities: normal range of motion, non-tender Neurologic/Psychiatric: alert, normal mood/affect, oriented x 3 Skin: normal color, warm/dry Progress/Results/Core Measures Suspected Sepsis SIRS Temperature: Pulse: Respiratory Rate: Blood Pressure / Mean: Results/Orders Lab Results Laboratory Tests Test 11/02/22 17:51 Range/Units Urine Color YELLOW Urine Clarity CLEAR Urine pH 6.0 5-9 Urine Specific [place] >=1.030 1.016-1.022 Urine Protein NEGATIVE NEGATIVE Urine Glucose (UA) NEGATIVE NEGATIVE Urine Ketones NEGATIVE NEGATIVE Urine Nitrite NEGATIVE NEGATIVE Urine Bilirubin NEGATIVE NEGATIVE Urine Urobilinogen 0.2 < = 1.0 MG/DL Urine Leukocyte Esterase NEGATIVE NEGATIVE Urine RBC (Auto) NEGATIVE NEGATIVE Urine RBC NONE /HPF Urine WBC 10-25 H /HPF Urine Squamous Epithelial Cells 10-25 H /HPF Urine Crystals PRESENT H /LPF Urine Calcium Oxalate Crystals LARGE H /LPF Urine Bacteria MODERATE H /HPF Urine Casts NONE /LPF Urine Mucus LARGE H /LPF Urine Culture Indicated YES My Orders Orders - GAYATRI PERRYVOR L DO Ua Culture If Indicated (11/02/22 17:59) Ct Abdomen/Pelvis Wo (11/02/22 17:59) Ed Iv/Invasive Line Start (11/02/22 17:59) Metoclopramide Injection (Reglan Injecti (11/02/22 17:59) Ns Iv 1000 Ml (Sodium Chloride 0.9%) (11/02/22 17:59) Ketorolac Injection (Toradol Injection) (11/02/22 17:59) Urine Culture (11/02/22 17:51) Vital Signs/I&O 11/02/22 17:51 Temp 36.1 Pulse 89 Resp 16 B/P (MAP) 152/78 (102) Pulse Ox 97 O2 Delivery Nasal Cannula O2 Flow Rate 2.00 Capillary Refill : Progress Note : Progress Note Patient's urine is consistent with contamination but no urinary tract infection. Patient has no ureter stones on CT. She does have bilateral ovarian cysts which is likely cause of her discomfort. I discussed with her supportive care. Patient did not have labs indicated at this time. Patient was stable and discharged home Departure Impression Primary Impression: Ovarian cyst Qualified Codes: N83.201 - Unspecified ovarian cyst, right side; N83.202 - Unspecified ovarian cyst, left side Disposition: HOME, SELF-CARE Condition: Stable Departure-Patient Inst. Referrals: SAAD YIN DO (PCP) Primary Care Physician Patient Instructions: Ovarian Cyst ED Add. Discharge Instructions: Tylenol, ibuprofen as needed for pain, heating pad to lower abdomen. 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 Voiced understanding. DANIKA PERRY DO Nov 02, 2022 17:52
[2022-11-02] MEDS ORDERED: KETOROLAC 30 MG/ML VIAL IVP STA (17:59)
[2022-11-02] MEDS ORDERED: METOCLOPRAMIDE INJ 10 MG/2 ML (REGLAN) IVP STA (17:59)
[2022-11-02] MEDS ORDERED: NS IV 1000 ML 1,000 ML IV STA (17:59)
[2022-11-02 18:06] LABS: BILIRUBIN,URINE NEGATIVE (NEGATIVE); CLARITY,URINE CLEAR; COLOR,URINE YELLOW; GLUCOSE, URINE (UA) NEGATIVE (NEGATIVE); KETONES,URINE NEGATIVE (NEGATIVE); LEUKOCYTE ESTERASE ,URINE NEGATIVE (NEGATIVE); NITRITE,URINE NEGATIVE (NEGATIVE); PROTEIN,URINE NEGATIVE (NEGATIVE)
[2022-11-02 18:10] LABS: BACTERIA,URINE MODERATE /HPF; CALCIUM OXALATE CRYSTALS,UR LARGE /LPF
--- NOTE | 2022-11-02 18:48 | Diagnostic Imaging Report ---
INDICATION: Bilateral flank pain with painful urination. History of stones. History of hysterectomy. EXAMINATION: CT abdomen and pelvis without contrast, 11/02/2022. All CT scans use one or more of the following dose optimizing techniques: automated exposure control, MA and/or KvP adjustment based on patient size and exam type or iterative reconstruction. COMPARISON: 02/06/2022. FINDINGS: Linear scarring or atelectasis noted in the lung bases. Nonopacified liver, spleen and gallbladder unremarkable. Pancreas unremarkable. Adrenal glands normal. There is bilateral nonobstructive nephrolithiasis with no hydronephrosis on either side. There are no ureteral stones. Appendix is normal. There is no inflammatory change about the loops of bowel. No free fluid. No free air. Within the pelvis, large cystic lesion is noted, bilaterally, with the left measuring 3.0 cm in greatest dimension. Right measures 3.1 cm. If there is pelvic pain, sonography could further characterize, as clinically indicated. Hysterectomy change is noted. There is no acute osseous abnormality. IMPRESSION: 1. No acute process. Bilateral nonobstructive nephrolithiasis noted. 2. Cystic lesions in both ovaries. See above discussion. Dictated by: Dictated on workstation # [id number]
[2022-11-02 19:00] VITALS: BP 152/78
== END 2022-11-02 19:00 | disposition home or self-care (01) ==
LOC: EDUNIT# 17:47 → ER FS 17:49
DX: N83.201 Unspecified ovarian cyst, right side (principal); N83.202 Unspecified ovarian cyst, left side; Z87.442 Personal history of urinary calculi; Z28.310 Unvaccinated for COVID-19
CPT/HCPCS: 74176; 81000; 87088

== ENCOUNTER 2022-12-21 17:03 | Emergency (ER) | payer BC, MEDICAID ==
[~2022-12-21] VITALS: Ht 162 cm; Wt 92.0 kg
[2022-12-21 17:22] VITALS: BP 141/97
[2022-12-21 17:23] LABS: BASOPHILS % (AUTO) 0 % (0-10); EOSINOPHILS # (AUTO) 0.1 10^3/uL (0.0-0.3); EOSINOPHILS % (AUTO) 1 % (0-10); HEMATOCRIT 44 % (35-52); HEMOGLOBIN 14.9 g/dL (11.5-16.0); LYMPHOCYTES # (AUTO) 2.5 10^3/uL (1.0-4.0); LYMPHOCYTES % (AUTO) 35 % (12-44); MEAN CORPUSCULAR HEMOGLOBIN 30 pg (25-34); MEAN CORPUSCULAR HGB CONC 34 g/dL (32-36); MEAN CORPUSCULAR VOLUME 88 fL (80-99); MEAN PLATELET VOLUME 10.6 fL (9.0-12.2); MONOCYTES # (AUTO) 0.5 10^3/uL (0.0-1.0); MONOCYTES % (AUTO) 7 % (0-12); NEUTROPHILS # (AUTO) 4.1 10^3/uL (1.8-7.8); NEUTROPHILS % (AUTO) 57 % (42-75); PLATELET COUNT 272 10^3/uL (130-400); WHITE BLOOD COUNT 7.3 10^3/uL (4.3-11.0)
--- NOTE | 2022-12-21 17:23 | ED Respiratory ---
General Chief Complaint: General Problems/Pain Stated Complaint: SOB; DIZZNESS; LETHARGY Source: patient, old records Exam Limitations: no limitations History of Present Illness Date Seen by Provider: Dec 21, 2022 Time Seen by Provider: 17:05 Initial Comments 42yoF with PMH of chronic hypoxic respiratory failure after getting COVID in May of 2021 (on 2L O2 at baseline now, was on steroids for over a year), PCOS, hypertension, and recurrent kidney stones coming in due to cough and shortness of breath. This is pretty consistent with prior episodes since having COVID. Has felt this way for the past 2 weeks. Went to a walk-in clinic, diagnosed with pneumonitis, started Levaquin which she is currently taking. Over 5 weeks ago she had gastric sleeve surgery laparoscopically at due to the weight gain and associated with the chronic steroid use. She was on Lovenox after the surgery for weeks to prevent potential blood clots, although she has never had a blood clot. Denies any lower extremity swelling or pain, no chest pain, no hormone use, no hemoptysis, no fever, vomiting, diarrhea, rash, or any other concerns. Allergies and Home Medications Allergies Coded Allergies: latex (Verified Allergy, Unknown, 11/15/19) Patient Home Medication List Home Medication List Reviewed: Yes Azithromycin (Azithromycin) 500 Mg Tablet, 500 MG PO DAILY Prescribed by: GEOVANY CARROLL MD on 03/14/221515 Cefdinir (Cefdinir) 300 Mg Capsule, 300 MG PO BID Prescribed by: COTY MURPHY on 02/06/222202 Cefpodoxime Proxetil (Cefpodoxime Proxetil) 200 Mg Tablet, 200 MG PO Q12H Prescribed by: GEOVANY CARROLL MD on 03/14/22 151 Ciprofloxacin HCl (Ciprofloxacin HCl) 500 Mg Tablet, 500 MG PO BID Prescribed by: GREY LONGORIA on 04/22/20 180 Hydrocodone Bit/Acetaminophen (HYDROcodone/APAP 5 MG/325 MG TAB) 1 Tab Tab, 1 TAB PO Q6H PRN for PAIN-SEVERE (8-10) Prescribed by: COTY MURPHY on 02/06/222107 Hydrocodone/Acetaminophen (Hydrocodone-Acetamin 5-325 mg) 1 Each Tablet, 1 EACH PO Q6H PRN for PAIN-BREAKTHROUGH Prescribed by: GREY LONGORIA on 04/22/201804 Ibuprofen (Ibuprofen) 600 Mg Tablet, 600 MG PO Q6H PRN for PAIN-MILD Prescribed by: BLAYNE OBREGON on 08/22/211537 Ketorolac Tromethamine (Ketorolac Tromethamine) 10 Mg Tablet, 10 MG PO Q8H PRN for PAIN-MODERATE (5-7) Prescribed by: COTY MURPHY on 02/06/222107 Ondansetron (Ondansetron Odt) 4 Mg Tab.rapdis, 4 MG PO Q6H PRN for NAUSEA/VOMITING Prescribed by: BLAYNE OBREGON on 08/22/211537 Ondansetron (Ondansetron Odt) 4 Mg Tab.rapdis, 4 MG PO Q6H PRN for NAUSEA/VOMITING-1ST LINE Prescribed by: COTY MURPHY on 02/06/222107 Oxycodone HCl/Acetaminophen (Percocet 5-325 mg Tablet) 1 Each Tablet, 1 TAB PO Q4H Prescribed by: BLAYNE OBREGON on 08/22/211538 Tamsulosin HCl (Flomax) 0.4 Mg Cap, 0.4 MG PO DAILY Prescribed by: GREY LONGORIA on 04/22/201804 Review of Systems Review of Systems Constitutional: No fever EENTM: no symptoms reported Respiratory: cough, short of breath Cardiovascular: no symptoms reported Gastrointestinal: no symptoms reported Genitourinary: no symptoms reported Musculoskeletal: no symptoms reported Skin: no symptoms reported Psychiatric/Neurological: No Symptoms Reported Hematologic/Lymphatic: No Symptoms Reported Past Xhywbci-Egjysn-Wijkri Hx Patient Social History Tobacco Use?: No Immunizations Up To Date First/Initial COVID19 Vaccinat: Not currently vaccinated Second COVID19 Vaccination Oleksandr: Not currently vaccinated Third COVID19 Vaccination Date: Not currently vaccinated Seasonal Allergies Seasonal Allergies: No Past Medical History Surgery/Hospitalization HX: Long COVID; Kidney Stones; Oxygen Dependant 2L; Hysterectomy; Insulin resistance Surgeries: Yes Ear Surgery, Hysterectomy Respiratory: No Cardiac: No Neurological: No Female Reproductive Disorders: Endometriosis, Polycystic Ovarian Dis 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 oz. kg; 39.00 BMI Method: General Appearance: WD/WN, no apparent distress Eyes: Bilateral Eye Normal Inspection HEENT: PERRL/EOMI, normal ENT inspection, pharynx normal Neck: non-tender, full range of motion, supple, normal inspection Respiratory: chest non-tender, lungs clear, normal breath sounds, no respiratory distress, no accessory muscle use, other (Dry hacking cough) Cardiovascular: regular rate, rhythm, no edema, no murmur Gastrointestinal: normal bowel sounds, non tender, soft; No distended, No guarding, No rebound Extremities: normal range of motion, non-tender, normal inspection, no pedal edema, no calf tenderness, normal capillary refill Neurologic/Psychiatric: no motor/sensory deficits, alert, normal mood/affect Skin: normal color, warm/dry Lymphatic: no adenopathy Progress/Results/Core Measures Suspected Sepsis SIRS Temperature: Pulse: Respiratory Rate: Laboratory Tests 12/21/22 17:13: White Blood Count 7.3 Blood Pressure / Mean: Laboratory Tests 12/21/22 17:13: Creatinine 0.86, Platelet Count 272, Total Bilirubin 0.4 Results/Orders Lab Results Laboratory Tests Test 12/21/22 17:13 12/21/22 17:20 Range/Units White Blood Count 7.3 4.3-11.0 10^3/uL Red Blood Count 5.04 3.80-5.11 10^6/uL Hemoglobin 14.9 11.5-16.0 g/dL Hematocrit 44 35-52 % Mean Corpuscular Volume 88 80-99 fL Mean Corpuscular Hemoglobin 30 25-34 pg Mean Corpuscular Hemoglobin Concent 34 32-36 g/dL Red Cell Distribution Width 13.8 10.0-14.5 % Platelet Count 272 130-400 10^3/uL Mean Platelet Volume 10.6 9.0-12.2 fL Immature Granulocyte % (Auto) 0 % Neutrophils (%) (Auto) 57 42-75 % Lymphocytes (%) (Auto) 35 12-44 % Monocytes (%) (Auto) 7 0-12 % Eosinophils (%) (Auto) 1 0-10 % Basophils (%) (Auto) 0 0-10 % Neutrophils # (Auto) 4.1 1.8-7.8 10^3/uL Lymphocytes # (Auto) 2.5 1.0-4.0 10^3/uL Monocytes # (Auto) 0.5 0.0-1.0 10^3/uL Eosinophils # (Auto) 0.1 0.0-0.3 10^3/uL Basophils # (Auto) 0.0 0.0-0.1 10^3/uL Immature Granulocyte # (Auto) 0.0 0.0-0.1 10^3/uL Sodium Level 140 135-145 MMOL/L Potassium Level 4.2 3.6-5.0 MMOL/L Chloride Level 102 98-107 MMOL/L Carbon Dioxide Level 25 21-32 MMOL/L Anion Gap 13 5-14 MMOL/L Blood Urea Nitrogen 10 7-18 MG/DL Creatinine 0.86 0.60-1.30 MG/DL Estimat Glomerular Filtration Rate 88 BUN/Creatinine Ratio 12 Glucose Level 122 H 70-105 MG/DL Calcium Level 9.9 8.5-10.1 MG/DL Corrected Calcium 9.7 8.5-10.1 MG/DL Total Bilirubin 0.4 0.1-1.0 MG/DL Aspartate Amino Transf (AST/SGOT) 28 5-34 U/L Alanine Aminotransferase (ALT/SGPT) 69 H 0-55 U/L Alkaline Phosphatase 116 40-136 U/L Troponin I < 0.30 <0.30 NG/ML Pro-B-Type Natriuretic Peptide < 36.0 <125.0 PG/ML Total Protein 7.9 6.4-8.2 GM/DL Albumin 4.3 3.2-4.5 GM/DL Influenza Type A (RT-PCR) Not Detected Not Detecte Influenza Type B (RT-PCR) Not Detected Not Detecte SARS-CoV-2 RNA (RT-PCR) Not Detected Not Detecte My Orders Orders - COTY MURPHY MD Chest Pa/Lat (2 View) (12/21/22 17:16) Cbc With Automated Diff (12/21/22 17:16) Comprehensive Metabolic Panel (12/21/22 17:16) Influenza A And B By Pcr (12/21/22 17:16) Probnp Fs (12/21/22 17:16) Troponin I Fs (12/21/22 17:16) Ed Iv/Invasive Line Start (12/21/22 17:16) Ekg Tracing (12/21/22 17:16) Covid 19 Inhouse Test (12/21/22 17:16) Vital Signs/I&O 12/21/22 12/21/22 17:22 17:22 Temp 36.0 Pulse 113 Resp 18 B/P (MAP) 141/97 (112) Pulse Ox 95 O2 Delivery Nasal Cannula O2 Flow Rate 2.00 Capillary Refill : Progress Note : Progress Note 42-year-old female with above history coming in due to worsening cough and shortness of breath in the setting of chronic cough and shortness of breath. ABCs were intact and vitals were stable on presentation. On her baseline 2 L oxygen, her sat was typically around 97 to 99% even with ambulation. Lungs sounded clear to me. Chest x-ray my interpretation with no obvious pneumonia, does have some chronic reticular findings likely scarring from previous COVID infection. An IV was placed and basic labs were obtained. Troponin negative, BNP undetectable, creatinine normal. EKG with no acute ischemic changes, and on my interpretation looks almost identical to her prior EKG. She has technically low risk for a PE per [place] criteria and is technically PERC negative given the surgery was greater than 4 weeks ago. Would be even lower risk for PE given she was on Lovenox prophylactically for weeks. The patient is already on antibiotics from an outpatient provider. She has not been on steroids for 6 mon ths. She states that have helped in similar situations in the past. I will give her a one-time IM shot of Decadron given her clinical history of improvement in similar situations. I believe she is otherwise stable for discharge with outpatient follow-up. She was sent home with strict return precautions ECG Initial ECG Impression Date: Dec 21, 2022 Initial ECG Impression Time: 17:15 Initial ECG Rate: 96 Initial ECG Rhythm: Normal Sinus Comment Narrow QRS, normal axis, no significant ST changes, appears similar to prior EKG Diagnostic Imaging Diagonstic Imaging: Xray (chest 2 view) Comments [email or web address] [place], [place] NAME: ALMAZ DAS [facility] REC#: [id number] PT STATUS: REG ER : 1980 PHYSICIAN: COTY MURPHY MD ADMIT DATE: 12/21/22/ER FS Signed Date of Exam:12/21/22 CHEST PA/LAT (2 VIEW) CHEST PA/LAT (2 VIEW) Indication: Shortness of breath and cough Comparison: 03/16/2022 Findings: Chronic reticular opacities in the right middle lobe are stable. No consolidations have developed. No pleural effusion or pneumothorax. Normal heart size and mediastinal contours. Impression: No acute cardiopulmonary process. Dictated by: Dictated on workstation # [id number] Dict: 12/21/221731 Trans: 12/21/221732 [facility] [phone] Interpreted by: NICO HOLCOMB MD Electronically signed by: NICO HOLCOMB MD 12/21/221732 Departure Impression Primary Impression: COVID-19 migel diaz Additional Impressions: Dyspnea Qualified Codes: R06.02 - Shortness of breath Chronic respiratory failure with hypoxia Disposition: HOME, SELF-CARE Condition: Stable Departure-Patient Inst. Decision time for Depature: 18:10 Referrals: SAAD YIN DO (PCP) Primary Care Physician Patient Instructions: Shortness of Breath (Dyspnea) (DC) Add. Discharge Instructions: Your chest x-ray appears similar to prior with no significant inflammation from previous done here. Your labs also look fairly unremarkable. We are not seeing any clinical signs of anything scary such as a blood clot. We gave you a one- time shot of Decadron since steroids have helped in the past. 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 Work/School Note: Work Release Form Date Seen in the Emergency Department: Dec 21, 2022 Return to Work: Dec 23, 2022 Restrictions: No Restrictions COTY MURPHY MD Dec 21, 2022 17:23
--- NOTE | 2022-12-21 17:34 | Diagnostic Imaging Report ---
CHEST PA/LAT (2 VIEW) Indication: Shortness of breath and cough Comparison: 03/16/2022 Findings: Chronic reticular opacities in the right middle lobe are stable. No consolidations have developed. No pleural effusion or pneumothorax. Normal heart size and mediastinal contours. Impression: No acute cardiopulmonary process. Dictated by: Dictated on workstation # [id number]
[2022-12-21 17:39] LABS: ALANINE AMINOTRANSFERASE 69 U/L (0-55); ALKALINE PHOSPHATASE 116 U/L (40-136); BILIRUBIN,TOTAL 0.4 MG/DL (0.1-1.0); BUN/CREATININE RATIO 12; CALCIUM 9.9 MG/DL (8.5-10.1); CARBON DIOXIDE 25 MMOL/L (21-32); CHLORIDE 102 MMOL/L (98-107); CREATININE SERUM 0.86 MG/DL (0.60-1.30); GFR ESTIMATED 88; GLUCOSE 122 MG/DL (70-105); POTASSIUM 4.2 MMOL/L (3.6-5.0); SODIUM 140 MMOL/L (135-145)
[2022-12-21 17:40] LABS: ALBUMIN 4.3 GM/DL (3.2-4.5); TOTAL PROTEIN 7.9 GM/DL (6.4-8.2)
== END 2022-12-21 18:17 | disposition home or self-care (01) ==
LOC: EDUNIT# 17:03 → ER FS 17:04
DX: U09.9 Post COVID-19 condition, unspecified (principal); J96.91 Respiratory failure, unspecified with hypoxia; Z99.81 Dependence on supplemental oxygen; Z79.01 Long term (current) use of anticoagulants; Z20.822 Contact with and (suspected) exposure to COVID-19; Z28.310 Unvaccinated for COVID-19
CPT/HCPCS: 36415; 71046; 80053; 83880; 84484; 85025; 87636; 93005

== ENCOUNTER 2023-02-15 06:36 | Emergency (ER) | payer BC, MEDICAID ==
[2023-02-15] MEDS ORDERED: NS IV 1000 ML 1,000 ML IV SCH (07:00)
[2023-02-15] MEDS ORDERED: ONDANSETRON 4 MG/2 ML (SDV) Z0FRAN IVP ONE (07:00)
[2023-02-15] MEDS ORDERED: KETOROLAC 30 MG/ML VIAL IVP ONE (07:00)
[2023-02-15 07:01] LABS: BASOPHILS # (AUTO) 0.1 10^3/uL (0.0-0.1); BASOPHILS % (AUTO) 1 % (0-10); EOSINOPHILS # (AUTO) 0.1 10^3/uL (0.0-0.3); EOSINOPHILS % (AUTO) 1 % (0-10); HEMATOCRIT 41 % (35-52); HEMOGLOBIN 13.8 g/dL (11.5-16.0); LYMPHOCYTES # (AUTO) 2.7 10^3/uL (1.0-4.0); LYMPHOCYTES % (AUTO) 29 % (12-44); MEAN CORPUSCULAR HEMOGLOBIN 31 pg (25-34); MEAN CORPUSCULAR HGB CONC 34 g/dL (32-36); MEAN CORPUSCULAR VOLUME 91 fL (80-99); MEAN PLATELET VOLUME 10.1 fL (9.0-12.2); MONOCYTES # (AUTO) 0.7 10^3/uL (0.0-1.0); MONOCYTES % (AUTO) 8 % (0-12); NEUTROPHILS # (AUTO) 5.7 10^3/uL (1.8-7.8); NEUTROPHILS % (AUTO) 61 % (42-75); PLATELET COUNT 385 10^3/uL (130-400); WHITE BLOOD COUNT 9.3 10^3/uL (4.3-11.0)
--- NOTE | 2023-02-15 07:02 | ED Abdominal Pain ---
General Chief Complaint: Abdominal/GI Problems Stated Complaint: ABD PAIN Nursing Triage Note: Pt complaining of epigastric pain that started around 0200 Source of Information: Patient, RN Notes Reviewed Exam Limitations: No Limitations (MIREYA BROOKS MD) History of Present Illness Date Seen by Provider: February 15, 2023 Time Seen by Provider: 06:45 Initial Comments 42-year-old female patient presented POV with complaining of epigastric pain. Patient states she woke up at 2 AM because of sharp epigastric pain and rated her pain 7 or 8/10 with radiation to her back as a constant pain associated with nausea. Patient complaining of constipation with last bowel movement 2 days ago without urinary symptoms, fever and chills, sick contact. Patient states she made herself to vomit about 15 times and took Hyoscyamine and Tums without improvement of her pain. Patient states she had gastric bypass in November and since then has had episodes of epigastric pain that usually gets better with self-induced vomiting. Patient still has her gallbladder and did not have any work-up for gallstone previously. Patient ate avocado last night. Patient has history of hysterectomy. (MIREYA BROOKS MD) Timing/Duration: 12 Hours Severity/Quality: Severe, Sharp, Stabbing Location: RUQ, Epigastric Radiation: No Radiation Activities at Onset: Other (started after eating Avocado) Modifying Factors: Worsens With Eating Associated Symptoms: No Back Pain, No Chest Pain, No Diaphoresis, No Fever/Chills, No Fatigue, No Headache, No Heartburn; Nausea/Vomiting; No Rash, No Shortness of Air, No Swelling/Mass in Abdomen, No Syncope, No Weakness (LAWSON BARNES MD) Allergies and Home Medications Allergies Coded Allergies: latex (Verified Allergy, Unknown, 11/15/19) Patient Home Medication List Home Medication List Reviewed: Yes (MIREYA BROOKS MD) Home Medication List Reviewed: Yes (LAWSON BARNES MD) Azithromycin (Azithromycin) 500 Mg Tablet, 500 MG PO DAILY Prescribed by: GEOVANY CARROLL MD on 03/14/22 1516 Cefdinir (Cefdinir) 300 Mg Capsule, 300 MG PO BID Prescribed by: COTY MURPHY on 02/06/222202 Cefpodoxime Proxetil (Cefpodoxime Proxetil) 200 Mg Tablet, 200 MG PO Q12H Prescribed by: GEOVANY CARROLL MD on 03/14/221515 Ciprofloxacin HCl (Ciprofloxacin HCl) 500 Mg Tablet, 500 MG PO BID Prescribed by: GREY LONGORIA on 04/22/201804 Hydrocodone Bit/Acetaminophen (HYDROcodone/APAP 5 MG/325 MG TAB) 1 Tab Tab, 1 TAB PO Q6H PRN for PAIN-SEVERE (8-10) Prescribed by: COTY MURPHY on 02/06/222107 Hydrocodone/Acetaminophen (Hydrocodone-Acetamin 5-325 mg) 1 Each Tablet, 1 EACH PO Q6H PRN for PAIN-BREAKTHROUGH Prescribed by: GREY LONGORIA on 04/22/201804 Ibuprofen (Ibuprofen) 600 Mg Tablet, 600 MG PO Q6H PRN for PAIN-MILD Prescribed by: BLAYNE OBREGON on 08/22/211537 Ketorolac Tromethamine (Ketorolac Tromethamine) 10 Mg Tablet, 10 MG PO Q8H PRN for PAIN-MODERATE (5-7) Prescribed by: COTY MURPHY on 02/06/222107 Ondansetron (Ondansetron Odt) 4 Mg Tab.rapdis, 4 MG PO Q6H PRN for NAUSEA/VOMITING Prescribed by: BLAYNE OBREGON on 08/22/211537 Ondansetron (Ondansetron Odt) 4 Mg Tab.rapdis, 4 MG PO Q6H PRN for NAUSEA/VOMI TING-1ST LINE Prescribed by: COTY MURPHY on 02/06/222107 Oxycodone HCl/Acetaminophen (Percocet 5-325 mg Tablet) 1 Each Tablet, 1 TAB PO Q4H Prescribed by: BLAYNE OBREGON on 08/22/21 153 Tamsulosin HCl (Flomax) 0.4 Mg Cap, 0.4 MG PO DAILY Prescribed by: GREY LONGORIA on 04/22/201804 Review of Systems Review of Systems Constitutional: no symptoms reported EENTM: No Symptoms Reported Respiratory: No Symptoms Reported Cardiovascular: No Symptoms Reported Gastrointestinal: See HPI Genitourinary: No Symptoms Reported Musculoskeletal: no symptoms reported Skin: no symptoms reported Psychiatric/Neurological: No Symptoms Reported Endocrine: No Symptoms Reported Hematologic/Lymphatic: No Symptoms Reported (MIREYA BROOKS MD) All Other Systems Reviewed Negative Unless Noted: Yes (MIREYA BROOKS MD) Past Duosphq-Kpbtpv-Qmpfno Hx Patient Social History Tobacco Use?: No Use of E-Cig and/or Vaping dev: No Substance use?: No Alcohol Use?: No Pt feels they are or have been: No (MIREYA BROOKS MD) Immunizations Up To Date First/Initial COVID19 Vaccinat: Not currently vaccinated Second COVID19 Vaccination Oleksandr: Not currently vaccinated Third COVID19 Vaccination Date: Not currently vaccinated (MIREYA BROOKS MD) Seasonal Allergies Seasonal Allergies: No (MIREYA BROOKS MD) Past Medical History Surgery/Hospitalization HX: Long COVID; Kidney Stones; Oxygen Dependant 2L; Hysterectomy; Insulin resistance Surgeries: Yes Ear Surgery, Hysterectomy Respiratory: No Cardiac: No Neurological: No Female Reproductive Disorders: Endometriosis, Polycystic Ovarian Dis 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, Endometriosis, Cholecystitis February 2023 Surgeries: Yes Abdominal, Hysterectomy Respiratory: Yes (Covid Long Hauler syndrome) (LAWSON BARNES MD) Physical Exam Vital Signs Vital Signs - First Documented 02/15/23 06:40 Temp 36.5 Pulse 64 Resp 18 B/P (MAP) 122/71 (88) Pulse Ox 98 O2 Delivery Room Air (LAWSON BARNES MD) Vital Signs Capillary Refill : Less Than 3 Seconds (MIREYA BROOKS MD) Height/Weight/BMI Height: '" Weight: lbs. oz. kg; 35.00 BMI Method: General Appearance: WD/WN, mild distress HEENT: PERRL/EOMI, normal ENT inspection Neck: non-tender, full range of motion, supple Respiratory: chest non-tender, lungs clear, normal breath sounds, no respiratory distress, no accessory muscle use Cardiovascular: regular rate, rhythm, no edema, no gallop, no JVD, no murmur Gastrointestinal: normal bowel sounds, non tender, soft, no organomegaly, no pulsatile mass, guarding (Epigastric) Extremities: normal range of motion, non-tender Back: normal inspection Neurologic/Psychiatric: alert, normal mood/affect, oriented x 3 Skin: normal color (MIREYA BROOKS MD) Images 1 - epigastric and ruq abdominal pain, worse with palpation (LAWSON BARNES MD) Progress/Results/Core Measures Results/Orders Lab Results Laboratory Tests Test 02/15/23 06:45 02/15/23 10:49 Range/Units White Blood Count 9.3 4.3-11.0 10^3/uL Red Blood Count 4.50 3.80-5.11 10^6/uL Hemoglobin 13.8 11.5-16.0 g/dL Hematocrit 41 35-52 % Mean Corpuscular Volume 91 80-99 fL Mean Corpuscular Hemoglobin 31 25-34 pg Mean Corpuscular Hemoglobin Concent 34 32-36 g/dL Red Cell Distribution Width 14.5 10.0-14.5 % Platelet Count 385 130-400 10^3/uL Mean Platelet Volume 10.1 9.0-12.2 fL Immature Granulocyte % (Auto) 0 % Neutrophils (%) (Auto) 61 42-75 % Lymphocytes (%) (Auto) 29 12-44 % Monocytes (%) (Auto) 8 0-12 % Eosinophils (%) (Auto) 1 0-10 % Basophils (%) (Auto) 1 0-10 % Neutrophils # (Auto) 5.7 1.8-7.8 10^3/uL Lymphocytes # (Auto) 2.7 1.0-4.0 10^3/uL Monocytes # (Auto) 0.7 0.0-1.0 10^3/uL Eosinophils # (Auto) 0.1 0.0-0.3 10^3/uL Basophils # (Auto) 0.1 0.0-0.1 10^3/uL Immature Granulocyte # (Auto) 0.0 0.0-0.1 10^3/uL Sodium Level 140 135-145 MMOL/L Potassium Level 4.0 3.6-5.0 MMOL/L Chloride Level 105 98-107 MMOL/L Carbon Dioxide Level 25 21-32 MMOL/L Anion Gap 10 5-14 MMOL/L Blood Urea Nitrogen 8 7-18 MG/DL Creatinine 0.67 0.60-1.30 MG/DL Estimat Glomerular Filtration Rate 113 BUN/Creatinine Ratio 12 Glucose Level 106 H 70-105 MG/DL Calcium Level 9.7 8.5-10.1 MG/DL Corrected Calcium 9.7 8.5-10.1 MG/DL Total Bilirubin 0.7 0.1-1.0 MG/DL Aspartate Amino Transf (AST/SGOT) 50 H 5-34 U/L Alanine Aminotransferase (ALT/SGPT) 41 0-55 U/L Alkaline Phosphatase 110 40-136 U/L Total Protein 6.9 6.4-8.2 GM/DL Albumin 4.0 3.2-4.5 GM/DL Lipase 53 8-78 U/L Urine Color YELLOW Urine Clarity CLEAR Urine pH 7.0 5-9 Urine Specific [place] 1.010 L 1.016-1.022 Urine Protein NEGATIVE NEGATIVE Urine Glucose (UA) NEGATIVE NEGATIVE Urine Ketones NEGATIVE NEGATIVE Urine Nitrite NEGATIVE NEGATIVE Urine Bilirubin NEGATIVE NEGATIVE Urine Urobilinogen 1.0 < = 1.0 MG/DL Urine Leukocyte Esterase NEGATIVE NEGATIVE Urine RBC (Auto) NEGATIVE NEGATIVE Urine RBC NONE /HPF Urine WBC 2-5 /HPF Urine Crystals PRESENT H /LPF Urine Calcium Oxalate Crystals FEW H /LPF Urine Bacteria FEW H /HPF Urine Casts NONE /LPF Urine Mucus NEGATIVE /LPF Urine Yeast LARGE H /HPF Urine Culture Indicated YES (LAWSON BARNES MD) My Orders Orders - LAWSON BARNES MD Ct Abdomen/Pelvis W (02/15/23 07:20) Iohexol Injection (Omnipaque 350 Mg/Ml 1 (02/15/23 07:45) Received Contrast (Hold Metformin- Contr (02/15/23 07:45) Ns (Ivpb) (Sodium Chloride 0.9% Ivpb Bag (02/15/23 07:45) Fentanyl Inj (Sublimaze Injection) (02/15/23 09:02) Ondansetron Injection (Zofran Injectio (02/15/23 09:02) (LAWSON BARNES MD) Medications Given in ED Current Medications Medications Dose Ordered Sig/Matti Route Start Time Stop Time Status Last Admin Dose Admin Iohexol 100 ml ONCE ONCE IV 02/15/23 07:45 02/15/23 07:46 DC 02/15/23 07:46 80 ML Ketorolac Tromethamine 30 mg ONCE ONCE IVP 02/15/23 07:00 02/15/23 07:01 DC 02/15/23 06:59 30 MG Ondansetron HCl 4 mg ONCE ONCE IVP 02/15/23 07:00 02/15/23 07:01 DC 02/15/23 06:58 4 MG Sodium Chloride 100 ml ONCE ONCE IV 02/15/23 07:45 02/15/23 07:46 DC 02/15/23 07:46 100 ML (LAWSON BARNES MD) Vital Signs/I&O 02/15/23 02/15/23 06:40 08:37 Temp 36.5 Pulse 64 67 Resp 18 16 B/P (MAP) 122/71 (88) 139/81 (100) Pulse Ox 98 100 O2 Delivery Room Air Room Air (LASWON BARNES MD) Blood Pressure Mean: 88 Progress Progress Note : Progress Note @ 0700: 42-year-old female patient with history of gastric bypass and episodes of epigastric pain since her surgery with complaining of pain for more than 4 hours today with radiation to her back that did not get better with self-induced vomiting. Patient had a stable vital sign and had mild guarding in the epi gastric area without tenderness. CBC and CMP and lipase and UA is pending. Normal saline, Zofran and Toradol was ordered. CT abdomen pelvis was not ordered at this time and left to the decision of incoming physician. Patient care transferred to Dr. Barnes at 0700. (MIREYA BROOKS MD) Progress Note #1: Time: 07:00 Progress Note I assumed care of the patient from Dr. Brooks at shift change. Patient had no elevation of her WBC count on CBC and her comprehensive metabolic profile did not have acute significant abnormalities. Lipase normal at 53. Total Bilirubin 0.7. AST slightly elevated to 50. On recheck of the patient she reports that her pain is much improved and she was able to rest in the room. She states that she still has slight aching but the pain is tolerable. She was advised of her lab results. Since she did have the gastric sleeve surgery and [facility] in November will obtain a CT scan of the abdomen and pelvis to help evaluate for gallbladder as well as possible complications from the surgery. Patient denied needing anything else for pain or nausea currently. Progress Note #2: Time: 07:48 Progress Note On my personal interpretation and review of the CT scan of the abdomen pelvis with IV contrast I did not appreciate any free air from perforation or obstruction but she does have increased stool throughout the colon. She has dilated gallbladder with what appears to be some sludge in the gallbladder and slight thickening of the gallbladder wall. I did not appreciate pericholecystic fluid or any definite calcified gallstone. Awaiting radiology report on the CT. Progress Note #3: Time: 08:03 Progress Note I reviewed the radiologist report on the CT scan of the abdomen pelvis with IV contrast. The radiologist felt that she did have dilated gallbladder and thickened gallbladder wall with concerns for possible cholecystitis. Her kidneys also had kidney stones that were non-obstructing bilaterally. Right ovarian cystic structure in the adnexa 3.7 cm with septations. Recommend pelvic ultrasound to evaluate this and possible ultrasound or nuclear medicine scan of gallbladder. when reviewed with patient she reported that her pain was a 5 or 6 out of 10. She felt like this was tolerable and much better than when she first came to the emergency department. She has been resting in the room. I did speak with Dr. Allen the on-call surgeon locally at 0810 and he advised that he could have the patient come to the hospital and have gallbladder removed today or could see him in office tomorrow and schedule outpatient procedure. This is all provided she does not have worsening pain, fever, vomiting prior to seeing him in clinic. When discussed with the patient she requested to reach out to [facility] as she recently had gastric sleeve surgery done by Dr. Valadez in November and she is working with Dr. Fanny Romeo with pulmonology for her COVID long- haul symptoms. Will check with whoever is advanced solutions architect for Dr. Valadez about the patient and see if they would want her to come to or have her see them in clinic and set this up as outpatient or how they recommend her manage the cholecystitis. She was concerned that she has had so many issues with Covid and multiple allergic reactions that she wanted the input from regarding how to manage her current situation. [address] to Transfer line to try and check with Dr. Valadez or covering physician for advice on management of patient. I spoke with DAYANARA Mckinnon, at transfer center and he took basic information and requested we cloud images, which I had already asked Radiology to do so. He also requested written report for CT and current vital signs and labs to be faxed up as well. 0900 patient reports pain is getting worse again and is up to 7 out of 10 and climbing so requested something more for pain. Will give Fentanyl 50 mcg IV x 1 with Zofran 4 mg IV x 1 for nausea. Still awaiting input from [facility] Distribution Clerk. Progress Note #4: Time: 09:46 Progress Note DAYANARA Mckinnon, called back from Transfer center and advised that Dr. Oleary with bariatric surgery wanted the patient to come to to determine what to do since she has a complex history. He will call back with a room assignment when available. I did let DAYANARA Mckinnon, know that the patient was wanting to come up by private vehicle. 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 Patient reports her pain is down to 4 out of 10 after the Fentanyl. 1105 Transfer called back with a room assignment so will have patient head to . She had requested to come by private vehicle rather than ambulance. As she is medially stable and not requiring additional pain medicine I felt she would be safe to go with her family by private vehicle. I counseled her that she should not eat or drink anything until she is seen at that way if they want to do any surgery or procedures immediately they can do that and not have to wait for her stomach to empty. Urinalysis did have some crystals in the urine to go with her kidney stones seen on imaging. She also had a large amount of yeast present. She was denying any UTI symptoms. Will defer any yeast treatment to physicians and her PCP. (LAWSON BARNES MD) Diagnostic Imaging Diagonstic Imaging: CT Plain Films/CT/US/NM/MRI: abdomen, pelvis Comments NAME: ALMAZ DAS MED REC#: [id number] PT STATUS: REG ER : 1980 PHYSICIAN: LAWSON BARNES MD ADMIT DATE: 02/15/23/ER FS Draft Date of Exam:02/15/23 CT ABDOMEN/PELVIS W PROCEDURE: CT abdomen and pelvis with contrast. TECHNIQUE: Multiple contiguous axial images were obtained through the abdomen and pelvis after administration of intravenous contrast. Auto Exposure Controls were utilized during the CT exam to meet ALARA standards for radiation dose reduction. All CT scans use one or more of the following dose optimizing techniques: automated exposure control, MA and/or KvP adjustment based on patient size and exam type or iterative reconstruction. INDICATION: Epigastric pain, prior gastric sleeve. COMPARISON: 11/02/2022 and 08/22/2021 FINDINGS: Bibasilar scarring and/or atelectasis versus chronic interstitial lung disease is again seen within the lung bases. The gallbladder is distended, measuring greater than 10 cm in length. No significant adjacent inflammatory stranding about the gallbladder. Potential gallbladder wall thickening. The liver and spleen are unremarkable. Gastric sleeve is present. 0.6 cm nonobstructing right renal calculus. Punctate nonobstructing calculus within the left kidney. The left kidney and ureter are otherwise unremarkable. No aneurysmal dilatation of the abdominal aorta. The urinary bladder is decompressed, otherwise unremarkable. The uterus is not visualized. 3.7 cm septated cystic structures identified within the right adnexa. The left adnexa is unremarkable. The appendix is unremarkable. No bowel obstruction or pneumatosis. No significant adenopathy, free air, or free fluid in abdomen or pelvis. Transitional lumbosacral vertebral body. Scattered osseous degenerative changes without acute osseous abnormality. IMPRESSION: Abnormal distention of the gallbladder with questionable gallbladder wall thickening. This could relate to acute cholecystitis. Recommend clinical correlation. Additionally, a right upper quadrant ultrasound would help to further evaluate. Right greater than left nonobstructing bilateral renal calculi. 3.7 cm septated right adnexal cystic structure. This may simply relate to an involuting physiologic cyst, though cystic neoplasm not excluded. A nonemergent pelvic ultrasound would help to further evaluate. Bibasilar scarring versus chronic interstitial lung disease. Additional findings as above. Dictated on workstation # [id number] Dict: 02/15/23 0752 Trans: 02/15/23 0800 CV [id number] Interpreted by: BERNARDINO SANZ MD Electronically signed by: Reviewed: Reviewed by Me (I reviewed the radiologist report at 0803) (LAWSON BARNES MD) Departure Impression Primary Impression: Acute cholecystitis Additional Impressions: Abdominal pain Qualified Codes: R10.13 - Epigastric pain Bilateral nephrolithiasis Complex cyst of right ovary Disposition: 02 XFER SHT-TRM HOSP Condition: Stable Transfer Transfer Reason: Patient preference (She wanted her Bariatric Surgeon and Covid Manager Primary involved in her care) Time Spoke to Accepting Phy: 09:46 Transfer Progress Notes DAYANARA Mckinnon, called back from Transfer center and advised that Dr. Oleary with bariatric surgery wanted the patient to come to to determine what to do since she has a complex history. He will call back with a room assignment when available. I did let DAYANARA Mckinnon, know that the patient was wanting to come up by private vehicle. 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 Transfer Facility: [facility] Method of Transfer: Private Vehicle (LAWSON BARNES MD) Departure-Patient Inst. Referrals: SAAD YIN DO (PCP/Family) Primary Care Physician MIREYA BROOKS MD February 15, 2023 07:00 LAWSON BARNES MD February 15, 2023 08:08
[2023-02-15 07:15] LABS: BILIRUBIN,TOTAL 0.7 MG/DL (0.1-1.0); CALCIUM 9.7 MG/DL (8.5-10.1); CREATININE SERUM 0.67 MG/DL (0.60-1.30); TOTAL PROTEIN 6.9 GM/DL (6.4-8.2)
[2023-02-15] MEDS ORDERED: NS 100 ML (IVPB) BAG IV ONE (07:45)
[2023-02-15] MEDS ORDERED: IOHEXOL 350 MG/ML 100 ML (OMNIPAQUE 350) VIAL IV ONE (07:45)
[2023-02-15] MEDS ORDERED: HOLD METFORMIN - RECEIVED CONTRAST 20 ML VIAL IV SCH (07:45)
--- NOTE | 2023-02-15 08:01 | Diagnostic Imaging Report ---
PROCEDURE: CT abdomen and pelvis with contrast. TECHNIQUE: Multiple contiguous axial images were obtained through the abdomen and pelvis after administration of intravenous contrast. Auto Exposure Controls were utilized during the CT exam to meet ALARA standards for radiation dose reduction. All CT scans use one or more of the following dose optimizing techniques: automated exposure control, MA and/or KvP adjustment based on patient size and exam type or iterative reconstruction. INDICATION: Epigastric pain, prior gastric sleeve. COMPARISON: 11/02/2022 and 08/22/2021 FINDINGS: Bibasilar scarring and/or atelectasis versus chronic interstitial lung disease is again seen within the lung bases. The gallbladder is distended, measuring greater than 10 cm in length. No significant adjacent inflammatory stranding about the gallbladder. Potential gallbladder wall thickening. The liver and spleen are unremarkable. Gastric sleeve is present. 0.6 cm nonobstructing right renal calculus. Punctate nonobstructing calculus within the left kidney. The left kidney and ureter are otherwise unremarkable. No aneurysmal dilatation of the abdominal aorta. The urinary bladder is decompressed, otherwise unremarkable. The uterus is not visualized. 3.7 cm septated cystic structures identified within the right adnexa. The left adnexa is unremarkable. The appendix is unremarkable. No bowel obstruction or pneumatosis. No significant adenopathy, free air, or free fluid in abdomen or pelvis. Transitional lumbosacral vertebral body. Scattered osseous degenerative changes without acute osseous abnormality. IMPRESSION: Abnormal distention of the gallbladder with questionable gallbladder wall thickening. This could relate to acute cholecystitis. Recommend clinical correlation. Additionally, a right upper quadrant ultrasound would help to further evaluate. Right greater than left nonobstructing bilateral renal calculi. 3.7 cm septated right adnexal cystic structure. This may simply relate to an involuting physiologic cyst, though cystic neoplasm not excluded. A nonemergent pelvic ultrasound would help to further evaluate. Bibasilar scarring versus chronic interstitial lung disease. Additional findings as above. Dictated by: Dictated on workstation # [id number]
[2023-02-15] MEDS ORDERED: ONDANSETRON 4 MG/2 ML (SDV) Z0FRAN IVP STA (09:02)
[2023-02-15] MEDS ORDERED: fentaNYL INJ 100 MCG/2 ML AMP IVP STA (09:02)
[2023-02-15 10:57] LABS: BILIRUBIN,URINE NEGATIVE (NEGATIVE); CLARITY,URINE CLEAR; COLOR,URINE YELLOW; GLUCOSE, URINE (UA) NEGATIVE (NEGATIVE); KETONES,URINE NEGATIVE (NEGATIVE); LEUKOCYTE ESTERASE ,URINE NEGATIVE (NEGATIVE); NITRITE,URINE NEGATIVE (NEGATIVE); PROTEIN,URINE NEGATIVE (NEGATIVE)
[2023-02-15 11:05] LABS: BACTERIA,URINE FEW /HPF; CALCIUM OXALATE CRYSTALS,UR FEW /LPF; YEAST,URINE LARGE /HPF
[2023-02-15 11:11] VITALS: BP 132/76
== END 2023-02-15 11:11 | disposition short-term general hospital (02) ==
LOC: EDUNIT# 06:36 → ER FS 06:38
DX: K81.0 Acute cholecystitis (principal); N20.0 Calculus of kidney; N83.291 Other ovarian cyst, right side; R74.01 Elevation of levels of liver transaminase levels; U09.9 Post COVID-19 condition, unspecified; Z99.81 Dependence on supplemental oxygen; Z87.442 Personal history of urinary calculi; Z98.84 Bariatric surgery status; Z28.310 Unvaccinated for COVID-19
CPT/HCPCS: 36415; 74177; 80053; 81000; 83690; 85025; 87088; Q9967

== ENCOUNTER 2023-03-07 14:09 | Emergency (ER) | payer BC, MEDICAID ==
[~2023-03-07] VITALS: Ht 162.6 cm; Wt 80.7 kg
[2023-03-07] MEDS ORDERED: ONDANSETRON 4 MG/2 ML (SDV) Z0FRAN IVP STA (14:29)
[2023-03-07] MEDS ORDERED: NS IV 1000 ML 1,000 ML IV STA ×2 (14:29→15:00)
--- NOTE | 2023-03-07 14:37 | ED General ---
General Chief Complaint: Dizziness/Syncope Stated Complaint: ELEVATED HEART RATE, OXYGEN LOW, DIZZINESS Source of Information: Patient History of Present Illness Date Seen by Provider: March 07, 2023 Time Seen by Provider: 14:14 Initial Comments 42-year-old female presenting with complaints of shortness of breath and heart rate being fast today. She had gallbladder removed approximately 3 weeks ago. She has had some blood work done this last week where they aleida multiple tubes of blood for immunology testing. She does have a history of gastric bypass surgery with a sleeve procedure and is not able to eat or drink very much. She felt like her oxygen level was dropping at times and her heart rate was going up today. She feels like she might be dehydrated as she has not been able to eat and drink as well and has had that happen before when she has had multiple tubes of blood drawn. She denies having any pain in her chest. She has no pain or burning with urination. She denies fever, chills, vomiting, diarrhea. She does have some mild nausea. She feels dizzy with standing and walking especially. It improves with sitting and laying down. She does have a history of long COVID symptoms and had only recently been taken off of home oxygen. Timing/Duration: 1-2 Days Severity: Severe (With activity) Modifying Factors: worse with Movement Associated Systoms: No Chest Pain, No Cough, No Diaphoresis, No Fever/Chills, No Headaches, No Loss of Appetite; Malaise; No Rash, No Seizure; Shortness of Air; No Syncope, No Weakness Allergies and Home Medications Allergies Coded Allergies: latex (Verified Allergy, Unknown, 11/15/19) Patient Home Medication List Home Medication List Reviewed: Yes Azithromycin (Azithromycin) 500 Mg Tablet, 500 MG PO DAILY Prescribed by: GEOVANY CARROLL MD on 03/14/22 151 Cefdinir (Cefdinir) 300 Mg Capsule, 300 MG PO BID Prescribed by: COTY MURPHY on 02/06/222202 Cefpodoxime Proxetil (Cefpodoxime Proxetil) 200 Mg Tablet, 200 MG PO Q12H Prescribed by: GEOVANY CARROLL MD on 03/14/22 151 Ciprofloxacin HCl (Ciprofloxacin HCl) 500 Mg Tablet, 500 MG PO BID Prescribed by: GREY LONGORIA on 04/22/20 1804 Hydrocodone Bit/Acetaminophen (HYDROcodone/APAP 5 MG/325 MG TAB) 1 Tab Tab, 1 TAB PO Q6H PRN for PAIN-SEVERE (8-10) Prescribed by: COTY MURPHY on 02/06/222107 Hydrocodone/Acetaminophen (Hydrocodone-Acetamin 5-325 mg) 1 Each Tablet, 1 EACH PO Q6H PRN for PAIN-BREAKTHROUGH Prescribed by: GREY LONGORIA on 04/22/201804 Ibuprofen (Ibuprofen) 600 Mg Tablet, 600 MG PO Q6H PRN for PAIN-MILD Prescribed by: BLAYNE OBREGON on 08/22/211537 Ketorolac Tromethamine (Ketorolac Tromethamine) 10 Mg Tablet, 10 MG PO Q8H PRN for PAIN-MODERATE (5-7) Prescribed by: COTY MURPHY on 02/06/222107 Ondansetron (Ondansetron Odt) 4 Mg Tab.rapdis, 4 MG PO Q6H PRN for NAUSEA/VOMITING Prescribed by: BLAYNE OBREGON on 08/22/211537 Ondansetron (Ondansetron Odt) 4 Mg Tab.rapdis, 4 MG PO Q6H PRN for NAUSEA/VOMITING-1ST LINE Prescribed by: COTY MURPHY on 02/06/222107 Oxycodone HCl/Acetaminophen (Percocet 5-325 mg Tablet) 1 Each Tablet, 1 TAB PO Q4H Prescribed by: BLAYNE OBREGON on 08/22/21 153 Tamsulosin HCl (Flomax) 0.4 Mg Cap, 0.4 MG PO DAILY Prescribed by: GREY LONGORIA on 04/22/201804 Review of Systems Review of Systems Constitutional: No chills, No fever EENTM: no symptoms reported Respiratory: see HPI Cardiovascular: see HPI Gastrointestinal: no symptoms reported Genitourinary: decreased output Musculoskeletal: no symptoms reported Skin: no symptoms reported Psychiatric/Neurological: No Symptoms Reported Past Dkcnirr-Thnopu-Ayzfrs Hx Patient Social History Tobacco Use?: No Substance use?: No Alcohol Use?: No Pt feels they are or have been: No Immunizations Up To Date First/Initial COVID19 Vaccinat: Not currently vaccinated Second COVID19 Vaccination Oleksandr: Not currently vaccinated Third COVID19 Vaccination Date: Not currently vaccinated Seasonal Allergies Seasonal Allergies: No Past Medical History Surgery/Hospitalization HX: Hysterectomy, Gastric sleeve surgery at with Dr. 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, Endometriosis, Cholecystitis February 2023 Surgeries: Yes Abdominal, Hysterectomy Respiratory: Yes (Covid [place] syndrome) Cardiac: No Neurological: No Female Reproductive Disorders: Endometriosis, Polycystic Ovarian Dis [employer] History: Hysterectomy Sexually Transmitted Disease: Yes Genitourinary: Yes (IBS) Kidney Stones Gastrointestinal: No Musculoskeletal: Yes Degenerate Disk Disease, Chronic Back Pain Endocrine: No HEENT: No Cancer: No Psychosocial: No Integumentary: No Physical Exam Vital Signs Vital Signs - First Documented 03/07/23 14:27 Temp 36.0 Pulse 122 Resp 18 B/P (MAP) 138/98 (111) Pulse Ox 96 O2 Delivery Room Air Capillary Refill : Height, Weight, BMI Height: '" Weight: lbs. oz. kg; 35.00 BMI Method: General Appearance: No Apparent Distress, WD/WN HEENT: PERRL/EOMI; No Moist Mucous Membranes (Slightly dry mucous membranes) Neck: Full Range of Motion, Normal Inspection, Non Tender, Supple Respiratory: Chest Non Tender, Lungs Clear, Normal Breath Sounds, No Accessory Muscle Use, No Respiratory Distress Cardiovascular: Normal Peripheral Pulses, Tachycardia Gastrointestinal: Normal Bowel Sounds, No Pulsatile Mass, Non Tender, Soft Extremity: Normal Capillary Refill, Normal Inspection, No Pedal Edema Neurologic/Psychiatric: Alert, Oriented x3 Skin: Normal Color, Warm/Dry Progress/Results/Core Measures Suspected Sepsis SIRS Temperature: Pulse: Respiratory Rate: Laboratory Tests 03/07/23 14:35: White Blood Count 9.0 Blood Pressure / Mean: Laboratory Tests 03/07/23 14:35: Creatinine 0.70, INR Comment 0.9, Platelet Count 434H, Total Bilirubin 0.6 Results/Orders Lab Results Laboratory Tests Test 03/07/23 14:20 03/07/23 14:35 Range/Units Urine Color DARK YELLOW Urine Clarity CLEAR Urine pH 5.5 5-9 Urine Specific [place] >=1.030 1.016-1.022 Urine Protein 1+ H NEGATIVE Urine Glucose (UA) NEGATIVE NEGATIVE Urine Ketones NEGATIVE NEGATIVE Urine Nitrite NEGATIVE NEGATIVE Urine Bilirubin 2+ H NEGATIVE Urine Urobilinogen 1.0 < = 1.0 MG/DL Urine Leukocyte Esterase NEGATIVE NEGATIVE Urine RBC (Auto) NEGATIVE NEGATIVE Urine RBC 0-2 /HPF Urine WBC 2-5 /HPF Urine Squamous Epithelial Cells 2-5 /HPF Urine Crystals NONE /LPF Urine Bacteria LARGE H /HPF Urine Casts PRESENT /LPF Urine Hyaline Casts 2-5 H /LPF Urine Mucus LARGE H /LPF Urine Yeast FEW H /HPF Urine Culture Indicated YES White Blood Count 9.0 4.3-11.0 10^3/uL Red Blood Count 4.70 3.80-5.11 10^6/uL Hemoglobin 14.5 11.5-16.0 g/dL Hematocrit 42 35-52 % Mean Corpuscular Volume 89 80-99 fL Mean Corpuscular Hemoglobin 31 25-34 pg Mean Corpuscular Hemoglobin Concent 35 32-36 g/dL Red Cell Distribution Width 13.2 10.0-14.5 % Platelet Count 434 H 130-400 10^3/uL Mean Platelet Volume 9.8 9.0-12.2 fL Immature Granulocyte % (Auto) 0 % Neutrophils (%) (Auto) 67 42-75 % Lymphocytes (%) (Auto) 25 12-44 % Monocytes (%) (Auto) 7 0-12 % Eosinophils (%) (Auto) 1 0-10 % Basophils (%) (Auto) 1 0-10 % Neutrophils # (Auto) 6.0 1.8-7.8 10^3/uL Lymphocytes # (Auto) 2.2 1.0-4.0 10^3/uL Monocytes # (Auto) 0.6 0.0-1.0 10^3/uL Eosinophils # (Auto) 0.1 0.0-0.3 10^3/uL Basophils # (Auto) 0.1 0.0-0.1 10^3/uL Immature Granulocyte # (Auto) 0.0 0.0-0.1 10^3/uL Prothrombin Time 13.0 12.2-14.7 SEC INR Comment 0.9 0.8-1.4 Activated Partial Thromboplast Time 27 24-35 SEC D-Dimer 0.34 0.00-0.49 UG/ML Sodium Level 139 135-145 MMOL/L Potassium Level 3.8 3.6-5.0 MMOL/L Chloride Level 105 98-107 MMOL/L Carbon Dioxide Level 22 21-32 MMOL/L Anion Gap 12 5-14 MMOL/L Blood Urea Nitrogen 9 7-18 MG/DL Creatinine 0.70 0.60-1.30 MG/DL Estimat Glomerular Filtration Rate 112 BUN/Creatinine Ratio 13 Glucose Level 129 H 70-105 MG/DL Calcium Level 9.6 8.5-10.1 MG/DL Corrected Calcium 9.5 8.5-10.1 MG/DL Total Bilirubin 0.6 0.1-1.0 MG/DL Aspartate Amino Transf (AST/SGOT) 20 5-34 U/L Alanine Aminotransferase (ALT/SGPT) 24 0-55 U/L Alkaline Phosphatase 109 40-136 U/L Total Protein 7.2 6.4-8.2 GM/DL Albumin 4.1 3.2-4.5 GM/DL My Orders Orders - LAWSON BARNES MD Cbc With Automated Diff (03/07/23 14:29) Comprehensive Metabolic Panel (03/07/23 14:29) Ed Iv/Invasive Line Start (03/07/23 14:29) Monitor-Rhythm Ecg Trace Only (03/07/23 14:29) Fibrin Degradation Products (03/07/23 14:29) Protime With Inr (03/07/23 14:29) Partial Thromboplastin Time (03/07/23 14:29) Ua Culture If Indicated (03/07/23 14:29) Ns Iv 1000 Ml (Sodium Chloride 0.9%) (03/07/23 14:29) Ondansetron Injection (Zofran Injectio (03/07/23 14:29) Urine Culture (03/07/23 14:20) Ns Iv 1000 Ml (Sodium Chloride 0.9%) (03/07/23 15:00) Vital Signs/I&O 03/07/23 14:27 Temp 36.0 Pulse 122 Resp 18 B/P (MAP) 138/98 (111) Pulse Ox 96 O2 Delivery Room Air Capillary Refill : Progress Note #1: Progress Note Potential diagnosis of dehydration, electrolyte imbalance, pulmonary embolism, DVT, long COVID symptoms. Obtain peripheral IV access and send labs for complete blood count, comprehensive metabolic profile, coags and D-dimer. Give normal saline 1 L IV fluid bolus for hydration, Zofran 4 mg IV for nausea. Placed on cardiac telemetry monitoring and initially her heart rate was 114 sinus tachycardia. As she rested in the bed it did come down to 100 bpm. Her oxygen saturation has been 97 to 99% on room air. She has a blood pressure of 138/93. She does have some mild tachypnea with 24 to 28 breaths/min. As her lungs were clear to aus cultation and her oxygen saturation was staying up will defer a chest x-ray for now unless she has worsening symptoms or requires supplemental oxygen. Provided that her D-dimer was negative would also not need to perform a CT angiogram of her chest to evaluate for pulmonary embolism or blood clot. Progress Note #2: Time: 14:51 Progress Note Complete blood count does not show acute abnormality with WBC count as it is 9. Urinalysis has signs of dehydration with specific gravity >1.030 but had negative ketones, nitrites, leukocyte esterace and no WBC in the urine but she had a large number of bacteria. She denies UTI symptoms so will defer antibiotics unless culture shows she needs something. Encourage fluids and will order a 2nd Liter of NS for hydration here in the ED. As the first liter is infusing her heart rate is down to the 90s and her respiratory rate resting in bed is now 12-16 breaths per minute. O2 Saturation remains 97-99% on room air. Progress Note #3: Time: 15:11 Progress Note D dimer negative for DVT/PE at 0.34. Comprehensive metabolic profile does not show acute significant electrolyte abnormality as he basic electrolytes, renal function and hepatic function are all normal but she has mild elevation of glucose to 129 in a non-fasting state. Her heart rate continues to improve into the 80s now. Will plan on discharge to home after 2nd Liter of NS IVF infuses. Encourage fluids and hydration at home. When updating patient of findings and plan she reported feeling better and was agreeable with going home. She was also made aware that if the urine culture shows a single bacteria concerning for UTI rather than multiple bacteria indicating contamination will get in touch with her to prescribe an antibiotic. She was also agreeable to this as she continued to deny UTI symptoms and did not want to take an antibiotic if she did not have to take one. Departure Impression Primary Impression: Sinus tachycardia Additional Impressions: Dyspnea on exertion Long COVID Dehydration Disposition: 01 HOME, SELF-CARE Condition: Improved Departure-Patient Inst. Decision time for Depature: 15:23 Referrals: SAAD YIN DO (PCP/Family) Primary Care Physician Patient Instructions: Dehydration, Adult ED, Shortness of Breath, Adult ED Add. Discharge Instructions: Try to keep sipping on fluids and stay well-hydrated. Follow-up through the clinic for continued concerns. All discharge instructions reviewed with patient and/or family. Voiced understa nding. LAWSON BARNES MD March 07, 2023 14:36
[2023-03-07 14:38] LABS: BASOPHILS # (AUTO) 0.1 10^3/uL (0.0-0.1); BASOPHILS % (AUTO) 1 % (0-10); EOSINOPHILS # (AUTO) 0.1 10^3/uL (0.0-0.3); EOSINOPHILS % (AUTO) 1 % (0-10); HEMATOCRIT 42 % (35-52); HEMOGLOBIN 14.5 g/dL (11.5-16.0); LYMPHOCYTES # (AUTO) 2.2 10^3/uL (1.0-4.0); LYMPHOCYTES % (AUTO) 25 % (12-44); MEAN CORPUSCULAR HEMOGLOBIN 31 pg (25-34); MEAN CORPUSCULAR HGB CONC 35 g/dL (32-36); MEAN CORPUSCULAR VOLUME 89 fL (80-99); MEAN PLATELET VOLUME 9.8 fL (9.0-12.2); MONOCYTES # (AUTO) 0.6 10^3/uL (0.0-1.0); MONOCYTES % (AUTO) 7 % (0-12); NEUTROPHILS % (AUTO) 67 % (42-75); PLATELET COUNT 434 10^3/uL (130-400)
[2023-03-07 14:44] LABS: CLARITY,URINE CLEAR; GLUCOSE, URINE (UA) NEGATIVE (NEGATIVE); KETONES,URINE NEGATIVE (NEGATIVE); LEUKOCYTE ESTERASE ,URINE NEGATIVE (NEGATIVE); NITRITE,URINE NEGATIVE (NEGATIVE); PH,URINE 5.5 (5-9); PROTEIN,URINE 1+ (NEGATIVE)
[2023-03-07 14:46] LABS: BILIRUBIN,URINE 2+ (NEGATIVE); COLOR,URINE DARK YELLOW
[2023-03-07 14:47] LABS: BACTERIA,URINE LARGE /HPF; RBC,URINE 0-2 /HPF; YEAST,URINE FEW /HPF
[2023-03-07 15:04] LABS: BILIRUBIN,TOTAL 0.6 MG/DL (0.1-1.0); CALCIUM 9.6 MG/DL (8.5-10.1); CREATININE SERUM 0.7 MG/DL (0.60-1.30); FIBRIN DEGRADATION PRODUCTS 0.34 UG/ML (0.00-0.49); INR 0.9 (0.8-1.4); POTASSIUM 3.8 MMOL/L (3.6-5.0)
[2023-03-07 15:05] LABS: ALBUMIN 4.1 GM/DL (3.2-4.5); TOTAL PROTEIN 7.2 GM/DL (6.4-8.2)
[2023-03-07 15:28] VITALS: BP 113/70
== END 2023-03-07 15:28 | disposition home or self-care (01) ==
LOC: EDUNIT# 14:09 → ER FS 14:15
DX: R00.0 Tachycardia, unspecified (principal); R06.00 Dyspnea, unspecified; E86.0 Dehydration; U09.9 Post COVID-19 condition, unspecified; R11.0 Nausea
CPT/HCPCS: 36415; 80053; 81000; 85025; 85379; 85610; 85730; 87088; 93041

== ENCOUNTER 2023-03-14 15:58 | Emergency (ER) | payer BC, MEDICAID ==
[~2023-03-14] VITALS: Ht 162 cm; Wt 80.0 kg
[2023-03-14 16:19] VITALS: BP 136/94
[2023-03-14] MEDS ORDERED: ONDANSETRON 4 MG/2 ML (SDV) Z0FRAN IVP STA (16:25)
[2023-03-14] MEDS ORDERED: NS IV 1000 ML 1,000 ML IV STA ×2 (16:25→17:10)
[2023-03-14] MEDS ORDERED: cefTRIAXone PRE-MIX 50 ML IV STA (16:25)
[2023-03-14] MEDS ORDERED: KETOROLAC 15 MG/ML VIAL IVP STA (16:37)
[2023-03-14 16:46] LABS: BASOPHILS % (AUTO) 1 % (0-10); EOSINOPHILS % (AUTO) 1 % (0-10); HEMATOCRIT 39 % (35-52); HEMOGLOBIN 13.4 g/dL (11.5-16.0); LYMPHOCYTES # (AUTO) 2.1 10^3/uL (1.0-4.0); LYMPHOCYTES % (AUTO) 28 % (12-44); MEAN CORPUSCULAR HEMOGLOBIN 31 pg (25-34); MEAN CORPUSCULAR HGB CONC 34 g/dL (32-36); MEAN CORPUSCULAR VOLUME 90 fL (80-99); MEAN PLATELET VOLUME 9.7 fL (9.0-12.2); MONOCYTES # (AUTO) 0.6 10^3/uL (0.0-1.0); MONOCYTES % (AUTO) 8 % (0-12); NEUTROPHILS # (AUTO) 4.9 10^3/uL (1.8-7.8); NEUTROPHILS % (AUTO) 63 % (42-75); PLATELET COUNT 347 10^3/uL (130-400); WHITE BLOOD COUNT 7.8 10^3/uL (4.3-11.0)
--- NOTE | 2023-03-14 16:46 | ED General ---
General Chief Complaint: - Reproductive Stated Complaint: AJ FLANK PAIN; N/V; DIARRHEA Nursing Triage Note: Patient has presented to ER with cc of not feeling well because of her urinary tract infection. Patient reports that she has had a urinary tract infection since Thursday. She reports that she was having trouble getting the antibiotic and was able to get the antibiotic this morning - Macrobid 100mg, BID. She took the first dose this morning. She is not feeling well today - she has nasuea and she is not wanting to eat. Source of Information: Patient History of Present Illness Date Seen by Provider: Mar 14, 2023 Time Seen by Provider: 16:11 Initial Comments 42-year-old female presenting with complaints of bilateral flank pain and burning with urination. She stated that Thursday she started feeling bad and had tried to get to the clinic but they could not see her until yesterday on Thursday. They did diagnose her with a UTI and prescribed Macrobid but she did not get that started until this morning. She feels like she is dehydrated and having bilateral flank pain. She does have a history of kidney stones but feels that this pain is not as severe as when she has had kidney stones. This pain is more constant and steady. She also has had nausea and not been able to eat or drink well. 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 She did take Pyridium to try and help with the bladder pain and spasms. She reported having some diarrhea as well. She is having chills today. Her temperature on arrival to the ED was 36.6 Celsius on an ear thermometer Timing/Duration: 3-4 Days, Getting Worse Severity: Severe Modifying Factors: worse with Other (urination makes her symptoms worse) Associated Systoms: No Chest Pain, No Cough, No Diaphoresis; Fever/Chills (chills); No Headaches; Loss of Appetite, Malaise, Nausea/Vomiting (gagging when she tries to eat today. Has gastric sleeve so unable to vomit); No Rash, No Seizure; Shortness of Air; No Syncope; Weakness Allergies and Home Medications Allergies Coded Allergies: latex (Verified Allergy, Unknown, 11/15/19) Patient Home Medication List Home Medication List Reviewed: Yes Azithromycin (Azithromycin) 500 Mg Tablet, 500 MG PO DAILY Prescribed by: GEOVANY CARROLL MD on 03/14/221515 Cefdinir (Cefdinir) 300 Mg Capsule, 300 MG PO BID Prescribed by: COTY MURPHY on 02/06/222202 Cefpodoxime Proxetil (Cefpodoxime Proxetil) 200 Mg Tablet, 200 MG PO Q12H Prescribed by: GEOVANY CARROLL MD on 03/14/221515 Ciprofloxacin HCl (Ciprofloxacin HCl) 500 Mg Tablet, 500 MG PO BID Prescribed by: GREY LONGORIA on 04/22/201804 Hydrocodone Bit/Acetaminophen (HYDROcodone/APAP 5 MG/325 MG TAB) 1 Tab Tab, 1 TAB PO Q6H PRN for PAIN-SEVERE (8-10) Prescribed by: COTY MURPHY on 02/06/222107 Hydrocodone/Acetaminophen (Hydrocodone-Acetamin 5-325 mg) 1 Each Tablet, 1 EACH PO Q6H PRN for PAIN-BREAKTHROUGH Prescribed by: GREY LONGORIA on 04/22/201804 Ibuprofen (Ibuprofen) 600 Mg Tablet, 600 MG PO Q6H PRN for PAIN-MILD Prescribed by: BLAYNE OBREGON on 08/22/21 153 Ketorolac Tromethamine (Ketorolac Tromethamine) 10 Mg Tablet, 10 MG PO Q8H PRN for PAIN-MODERATE (5-7) Prescribed by: COTY MURPHY on 02/06/222107 Ondansetron (Ondansetron Odt) 4 Mg Tab.rapdis, 4 MG PO Q6H PRN for NAUSEA/VOMIT ING Prescribed by: BLAYNE OBREGON on 08/22/211537 Ondansetron (Ondansetron Odt) 4 Mg Tab.rapdis, 4 MG PO Q6H PRN for NAUSEA/VOMITING-1ST LINE Prescribed by: COTY MURPHY on 02/06/222107 Oxycodone HCl (Oxycodone HCl) 10 Mg Tablet, 10 MG PO Q6H PRN for PAIN SEVERE Prescribed by: LAWSON BARNES on 03/14/23 183 Oxycodone HCl/Acetaminophen (Percocet 5-325 mg Tablet) 1 Each Tablet, 1 TAB PO Q4H Prescribed by: BLAYNE OBREGON on 08/22/21 153 Tamsulosin HCl (Flomax) 0.4 Mg Cap, 0.4 MG PO DAILY Prescribed by: GREY LONGORIA on 04/22/20 180 Tamsulosin HCl (Flomax) 0.4 Mg Cap, 0.4 MG PO DAILY Prescribed by: LAWSON BARNES on 03/14/23 1830 Review of Systems Review of Systems Constitutional: chills, malaise, weakness EENTM: no symptoms reported Respiratory: see HPI Cardiovascular: No chest pain Gastrointestinal: see HPI Genitourinary: see HPI, dysuria, pain (bilateral flank pain and suprapubic pain) Musculoskeletal: no symptoms reported Skin: No rash Psychiatric/Neurological: See HPI, Anxiety Past Sgnxplm-Hpgonu-Viwgfj Hx Patient Social History Tobacco Use?: No Use of E-Cig and/or Vaping dev: No Substance use?: No Alcohol Use?: No Immunizations Up To Date First/Initial COVID19 Vaccinat: Not currently vaccinated Second COVID19 Vaccination Oleksandr: Not currently vaccinated Third COVID19 Vaccination Date: Not currently vaccinated Seasonal Allergies Seasonal Allergies: No Past Medical History Surgery/Hospitalization HX: Hysterectomy, Gastric sleeve surgery at with Dr. 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, Endometriosis, Cholecystitis February 2023 Surgeries: Yes Abdominal, Hysterectomy Respiratory: Yes (Covid Long Hauler syndrome) Cardiac: No Neurological: No Female Reproductive Disorders: Endometriosis, Polycystic Ovarian Dis [employer] History: Hysterectomy Sexually Transmitted Disease: Yes Genitourinary: Yes (IBS) Kidney Stones Gastrointestinal: No Musculoskeletal: Yes Degenerate Disk Disease, Chronic Back Pain Endocrine: No HEENT: No Cancer: No Psychosocial: No Integumentary: No Physical Exam Vital Signs Vital Signs - First Documented 03/14/23 16:19 Pulse 89 Resp 16 B/P (MAP) 136/94 (108) Pulse Ox 96 O2 Delivery Room Air Capillary Refill : Height, Weight, BMI Height: '" Weight: lbs. oz. kg; 30.00 BMI Method: General Appearance: Anxious (appears to not feel well) HEENT: PERRL/EOMI, Pharynx Normal Neck: Full Range of Motion, Normal Inspection, Non Tender, Supple Respiratory: Chest Non Tender, Lungs Clear, Normal Breath Sounds, No Accessory Muscle Use, No Respiratory Distress Cardiovascular: Regular Rate, Rhythm, Normal Peripheral Pulses Gastrointestinal: Normal Bowel Sounds, No Pulsatile Mass, Soft, Tenderness (diffuse tenderness that is worse over suprapubic area and into both flanks) Back: CVA Tenderness (L), CVA Tenderness (R) Extremity: Normal Capillary Refill, Normal Inspection, No Pedal Edema Neurologic/Psychiatric: Alert, Oriented x3, linoleum floor layer II-XII Norm as Tested Skin: Normal Color, Warm/Dry Focused Exam Lactate Level 03/14/23 16:40: Lactic Acid Level 0.92 Lactic Acid Level Laboratory Tests Test 03/14/23 16:40 Lactic Acid Level 0.92 MMOL/L (0.50-2.00) Progress/Results/Core Measures Suspected Sepsis SIRS Temperature: Pulse: 89 Respiratory Rate: 16 Laboratory Tests 03/14/23 16:40: White Blood Count 7.8 Blood Pressure 136 /94 Mean: 108 03/14/23 16:40: Lactic Acid Level 0.92 Laboratory Tests 03/14/23 16:40: Creatinine 0.64, Platelet Count 347, Total Bilirubin 0.6 Results/Orders Lab Results Laboratory Tests Test 03/14/23 16:40 03/14/23 16:50 Range/Units White Blood Count 7.8 4.3-11.0 10^3/uL Red Blood Count 4.40 3.80-5.11 10^6/uL Hemoglobin 13.4 11.5-16.0 g/dL Hematocrit 39 35-52 % Mean Corpuscular Volume 90 80-99 fL Mean Corpuscular Hemoglobin 31 25-34 pg Mean Corpuscular Hemoglobin Concent 34 32-36 g/dL Red Cell Distribution Width 13.2 10.0-14.5 % Platelet Count 347 130-400 10^3/uL Mean Platelet Volume 9.7 9.0-12.2 fL Immature Granulocyte % (Auto) 0 % Neutrophils (%) (Auto) 63 42-75 % Lymphocytes (%) (Auto) 28 12-44 % Monocytes (%) (Auto) 8 0-12 % Eosinophils (%) (Auto) 1 0-10 % Basophils (%) (Auto) 1 0-10 % Neutrophils # (Auto) 4.9 1.8-7.8 10^3/uL Lymphocytes # (Auto) 2.1 1.0-4.0 10^3/uL Monocytes # (Auto) 0.6 0.0-1.0 10^3/uL Eosinophils # (Auto) 0.0 0.0-0.3 10^3/uL Basophils # (Auto) 0.0 0.0-0.1 10^3/uL Immature Granulocyte # (Auto) 0.0 0.0-0.1 10^3/uL Sodium Level 141 135-145 MMOL/L Potassium Level 3.8 3.6-5.0 MMOL/L Chloride Level 104 98-107 MMOL/L Carbon Dioxide Level 25 21-32 MMOL/L Anion Gap 12 5-14 MMOL/L Blood Urea Nitrogen 7 7-18 MG/DL Creatinine 0.64 0.60-1.30 MG/DL Estimat Glomerular Filtration Rate 115 BUN/Creatinine Ratio 11 Glucose Level 104 70-105 MG/DL Lactic Acid Level 0.92 0.50-2.00 MMOL/L Calcium Level 9.7 8.5-10.1 MG/DL Corrected Calcium 9.7 8.5-10.1 MG/DL Total Bilirubin 0.6 0.1-1.0 MG/DL Aspartate Amino Transf (AST/SGOT) 26 5-34 U/L Alanine Aminotransferase (ALT/SGPT) 39 0-55 U/L Alkaline Phosphatase 99 40-136 U/L Total Protein 7.1 6.4-8.2 GM/DL Albumin 4.0 3.2-4.5 GM/DL Lipase 26 8-78 U/L Urine Color ORANGE Urine Clarity CLEAR Urine pH 6.5 5-9 Urine Specific Pelzer 1.025 H 1.016-1.022 Urine Protein 2+ H NEGATIVE Urine Glucose (UA) 2+ H NEGATIVE Urine Ketones 3+ H NEGATIVE Urine Nitrite POSITIVE H NEGATIVE Urine Bilirubin 3+ H NEGATIVE Urine Urobilinogen >=8.0 < = 1.0 MG/DL Urine Leukocyte Esterase 1+ H NEGATIVE Urine RBC (Auto) NEGATIVE NEGATIVE Urine RBC NONE /HPF Urine WBC NONE /HPF Urine Squamous Epithelial Cells NONE /HPF Urine Crystals PRESENT H /LPF Urine Bacteria LARGE H /HPF Urine Casts NONE /LPF Urine Mucus NEGATIVE /LPF Urine Other SULFA CRYSTALS /HPF Urine Culture Indicated YES My Orders Orders - LAWSON BARNES MD Comprehensive Metabolic Panel (03/14/23 16:25) Lipase (03/14/23 16:25) Ua Culture If Indicated (03/14/23 16:25) Ed Iv/Invasive Line Start (03/14/23 16:25) Cbc With Automated Diff (03/14/23 16:25) Ns Iv 1000 Ml (Sodium Chloride 0.9%) (03/14/23 16:25) Ondansetron Injection (Zofran Injectio (03/14/23 16:25) Ceftriaxone Pre-Mix (Rocephin Pre-Mix) (03/14/23 16:25) Blood Culture (03/14/23 16:37) Lactic Acid Analyzer (03/14/23 16:37) Ketorolac Injection (Toradol Injection) (03/14/23 16:37) Ct Abdomen/Pelvis Wo (03/14/23 16:37) Urine Culture (03/14/23 16:50) Ns Iv 1000 Ml (Sodium Chloride 0.9%) (03/14/23 17:10) Strain Urine (03/14/23 17:40) Vital Signs/I&O 03/14/23 16:19 Pulse 89 Resp 16 B/P (MAP) 136/94 (108) Pulse Ox 96 O2 Delivery Room Air Capillary Refill : Blood Pressure Mean: 108 Progress Note #1: Progress Note Potential diagnosis of sepsis, dehydration, pyelonephritis, cystitis, kidney stones, colitis, diverticulitis. Obtain peripheral IV access and send blood work for complete blood count, c omprehensive metabolic profile, lipase, urinalysis, blood cultures, lactic acid. Ordered a CT scan of the abdomen pelvis without IV contrast to evaluate for possible kidney stone versus pyelonephritis versus cystitis versus colitis versus diverticulitis. Administer normal saline 1 L IV fluid bolus for hydration, Toradol 15 mg IV for pain, Zofran 4 mg IV for nausea and vomiting. Progress Note #2: Progress Note Her complete blood count does not show an elevated white blood cell count as it is only 7.8. Her lactic acid was negative at 0.92. Her creatinine was normal at 0.64. She had no acute significant electrolyte abnormality. Her urinalysis appears concentrated with specific gravity greater than 1.030. She did have ketones as well as nitrites and leukocyte esterase on the urinalysis. Will order a second liter of normal saline for additional hydration. On my personal interpretation and review of her CT scan of the abdomen pelvis without contrast I did see nonobstructing kidney stones in both kidneys. I did not see any definite stone in the ureter. Progress Note #3: Progress Note I reviewed the radiologist report and they did see a 3 mm distal left ureter stone with mild obstruction. Patient did not have any stranding around the kidneys to indicate pyelonephritis. She also did not have other acute intra- abdominal pathology. Patient was doing better after second liter of normal saline. Discharged with strainer for her urine, prescription for oxycodone 10 m g p.o. every 6 hours as needed severe pain and tamsulosin 0.4 mg p.o. daily for renal colic. Encouraged to follow-up with primary care and urology. Push fluids and hydration. She was given 1 g of Rocephin IV here in the ED for UTI and she should continue with her oral antibiotics. She was concerned about having diarrhea so advised that the oxycodone will slow her bowels and if that is not enough she could take some Imodium [id number] to try and help with diarrhea. Initial prescriptions for oxycodone 10 mg p.o. every 6 hours as needed severe pain and tamsulosin 0.4 mg p.o. daily for renal colic were sent to [facility]. However patient came back shortly after discharge and stated that [facility] pharmacy had already closed and requesting the prescriptions to be sent to [facility]. I transferred the prescriptions in the computer and the EMR sent notification to [facility] about canceling the prescriptions. Diagnostic Imaging Diagonstic Imaging: CT Plain Films/CT/US/NM/MRI: abdomen, pelvis Comments [facility] [place], [place] NAME: ALMAZ DAS [facility] REC#: [id number] PT STATUS: REG ER : 1980 PHYSICIAN: LAWSON BARNES MD ADMIT DATE: 03/14/23/ER FS Signed Date of Exam:03/14/23 CT ABDOMEN/PELVIS WO PROCEDURE: CT abdomen and pelvis without contrast. TECHNIQUE: Multiple contiguous axial images were obtained through the abdomen and pelvis without the use of intravenous contrast. Auto Exposure Controls were utilized during the CT exam to meet ALARA standards for radiation dose reduction. DATE: March 14, 2023. COMPARISON: CT abdomen and pelvis February 15, 2023. INDICATION: 42-year-old female, bilateral flank pain, nausea. History of renal stones. FINDINGS: There are limitations for evaluation of the abdominal organs, neoplastic processes, abscess and limited evaluation of the vasculature relating to the lack of intravenous contrast. There are linear opacities in the lung bases most likely reflecting scarring. The heart is not enlarged. There is no identified pericardial effusion. The liver is unremarkable in size and contour. The gallbladder is surgically absent. There is no biliary ductal dilation. The main pancreatic duct is not abnormally dilated. Unremarkable noncontrast assessment of the pancreatic parenchyma. The spleen is normal in size. The adrenal glands are unremarkable. There is a nonobstructing 4 mm right renal stone on axial image 65. There is a 2 mm nonobstructing left renal stone on axial image 82. There are punctate additional nonobstructing left renal stones. The urinary collecting systems are not distended. There is a 2 mm stone in the left distal ureter on axial image 182. This is just proximal to the ureterovesical junction. The urinary bladder is underdistended and otherwise grossly unremarkable in appearance. There is a low-attenuation right adnexal lesion on axial image 173 measuring 2.8 cm in size most likely reflecting an ovarian follicle or cyst. This is essentially unchanged. The intestinal tract is not distended. The appendix is well-seen on axial image 146 and adjacent sequential images. There is no evidence of acute appendicitis. There are postoperative related changes along the stomach. There is no free intraperitoneal air. There is no drainable fluid collection. There is no sizable volume free fluid in the abdomen or pelvis. There is no identified abnormally enlarged lymph node in the abdomen or pelvis which meets CT size criteria for adenopathy. There is transitional lumbosacral anatomy. 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 There is severe disc height loss at L4-L5. IMPRESSION: CT abdomen and pelvis: 1. 3 mm stone in the left distal ureter just proximal to the ureterovesical junction without hydronephrosis. 2. Additional nonobstructing renal stones, bilaterally. 3. Mild scarring in the lung bases. Dictated by: Dictated on workstation # [id number] Dict: 03/14/23 170 Trans: 03/14/231724 [facility] [id number] Interpreted by: GIOVANNI NOBLE MD Electronically signed by: GIOVANNI NOBLE MD 03/14/23 2623 Reviewed: Reviewed by Me Departure Impression Primary Impression: Calculus of distal left ureter Additional Impressions: Acute cystitis without hematuria Bilateral flank pain Dehydration Disposition: 01 HOME, SELF-CARE Condition: Improved Departure-Patient Inst. Decision time for Depature: 17:42 Referrals: SAAD YIN DO (PCP) Primary Care Physician Patient Instructions: Flank Pain ED, Urinary Tract Infection, Adult ED, Dehydration, Adult ED, Kidney Stone, Adult ED, How to Strain Your Urine Add. Discharge Instructions: To keep sipping on fluids to stay hydrated. Take the full course of antibiotics to treat for urinary tract infection. Use the Flomax once a day to help with relaxing the ureter to allow the kidney stone to pass easier. For severe pain you could use the oxycodone pill. This will also slow down your bowels and can cause constipation. You could also try taking some Imodium [id number]-owacnac to help with loose stools. All discharge instructions reviewed with patient and/or family. Voiced understanding. Scripts Oxycodone HCl (Oxycodone HCl) 10 Mg Tablet 10 MG PO Q6H PRN for PAIN SEVERE for 3 Days, #12 TAB 0 Refills Prov: LAWSON BARNES MD 03/14/23 Tamsulosin HCl (Flomax) 0.4 Mg Cap 0.4 MG PO DAILY for renal colic for 5 Days, #5 CAP 0 Refills Prov: LAWSON BARNES MD 03/14/23 LAWSON BARNES MD Mar 14, 2023 16:46
[2023-03-14 16:58] LABS: CLARITY,URINE CLEAR; GLUCOSE, URINE (UA) 2+ (NEGATIVE); KETONES,URINE 3+ (NEGATIVE); LEUKOCYTE ESTERASE ,URINE 1+ (NEGATIVE); NITRITE,URINE POSITIVE (NEGATIVE); PH,URINE 6.5 (5-9); PROTEIN,URINE 2+ (NEGATIVE)
[2023-03-14 17:02] LABS: BACTERIA,URINE LARGE /HPF; BILIRUBIN,URINE 3+ (NEGATIVE); COLOR,URINE ORANGE; URINE OTHER SULFA CRYSTALS /HPF
[2023-03-14 17:07] LABS: BILIRUBIN,TOTAL 0.6 MG/DL (0.1-1.0); CALCIUM 9.7 MG/DL (8.5-10.1); CREATININE SERUM 0.64 MG/DL (0.60-1.30); POTASSIUM 3.8 MMOL/L (3.6-5.0); TOTAL PROTEIN 7.1 GM/DL (6.4-8.2)
--- NOTE | 2023-03-14 17:24 | Diagnostic Imaging Report ---
PROCEDURE: CT abdomen and pelvis without contrast. TECHNIQUE: Multiple contiguous axial images were obtained through the abdomen and pelvis without the use of intravenous contrast. Auto Exposure Controls were utilized during the CT exam to meet ALARA standards for radiation dose reduction. DATE: March 14, 2023. COMPARISON: CT abdomen and pelvis February 15, 2023. INDICATION: 42-year-old female, bilateral flank pain, nausea. History of renal stones. FINDINGS: There are limitations for evaluation of the abdominal organs, neoplastic processes, abscess and limited evaluation of the vasculature relating to the lack of intravenous contrast. There are linear opacities in the lung bases most likely reflecting scarring. The heart is not enlarged. There is no identified pericardial effusion. The liver is unremarkable in size and contour. The gallbladder is surgically absent. There is no biliary ductal dilation. The main pancreatic duct is not abnormally dilated. Unremarkable noncontrast assessment of the pancreatic parenchyma. The spleen is normal in size. The adrenal glands are unremarkable. There is a nonobstructing 4 mm right renal stone on axial image 65. There is a 2 mm nonobstructing left renal stone on axial image 82. There are punctate additional nonobstructing left renal stones. The urinary collecting systems are not distended. There is a 2 mm stone in the left distal ureter on axial image 182. This is just proximal to the ureterovesical junction. The urinary bladder is underdistended and otherwise grossly unremarkable in appearance. There is a low-attenuation right adnexal lesion on axial image 173 measuring 2.8 cm in size most likely reflecting an ovarian follicle or cyst. This is essentially unchanged. The intestinal tract is not distended. The appendix is well-seen on axial image 146 and adjacent sequential images. There is no evidence of acute appendicitis. There are postoperative related changes along the stomach. There is no free intraperitoneal air. There is no drainable fluid collection. There is no sizable volume free fluid in the abdomen or pelvis. There is no identified abnormally enlarged lymph node in the abdomen or pelvis which meets CT size criteria for adenopathy. There is transitional lumbosacral anatomy. 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 There is severe disc height loss at L4-L5. IMPRESSION: CT abdomen and pelvis: 1. 3 mm stone in the left distal ureter just proximal to the ureterovesical junction without hydronephrosis. 2. Additional nonobstructing renal stones, bilaterally. 3. Mild scarring in the lung bases. Dictated by: Dictated on workstation # [id number]
[2023-03-14] MEDS ORDERED: TMSL.4C PO ×2 (17:31→18:30)
[2023-03-14] MEDS ORDERED: ACHD5005 PO (17:31)
[2023-03-14] MEDS ORDERED: OXYC10TA7 PO ×2 (17:33→18:30)
== END 2023-03-14 18:00 | disposition home or self-care (01) ==
LOC: EDUNIT# 15:58 → ER FS 16:00
DX: N20.2 Calculus of kidney with calculus of ureter (principal); N30.00 Acute cystitis without hematuria; E86.0 Dehydration; Z91.040 Latex allergy status; Z28.310 Unvaccinated for COVID-19; Z86.16 Personal history of COVID-19
CPT/HCPCS: 36415; 74176; 80053; 81000; 83605; 83690; 85025; 87040; 87088

== ENCOUNTER → 2023-03-23 | Outpatient (CLI) | payer BC, MEDICAID ==
[~2023-03-23] MED LIST changes: +OXYC10TA7 PO
--- NOTE | 2023-03-23 18:16 | Diagnostic Imaging Report ---
INDICATION: CALCULUS OF KIDNEY, DYSURIA, UTI COMPARISON: CT abdomen and pelvis dated 03/14/2023 FINDINGS: Two frontal radiographic views of the abdomen were obtained and demonstrate nondistended loops of small bowel. There is no large collection of free peritoneal air. Mild air and stool are seen scattered throughout the colon. No unexpected radiopaque foreign bodies are seen. There is subtle extraosseous calcification projecting over the right upper abdominal quadrant that measures 2 to 3 mm in diameter and may correspond to renal calculus described on previous CT. Bony structures show no gross acute abnormalities. IMPRESSION: 1. Nonobstructed small bowel gas pattern. 2. Possible right renal calculus Dictated by: Dictated on workstation # [id number]
== END ==
LOC: RAD FS 17:48
PROVIDERS: ATTEND Nurse Practitioner Family
DX: N20.0 Calculus of kidney (principal); N39.0 Urinary tract infection, site not specified; R30.0 Dysuria
CPT/HCPCS: 74018

== ENCOUNTER 2023-03-26 13:41 | Emergency (ER) | payer BC, MEDICAID ==
[~2023-03-26] VITALS: Ht 167 cm; Wt 82.0 kg
[2023-03-26 13:53] VITALS: BP 131/92
[2023-03-26] MEDS ORDERED: KETOROLAC 30 MG/ML VIAL IVP ONE (14:00)
[2023-03-26] MEDS ORDERED: NS IV 1000 ML 1,000 ML IV SCH (14:00)
[2023-03-26 14:01] LABS: CLARITY,URINE CLEAR; COLOR,URINE ORANGE; GLUCOSE, URINE (UA) 1+ (NEGATIVE); KETONES,URINE NEGATIVE (NEGATIVE); LEUKOCYTE ESTERASE ,URINE TRACE (NEGATIVE); NITRITE,URINE POSITIVE (NEGATIVE); PH,URINE 5.5 (5-9); PROTEIN,URINE 1+ (NEGATIVE)
--- NOTE | 2023-03-26 14:01 | ED GU-Female ---
General Chief Complaint: - Reproductive Stated Complaint: UTI; AJ FLANK PAIN Nursing Triage Note: Patient has presented to ER with ongoing problems with a UTI and kidney stone. She reports that her UTI has worsened and she continues to have lower back and right side lower back pain. She states that she has been taking pyridium for the pain. She states that she is on a 2nd round of antibiotics. She called her doctor and she was advised to go to ER for evaluation. Source: patient Exam Limitations: no limitations History of Present Illness Date Seen by Provider: Mar 26, 2023 Time Seen by Provider: 13:49 Initial Comments 42-year-old female presents to the emergency department today for bilateral suprapubic and bilateral flank pains. Symptoms have been present since 03/14 when she was seen here initially. She was ultimately diagnosed with a left distal ureteral stone at 3 mm and a urinary tract infection. She was given Rocephin and antibiotics. Since then she has had a second round of antibiotics. She denies any fevers or chills. She has had progressively worsening pain. She was given oxycodone at her last visit which she states helps intermittently. She is having dysuria. No hematuria. She has had a hysterectomy but does still have her ovaries. She also had a gastric sleeve in November. All other systems reviewed and negative except documented per HPI. Voice recognition software was used to help create this chart Allergies and Home Medications Allergies Coded Allergies: latex (Verified Allergy, Unknown, 11/15/19) Patient Home Medication List Home Medication List Reviewed: Yes Azithromycin (Azithromycin) 500 Mg Tablet, 500 MG PO DAILY Prescribed by: GEOVANY CARROLL MD on 03/14/22 151 Cefdinir (Cefdinir) 300 Mg Capsule, 300 MG PO BID Prescribed by: COTY MURPHY on 02/06/22 2203 Cefpodoxime Proxetil (Cefpodoxime Proxetil) 200 Mg Tablet, 200 MG PO Q12H Prescribed by: GEOVANY CARROLL MD on 03/14/22 151 Ciprofloxacin HCl (Ciprofloxacin HCl) 500 Mg Tablet, 500 MG PO BID Prescribed by: GREY LONGORIA on 04/22/20 1805 Hydrocodone Bit/Acetaminophen (HYDROcodone/APAP 5 MG/325 MG TAB) 1 Tab Tab, 1 TAB PO Q6H PRN for PAIN-SEVERE (8-10) Prescribed by: COTY MURPHY on 02/06/222107 Hydrocodone/Acetaminophen (Hydrocodone-Acetamin 5-325 mg) 1 Each Tablet, 1 EACH PO Q6H PRN for PAIN-BREAKTHROUGH Prescribed by: GREY LONGORIA on 04/22/201804 Ibuprofen (Ibuprofen) 600 Mg Tablet, 600 MG PO Q6H PRN for PAIN-MILD Prescribed by: BLAYNE OBREGON on 08/22/211537 Ketorolac Tromethamine (Ketorolac Tromethamine) 10 Mg Tablet, 10 MG PO Q8H PRN for PAIN-MODERATE (5-7) Prescribed by: COTY MURPHY on 02/06/222107 Ondansetron (Ondansetron Odt) 4 Mg Tab.rapdis, 4 MG PO Q6H PRN for NAUSEA/VOMITING Prescribed by: BLAYNE OBREGON on 08/22/211537 Ondansetron (Ondansetron Odt) 4 Mg Tab.rapdis, 4 MG PO Q6H PRN for NAUSEA/VOMITING-1ST LINE Prescribed by: COTY MURPHY on 02/06/222107 Oxycodone HCl (Oxycodone HCl) 10 Mg Tablet, 10 MG PO Q6H PRN for PAIN SEVERE Prescribed by: LAWSON BARNES on 03/14/23 183 Oxycodone HCl/Acetaminophen (Percocet 5-325 mg Tablet) 1 Each Tablet, 1 TAB PO Q4H Prescribed by: BLAYNE OBREGON on 08/22/21 153 Tamsulosin HCl (Flomax) 0.4 Mg Cap, 0.4 MG PO DAILY Prescribed by: GREY LONGORIA on 04/22/201804 Tamsulosin HCl (Flomax) 0.4 Mg Cap, 0.4 MG PO DAILY Prescribed by: LAWSON BARNES on 03/14/23 183 Review of Systems Review of Systems Constitutional: see HPI Past [id number]-[id number] Hx Patient Social History Tobacco Use?: No Use of E-Cig and/or Vaping dev: No Substance use?: No Alcohol Use?: No Immunizations Up To Date First/Initial COVID19 Vaccinat: Not currently vaccinated Second COVID19 Vaccination Oleksandr: Not currently vaccinated Third COVID19 Vaccination Date: Not currently vaccinated Seasonal Allergies Seasonal Allergies: No Past Medical History Surgery/Hospitalization HX: Hysterectomy, Gastric sleeve surgery at with Dr. 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 oz. kg; 29.00 BMI Method: General Appearance: WD/WN, no apparent distress HEENT: normal ENT inspection, pharynx normal Neck: non-tender, supple, normal inspection Cardiovascular: regular rate, rhythm Respiratory: chest non-tender, lungs clear, normal breath sounds, no respiratory distress, no accessory muscle use Gastrointestinal: normal bowel sounds, soft, no organomegaly, tenderness (Tenderness palpation bilateral suprapubic region and bilateral flank. No rebound tenderness. There is voluntary guarding.) Back: normal inspection, no vertebral tenderness, CVA tenderness (R), CVA tenderness (L) Extremities: normal range of motion, non-tender, normal inspection Neurologic/Psychiatric: alert, normal mood/affect, oriented x 3 Skin: normal color, warm/dry Progress/Results/Core Measures Suspected Sepsis SIRS Temperature: Pulse: 84 Respiratory Rate: 16 Laboratory Tests 03/26/23 14:00: White Blood Count 7.5 Blood Pressure 131 /92 Mean: 105 Laboratory Tests 03/26/23 14:00: Creatinine 0.61, Platelet Count 356, Total Bilirubin 0.6 Results/Orders Lab Results Laboratory Tests Test 03/26/23 13:53 03/26/23 14:00 Range/Units Urine Color ORANGE Urine Clarity CLEAR Urine pH 5.5 5-9 Urine Specific [place] <=1.005 1.016-1.022 Urine Protein 1+ H NEGATIVE Urine Glucose (UA) 1+ H NEGATIVE Urine Ketones NEGATIVE NEGATIVE Urine Nitrite POSITIVE H NEGATIVE Urine Bilirubin 1+ H NEGATIVE Urine Urobilinogen 4.0 < = 1.0 MG/DL Urine Leukocyte Esterase TRACE H NEGATIVE Urine RBC (Auto) NEGATIVE NEGATIVE Urine RBC 0-2 /HPF Urine WBC 5-10 H /HPF Urine Squamous Epithelial Cells 2-5 /HPF Urine Crystals NONE /LPF Urine Bacteria NEGATIVE /HPF Urine Casts PRESENT /LPF Urine Hyaline Casts 2-5 H /LPF Urine Mucus NEGATIVE /LPF Urine Culture Indicated YES White Blood Count 7.5 4.3-11.0 10^3/uL Red Blood Count 4.49 3.80-5.11 10^6/uL Hemoglobin 13.8 11.5-16.0 g/dL Hematocrit 41 35-52 % Mean Corpuscular Volume 91 80-99 fL Mean Corpuscular Hemoglobin 31 25-34 pg Mean Corpuscular Hemoglobin Concent 34 32-36 g/dL Red Cell Distribution Width 13.8 10.0-14.5 % Platelet Count 356 130-400 10^3/uL Mean Platelet Volume 10.5 9.0-12.2 fL Immature Granulocyte % (Auto) 0 % Neutrophils (%) (Auto) 65 42-75 % Lymphocytes (%) (Auto) 24 12-44 % Monocytes (%) (Auto) 9 0-12 % Eosinophils (%) (Auto) 2 0-10 % Basophils (%) (Auto) 1 0-10 % Neutrophils # (Auto) 4.9 1.8-7.8 10^3/uL Lymphocytes # (Auto) 1.8 1.0-4.0 10^3/uL Monocytes # (Auto) 0.6 0.0-1.0 10^3/uL Eosinophils # (Auto) 0.1 0.0-0.3 10^3/uL Basophils # (Auto) 0.0 0.0-0.1 10^3/uL Immature Granulocyte # (Auto) 0.0 0.0-0.1 10^3/uL Sodium Level 138 135-145 MMOL/L Potassium Level 4.5 3.6-5.0 MMOL/L Chloride Level 104 98-107 MMOL/L Carbon Dioxide Level 22 21-32 MMOL/L Anion Gap 12 5-14 MMOL/L Blood Urea Nitrogen 8 7-18 MG/DL Creatinine 0.61 0.60-1.30 MG/DL Estimat Glomerular Filtration Rate 116 BUN/Creatinine Ratio 13 Glucose Level 108 H 70-105 MG/DL Calcium Level 9.9 8.5-10.1 MG/DL Corrected Calcium 9.7 8.5-10.1 MG/DL Total Bilirubin 0.6 0.1-1.0 MG/DL Aspartate Amino Transf (AST/SGOT) 25 5-34 U/L Alanine Aminotransferase (ALT/SGPT) 23 0-55 U/L Alkaline Phosphatase 100 40-136 U/L Total Protein 7.3 6.4-8.2 GM/DL Albumin 4.3 3.2-4.5 GM/DL My Orders Orders - GENEVIEVE WISE DO Ua Culture If Indicated (03/26/23 13:54) Cbc With Automated Diff (03/26/23 13:54) Comprehensive Metabolic Panel (03/26/23 13:54) Ct Abd/Pelvis Wo(Kidney Stone) (03/26/23 13:54) Ketorolac Injection (Toradol Injection) (03/26/23 14:00) Ns Iv 1000 Ml (Sodium Chloride 0.9%) (03/26/23 14:00) Urine Culture (03/26/23 13:53) Medications Given in ED Current Medications Medications Dose Ordered Sig/Matti Route Start Time Stop Time Status Last Admin Dose Admin Ketorolac Tromethamine 30 mg ONCE ONCE IVP 03/26/23 14:00 03/26/23 14:01 DC 03/26/23 14:06 30 MG Vital Signs/I&O 03/26/23 13:53 Temp 35.3 Pulse 84 Resp 16 B/P (MAP) 131/92 (105) Pulse Ox 96 O2 Delivery Room Air Capillary Refill : Blood Pressure Mean: 105 Departure Communication (Admissions) Patient is hemodynamically stable and nontoxic. She has significant bilateral suprapubic pain and bilateral flank pains. She does have leuk esterase and nitrite in her urine however there is no evidence for continued infection. She has recently been on 2 different rounds of antibiotics and is still on her c urrent antibiotic. We will go ahead and continue this. We had a long discussion about transfer for intervention versus discharge home with pain control and contacting her urologist. She ultimately opts to go home and contact her urologist that she has a family reunion tomorrow that she does not want to miss. Advised return immediately she develops any fevers or pain that is not controlled pain medications. She states understanding. I did advise that she could also go directly to if she wishes to avoid ambulance transport. She states understanding. Impression Primary Impression: Ureterolithiasis Disposition: HOME, SELF-CARE Condition: Stable Departure-Patient Inst. Referrals: SAAD YIN DO (PCP/Family) Primary Care Physician Patient Instructions: Renal Colic, Kidney Stone, Adult ED Add. Discharge Instructions: Continue to take the pain medication as prescribed as needed. Take Toradol first. If this does not help take the narcotic pain medication after that. Increase your fluids at home and rest. Contact your urologist immediately to get in to schedule possible interventions since it appears that your kidney stone is not moving at this time. If you change your mind and decide you want admitted to the hospital you can come back here for transfer or go directly to to avoid ambulance transport. Follow-up with your primary doctor for any nonemergent needs. All discharge instructions reviewed with patient and/or family. Voiced understanding. Scripts Hydrocodone/Acetaminophen (Hydrocodone-Acetamin 5-325 mg) 5 Mg-325 Mg Tablet 1 TAB PO Q4H PRN for PAIN-MODERATE (5-7) for 3 Days, #12 TAB Prov: GENEVIEVE WISE DO 03/26/23 Ketorolac Tromethamine (Ketorolac Tromethamine) 10 Mg Tablet 10 MG PO TID for Pain for 3 Days, #9 TAB Prov: GENEVIEVE WISE DO 03/26/23 GENEVIEVE WISE DO Mar 26, 2023 14:01
[2023-03-26 14:17] LABS: BILIRUBIN,URINE 1+ (NEGATIVE); RBC,URINE 0-2 /HPF
[2023-03-26 14:18] LABS: BACTERIA,URINE NEGATIVE /HPF
[2023-03-26 14:24] LABS: BASOPHILS % (AUTO) 1 % (0-10); EOSINOPHILS # (AUTO) 0.1 10^3/uL (0.0-0.3); EOSINOPHILS % (AUTO) 2 % (0-10); HEMATOCRIT 41 % (35-52); HEMOGLOBIN 13.8 g/dL (11.5-16.0); LYMPHOCYTES # (AUTO) 1.8 10^3/uL (1.0-4.0); LYMPHOCYTES % (AUTO) 24 % (12-44); MEAN CORPUSCULAR HEMOGLOBIN 31 pg (25-34); MEAN CORPUSCULAR HGB CONC 34 g/dL (32-36); MEAN CORPUSCULAR VOLUME 91 fL (80-99); MEAN PLATELET VOLUME 10.5 fL (9.0-12.2); MONOCYTES # (AUTO) 0.6 10^3/uL (0.0-1.0); MONOCYTES % (AUTO) 9 % (0-12); NEUTROPHILS # (AUTO) 4.9 10^3/uL (1.8-7.8); NEUTROPHILS % (AUTO) 65 % (42-75); PLATELET COUNT 356 10^3/uL (130-400); WHITE BLOOD COUNT 7.5 10^3/uL (4.3-11.0)
--- NOTE | 2023-03-26 14:30 | Diagnostic Imaging Report ---
PROCEDURE: CT urinary tract, rule out kidney stone. TECHNIQUE: Multiple contiguous axial images were obtained through the abdomen and pelvis without the use of intravenous contrast. Auto Exposure Controls were utilized during the CT exam to meet ALARA standards for radiation dose reduction. INDICATION: Left flank pain. FINDINGS: There is mild fibrosis at the lung bases. The liver appears normal. The gallbladder is surgically absent. Pancreas appears normal. There are postop changes from a gastric stapling procedure. Spleen is not enlarged. Adrenals are normal. There is a 5 mm calculus in a ventral interpolar calyx of the right kidney. There is a 2 mm calculus in an upper pole calyx of the left kidney and another 2 mm calculus in the lower pole calyx of the left kidney. There is a 3 mm calculus in the distal left ureter at the ureterovesical junction causing slight ureteral dilatation on the left. Small bowel is unremarkable. Appendix is normal. Colon is unremarkable. Urinary bladder is normal. Uterus is surgically absent. Ovaries are unremarkable. IMPRESSION: Bilateral nephrolithiasis. There is a 3 mm stone at the left ureterovesical junction causing minimal obstruction. Dictated by: Dictated on workstation # [id number]
[2023-03-26 14:45] LABS: BILIRUBIN,TOTAL 0.6 MG/DL (0.1-1.0); CALCIUM 9.9 MG/DL (8.5-10.1); CREATININE SERUM 0.61 MG/DL (0.60-1.30); TOTAL PROTEIN 7.3 GM/DL (6.4-8.2)
[2023-03-26 14:46] LABS: ALBUMIN 4.3 GM/DL (3.2-4.5); POTASSIUM 4.5 MMOL/L (3.6-5.0)
[2023-03-26] MEDS ORDERED: ACHD5005 PO (14:58)
[2023-03-26] MEDS ORDERED: KETO10TA PO (14:58)
== END 2023-03-26 15:05 | disposition home or self-care (01) ==
LOC: EDUNIT# 13:41 → ER FS 13:44
DX: N20.1 Calculus of ureter (principal); Z98.84 Bariatric surgery status; Z91.040 Latex allergy status; Z28.310 Unvaccinated for COVID-19
CPT/HCPCS: 36415; 74176; 80053; 81000; 84703; 85025; 87088

== ENCOUNTER 2023-08-30 06:33 | Emergency (ER) | payer BC, MEDICAID ==
[~2023-08-30] VITALS: Ht 162.5 cm; Wt 72.2 kg
[2023-08-30 06:36] VITALS: BP 129/69
[2023-08-30] MEDS ORDERED: NS IV 1000 ML 1,000 ML IV STA (06:47)
[2023-08-30] MEDS ORDERED: METOCLOPRAMIDE INJ 10 MG/2 ML IVP STA (06:47)
[2023-08-30] MEDS ORDERED: KETOROLAC INJ 30 MG/ML VIAL IVP STA (06:47)
--- NOTE | 2023-08-30 06:52 | ED GU-Female ---
General Chief Complaint: Back Problems Stated Complaint: KIDNEY STONES History of Present Illness Date Seen by Provider: Aug 30, 2023 Time Seen by Provider: 06:50 Initial Comments 43-year-old female presents with bilateral flank pain, suprapubic pain. Patient was diagnosed with urinary tract infection a couple days ago and started on Bactrim. She reports that she has a history of kidney stones and feels like maybe she has passed a kidney stone as she has had some worsening pain over the last couple days in her bilateral kidneys. She has a history of ureteral stents from kidney stones. Has some mild nausea. Denies any fevers, chills. (DANIKA PERRY DO) Allergies and Home Medications Allergies Coded Allergies: latex (Verified Allergy, Unknown, 11/15/19) Patient Home Medication List Home Medication List Reviewed: Yes (DANIKA PERRY DO) Home Medication List Reviewed: Yes (LAWSON BARNES MD) Azithromycin (Azithromycin) 500 Mg Tablet, 500 MG PO DAILY Prescribed by: GEOVANY CARROLL MD on 03/14/22 151 Cefdinir (Cefdinir) 300 Mg Capsule, 300 MG PO BID Prescribed by: COTY MURPHY on 02/06/22 220 Cefpodoxime Proxetil (Cefpodoxime Proxetil) 200 Mg Tablet, 200 MG PO Q12H Prescribed by: GEOVANY CARROLL MD on 03/14/22 151 Ciprofloxacin HCl (Ciprofloxacin HCl) 500 Mg Tablet, 500 MG PO BID Prescribed by: GREY LONGORIA on 04/22/20 180 Hydrocodone Bit/Acetaminophen (HYDROcodone/APAP 5 MG/325 MG TAB) 1 Tab Tab, 1 TAB PO Q6H PRN for PAIN-SEVERE (8-10) Prescribed by: COTY MURPHY on 02/06/22 2108 Hydrocodone/Acetaminophen (Hydrocodone-Acetamin 5-325 mg) 1 Each Tablet, 1 EACH PO Q6H PRN for PAIN-BREAKTHROUGH Prescribed by: GREY LONGORIA on 04/22/20 180 Hydrocodone/Acetaminophen (Hydrocodone-Acetamin 5-325 mg) 5 Mg-325 Mg Tablet, 1 TAB PO Q4H PRN for PAIN-MODERATE (5-7) Prescribed by: GENEVIEVE WISE MD on 03/26/23 1459 Ibuprofen (Ibuprofen) 600 Mg Tablet, 600 MG PO Q6H PRN for PAIN-MILD Prescribed by: BLAYNE OBREGON on 08/22/21 153 Ketorolac Tromethamine (Ketorolac Tromethamine) 10 Mg Tablet, 10 MG PO Q8H PRN for PAIN-MODERATE (5-7) Prescribed by: COTY MURPHY on 02/06/222107 Ketorolac Tromethamine (Ketorolac Tromethamine) 10 Mg Tablet, 10 MG PO TID Prescribed by: GENEVIEVE WIES MD on 03/26/23 145 Ondansetron (Ondansetron Odt) 4 Mg Tab.rapdis, 4 MG PO Q6H PRN for NAUSEA/VOMITING Prescribed by: BLAYNE OBREGON on 08/22/21 153 Ondansetron (Ondansetron Odt) 4 Mg Tab.rapdis, 4 MG PO Q6H PRN for NAUSEA/VOMITING-1ST LINE Prescribed by: COTY MURPHY on 02/06/222107 Oxycodone HCl (Oxycodone HCl) 10 Mg Tablet, 10 MG PO Q6H PRN for PAIN SEVERE Prescribed by: LAWSON BARNES on 03/14/23 183 Oxycodone HCl/Acetaminophen (Percocet 5-325 mg Tablet) 1 Each Tablet, 1 TAB PO Q4H Prescribed by: BLAYNE OBREGON on 08/22/21 153 Tamsulosin HCl (Flomax) 0.4 Mg Cap, 0.4 MG PO DAILY Prescribed by: GREY LONGORIA on 04/22/20 180 Tamsulosin HCl (Flomax) 0.4 Mg Cap, 0.4 MG PO DAILY Prescribed by: LAWSON BARNES on 03/14/23 183 Review of Systems Review of Systems Constitutional: No chills, No fever; malaise Cardiovascular: no symptoms reported Gastrointestinal: abdominal pain, nausea Genitourinary: see HPI, dysuria, flank pain, pain Musculoskeletal: no symptoms reported Skin: no symptoms reported Psychiatric/Neurological: No Symptoms Reported (DANIKA PERRY DO) Past Amqaaon-Ozdlwc-Joojln Hx Patient Social History Tobacco Use?: No Substance use?: No Alcohol Use?: No Pt feels they are or have been: No (DANIKA PERRY DO) Immunizations Up To Date First/Initial COVID19 Vaccinat: Not currently vaccinated Second COVID19 Vaccination Oleksandr: Not currently vaccinated Third COVID19 Vaccination Date: Not currently vaccinated (ORLANDODANIKA Lorie DO) Seasonal Allergies Seasonal Allergies: No (PERRYDANIKA L DO) Past Medical History Surgery/Hospitalization HX: Gastric Sleeve in November of 2022, Kidney Stones with surgical intervention and stent placement. 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 oz. kg; 29.00 BMI Method: General Appearance: WD/WN, no apparent distress Neck: full range of motion, supple Cardiovascular: normal peripheral pulses, regular rate, rhythm Respiratory: lungs clear, normal breath sounds Gastrointestinal: tenderness (Suprapubic) Back: CVA tenderness (R), CVA tenderness (L) Extremities: normal range of motion Neurologic/Psychiatric: alert, normal mood/affect, oriented x 3 Skin: normal color, warm/dry (PERRYDANIKA L DO) Progress/Results/Core Measures Suspected Sepsis SIRS Temperature: Pulse: Respiratory Rate: Blood Pressure / Mean: (PERRY,DANIKA L DO) Results/Orders Lab Results Laboratory Tests Test 08/30/23 06:36 08/30/23 06:43 Range/Units Urine Color ORANGE Urine Clarity CLEAR Urine pH 5.5 5-9 Urine Specific [place] >=1.030 1.016-1.022 Urine Protein 2+ H NEGATIVE Urine Glucose (UA) TRACE H NEGATIVE Urine Ketones TRACE H NEGATIVE Urine Nitrite POSITIVE H NEGATIVE Urine Bilirubin 1+ H NEGATIVE Urine Urobilinogen 4.0 < = 1.0 MG/DL Urine Leukocyte Esterase TRACE H NEGATIVE Urine RBC (Auto) NEGATIVE NEGATIVE Urine RBC 5-10 H /HPF Urine WBC NONE /HPF Urine Squamous Epithelial Cells 25-50 H /HPF Urine Crystals PRESENT H /LPF Urine Calcium Oxalate Crystals LARGE H /LPF Urine Bacteria FEW H /HPF Urine Casts NONE /LPF Urine Mucus NEGATIVE /LPF Urine Culture Indicated NO White Blood Count 7.0 4.3-11.0 10^3/uL Red Blood Count 4.47 3.80-5.11 10^6/uL Hemoglobin 13.7 11.5-16.0 g/dL Hematocrit 41 35-52 % Mean Corpuscular Volume 92 80-99 fL Mean Corpuscular Hemoglobin 31 25-34 pg Mean Corpuscular Hemoglobin Concent 33 32-36 g/dL Red Cell Distribution Width 14.0 10.0-14.5 % Platelet Count 334 130-400 10^3/uL Mean Platelet Volume 10.6 9.0-12.2 fL Immature Granulocyte % (Auto) 0 % Neutrophils (%) (Auto) 46 42-75 % Lymphocytes (%) (Auto) 41 12-44 % Monocytes (%) (Auto) 8 0-12 % Eosinophils (%) (Auto) 4 0-10 % Basophils (%) (Auto) 1 0-10 % Neutrophils # (Auto) 3.2 1.8-7.8 10^3/uL Lymphocytes # (Auto) 2.9 1.0-4.0 10^3/uL Monocytes # (Auto) 0.6 0.0-1.0 10^3/uL Eosinophils # (Auto) 0.3 0.0-0.3 10^3/uL Basophils # (Auto) 0.1 0.0-0.1 10^3/uL Immature Granulocyte # (Auto) 0.0 0.0-0.1 10^3/uL Sodium Level 133 L 135-145 MMOL/L Potassium Level 3.3 L 3.6-5.0 MMOL/L Chloride Level 98 98-107 MMOL/L Carbon Dioxide Level 25 21-32 MMOL/L Anion Gap 10 5-14 MMOL/L Blood Urea Nitrogen 11 7-18 MG/DL Creatinine 0.87 0.60-1.30 MG/DL Estimat Glomerular Filtration Rate 86 BUN/Creatinine Ratio 13 Glucose Level 93 70-105 MG/DL Calcium Level 8.9 8.5-10.1 MG/DL Corrected Calcium 8.8 8.5-10.1 MG/DL Total Bilirubin 0.6 0.1-1.0 MG/DL Aspartate Amino Transf (AST/SGOT) 14 5-34 U/L Alanine Aminotransferase (ALT/SGPT) 12 0-55 U/L Alkaline Phosphatase 102 40-136 U/L Total Protein 7.4 6.4-8.2 GM/DL Albumin 4.1 3.2-4.5 GM/DL (LAWSON BARNES MD) My Orders Orders - LAWSON BARNES MD Fentanyl Injection (Fentanyl Injection (08/30/23 07:24) (LAWSON BARNES MD) Vital Signs/I&O 08/30/23 06:36 Temp 35.2 Pulse 81 Resp 16 B/P (MAP) 129/69 (89) Pulse Ox 97 O2 Delivery Room Air (LAWSON BARNES MD) Vital Signs/I&O Capillary Refill : (DANIKA PERRY DO) Progress Note : Progress Note I assumed care of the patient from Dr. Perry at shift change. Patient had labs for complete blood count, comprehensive metabolic profile, urinalysis pending. CT scan of the abdomen pelvis without IV contrast was also pending. She did receive a liter of normal saline for hydration, Toradol 15 mg IV for pain and Reglan 10 mg IV for nausea. 07 CT scan of the abdomen pelvis without IV contrast came back showing no kidney stone or obstruction. There was increased stool present. Previous stone seen at the [facility] was resolved. Her labs did not show an elevated white blood cell count as it was at 7. Her comprehensive metabolic profile did not show acute electrolyte abnormalities and she had normal renal function. Her urinalysis was still showing signs of infection with positive nitrites, positive leukocyte esterase, bacteria. Will order a culture on the urine. Based on previous urine cultures she had grown out lactobacillus several times so we will order Rocephin 1 g IV here. She has been taking Bactrim at home since Thursday so I would expect if it was going to treat the infection should have made her urine more clear by now. Will send an order for Augmentin so that she has a boosted penicillin to try and help with her urine and encouraged her to take it with food as it could irritate her stomach. For pain will prescribe oxycodone as she has tolerated that in the past without difficulty. Her pain was still present after the Toradol she did get 50 mcg of fentanyl which she reports that helped significantly. She does have Zofran at home for nausea so she did not need any of that. Encourage follow-up with primary care and urology as needed. (LAWSON BARNES MD) Diagnostic Imaging Diagonstic Imaging: CT Plain Films/CT/US/NM/MRI: abdomen, pelvis Comments NAME: ALMAZ DAS [facility] REC#: [id number] PT STATUS: REG ER : 1980 PHYSICIAN: DANIKA PERRY DO ADMIT DATE: 08/30/23/ER FS Draft Date of Exam:08/30/23 CT ABDOMEN/PELVIS WO PROCEDURE: CT abdomen and pelvis without contrast. TECHNIQUE: Multiple contiguous axial images were obtained through the abdomen and pelvis without the use of intravenous contrast. Auto Exposure Controls were utilized during the CT exam to meet ALARA standards for radiation dose reduction. INDICATION: History of nephrolithiasis and bilateral flank pain. COMPARED: 03/26/2023. FINDINGS: 5 mm nonobstructing calculus within a right lower renal pole calyx is a stable finding. Previous left UVJ stone has since passed. No radiodense bladder or ureteral calculi at today's study and no perinephric or periureteric edema or stranding. Incidental extraureteral pelvic phleboliths are chronic. The uterus and adnexa appeared nonacute. The appendix air-containing and normal. No diverticulitis. No ileus or bowel obstruction. The gallbladder surgically absent. There is a prior sleeve gastrectomy and a mildly elevated colonic fecal load. No focal impaction or bowel obstruction however aortoiliac vessels nonaneurysmal. No ascites, abscess, hematoma or acute fluid collection. No focal inflammation. No pneumatosis. No free gas. IMPRESSION: 1. Resolution of prior left UVJ stone, stable nonobstructing dominant right renal calculus. No ureteral or bladder stone at followup and no hydroureteronephrosis. 2. Elevated proximal to mid colonic fecal load constipation not excluded but no impaction or obstruction with a normal appendix and no diverticulitis. 3. Prior sleeve gastrectomy and cholecystectomy without CT findings of complication. Dictated on workstation # [id number] Dict: 08/30/2315 Trans: 08/30/23725 CVB [id number] Interpreted by: DEMI HOLT Electronically signed by: Reviewed: Reviewed by Me (LAWSON BARNES MD) Departure Impression Primary Impression: Acute cystitis with hematuria Additional Impression: Flank pain, acute Disposition: 01 HOME, SELF-CARE Condition: Improved Departure-Patient Inst. Decision time for Depature: 07:55 (LAWSON BARNES MD) Referrals: SAAD YIN DO (PCP/Family) Primary Care Physician Patient Instructions: Flank Pain ED, Urinary Tract Infection, Adult ED Add. Discharge Instructions: Stop taking the Bactrim as it does not appear to be treating your infection. Take the boosted amoxicillin, Augmentin, as the new antibiotic. Make sure to take the antibiotic with some food on your stomach. For severe pain you could try using the oxycodone. Try and stay well-hydrated and keep sipping on fluids. Follow-up with primary care and urology as needed for continued concerns. All discharge instructions reviewed with patient and/or family. Voiced understanding. Scripts Oxycodone HCl (Oxycodone HCl) 10 Mg Tablet 10 MG PO Q6H PRN for PAIN SEVERE for 3 Days, #12 TAB 0 Refills Prov: LAWSON BARNES MD 08/30/23 Amoxicillin/Potassium Clav (Amox Tr-K Clv 875-125 mg Tab) 875 Mg-125 Mg Tablet 1 EACH PO BID for UTI for 7 Days, #14 TAB 0 Refills Prov: LAWSON BARNES MD 08/30/23 DANIKA PERRY DO Aug 30, 2023 06:51 LAWSON BARNES MD Aug 30, 2023 07:42
[2023-08-30 07:01] LABS: CLARITY,URINE CLEAR; GLUCOSE, URINE (UA) TRACE (NEGATIVE); KETONES,URINE TRACE (NEGATIVE); LEUKOCYTE ESTERASE ,URINE TRACE (NEGATIVE); NITRITE,URINE POSITIVE (NEGATIVE); PH,URINE 5.5 (5-9); PROTEIN,URINE 2+ (NEGATIVE)
[2023-08-30 07:02] LABS: BILIRUBIN,URINE 1+ (NEGATIVE); COLOR,URINE ORANGE
[2023-08-30 07:04] LABS: BASOPHILS # (AUTO) 0.1 10^3/uL (0.0-0.1); BASOPHILS % (AUTO) 1 % (0-10); EOSINOPHILS # (AUTO) 0.3 10^3/uL (0.0-0.3); EOSINOPHILS % (AUTO) 4 % (0-10); HEMATOCRIT 41 % (35-52); HEMOGLOBIN 13.7 g/dL (11.5-16.0); LYMPHOCYTES # (AUTO) 2.9 10^3/uL (1.0-4.0); LYMPHOCYTES % (AUTO) 41 % (12-44); MEAN CORPUSCULAR HEMOGLOBIN 31 pg (25-34); MEAN CORPUSCULAR HGB CONC 33 g/dL (32-36); MEAN CORPUSCULAR VOLUME 92 fL (80-99); MEAN PLATELET VOLUME 10.6 fL (9.0-12.2); MONOCYTES # (AUTO) 0.6 10^3/uL (0.0-1.0); MONOCYTES % (AUTO) 8 % (0-12); NEUTROPHILS # (AUTO) 3.2 10^3/uL (1.8-7.8); NEUTROPHILS % (AUTO) 46 % (42-75); PLATELET COUNT 334 10^3/uL (130-400)
[2023-08-30 07:07] LABS: BACTERIA,URINE FEW /HPF; CALCIUM OXALATE CRYSTALS,UR LARGE /LPF; SQUAMOUS EPITHELIAL CELL,UR 25-50 /HPF
[2023-08-30 07:18] LABS: BILIRUBIN,TOTAL 0.6 MG/DL (0.1-1.0); CALCIUM 8.9 MG/DL (8.5-10.1); POTASSIUM 3.3 MMOL/L (3.6-5.0); TOTAL PROTEIN 7.4 GM/DL (6.4-8.2)
[2023-08-30 07:22] LABS: CREATININE SERUM 0.87 MG/DL (0.60-1.30)
[2023-08-30 07:23] LABS: ALBUMIN 4.1 GM/DL (3.2-4.5)
[2023-08-30] MEDS ORDERED: fentaNYL INJECTION 100 MCG/2 ML VIAL IVP STA (07:24)
--- NOTE | 2023-08-30 07:28 | Diagnostic Imaging Report ---
PROCEDURE: CT abdomen and pelvis without contrast. TECHNIQUE: Multiple contiguous axial images were obtained through the abdomen and pelvis without the use of intravenous contrast. Auto Exposure Controls were utilized during the CT exam to meet ALARA standards for radiation dose reduction. INDICATION: History of nephrolithiasis and bilateral flank pain. COMPARED: 03/26/2023. FINDINGS: 5 mm nonobstructing calculus within a right lower renal pole calyx is a stable finding. Previous left UVJ stone has since passed. No radiodense bladder or ureteral calculi at today's study and no perinephric or periureteric edema or stranding. Incidental extraureteral pelvic phleboliths are chronic. The uterus and adnexa appeared nonacute. The appendix air-containing and normal. No diverticulitis. No ileus or bowel obstruction. The gallbladder surgically absent. There is a prior sleeve gastrectomy and a mildly elevated colonic fecal load. No focal impaction or bowel obstruction however aortoiliac vessels nonaneurysmal. No ascites, abscess, hematoma or acute fluid collection. No focal inflammation. No pneumatosis. No free gas. IMPRESSION: 1. Resolution of prior left UVJ stone, stable nonobstructing dominant right renal calculus. No ureteral or bladder stone at followup and no hydroureteronephrosis. 2. Elevated proximal to mid colonic fecal load constipation not excluded but no impaction or obstruction with a normal appendix and no diverticulitis. 3. Prior sleeve gastrectomy and cholecystectomy without CT findings of complication. Dictated by: Dictated on workstation # [id number]
[2023-08-30] MEDS ORDERED: cefTRIAXone IV/IM 1,000 MG in NS (IVPB) 50 ML 50 ML IV STA (07:43)
[2023-08-30] MEDS ORDERED: AMOX1TAB12 PO (07:57)
[2023-08-30] MEDS ORDERED: OXYC10TA7 PO (07:57)
== END 2023-08-30 08:02 | disposition home or self-care (01) ==
LOC: EDUNIT# 06:33 → ER FS 06:34
DX: N30.01 Acute cystitis with hematuria (principal); Z91.040 Latex allergy status
CPT/HCPCS: 36415; 74176; 80053; 81000; 85025; 96361; 96374; 96375